=== PATIENT | male | born 1970 | race Caucasian/White ===

== ENCOUNTER 2016-10-11 06:04 | Inpatient (IN) | payer MEDICAID ==
[2016-10-11] MEDS ORDERED: Sodium Chloride 0.9% 1,000 ML IV ONE (06:27)
[2016-10-11 06:42] LABS: % EOSINOPHILS 0.7 % (0.0-5.0); NEUTROPHILE ABSOLUTE 10.3 Th/cmm (1.8-8.0); RED CELL DISTRIBUTION WIDTH 12.7 % (11.5-20.0)
[2016-10-11 06:44] LABS: % BASOPHILS 0.1 % (0.0-2.0); % LYMPHOCYTES 10.7 % (20.0-50.0); % MONOCYTES 4.9 % (2.0-10.0); % NEUTROPHILS 83.6 % (40.0-80.0); HEMOGLOBIN 14.7 gm/dL (13.2-17.3); MEAN CELL VOLUME 95.3 fl (80-99); MEAN CORPUSCULAR HEMOGLOBIN 31.8 pg (26.0-30.0); MEAN CORPUSCULAR HGB CONC 33.4 pg (28.0-36.0); MEAN PLATELET VOLUME 9.5 fl; PLATELET COUNT 222 Th/cmm (150-400); RED BLOOD COUNT 4.61 Mil/cmm (4.30-5.70)
[2016-10-11] MEDS ORDERED: Piperacillin Sodium/Tazobact 3.375 gm Vial IV ONE (06:51)
[2016-10-11 06:52] LABS: ALB/GLOB RATIO 1.1 (1.0-1.8); ALKALINE PHOSPHATASE 77 U/L (34-104); ANION GAP 7.9 (7.0-16.0); BILIRUBIN,TOTAL 0.4 mg/dL (0.3-1.0); BUN - UREA NITROGEN 22 mg/dL (7-25); CALCIUM SERUM 9.9 mg/dL (8.6-10.3); CHLORIDE 105 mEq/L (98-107); CREATININE - SERUM 0.2 mg/dL (0.7-1.3); GLUCOSE 140 mg/dL (70-105); INR 0.98 (0.5-1.4); POTASSIUM SERUM 3.9 mEq/L (3.5-5.1); PROTHROMBIN TIME (TEST) 10.2 SECONDS (9.5-11.5); SGOT 27 U/L (13-39); SGPT/ALT 35 U/L (7-52); SODIUM SERUM 138 mEq/L (136-145)
[2016-10-11 06:54] LABS: HEMATOCRIT 43.9 % (39.0-49.0); WHITE BLOOD COUNT 12.3 Th/cmm (4.8-10.8)
--- NOTE | 2016-10-11 07:08 | ED Physician Chart ---
Chief Complaint/HPI - Patient Information Date Seen:: 10/11/16 Time Seen:: 06:05 Chief Complaint:: fever History of Present Illness:: 46-year-old male history of cerebral palsy, brought in by ambulance from skilled facility with acute, constant, severe, fever that started last night. Patient received rectal 650 mg Tylenol which improved the fever slightly but fever continued. MAXIMUM TEMPERATURE was 103.4F. On arrival he was 102.8F. History limited by patient's underlying cerebral palsy and is unable to communicate [facility] and EMS run sheet Allergies:: Allergies Allergy/AdvReac Type Severity Reaction Status Date / Time No Known Allergies Allergy Verified 10/11/16 06:26 Vitals:: Vital Signs - 8 hr 10/11/16 06:05 Temp 102.8 F HR 115 RR 23 BP 142/96 O2 Sat % 93 Historian:: EMS Review:: Nurse's Note Reviewed, EMS run form Reviewed, Transfer documents Reviewed Review of Systems - Review of Systems Other: Complete system review otherwise unremarkable except as noted in history of present illness. Past Medical History - Past Medical History Past Medical History: Other (profound and social disability, cervical palsy, quadriplegia, history of aspiration pneumonia, dysphagia) Social History: Non Smoker, No Alcohol, No Drug Use, Care Facility Surgical History: None Psychiatricy History: None Medication: Reviewed Family Medical History - Family Member Mother History Unknown: Yes Physical Exam - Physical Examination Other:: INITIAL VITAL SIGNS: Reviewed by me GENERAL: Patient is lying on gurney HEAD: Head is normocephalic. No evidence of trauma. No scalp or facial swelling EYES: No scleral icterus bilaterally ENT: Oropharynx is clear of exudate and erythema NECK: Supple. No meningismus. No masses. No evidence of trauma. No cervical spine bony step-offs or crepitus to palpation RESPIRATORY: Tachypneic. Coarse breath sounds right lower lobe. CV: Regular rate and rhythm. No murmurs, rubs, or gallops ABDOMEN: Soft, non-distended. No masses. G-tube in place. BACK: No ecchymoses. No evidence of trauma EXTREMITIES: Normal to inspection and palpation. Extremities are chronically contracted SKIN: Warm and dry. No obvious rash. No jaundice NEUROLOGIC: Face is symmetric. Withdraws to pain in all extremities Labs/Radiology/EKG Results - Lab Results Results: Laboratory Tests 10/11/16 10/11/16 10/11/16 06:25 06:25 06:25 WBC 12.3 H D RBC 4.61 Hgb 14.7 Hct 43.9 D MCV 95.3 MCH 31.8 H MCHC Differential 33.4 RDW 12.7 Plt Count 222 MPV 9.5 Neutrophils % 83.6 H Lymphocytes % 10.7 L Monocytes % 4.9 Eosinophils % 0.7 Basophils % 0.1 Sodium 138 Potassium 3.9 Chloride 105 Carbon Dioxide 29.0 Anion Gap 7.9 BUN 22 Creatinine 0.2 L Est GFR ( Amer) > 60.0 Est GFR (Non-Af Amer) > 60.0 BUN/Creatinine Ratio 110.0 Glucose 140 H Whole Bld Lactic Acid 1.00 Calcium 9.9 Total Bilirubin 0.4 AST 27 ALT 35 Alkaline Phosphatase 77 Creatine Kinase 368 H Total Protein 8.3 Albumin 4.4 Globulin 3.9 Albumin/Globulin Ratio 1.1 - Radiology Results Results: Single AP VIEW Portable Chest X-ray was interpreted independently and contemporaneously by Tavia Lew MD: No cardiomegaly Normal mediastinum Possible right lower lobe infiltrates No pneumothorax No soft tissue or bony abnormalities - EKG Interpretations Comments:: 12-lead EKG Interpretation by Tavia Lew MD: Last tachycardia with ventricular rate of 123 beats per minute Normal axis Normal intervals No acute ST or T wave changes. No obvious STEMI Assessment - Assessment General Assessment: Critical Care Time: 30 minutes Treatments/Evaluations: Close monitoring and treatment of unstable vital signs, cardiorespiratory, and neurologic status, while maintaining tight balance of fluid, respiratory, and cardiac interventions. This time includes discussing the case with the patient and the patient's family. This time does not include all procedures stated elsewhere in this record. This time also includes reviewing old records, labs and radiological studies. This time includes examining and re-examining the patient. Additionally, this time also includes arranging care with admitting and consulting physicians. Critical Care Time: 30 Excludes all billable procedures: Yes This condition life threatening/high prob of deterioration: Yes ED Septic Shock - . Is Septic Shock (SBP<90, OR Lactate>4 mmol\L) present?: No - <6hrs of presentation: Vital Signs: Vital Signs - 8 hr 10/11/16 06:05 Temp 102.8 F HR 115 RR 23 BP 142/96 O2 Sat % 93 Reassessment (Disposition) - Reassessment Reassessment:: 46-year-old male history of cerebral palsy and profound intellectual disability , history of aspiration pneumonia presents with acute fever. Patient did receive ibuprofen through the G-tube here. Also gave IV fluids. Patient was tachycardic. X-rays indicate possible right lower lobe infiltrates. He is known to aspirate and become septic with aspiration pneumonia. Patient appears septic with tachycardia elevated white count and right lower lobe infiltrates due to likely aspiration pneumonia. We have covered with IV Zosyn for the aspiration pneumonia. Discussed with admitting physician. Patient benefit further workup and treatment. Reassessment Condition:: Unchanged - Diagnosis Diagnosis:: Sepsis, aspiration pneumonia, right lower lobe - Aftercare/Follow up Instructions Aftercare/Follow-Up Instructions:: Counseled pt regarding lab results/diagnosis & need follow up, Refer to Discharge Instructions - Patient Disposition Discharge/Transfer:: Acute Care w/in this hosp Time:: 07:13 Condition at Disposition:: Stable
[2016-10-11 07:33] LABS: URINE BILIRUBIN NEGATIVE (NEGATIVE); URINE BLOOD NEGATIVE (NEGATIVE); URINE COLOR YELLOW; URINE GLUCOSE (UA) NEGATIVE (NEGATIVE); URINE KETONE NEGATIVE (NEGATIVE)
[2016-10-11 07:34] LABS: URINE BACTERIA NONE SEEN /hpf (NONE SEEN); URINE EPITHELIAL CELLS NONE SEEN /lpf (FEW); URINE PH 8.5; URINE PROTEIN 100 mg/dL (NEGATIVE); URINE RBC NONE SEEN /hpf (0-5); URINE UROBILINOGEN 0.2 E.U./dL (0.2 - 1.0); URINE WBC NONE SEEN /hpf (0-5)
--- NOTE | 2016-10-11 09:14 | Diagnostic Imaging Report ---
Portable chest x-ray HISTORY: Pain Exam is very limited due to difficulty in patient positioning. The right lower chest is partially secured by the patient's overlying hand. The heart appears enlarged. Allowing for a poor inspiration, no definite acute focal point processes are seen. Scoliosis and degenerative changes seen through the spine. IMPRESSION: 1. Very Limited/suboptimal exam 2. Allowing for a poor inspiration, no definite focal processes. 3. Scoliosis and degenerative changes seen through the spine.
[2016-10-11] MEDS ORDERED: D5-0.45NS 1,000 ML IV SCH (09:15)
[2016-10-11] MEDS: D5-0.45NS 1,000 ML IV SCH ×2 (10:48→21:00)
--- NOTE | 2016-10-11 11:35 | Admit Criteria Form ---
Admit Criteria Forms - Admit Criteria Diagnosis: SEPSIS and OTHER FEBRILE ILLNESS, W/O FOCAL INFECTION Clinical Indications for Admission to Inpatient Care ( Place 'X' for any and all applicable criteria): Admission is indicated for ANY ONE of the following (1)(2)(3)(4): [ ] I. Bacteremia [X]II. Suspected or identified specific infection requiring hospitalization (eg, meningitis, endocarditis) [ ]III. Hemodynamic instability [ ]IV. Altered mental status [ ]V. Failure or unavailability of outpatient antimicrobial treatment [ ]. Hypoxemia [ ]VII. Seizures [ ]VIII. High-risk febrile neutropenia [ ]IX. Need for parenteral antibiotic in patient who is likely to abuse vascular access device (eg, injection drug user) [A](7) [ ]X. Temperature greater than 104.9 degrees F (40.5 degrees C) (oral) [ ]XI. Inpatient admission required rather than observation care because of ANY ONE of the following: [ ]1) Specific infection identified that is too severe for outpatient treatment or observation care trial [ ]2) Metabolic disorder (eg, hypoglycemia, hyperglycemia, metabolic acidosis) that is severe or persistent [ ]3) Temperature greater than 103.1 degrees F (39.5 degrees C) ( oral) that is not responsive to observation care treatment [ ]4) IV fluid to replace significant ongoing (eg, for over 24 hours) losses (> 3 L/m2 per day) [ ]5) Supplemental oxygen or respiratory treatments for over 24 hours that is performable only in acute inpatient setting [ ]6) Parenteral nutrition regimen need that must be implemented on inpatient basis [ ]7) Strict or protective (eg, laminar flow) isolation [ ]8) Other condition, treatment or monitoring requiring inpatient admission Extended stay beyond goal length of stay may be needed for(1)(3) [ ]a) Sepsis or septic shock(22) [ ]b) Positive blood cultures [ ]c) Insufficient oral intake [ ]d) High-risk febrile neutropenia(29)(30) [ ]e) Continued fever and clinical instability [ ]f) Clinically active comorbid illness (e.g,heart failure, renal failure , diabetes) The original [facility] content created by Cynthia Keen has been revised. The portions of the content which have been revised are identified through the use of italic text or in bold, and Cynthia Herrera[employer]osk has neither reviewed nor approved the modified material. All other unmodified content is copyright [facility]. Please see references footnoted in the original [facility] edition 2016
[2016-10-11] MEDS ORDERED: BISACODYL 10 MG RC PRN (16:24)
[2016-10-11] MEDS ORDERED: Fleet Enema 135 mL RC PRN (16:24)
--- NOTE | 2016-10-11 16:24 | Internal Medicine Prog Note ---
Internal Medicine Subjective - Subjective Service Date: 10/11/16 ([facility] [id number]) Internal Medicine Objective - Results Result Diagrams: 10/11/16 06:25 10/11/16 06:25 Recent Labs: Laboratory Last Values WBC 12.3 Th/cmm (4.8-10.8) H D 10/11/16 06:25 RBC 4.61 Mil/cmm (4.30-5.70) 10/11/16 06:25 Hgb 14.7 gm/dL (13.2-17.3) 10/11/16 06:25 Hct 43.9 % (39.0-49.0) D 10/11/16 06:25 MCV 95.3 fl (80-99) 10/11/16 06:25 MCH 31.8 pg (26.0-30.0) H 10/11/16 06:25 MCHC Differential 33.4 pg (28.0-36.0) 10/11/16 06:25 RDW 12.7 % (11.5-20.0) 10/11/16 06:25 Plt Count 222 Th/cmm (150-400) 10/11/16 06:25 MPV 9.5 fl 10/11/16 06:25 Neutrophils % 83.6 % (40.0-80.0) H 10/11/16 06:25 Lymphocytes % 10.7 % (20.0-50.0) L 10/11/16 06:25 Monocytes % 4.9 % (2.0-10.0) 10/11/16 06:25 Eosinophils % 0.7 % (0.0-5.0) 10/11/16 06:25 Basophils % 0.1 % (0.0-2.0) 10/11/16 06:25 PT 10.2 SECONDS (9.5-11.5) 10/11/16 06:25 INR 0.98 (0.5-1.4) 10/11/16 06:25 PTT (Actin FS) 26.5 SECONDS (26.0-38.0) 10/11/16 06:25 Sodium 138 mEq/L (136-145) 10/11/16 06:25 Potassium 3.9 mEq/L (3.5-5.1) 10/11/16 06:25 Chloride 105 mEq/L (98-107) 10/11/16 06:25 Carbon Dioxide 29.0 mEq/L (21.0-31.0) 10/11/16 06:25 Anion Gap 7.9 (7.0-16.0) 10/11/16 06:25 BUN 22 mg/dL (7-25) 10/11/16 06:25 Creatinine 0.2 mg/dL (0.7-1.3) L 10/11/16 06:25 Est GFR ( Amer) > 60.0 ml/min (>90) 10/11/16 06:25 Est GFR (Non-Af Amer) > 60.0 ml/min 10/11/16 06:25 BUN/Creatinine Ratio 110.0 10/11/16 06:25 Glucose 140 mg/dL (70-105) H 10/11/16 06:25 Whole Bld Lactic Acid 1.00 mmol/L (0.60-1.99) 10/11/16 06:25 Calcium 9.9 mg/dL (8.6-10.3) 10/11/16 06:25 Total Bilirubin 0.4 mg/dL (0.3-1.0) 10/11/16 06:25 AST 27 U/L (13-39) 10/11/16 06:25 ALT 35 U/L (7-52) 10/11/16 06:25 Alkaline Phosphatase 77 U/L (34-104) 10/11/16 06:25 Creatine Kinase 368 U/L (30-223) H 10/11/16 06:25 CK-MB (CK-2) 4.0 ng/mL (0.6-6.3) 10/11/16 06:25 Total Protein 8.3 gm/dL (6.0-8.3) 10/11/16 06:25 Albumin 4.4 gm/dL (4.2-5.5) 10/11/16 06:25 Globulin 3.9 gm/dL 10/11/16 06:25 Albumin/Globulin Ratio 1.1 (1.0-1.8) 10/11/16 06:25 Urine Source CATH 10/11/16 07:05 Urine Color YELLOW 10/11/16 07:05 Urine Clarity CLEAR (CLEAR) 10/11/16 07:05 Urine pH 8.5 10/11/16 07:05 Ur Specific Echo 1.020 (1.005-1.030) 10/11/16 07:05 Urine Protein 100 mg/dL (NEGATIVE) H 10/11/16 07:05 Urine Glucose (UA) NEGATIVE mg/dL (NEGATIVE) 10/11/16 07:05 Urine Ketones NEGATIVE mg/dL (NEGATIVE) 10/11/16 07:05 Urine Blood NEGATIVE (NEGATIVE) 10/11/16 07:05 Urine Nitrate NEGATIVE (NEGATIVE) 10/11/16 07:05 Urine Bilirubin NEGATIVE (NEGATIVE) 10/11/16 07:05 Urine Urobilinogen 0.2 E.U./dL (0.2 - 1.0) 10/11/16 07:05 Ur Leukocyte Esterase NEGATIVE (NEGATIVE) 10/11/16 07:05 Urine RBC NONE SEEN /hpf (0-5) 10/11/16 07:05 Urine WBC NONE SEEN /hpf (0-5) 10/11/16 07:05 Ur Epithelial Cells NONE SEEN /lpf (FEW) 10/11/16 07:05 Urine Bacteria NONE SEEN /hpf (NONE SEEN) 10/11/16 07:05 - Physical Exam Vitals and I&O: Vital Signs Temp 100.3 F 10/11/16 15:00 Pulse 111 10/11/16 15:00 Resp 20 10/11/16 15:00 BP 137/90 10/11/16 15:00 Pulse Ox 97 10/11/16 15:00 Intake & Output 10/10/16 10/11/16 10/11/16 18:59 06:59 18:59 Intake Total 50 Balance 50 Intake: Intake, IV Amount 50 Piperacillin Sodium/ 50 Tazobact 3.375 gm In Sodium Chloride 0.9% 50 ml @ 100 mls/hr IV Q6HR [facility] Rx#:[id number] Other: Stool Characteristics Soft Formed Active Medications: Current Medications Acetaminophen (Tylenol 650mg Supp) 650 mg RC Q4HR PRN PRN Reason: Fever > 101 Stop: 12/10/16 09:14 Last Admin: 10/11/16 13:40 Dose: 650 mg Dextrose/Sodium Chloride (D5-0.45ns) 1,000 mls @ 100 mls/hr IV .Q10H [facility] Stop: 12/10/16 09:14 Last Admin: 10/11/16 10:48 Dose: 100 mls/hr Piperacillin Sod/Tazobactam (Sod 3.375 gm/ Sodium Chloride) 50 mls @ 100 mls/ hr IV Q6HR [facility] Stop: 12/10/16 11:59 Last Infusion: 10/11/16 12:58 Dose: Infused Lorazepam (Ativan) 0.5 mg IVP Q6HR PRN; Protocol PRN Reason: Seizures Stop: 12/10/16 09:14 - Procedures Procedures: Procedures Procedure Code Date CHANGE GASTROSTOMY TUBE 84878 05/19/14 DRAINAGE OF SKIN ABSCESS 71886 07/16/10 EGD BIOPSY SINGLE/MULTIPLE 75616 11/01/12 EMERGENCY DEPT VISIT 46363 07/12/11 ESOPHAGOGASTRODUODENOSCOPY [EGD] W/CLOSED BIOPSY 45.16 11/01/12 OTHER SKIN & SUBQ I D 86.04 07/16/10 REPLACE GASTROSTOMY TUBE 97.02 05/19/14 Internal Medicine Assmt/Plan - Assessment Assessment: FEVER SEPPSIS SEIZURE CEREBRAL PALSY OA
[2016-10-11] MEDS ORDERED: guaiFENesin 200 MG/10 ML UDC PO PRN (16:26)
[2016-10-11] MEDS ORDERED: Ipratropium Neb 0.5 mg/2.5 mL UD HHN ONE (16:35)
[2016-10-11] MEDS ORDERED: Albuterol Nebulizer 2.5mg/3mL HHN ONE (16:35)
[2016-10-11] MEDS: Ipratropium Neb 0.5 mg/2.5 mL UD IH SCH (16:36)
[2016-10-11] MEDS: Albuterol Nebulizer 2.5mg/3mL IH SCH (16:37)
--- NOTE | 2016-10-11 16:59 | History & Physical ---
pt seen and examined agree w below dr toledo ADMIT DATE: 10/11/2016 CHIEF COMPLAINT: Fever. HISTORY OF PRESENT ILLNESS: This is a 46-year-old male who is a resident of [facility] who has a 1-day history of fever. The patient received 650 mg of Tylenol at that facility and has been improved. In the ER, the patient's temperature was at 102.8. The patient's temperature at the nursing facility was at 103.4. For this reason, the patient is now admitted to the Med/Surg Unit. PAST MEDICAL HISTORY: Functional quadriplegia, seizures, cerebral palsy, osteoarthritis. PAST SURGICAL HISTORY: G-tube. ALLERGIES: No drug allergies. MEDICATIONS: Keppra, Tylenol, baclofen, cholecalciferol, clonazepam, folic acid, meloxicam, mineral oil, ____. FAMILY HISTORY: Noncontributory. SOCIAL HISTORY: The patient is a skilled nursing resident, requiring 24-hour total care. REVIEW OF SYSTEMS: Unable to obtain due to patient's mental status. The patient is nonverbal. PHYSICAL EXAMINATION: VITAL SIGNS: Temperature 100.3, heart rate 111, blood pressure 137/90, respirations 20, O2 97%. HEENT: Head; normocephalic, atraumatic. NECK: Supple. No mass. LUNGS: Rhonchi bilaterally. CARDIOVASCULAR: Regular rhythm. ABDOMEN: Soft and nontender. LABORATORY DATA: WBC 12.3, H and H 14.7 and 43.9, platelets of 222. Sodium ____, potassium 3.9, chloride 105, BUN 22, and creatinine 0.2. The patient had a urinalysis done negative for any UTI. DIAGNOSTICS: The patient had a chest x-ray done, the impression is allowing for poor inspiration, no acute focal process, scoliosis, degenerative changes seen through the spine, very limited suboptimal exam. ASSESSMENT: 1. Fever. 2. Possible sepsis. 3. Seizures, cerebral palsy, osteoarthritis. PLAN: We will go keep the patient on IV fluids for hydration and IV antibiotics. We will get Pulmonary on the case ____ we will do aspiration precautions. We will monitor the patient's laboratory results. We will continue to monitor the patient. JOB# [id number] [facility]
[2016-10-11] MEDS ORDERED: POLYVINYL ALCOHOL OP SCH (17:00)
[2016-10-11] MEDS ORDERED: MELOXICAM 7.5 MG GT SCH (17:00)
[2016-10-11] MEDS ORDERED: Non-Formulary Item 1 EA (Ferrous Sulfate [Ferosul] 7.5 ML) GT SCH (17:00)
[2016-10-11] MEDS: Levetiracetam 500 mg/5mL 5mL UDC PO SCH (17:26)
[2016-10-11] MEDS: Lactulose 10 Gm/15 mL 30mL UDC GT SCH (17:47)
[2016-10-11] MEDS ORDERED: BACLOFEN 20 MG GT SCH (21:00)
[2016-10-11] MEDS ORDERED: CLONAZEPAM 0.5 MG GT SCH (21:00)
[2016-10-12] MEDS: D5-0.45NS 1,000 ML IV SCH ×2 (06:26→23:24)
[2016-10-12 07:43] LABS: ANION GAP 10.5 (7.0-16.0); BUN - UREA NITROGEN 11 mg/dL (7-25); CALCIUM SERUM 9.6 mg/dL (8.6-10.3); CARBON DIOXIDE 25.3 mEq/L (21.0-31.0); CHLORIDE 102 mEq/L (98-107); CREATININE - SERUM 0.2 mg/dL (0.7-1.3); GLUCOSE 132 mg/dL (70-105); HEMOGLOBIN 14.4 gm/dL (13.2-17.3); MEAN CELL VOLUME 94.2 fl (80-99); MEAN CORPUSCULAR HEMOGLOBIN 32.3 pg (26.0-30.0); MEAN CORPUSCULAR HGB CONC 34.3 pg (28.0-36.0); MEAN PLATELET VOLUME 10.5 fl; POTASSIUM SERUM 3.8 mEq/L (3.5-5.1); RED BLOOD COUNT 4.46 Mil/cmm (4.30-5.70); RED CELL DISTRIBUTION WIDTH 12.7 % (11.5-20.0); SODIUM SERUM 134 mEq/L (136-145)
[2016-10-12 07:52] LABS: WHITE BLOOD COUNT 16.5 Th/cmm (4.8-10.8)
[2016-10-12 07:53] LABS: PLATELET COUNT NOT ABLE TO PERFORM Th/cmm (150-400)
[2016-10-12] MEDS: Ipratropium Neb 0.5 mg/2.5 mL UD IH SCH (08:04)
[2016-10-12] MEDS: Albuterol Nebulizer 2.5mg/3mL IH SCH (08:04)
[2016-10-12 08:27] LABS: BAND NEUTROPHILE 3 % (0-10); NEUTROPHILS 77 % (40-80); PLATELET ESTIMATE ADEQUATE (NORMAL); PLATELET MORPHOLOGY GIANT PLATELETS SEEN (NORMAL); TOTAL CELLS COUNTED 100
[2016-10-12] MEDS ORDERED: FOLIC ACID 1 MG GT SCH (09:00)
[2016-10-12] MEDS ORDERED: Non-Formulary Item 1 EA (Multivit,Th Iron,Other Min [Thera-M] 1 TAB) PO SCH (09:00)
[2016-10-12] MEDS ORDERED: Multivitamin 5 mL UDC GT SCH (09:00)
[2016-10-12] MEDS: Lactulose 10 Gm/15 mL 30mL UDC GT SCH ×2 (09:40→16:28)
[2016-10-12] MEDS: POLYETHYLENE GLYCOL 3350 17 GM PACK GT SCH (09:41)
[2016-10-12] MEDS: Ferrous Sulfate 300 MG/5 ML UDC PO SCH ×2 (09:41→16:28)
[2016-10-12] MEDS: Levetiracetam 500 mg/5mL 5mL UDC PO SCH ×2 (09:41→16:29)
[2016-10-12] MEDS: Pantoprazole 40 mg/Packet GT SCH (09:42)
[2016-10-12] MEDS: Vitamin D3 2,000 IU SGL PO SCH (09:43)
[2016-10-12] MEDS: Polyvinyl Alcohol Ophth Soln 15 mL Bottle EACH EYE SCH ×4 (09:54→21:35)
--- NOTE | 2016-10-12 10:27 | Internal Medicine Prog Note ---
Internal Medicine Subjective - Subjective Patient seen and examined:: with staff, chart reviewed Patient is:: awake, non-verbal, non-interactive, in bed, stares blankly Patient Complaints of:: congestion Per staff patient has:: no episodes of fall, other (had sz this am and fever) Internal Medicine Objective - Results Result Diagrams: 10/12/16 06:50 10/12/16 06:50 Recent Labs: Laboratory Last Values WBC 16.5 Th/cmm (4.8-10.8) H D 10/12/16 06:50 RBC 4.46 Mil/cmm (4.30-5.70) 10/12/16 06:50 Hgb 14.4 gm/dL (13.2-17.3) 10/12/16 06:50 Hct 42.0 % (39.0-49.0) 10/12/16 06:50 MCV 94.2 fl (80-99) 10/12/16 06:50 MCH 32.3 pg (26.0-30.0) H 10/12/16 06:50 MCHC Differential 34.3 pg (28.0-36.0) 10/12/16 06:50 RDW 12.7 % (11.5-20.0) 10/12/16 06:50 Plt Count NOT ABLE TO PERFORM Th/cmm (150-400) 10/12/16 06:50 MPV 10.5 fl 10/12/16 06:50 Neutrophils % 83.6 % (40.0-80.0) H 10/11/16 06:25 Band Neutrophils % 3 % (0-10) 10/12/16 06:50 Lymphocytes % 10.7 % (20.0-50.0) L 10/11/16 06:25 Monocytes % 4.9 % (2.0-10.0) 10/11/16 06:25 Eosinophils % 0.7 % (0.0-5.0) 10/11/16 06:25 Basophils % 0.1 % (0.0-2.0) 10/11/16 06:25 Neutrophils (Manual) 77 % (40-80) 10/12/16 06:50 Lymphocytes 8 % (20-50) L 10/12/16 06:50 Monocytes 12 % (2-10) H 10/12/16 06:50 Platelet Estimate ADEQUATE (NORMAL) 10/12/16 06:50 Platelet Morphology GIANT PLATELETS SEEN (NORMAL) 10/12/16 06:50 RBC Morph Micro Appear NORMAL (NORMAL) 10/12/16 06:50 PT 10.2 SECONDS (9.5-11.5) 10/11/16 06:25 INR 0.98 (0.5-1.4) 10/11/16 06:25 PTT (Actin FS) 26.5 SECONDS (26.0-38.0) 10/11/16 06:25 Sodium 134 mEq/L (136-145) L 10/12/16 06:50 Potassium 3.8 mEq/L (3.5-5.1) 10/12/16 06:50 Chloride 102 mEq/L (98-107) 10/12/16 06:50 Carbon Dioxide 25.3 mEq/L (21.0-31.0) 10/12/16 06:50 Anion Gap 10.5 (7.0-16.0) 10/12/16 06:50 BUN 11 mg/dL (7-25) 10/12/16 06:50 Creatinine 0.2 mg/dL (0.7-1.3) L 10/12/16 06:50 Est GFR ( Amer) > 60.0 ml/min (>90) 10/12/16 06:50 Est GFR (Non-Af Amer) > 60.0 ml/min 10/12/16 06:50 BUN/Creatinine Ratio 55.0 10/12/16 06:50 Glucose 132 mg/dL (70-105) H 10/12/16 06:50 Whole Bld Lactic Acid 1.00 mmol/L (0.60-1.99) 10/11/16 06:25 Calcium 9.6 mg/dL (8.6-10.3) 10/12/16 06:50 Total Bilirubin 0.4 mg/dL (0.3-1.0) 10/11/16 06:25 AST 27 U/L (13-39) 10/11/16 06:25 ALT 35 U/L (7-52) 10/11/16 06:25 Alkaline Phosphatase 77 U/L (34-104) 10/11/16 06:25 Creatine Kinase 368 U/L (30-223) H 10/11/16 06:25 CK-MB (CK-2) 4.0 ng/mL (0.6-6.3) 10/11/16 06:25 Total Protein 8.3 gm/dL (6.0-8.3) 10/11/16 06:25 Albumin 4.4 gm/dL (4.2-5.5) 10/11/16 06:25 Globulin 3.9 gm/dL 10/11/16 06:25 Albumin/Globulin Ratio 1.1 (1.0-1.8) 10/11/16 06:25 Urine Source CATH 10/11/16 07:05 Urine Color YELLOW 10/11/16 07:05 Urine Clarity CLEAR (CLEAR) 10/11/16 07:05 Urine pH 8.5 10/11/16 07:05 Ur Specific [place] 1.020 (1.005-1.030) 10/11/16 07:05 Urine Protein 100 mg/dL (NEGATIVE) H 10/11/16 07:05 Urine Glucose (UA) NEGATIVE mg/dL (NEGATIVE) 10/11/16 07:05 Urine Ketones NEGATIVE mg/dL (NEGATIVE) 10/11/16 07:05 Urine Blood NEGATIVE (NEGATIVE) 10/11/16 07:05 Urine Nitrate NEGATIVE (NEGATIVE) 10/11/16 07:05 Urine Bilirubin NEGATIVE (NEGATIVE) 10/11/16 07:05 Urine Urobilinogen 0.2 E.U./dL (0.2 - 1.0) 10/11/16 07:05 Ur Leukocyte Esterase NEGATIVE (NEGATIVE) 10/11/16 07:05 Urine RBC NONE SEEN /hpf (0-5) 10/11/16 07:05 Urine WBC NONE SEEN /hpf (0-5) 10/11/16 07:05 Ur Epithelial Cells NONE SEEN /lpf (FEW) 10/11/16 07:05 Urine Bacteria NONE SEEN /hpf (NONE SEEN) 10/11/16 07:05 - Physical Exam Vitals and I&O: Vital Signs Temp 103.6 F 10/12/16 10:18 Pulse 120 10/12/16 10:18 Resp 20 10/12/16 10:18 BP 127/103 10/12/16 10:18 Pulse Ox 96 10/12/16 10:18 Intake & Output 10/11/16 10/12/16 10/12/16 18:59 06:59 18:59 Intake Total 100 2878.333 Balance 100 2878.333 Weight (lbs) 57.606 kg Intake: Intake, IV Amount 100 1993.333 D5-0.45NS 1,000 ml @ 100 1943.333 mls/hr IV .Q10H [facility] Rx#: [id number] Piperacillin Sodium/ 100 50 Tazobact 3.375 gm In Sodium Chloride 0.9% 50 ml @ 100 mls/hr IV Q6HR [facility] Rx#:[id number] Tube Feeding 885 Other: Stool Characteristics Soft Formed Active Medications: Current Medications Acetaminophen (Tylenol 650mg Supp) 650 mg RC Q4HR PRN PRN Reason: Fever > 101 Stop: 12/10/16 09:14 Last Admin: 10/11/16 13:40 Dose: 650 mg Acetaminophen (Tylenol) 650 mg GT Q4HR PRN PRN Reason: Pain Or Fever above 101 Stop: 12/10/16 16:25 Last Admin: 10/12/16 08:32 Dose: 650 mg Albuterol Sulfate (Albuterol 2.5mg/3ml Neb Ud) 2.5 mg HHN QIDRT [facility] Stop: 12/11/16 10:59 Artificial Tears (Artificial Tears Ophth Soln) 2 drop EACH EYE QID [facility] Stop: 12/10/16 16:59 Last Admin: 10/12/16 09:54 Dose: 2 drop Baclofen (Lioresal) 20 mg GT TID [facility] Stop: 12/10/16 20:59 Last Admin: 10/12/16 09:42 Dose: 20 mg Bisacodyl (Dulcolax 10 Mg Supp) 10 mg RC DAILY PRN PRN Reason: Constipation Stop: 12/11/16 08:14 Calcium Carbonate (Calcium Carb) 600 mg GT BID [facility] Stop: 12/10/16 16:59 Last Admin: 10/12/16 09:43 Dose: 600 mg Clonazepam (Klonopin) 0.5 mg GT TID [facility] Stop: 12/10/16 20:59 Last Admin: 10/12/16 09:43 Dose: 0.5 mg Ferrous Sulfate (Iron) 300 mg PO BID [facility] Stop: 12/11/16 08:59 Last Admin: 10/12/16 09:41 Dose: 300 mg Folic Acid (Folate) 1 mg GT DAILY [facility] Stop: 12/11/16 08:59 Last Admin: 10/12/16 09:42 Dose: 1 mg Guaifenesin (Robitussin) 100 mg PO Q4H PRN PRN Reason: Cough or Congestion Stop: 12/10/16 16:25 Dextrose/Sodium Chloride (D5-0.45ns) 1,000 mls @ 100 mls/hr IV .Q10H [facility] Stop: 12/10/16 09:14 Last Admin: 10/12/16 06:26 Dose: 100 mls/hr Piperacillin Sod/Tazobactam (Sod 3.375 gm/ Sodium Chloride) 50 mls @ 100 mls/ hr IV Q6HR [facility] Stop: 12/10/16 11:59 Last Admin: 10/12/16 06:21 Dose: 100 mls/hr Ipratropium Neligh (Atrovent Neb 0.5mg/2.5ml) 0.5 mg HHN QIDRT [facility] Stop: 12/11/16 10:59 Lactulose (Cephulac) 20 gm GT BID [facility] Stop: 12/10/16 16:59 Last Admin: 10/12/16 09:40 Dose: 20 gm Levetiracetam (Keppra) 1,000 mg PO BID [facility] Stop: 12/11/16 10:22 Lorazepam (Ativan) 0.5 mg IVP Q6HR PRN; Protocol PRN Reason: Seizures Stop: 12/10/16 09:14 Last Admin: 10/12/16 08:49 Dose: 0.5 mg Mineral Oil (Mineral Oil 30 Ml) 30 ml GT HS [facility] Stop: 12/10/16 20:59 Last Admin: 10/11/16 22:25 Dose: 30 ml Miscellaneous (Meloxicam [Meloxicam*]) 7.5 mg GT BID [facility] Stop: 12/10/16 16:59 Multivitamins/Vitamin C (Theragran) 1 tab GT DAILY [facility] Stop: 12/11/16 09:59 Ondansetron HCl (Zofran) 4 mg IV Q8H PRN PRN Reason: Nausea / Vomiting Stop: 12/10/16 16:25 Pantoprazole Sodium (Protonix) 40 mg GT DAILY [facility] Stop: 12/11/16 08:59 Last Admin: 10/12/16 09:42 Dose: 40 mg Polyethylene Glycol (Miralax) 17 gm GT DAILY [facility] Stop: 12/11/16 08:59 Last Admin: 10/12/16 09:41 Dose: 17 gm Primidone (Mysoline) 50 mg GT BID [facility] Stop: 12/10/16 16:59 Last Admin: 10/12/16 09:42 Dose: 50 mg Simethicone (Mylicon) 80 mg GT QID [facility] Stop: 12/10/16 16:59 Last Admin: 10/12/16 09:43 Dose: 80 mg Sodium Chloride (Nacl Tab) 1 gm GT DAILY [facility] Stop: 12/11/16 08:59 Last Admin: 10/12/16 09:43 Dose: 1 gm Sodium Phosphate (Fleet Enema) 135 ml RC Q12H PRN PRN Reason: Constipation Stop: 12/10/16 16:23 Vitamin D (Vitamin D3) 2,000 iu PO DAILY [facility] Stop: 12/11/16 08:59 Last Admin: 10/12/16 09:43 Dose: 2,000 iu General: lethargic, demented, vegetative state, bilateral temporal wasting HEENT: NC/AT, PERRLA, anicteric sclerae Neck: Supple, No LAD Lungs: congested, chest deformity present Cardiovascular: RRR, Normal S1, Normal S2, without murmur Abdomen: soft, non-tender, globular, +GT Extremities: excoriation, contracture, deformity Neurological: no change, unable to follow command - Procedures Procedures: Procedures Procedure Code Date CHANGE GASTROSTOMY TUBE 95840 05/19/14 DRAINAGE OF SKIN ABSCESS 30808 07/16/10 EGD BIOPSY SINGLE/MULTIPLE 26358 11/01/12 EMERGENCY DEPT VISIT 53297 07/12/11 ESOPHAGOGASTRODUODENOSCOPY [EGD] W/CLOSED BIOPSY 45.16 11/01/12 OTHER SKIN & SUBQ I D 86.04 07/16/10 REPLACE GASTROSTOMY TUBE 97.02 05/19/14 Internal Medicine Assmt/Plan - Assessment Assessment: FEVER persistent SEPPSIS SEIZURE CEREBRAL PALSY OA - Plan Plan: cont on aggressive hydration cont on iv zosyn will add vanco will send blood cx barry castro
--- NOTE | 2016-10-12 10:43 | Diagnostic Imaging Report ---
CHEST X-RAY: AP view INDICATION: Fever COMPARISON: Chest x-ray 10/11/2016 FINDINGS: Low lung volumes are seen with bilateral perihilar densities greatest along left suprahilar region. No pleural effusions. Heart size is at the upper limits of normal. Severe scoliosis is noted. Gas-filled loops of bowel are seen along the upper abdomen. IMPRESSION: Low lung volumes with bilateral perihilar densities greatest along the left suprahilar region. Findings may be accentuated by patient's low lung volumes, however, developing perihilar infiltrates cannot be excluded.
[2016-10-12 11:04] LABS: CREATINE KINASE MB 3.4 ng/mL (0.6-6.3)
[2016-10-12] MEDS: Ipratropium Neb 0.5 mg/2.5 mL UD HHN SCH ×2 (12:30→18:36)
[2016-10-12] MEDS: Albuterol Nebulizer 2.5mg/3mL HHN SCH ×2 (12:30→18:36)
[2016-10-12] MEDS: Multivitamin Tab GT SCH (13:18)
[2016-10-13] MEDS: Albuterol Nebulizer 2.5mg/3mL HHN SCH ×4 (07:24→19:04)
[2016-10-13] MEDS: Ipratropium Neb 0.5 mg/2.5 mL UD HHN SCH ×4 (07:25→19:04)
[2016-10-13 08:13] LABS: % BASOPHILS 0.2 % (0.0-2.0); % EOSINOPHILS 0.9 % (0.0-5.0); % LYMPHOCYTES 10.7 % (20.0-50.0); % NEUTROPHILS 79.2 % (40.0-80.0); HEMATOCRIT 38.6 % (39.0-49.0); HEMOGLOBIN 13.1 gm/dL (13.2-17.3); MEAN CELL VOLUME 95.1 fl (80-99); MEAN CORPUSCULAR HEMOGLOBIN 32.2 pg (26.0-30.0); MEAN CORPUSCULAR HGB CONC 33.9 pg (28.0-36.0); MEAN PLATELET VOLUME 9.9 fl; NEUTROPHILE ABSOLUTE 11.8 Th/cmm (1.8-8.0); PLATELET COUNT 177 Th/cmm (150-400); RED BLOOD COUNT 4.06 Mil/cmm (4.30-5.70); RED CELL DISTRIBUTION WIDTH 12.7 % (11.5-20.0)
[2016-10-13 08:22] LABS: WHITE BLOOD COUNT 14.8 Th/cmm (4.8-10.8)
[2016-10-13 08:27] LABS: ALKALINE PHOSPHATASE 66 U/L (34-104); ANION GAP 10.4 (7.0-16.0); BILIRUBIN,TOTAL 0.8 mg/dL (0.3-1.0); BUN - UREA NITROGEN 9 mg/dL (7-25); BUN/CREATININE RATIO 22.5; CALCIUM SERUM 9.7 mg/dL (8.6-10.3); CARBON DIOXIDE 25.6 mEq/L (21.0-31.0); CHLORIDE 103 mEq/L (98-107); CREATININE - SERUM 0.4 mg/dL (0.7-1.3); GLUCOSE 153 mg/dL (70-105); MAGNESIUM 2.3 mg/dL (1.9-2.7); SGOT 26 U/L (13-39); SGPT/ALT 30 U/L (7-52); SODIUM SERUM 136 mEq/L (136-145)
[2016-10-13] MEDS: Ferrous Sulfate 300 MG/5 ML UDC PO SCH ×2 (09:07→16:48)
[2016-10-13] MEDS: Lactulose 10 Gm/15 mL 30mL UDC GT SCH ×2 (09:07→16:48)
[2016-10-13] MEDS: POLYETHYLENE GLYCOL 3350 17 GM PACK GT SCH (09:07)
[2016-10-13] MEDS: Pantoprazole 40 mg/Packet GT SCH (09:07)
[2016-10-13] MEDS: Multivitamin Tab GT SCH (09:08)
[2016-10-13] MEDS: Vitamin D3 2,000 IU SGL PO SCH (09:08)
[2016-10-13] MEDS: Polyvinyl Alcohol Ophth Soln 15 mL Bottle EACH EYE SCH ×4 (09:09→21:39)
[2016-10-13] MEDS: Levetiracetam 500 mg/5mL 5mL UDC PO SCH ×2 (09:09→16:48)
[2016-10-13] MEDS: D5-0.45NS 1,000 ML IV SCH (13:30)
--- NOTE | 2016-10-13 13:34 | Internal Medicine Prog Note ---
Internal Medicine Subjective - Subjective Service Date: 10/13/16 (abdominal noted to be distended, per nursing staff patient had x1 larg bm) Patient seen and examined:: with staff Patient is:: awake Per staff patient has:: no adverse event Internal Medicine Objective - Results Result Diagrams: 10/13/16 08:00 10/13/16 08:00 Recent Labs: Laboratory Last Values WBC 14.8 Th/cmm (4.8-10.8) H 10/13/16 08:00 RBC 4.06 Mil/cmm (4.30-5.70) L 10/13/16 08:00 Hgb 13.1 gm/dL (13.2-17.3) L 10/13/16 08:00 Hct 38.6 % (39.0-49.0) L 10/13/16 08:00 MCV 95.1 fl (80-99) 10/13/16 08:00 MCH 32.2 pg (26.0-30.0) H 10/13/16 08:00 MCHC Differential 33.9 pg (28.0-36.0) 10/13/16 08:00 RDW 12.7 % (11.5-20.0) 10/13/16 08:00 Plt Count 177 Th/cmm (150-400) 10/13/16 08:00 MPV 9.9 fl 10/13/16 08:00 Neutrophils % 79.2 % (40.0-80.0) 10/13/16 08:00 Band Neutrophils % 3 % (0-10) 10/12/16 06:50 Lymphocytes % 10.7 % (20.0-50.0) L 10/13/16 08:00 Monocytes % 9.0 % (2.0-10.0) 10/13/16 08:00 Eosinophils % 0.9 % (0.0-5.0) 10/13/16 08:00 Basophils % 0.2 % (0.0-2.0) 10/13/16 08:00 Neutrophils (Manual) 77 % (40-80) 10/12/16 06:50 Lymphocytes 8 % (20-50) L 10/12/16 06:50 Monocytes 12 % (2-10) H 10/12/16 06:50 Platelet Estimate ADEQUATE (NORMAL) 10/12/16 06:50 Platelet Morphology GIANT PLATELETS SEEN (NORMAL) 10/12/16 06:50 RBC Morph Micro Appear NORMAL (NORMAL) 10/12/16 06:50 PT 10.2 SECONDS (9.5-11.5) 10/11/16 06:25 INR 0.98 (0.5-1.4) 10/11/16 06:25 PTT (Actin FS) 26.5 SECONDS (26.0-38.0) 10/11/16 06:25 Sodium 136 mEq/L (136-145) 10/13/16 08:00 Potassium 3.0 mEq/L (3.5-5.1) L 10/13/16 08:00 Chloride 103 mEq/L (98-107) 10/13/16 08:00 Carbon Dioxide 25.6 mEq/L (21.0-31.0) 10/13/16 08:00 Anion Gap 10.4 (7.0-16.0) 10/13/16 08:00 BUN 9 mg/dL (7-25) 10/13/16 08:00 Creatinine 0.4 mg/dL (0.7-1.3) L 10/13/16 08:00 Est GFR ( Amer) > 60.0 ml/min (>90) 10/13/16 08:00 Est GFR (Non-Af Amer) > 60.0 ml/min 10/13/16 08:00 BUN/Creatinine Ratio 22.5 10/13/16 08:00 Glucose 153 mg/dL (70-105) H 10/13/16 08:00 Whole Bld Lactic Acid 1.00 mmol/L (0.60-1.99) 10/11/16 06:25 Calcium 9.7 mg/dL (8.6-10.3) 10/13/16 08:00 Magnesium 2.3 mg/dL (1.9-2.7) 10/13/16 08:00 Total Bilirubin 0.8 mg/dL (0.3-1.0) 10/13/16 08:00 AST 26 U/L (13-39) 10/13/16 08:00 ALT 30 U/L (7-52) 10/13/16 08:00 Alkaline Phosphatase 66 U/L (34-104) 10/13/16 08:00 Ammonia 67 umol/L (16-53) H 10/13/16 08:00 Creatine Kinase 452 U/L (30-223) H 10/12/16 06:50 CK-MB (CK-2) 3.4 ng/mL (0.6-6.3) 10/12/16 06:50 B-Natriuretic Peptide 71.9 pg/mL (5.0-100.0) 10/13/16 08:00 Total Protein 7.4 gm/dL (6.0-8.3) 10/13/16 08:00 Albumin 3.7 gm/dL (4.2-5.5) L 10/13/16 08:00 Globulin 3.7 gm/dL 10/13/16 08:00 Albumin/Globulin Ratio 1.0 (1.0-1.8) 10/13/16 08:00 Urine Source CATH 10/11/16 07:05 Urine Color YELLOW 10/11/16 07:05 Urine Clarity CLEAR (CLEAR) 10/11/16 07:05 Urine pH 8.5 10/11/16 07:05 Ur Specific [place] 1.020 (1.005-1.030) 10/11/16 07:05 Urine Protein 100 mg/dL (NEGATIVE) H 10/11/16 07:05 Urine Glucose (UA) NEGATIVE mg/dL (NEGATIVE) 10/11/16 07:05 Urine Ketones NEGATIVE mg/dL (NEGATIVE) 10/11/16 07:05 Urine Blood NEGATIVE (NEGATIVE) 10/11/16 07:05 Urine Nitrate NEGATIVE (NEGATIVE) 10/11/16 07:05 Urine Bilirubin NEGATIVE (NEGATIVE) 10/11/16 07:05 Urine Urobilinogen 0.2 E.U./dL (0.2 - 1.0) 10/11/16 07:05 Ur Leukocyte Esterase NEGATIVE (NEGATIVE) 10/11/16 07:05 Urine RBC NONE SEEN /hpf (0-5) 10/11/16 07:05 Urine WBC NONE SEEN /hpf (0-5) 10/11/16 07:05 Ur Epithelial Cells NONE SEEN /lpf (FEW) 10/11/16 07:05 Urine Bacteria NONE SEEN /hpf (NONE SEEN) 10/11/16 07:05 Vancomycin Trough 12.8 ug/mL (10-20) 10/13/16 08:00 - Physical Exam Vitals and I&O: Vital Signs Temp 97.5 F 10/13/16 08:00 Pulse 101 10/13/16 11:50 Resp 20 10/13/16 11:50 BP 121/79 10/13/16 08:00 Pulse Ox 97 10/13/16 11:50 Intake & Output 10/12/16 10/13/16 10/13/16 18:59 06:59 18:59 Intake Total 1350 400 244.445 Balance 1350 400 244.445 Weight (lbs) 127 lb 127 lb Intake: Intake, IV Amount 1300 400 244.445 D5-0.45NS 1,000 ml @ 100 1000 mls/hr IV .Q10H [facility] Rx#: [id number] Piperacillin Sodium/ 50 150 Tazobact 3.375 gm In Sodium Chloride 0.9% 50 ml @ 100 mls/hr IV Q6HR [facility] Rx#:[id number] Vancomycin HCl 1 gm In 250 250 244.445 Sodium Chloride 0.9% 250 ml @ 166.667 mls/hr IV Q12HR [facility] Rx#:[id number] Tube Feeding 50 Other: # Voids 3 1 # Bowel Movements 1 Active Medications: Current Medications Acetaminophen (Tylenol 650mg Supp) 650 mg RC Q4HR PRN PRN Reason: Fever > 101 Stop: 12/10/16 09:14 Last Admin: 10/12/16 14:13 Dose: 650 mg Acetaminophen (Tylenol) 650 mg GT Q4HR PRN PRN Reason: Pain Or Fever above 101 Stop: 12/10/16 16:25 Last Admin: 10/13/16 06:06 Dose: 650 mg Albuterol Sulfate (Albuterol 2.5mg/3ml Neb Ud) 2.5 mg HHN QIDRT [facility] Stop: 12/11/16 10:59 Last Admin: 10/13/16 11:48 Dose: 2.5 mg Artificial Tears (Artificial Tears Ophth Soln) 2 drop EACH EYE QID [facility] Stop: 12/10/16 16:59 Last Admin: 10/13/16 12:30 Dose: 2 drop Baclofen (Lioresal) 20 mg GT TID [facility] Stop: 12/10/16 20:59 Last Admin: 10/13/16 13:08 Dose: 20 mg Bisacodyl (Dulcolax 10 Mg Supp) 10 mg RC DAILY PRN PRN Reason: Constipation Stop: 12/11/16 08:14 Calcium Carbonate (Calcium Carb) 600 mg GT BID [facility] Stop: 12/10/16 16:59 Last Admin: 10/13/16 09:08 Dose: 600 mg Clonazepam (Klonopin) 0.5 mg GT TID [facility] Stop: 12/10/16 20:59 Last Admin: 10/13/16 13:11 Dose: 0.5 mg Ferrous Sulfate (Iron) 300 mg PO BID [facility] Stop: 12/11/16 08:59 Last Admin: 10/13/16 09:07 Dose: 300 mg Folic Acid (Folate) 1 mg GT DAILY [facility] Stop: 12/11/16 08:59 Last Admin: 10/13/16 09:08 Dose: 1 mg Guaifenesin (Robitussin) 100 mg PO Q4H PRN PRN Reason: Cough or Congestion Stop: 12/10/16 16:25 Last Admin: 10/13/16 06:07 Dose: 100 mg Piperacillin Sod/Tazobactam (Sod 3.375 gm/ Sodium Chloride) 50 mls @ 100 mls/ hr IV Q6HR [facility] Stop: 12/10/16 11:59 Last Admin: 10/13/16 12:00 Dose: 100 mls/hr Vancomycin HCl 1 gm/ Sodium (Chloride) 250 mls @ 166.667 mls/hr IV Q12HR [facility] Stop: 12/11/16 12:59 Last Infusion: 10/13/16 10:35 Dose: 166.67 mls/hr Potassium Chloride 40 meq/Lidocaine HCl 25 mg/ Sodium Chloride 272.5 mls @ 68 mls/hr IV X1 ONE Stop: 10/13/16 17:28 Dextrose/Sodium Chloride (D5-0.45ns) 1,000 mls @ 80 mls/hr IV .[id number] [facility] Stop: 12/10/16 09:14 Ipratropium [place] (Atrovent Neb 0.5mg/2.5ml) 0.5 mg HHN QIDRT [facility] Stop: 12/11/16 10:59 Last Admin: 10/13/16 11:48 Dose: 0.5 mg Lactulose (Cephulac) 20 gm GT BID [facility] Stop: 12/10/16 16:59 Last Admin: 10/13/16 09:07 Dose: 20 gm Levetiracetam (Keppra) 1,000 mg PO BID [facility] Stop: 12/11/16 10:22 Last Admin: 10/13/16 09:09 Dose: 1,000 mg Lorazepam (Ativan) 0.5 mg IVP Q6HR PRN; Protocol PRN Reason: Seizures Stop: 12/10/16 09:14 Last Admin: 10/12/16 08:49 Dose: 0.5 mg Mineral Oil (Mineral Oil 30 Ml) 30 ml GT HS [facility] Stop: 12/10/16 20:59 Last Admin: 10/12/16 21:29 Dose: 30 ml Miscellaneous (Meloxicam [Meloxicam*]) 7.5 mg GT BID [facility] Stop: 12/10/16 16:59 Miscellaneous (Vancomycin Iv Per Pharmacy) 1 ea MC PRN [facility] Stop: 12/11/16 11:59 Multivitamins/Vitamin C (Theragran) 1 tab GT DAILY [facility] Stop: 12/11/16 09:59 Last Admin: 10/13/16 09:08 Dose: 1 tab Mupirocin (Bactroban Oint) 1 appl TP BID [facility] Stop: 12/12/16 08:59 Last Admin: 10/13/16 09:09 Dose: 1 appl Ondansetron HCl (Zofran) 4 mg IV Q8H PRN PRN Reason: Nausea / Vomiting Stop: 12/10/16 16:25 Pantoprazole Sodium (Protonix) 40 mg GT DAILY [facility] Stop: 12/11/16 08:59 Last Admin: 10/13/16 09:07 Dose: 40 mg Polyethylene Glycol (Miralax) 17 gm GT DAILY [facility] Stop: 12/11/16 08:59 Last Admin: 10/13/16 09:07 Dose: 17 gm Primidone (Mysoline) 50 mg GT BID [facility] Stop: 12/10/16 16:59 Last Admin: 10/13/16 09:08 Dose: 50 mg Simethicone (Mylicon) 80 mg GT QID [facility] Stop: 12/10/16 16:59 Last Admin: 10/13/16 13:08 Dose: 80 mg Sodium Chloride (Nacl Tab) 1 gm GT DAILY [facility] Stop: 12/11/16 08:59 Last Admin: 10/13/16 09:09 Dose: 1 gm Sodium Phosphate (Fleet Enema) 135 ml RC Q12H PRN PRN Reason: Constipation Stop: 12/10/16 16:23 Vitamin D (Vitamin D3) 2,000 iu PO DAILY [facility] Stop: 12/11/16 08:59 Last Admin: 10/13/16 09:08 Dose: 2,000 iu General: congested HEENT: NC/AT, PERRLA Neck: Supple Lungs: rales, ronchi - Procedures Procedures: Procedures Procedure Code Date CHANGE GASTROSTOMY TUBE 70970 05/19/14 DRAINAGE OF SKIN ABSCESS 19963 07/16/10 EGD BIOPSY SINGLE/MULTIPLE 42837 11/01/12 EMERGENCY DEPT VISIT 96150 07/12/11 ESOPHAGOGASTRODUODENOSCOPY [EGD] W/CLOSED BIOPSY 45.16 11/01/12 OTHER SKIN & SUBQ I D 86.04 07/16/10 REPLACE GASTROSTOMY TUBE 97.02 05/19/14 Internal Medicine Assmt/Plan - Assessment Assessment: FEVER SEPPSIS SEIZURE CEREBRAL PALSY OA - Plan Plan: KUB today continue ivabx bronchodilators supplemental oxygen am labs cpm Nutritional Asmnt/Malnutr-PDOC - Dietary Evaluation Malnutrition Findings (Please click <Entered> for more info): Nutritional Asmnt/Malnutrition Start: 10/12/16 15: 54 Text: Status: Complete Freq: Document 10/12/16 15:54 GSUN (Rec: 10/12/16 16:18 GSUN [email or web address]) Nutritional Asmnt/Malnutrition Patient General Information Nutritional Screening Consult Diagnosis Fever, sepsis Pertinent Medical Hx/Surgical Hx Functional quadriplegia, seizure, cerebral palsy, osteoarthritis, g-tube Subjective Information 46 year old male from SNF. Pt appeared soundly asleep eyes open during visit, did not respond to RD's call. Observed tube feeding off at this time as ordered, toelrating well since adm per RN assessments. No significant muscle/fat wasting noted, bedscale CBW 131.6lb. 10/11 RN noted BM x2 large and soft. 10/12 RN noted pt's abdomen distended and hard, MD aware. Current Diet Order/ Nutrition Support Fibersource 70ml/hr x 16hrs, 1120ml total volume, 1344kcal, 60g protein Pertinent Medications Dulcolax, D5-0.45ns, Iron, Folate, Mineral Oil, Vancomycin, Theragran, Zofran, Protonix, Miralax, Fleet enema, Vitamin D3 Pertinent Labs Reviewed. Nutritional Hx/Data Height 4 ft 10 in Height (Calculated Centimeters) 147.3 Current Weight (lbs) 131 lb 9.6 oz Weight (Calculated Kilograms) 59.7 Weight (Calculated Grams) 67790.8 GI Symptoms Usual diet at home Malika Shaver: Jevity 1.2 at 78ml/hr x 16hrs, 1248ml, 1497kcal Skin Integrity/Comment: Ferdinand 11. Skin intact. Estimated Nutritional Goals BEE in Kcals: Using Current wt Calories/Kcals/Kg CBW 131.6lb/59.8kg Kcals Calculated 1495-1794kcal (25-30kcal/kg, sepsis vs quadriplegia) Protein: Using Current wt Protein Calculated 72-90g (1.2-1.5g/kg, sepsis) Fluid: ml 1495-1794ml (1ml/kcal) Nutritional Problem 1. Problem Problem Increased prot and kcal needs related to Etiology hypermetabolic state aeb Signs/Symptoms: sepsis Intervention/Recommendation Comments 1. Recommend Fiebrsource at 85ml/hr x 16hrs, providing 1360ml, 1632kcal, 73g protein. Pt recieves 1497kcal and 67g protein at SNF. Increased nutrient needs due to hypermetabolic state. Expected Outcomes/Goals Expected Outcomes/Goals 1. Pt to meet 100% of estimated nutritional needs on tube feeding with tolerance.
[2016-10-13] MEDS ORDERED: Potassium Chloride 40 MEQ, Lidocaine 1% 20mL Vial 25 MG in Sodium Chloride 0.9% 250 ML IV ONE (14:00)
--- NOTE | 2016-10-13 14:12 | Diagnostic Imaging Report ---
KUB single view HISTORY: Abdominal pain. COMPARISON: Barium enema on 02/21/2016 and KUB on 02/20/2016 Findings: The exam is limited due to body habitus. Generalized gas-filled loops of bowel are noted. There is distal fecal impaction. Severe scoliosis is noted. Deformity of bilateral hip joints are noted with postsurgical changes of the right femur, partially visualized. A percutaneous feeding tube is noted. IMPRESSION: Distal fecal impaction with generalized distended loops of bowel proximally which may be due to patient's distal fecal impaction. Percutaneous feeding tube is noted. Severe spinal scoliosis and deformity of the pelvis.
[2016-10-14 07:00] LABS: % BASOPHILS 0.1 % (0.0-2.0); % EOSINOPHILS 1.4 % (0.0-5.0); % MONOCYTES 9.6 % (2.0-10.0); % NEUTROPHILS 70.9 % (40.0-80.0); HEMATOCRIT 42.4 % (39.0-49.0); HEMOGLOBIN 14.5 gm/dL (13.2-17.3); MEAN CORPUSCULAR HEMOGLOBIN 32.8 pg (26.0-30.0); MEAN CORPUSCULAR HGB CONC 34.1 pg (28.0-36.0); MEAN PLATELET VOLUME 9.9 fl; NEUTROPHILE ABSOLUTE 8.1 Th/cmm (1.8-8.0); PLATELET COUNT 205 Th/cmm (150-400); RED BLOOD COUNT 4.42 Mil/cmm (4.30-5.70); RED CELL DISTRIBUTION WIDTH 12.6 % (11.5-20.0); WHITE BLOOD COUNT 11.5 Th/cmm (4.8-10.8)
[2016-10-14] MEDS: Albuterol Nebulizer 2.5mg/3mL HHN SCH ×4 (07:17→19:16)
[2016-10-14] MEDS: Ipratropium Neb 0.5 mg/2.5 mL UD HHN SCH ×4 (07:17→19:16)
[2016-10-14 08:44] LABS: ANION GAP 11.2 (7.0-16.0); BUN - UREA NITROGEN 10 mg/dL (7-25); BUN/CREATININE RATIO 12.5; CALCIUM SERUM 9.7 mg/dL (8.6-10.3); CARBON DIOXIDE 24.5 mEq/L (21.0-31.0); CHLORIDE 107 mEq/L (98-107); CREATININE - SERUM 0.8 mg/dL (0.7-1.3); GLUCOSE 110 mg/dL (70-105); MAGNESIUM 2.4 mg/dL (1.9-2.7); POTASSIUM SERUM 3.7 mEq/L (3.5-5.1); SODIUM SERUM 139 mEq/L (136-145)
[2016-10-14] MEDS: D5-0.45NS 1,000 ML IV SCH (09:26)
[2016-10-14] MEDS: Polyvinyl Alcohol Ophth Soln 15 mL Bottle EACH EYE SCH ×5 (09:27→20:51)
[2016-10-14] MEDS: Pantoprazole 40 mg/Packet GT SCH (09:27)
[2016-10-14] MEDS: Lactulose 10 Gm/15 mL 30mL UDC GT SCH ×2 (09:28→16:30)
[2016-10-14] MEDS: Multivitamin Tab GT SCH (09:28)
[2016-10-14] MEDS: Ferrous Sulfate 300 MG/5 ML UDC PO SCH (09:28)
[2016-10-14] MEDS: Levetiracetam 500 mg/5mL 5mL UDC PO SCH ×2 (09:28→16:30)
[2016-10-14] MEDS: POLYETHYLENE GLYCOL 3350 17 GM PACK GT SCH (09:28)
[2016-10-14] MEDS: Vitamin D3 2,000 IU SGL PO SCH (09:29)
[2016-10-14 10:17] LABS: FOLIC ACID >20.0 ng/mL (>3.0)
--- NOTE | 2016-10-14 11:13 | Diagnostic Imaging Report ---
CT Chest without IV contrast HISTORY: Mass Comparison: chest x-ray on 10/12/[address] abdomen and pelvis on 02/15/2016 Technique: Axial images were obtained from the base of the neck to the upper abdomen without administration of IV contrast. Coronal reconstructions were made. FINDINGS: Assessment of the solid organs is limited due to lack of IV contrast. No evidence of mediastinal lymphadenopathy. Heart size is borderline prominent. No evidence of any aortic aneurysm. No pericardial effusion identified. Note exam is limited due to motion and patient positioning. No evidence of a pulmonary mass. The lung metz demonstrate hypoventilatory and atelectatic changes. No focal consolidation or effusions. There is elevation of the right hemidiaphragm. The upper abdomen demonstrates distended gallbladder. A percutaneous gastric feeding tube is noted. Severe spinal scoliosis is noted with osteopenia and multilevel spinal compression deformities. IMPRESSION: Limited exam due to motion. Mild atelectatic lung changes. No focal consolidation identified. No evidence of a pulmonary mass. Distended gallbladder. Consider follow-up assessment with ultrasound Percutaneous gastric feeding tube noted. Severe scoliosis with diffuse multilevel spinal compression deformities possibly due to osteopenia.
--- NOTE | 2016-10-14 14:01 | Internal Medicine Prog Note ---
Internal Medicine Subjective - Subjective Service Date: 10/14/16 Patient seen and examined:: with staff Patient is:: awake, non-verbal Patient Complaints of:: congestion Per staff patient has:: other (CONGESTED) Internal Medicine Objective - Results Result Diagrams: 10/14/16 06:37 10/14/16 06:37 Recent Labs: Laboratory Last Values WBC 11.5 Th/cmm (4.8-10.8) H D 10/14/16 06:37 RBC 4.42 Mil/cmm (4.30-5.70) 10/14/16 06:37 Hgb 14.5 gm/dL (13.2-17.3) 10/14/16 06:37 Hct 42.4 % (39.0-49.0) 10/14/16 06:37 MCV 96.0 fl (80-99) 10/14/16 06:37 MCH 32.8 pg (26.0-30.0) H 10/14/16 06:37 MCHC Differential 34.1 pg (28.0-36.0) 10/14/16 06:37 RDW 12.6 % (11.5-20.0) 10/14/16 06:37 Plt Count 205 Th/cmm (150-400) 10/14/16 06:37 MPV 9.9 fl 10/14/16 06:37 Neutrophils % 70.9 % (40.0-80.0) 10/14/16 06:37 Band Neutrophils % 3 % (0-10) 10/12/16 06:50 Lymphocytes % 18.0 % (20.0-50.0) L 10/14/16 06:37 Monocytes % 9.6 % (2.0-10.0) 10/14/16 06:37 Eosinophils % 1.4 % (0.0-5.0) 10/14/16 06:37 Basophils % 0.1 % (0.0-2.0) 10/14/16 06:37 Neutrophils (Manual) 77 % (40-80) 10/12/16 06:50 Lymphocytes 8 % (20-50) L 10/12/16 06:50 Monocytes 12 % (2-10) H 10/12/16 06:50 Platelet Estimate ADEQUATE (NORMAL) 10/12/16 06:50 Platelet Morphology GIANT PLATELETS SEEN (NORMAL) 10/12/16 06:50 RBC Morph Micro Appear NORMAL (NORMAL) 10/12/16 06:50 PT 10.2 SECONDS (9.5-11.5) 10/11/16 06:25 INR 0.98 (0.5-1.4) 10/11/16 06:25 PTT (Actin FS) 26.5 SECONDS (26.0-38.0) 10/11/16 06:25 Sodium 139 mEq/L (136-145) 10/14/16 06:37 Potassium 3.7 mEq/L (3.5-5.1) 10/14/16 06:37 Chloride 107 mEq/L (98-107) 10/14/16 06:37 Carbon Dioxide 24.5 mEq/L (21.0-31.0) 10/14/16 06:37 Anion Gap 11.2 (7.0-16.0) 10/14/16 06:37 BUN 10 mg/dL (7-25) 10/14/16 06:37 Creatinine 0.8 mg/dL (0.7-1.3) 10/14/16 06:37 Est GFR ( Amer) > 60.0 ml/min (>90) 10/14/16 06:37 Est GFR (Non-Af Amer) > 60.0 ml/min 10/14/16 06:37 BUN/Creatinine Ratio 12.5 10/14/16 06:37 Glucose 110 mg/dL (70-105) H 10/14/16 06:37 Whole Bld Lactic Acid 1.00 mmol/L (0.60-1.99) 10/11/16 06:25 Calcium 9.7 mg/dL (8.6-10.3) 10/14/16 06:37 Magnesium 2.4 mg/dL (1.9-2.7) 10/14/16 06:37 Total Bilirubin 0.8 mg/dL (0.3-1.0) 10/13/16 08:00 AST 26 U/L (13-39) 10/13/16 08:00 ALT 30 U/L (7-52) 10/13/16 08:00 Alkaline Phosphatase 66 U/L (34-104) 10/13/16 08:00 Ammonia 67 umol/L (16-53) H 10/13/16 08:00 Creatine Kinase 452 U/L (30-223) H 10/12/16 06:50 CK-MB (CK-2) 3.4 ng/mL (0.6-6.3) 10/12/16 06:50 B-Natriuretic Peptide 71.9 pg/mL (5.0-100.0) 10/13/16 08:00 Total Protein 7.4 gm/dL (6.0-8.3) 10/13/16 08:00 Albumin 3.7 gm/dL (4.2-5.5) L 10/13/16 08:00 Globulin 3.7 gm/dL 10/13/16 08:00 Albumin/Globulin Ratio 1.0 (1.0-1.8) 10/13/16 08:00 Vitamin B12 1482 pg/mL (211-946) H 10/13/16 08:00 Folic Acid >20.0 ng/mL (>3.0) 10/13/16 08:00 Urine Source CATH 10/11/16 07:05 Urine Color YELLOW 10/11/16 07:05 Urine Clarity CLEAR (CLEAR) 10/11/16 07:05 Urine pH 8.5 10/11/16 07:05 Ur Specific [place] 1.020 (1.005-1.030) 10/11/16 07:05 Urine Protein 100 mg/dL (NEGATIVE) H 10/11/16 07:05 Urine Glucose (UA) NEGATIVE mg/dL (NEGATIVE) 10/11/16 07:05 Urine Ketones NEGATIVE mg/dL (NEGATIVE) 10/11/16 07:05 Urine Blood NEGATIVE (NEGATIVE) 10/11/16 07:05 Urine Nitrate NEGATIVE (NEGATIVE) 10/11/16 07:05 Urine Bilirubin NEGATIVE (NEGATIVE) 10/11/16 07:05 Urine Urobilinogen 0.2 E.U./dL (0.2 - 1.0) 10/11/16 07:05 Ur Leukocyte Esterase NEGATIVE (NEGATIVE) 10/11/16 07:05 Urine RBC NONE SEEN /hpf (0-5) 10/11/16 07:05 Urine WBC NONE SEEN /hpf (0-5) 10/11/16 07:05 Ur Epithelial Cells NONE SEEN /lpf (FEW) 10/11/16 07:05 Urine Bacteria NONE SEEN /hpf (NONE SEEN) 10/11/16 07:05 Vancomycin Trough 12.8 ug/mL (10-20) 10/13/16 08:00 - Physical Exam Vitals and I&O: Vital Signs Temp 98.6 F 10/14/16 11:42 Pulse 87 10/14/16 11:42 Resp 20 10/14/16 11:42 BP 92/61 10/14/16 11:42 Pulse Ox 98 10/14/16 11:42 Intake & Output 10/13/16 10/14/16 10/14/16 18:59 06:59 18:59 Intake Total 896.230 9749 Output Total 100 100 Balance 168.593 0375 Weight (lbs) 127 lb 160 lb Intake: Intake, IV Amount 276.831 8868 D5-0.45NS 1,000 ml @ 80 1000 mls/hr IV .[id number] [facility] Rx #:[id number] Piperacillin Sodium/ 100 100 Tazobact 3.375 gm In Sodium Chloride 0.9% 50 ml @ 100 mls/hr IV Q6HR [facility] Rx#:[id number] Vancomycin HCl 1 gm In 250.000 250 Sodium Chloride 0.9% 250 ml @ 166.667 mls/hr IV Q12HR [facility] Rx#:[id number] Other 500 500 Output: Gastric Drainage 100 100 Other: # Voids 3 2 # Bowel Movements 1 0 Active Medications: Current Medications Acetaminophen (Tylenol 650mg Supp) 650 mg RC Q4HR PRN PRN Reason: Fever > 101 Stop: 12/10/16 09:14 Last Admin: 10/12/16 14:13 Dose: 650 mg Acetaminophen (Tylenol) 650 mg GT Q4HR PRN PRN Reason: Pain Or Fever above 101 Stop: 12/10/16 16:25 Last Admin: 10/13/16 06:06 Dose: 650 mg Albuterol Sulfate (Albuterol 2.5mg/3ml Neb Ud) 2.5 mg HHN QIDRT [facility] Stop: 12/11/16 10:59 Last Admin: 10/14/16 11:21 Dose: 2.5 mg Artificial Tears (Artificial Tears Ophth Soln) 2 drop EACH EYE QID [facility] Stop: 12/10/16 16:59 Last Admin: 10/14/16 13:25 Dose: 2 drop Baclofen (Lioresal) 20 mg GT TID [facility] Stop: 12/10/16 20:59 Last Admin: 10/14/16 09:28 Dose: 20 mg Bisacodyl (Dulcolax 10 Mg Supp) 10 mg RC DAILY PRN PRN Reason: Constipation Stop: 12/11/16 08:14 Calcium Carbonate (Calcium Carb) 600 mg GT BID [facility] Stop: 12/10/16 16:59 Last Admin: 10/14/16 09:28 Dose: 600 mg Clonazepam (Klonopin) 0.5 mg GT TID [facility] Stop: 12/10/16 20:59 Last Admin: 10/14/16 09:28 Dose: 0.5 mg Ferrous Sulfate (Iron) 300 mg PO BID [facility] Stop: 12/11/16 08:59 Last Admin: 10/14/16 09:28 Dose: 300 mg Folic Acid (Folate) 1 mg GT DAILY [facility] Stop: 12/11/16 08:59 Last Admin: 10/14/16 09:29 Dose: 1 mg Guaifenesin (Robitussin) 100 mg PO Q4H PRN PRN Reason: Cough or Congestion Stop: 12/10/16 16:25 Last Admin: 10/13/16 06:07 Dose: 100 mg Piperacillin Sod/Tazobactam (Sod 3.375 gm/ Sodium Chloride) 50 mls @ 100 mls/ hr IV Q6HR [facility] Stop: 12/10/16 11:59 Last Admin: 10/14/16 11:44 Dose: 100 mls/hr Vancomycin HCl 1 gm/ Sodium (Chloride) 250 mls @ 166.667 mls/hr IV Q12HR [facility] Stop: 12/11/16 12:59 Last Admin: 10/14/16 10:39 Dose: 166.67 mls/hr Dextrose/Sodium Chloride (D5-0.45ns) 1,000 mls @ 80 mls/hr IV .[id number] [facility] Stop: 12/10/16 09:14 Last Admin: 10/14/16 09:26 Dose: 80 mls/hr Ipratropium [place] (Atrovent Neb 0.5mg/2.5ml) 0.5 mg HHN QIDRT [facility] Stop: 12/11/16 10:59 Last Admin: 10/14/16 11:21 Dose: 0.5 mg Lactulose (Cephulac) 20 gm GT BID [facility] Stop: 12/10/16 16:59 Last Admin: 10/14/16 09:28 Dose: 20 gm Levetiracetam (Keppra) 1,000 mg PO BID [facility] Stop: 12/11/16 10:22 Last Admin: 10/14/16 09:28 Dose: 1,000 mg Lorazepam (Ativan) 0.5 mg IVP Q6HR PRN; Protocol PRN Reason: Seizures Stop: 12/10/16 09:14 Last Admin: 10/12/16 08:49 Dose: 0.5 mg Mineral Oil (Mineral Oil 30 Ml) 30 ml GT HS [facility] Stop: 12/10/16 20:59 Last Admin: 10/13/16 21:38 Dose: 30 ml Miscellaneous (Meloxicam [Meloxicam*]) 7.5 mg GT BID [facility] Stop: 12/10/16 16:59 Miscellaneous (Vancomycin Iv Per Pharmacy) 1 ea PRN [facility] Stop: 12/11/16 11:59 Multivitamins/Vitamin C (Theragran) 1 tab GT DAILY [facility] Stop: 12/11/16 09:59 Last Admin: 10/14/16 09:28 Dose: 1 tab Mupirocin (Bactroban Oint) 1 appl TP BID [facility] Stop: 12/12/16 08:59 Last Admin: 10/14/16 09:28 Dose: 1 appl Ondansetron HCl (Zofran) 4 mg IV Q8H PRN PRN Reason: Nausea / Vomiting Stop: 12/10/16 16:25 Pantoprazole Sodium (Protonix) 40 mg GT DAILY [facility] Stop: 12/11/16 08:59 Last Admin: 10/14/16 09:27 Dose: 40 mg Polyethylene Glycol (Miralax) 17 gm GT DAILY [facility] Stop: 12/11/16 08:59 Last Admin: 10/14/16 09:28 Dose: 17 gm Primidone (Mysoline) 50 mg GT BID [facility] Stop: 12/10/16 16:59 Last Admin: 10/14/16 09:29 Dose: 50 mg Simethicone (Mylicon) 80 mg GT QID [facility] Stop: 12/10/16 16:59 Last Admin: 10/14/16 13:24 Dose: 80 mg Sodium Chloride (Nacl Tab) 1 gm GT DAILY [facility] Stop: 12/11/16 08:59 Last Admin: 10/14/16 09:29 Dose: 1 gm Sodium Phosphate (Fleet Enema) 135 ml RC Q12H PRN PRN Reason: Constipation Stop: 12/10/16 16:23 Vitamin D (Vitamin D3) 2,000 iu PO DAILY [facility] Stop: 12/11/16 08:59 Last Admin: 10/14/16 09:29 Dose: 2,000 iu HEENT: NC/AT, PERRLA Neck: Supple Lungs: congested, rales, ronchi Cardiovascular: Normal S1, Normal S2, without murmur Abdomen: distended Extremities: pedal pulses Neurological: other (NONVERBAL) - Procedures Procedures: Procedures Procedure Code Date CHANGE GASTROSTOMY TUBE 53972 05/19/14 DRAINAGE OF SKIN ABSCESS 62077 07/16/10 EGD BIOPSY SINGLE/MULTIPLE 90344 11/01/12 EMERGENCY DEPT VISIT 22900 07/12/11 ESOPHAGOGASTRODUODENOSCOPY [EGD] W/CLOSED BIOPSY 45.16 11/01/12 OTHER SKIN & SUBQ I D 86.04 07/16/10 REPLACE GASTROSTOMY TUBE 97.02 05/19/14 Internal Medicine Assmt/Plan - Assessment Assessment: FEVER SEPSIS SEIZURE CEREBRAL PALSY OA - Plan Plan: pulmo consult repeat cxr in am continue ivabx bronchodilators supplemental oxygen am labs cpm Nutritional Asmnt/Malnutr-PDOC - Dietary Evaluation Malnutrition Findings (Please click <Entered> for more info): Nutritional Asmnt/Malnutrition Start: 10/12/16 15: 54 Text: Status: Complete Freq: Document 10/12/16 15:54 GSUN (Rec: 10/12/16 16:18 GSUN [email or web address]) Nutritional Asmnt/Malnutrition Patient General Information Nutritional Screening Consult Diagnosis Fever, sepsis Pertinent Medical Hx/Surgical Hx Functional quadriplegia, seizure, cerebral palsy, osteoarthritis, g-tube Subjective Information 46 year old male from SNF. Pt appeared soundly asleep eyes open during visit, did not respond to RD's call. Observed tube feeding off at this time as ordered, toelrating well since adm per RN assessments. No significant muscle/fat wasting noted, bedscale CBW 131.6lb. 10/11 RN noted BM x2 large and soft. 10/12 RN noted pt's abdomen distended and hard, MD aware. Current Diet Order/ Nutrition Support Fibersource 70ml/hr x 16hrs, 1120ml total volume, 1344kcal, 60g protein Pertinent Medications Dulcolax, D5-0.45ns, Iron, Folate, Mineral Oil, Vancomycin, Theragran, Zofran, Protonix, Miralax, Fleet enema, Vitamin D3 Pertinent Labs Reviewed. Nutritional Hx/Data Height 4 ft 10 in Height (Calculated Centimeters) 147.3 Current Weight (lbs) 131 lb 9.6 oz Weight (Calculated Kilograms) 59.7 Weight (Calculated Grams) 04963.8 GI Symptoms Usual diet at home ResCirene Shaver: Jevity 1.2 at 78ml/hr x 16hrs, 1248ml, 1497kcal Skin Integrity/Comment: Ferdinand 11. Skin intact. Estimated Nutritional Goals BEE in Kcals: Using Current wt Calories/Kcals/Kg CBW 131.6lb/59.8kg Kcals Calculated 1495-1794kcal (25-30kcal/kg, sepsis vs quadriplegia) Protein: Using Current wt Protein Calculated 72-90g (1.2-1.5g/kg, sepsis) Fluid: ml 1495-1794ml (1ml/kcal) Nutritional Problem 1. Problem Problem Increased prot and kcal needs related to Etiology hypermetabolic state aeb Signs/Symptoms: sepsis Intervention/Recommendation Comments 1. Recommend Fiebrsource at 85ml/hr x 16hrs, providing 1360ml, 1632kcal, 73g protein. Pt recieves 1497kcal and 67g protein at SNF. Increased nutrient needs due to hypermetabolic state. Expected Outcomes/Goals Expected Outcomes/Goals 1. Pt to meet 100% of estimated nutritional needs on tube feeding with tolerance.
[2016-10-14] MEDS ORDERED: Fleet Enema 135 mL RC ONE (15:39)
[2016-10-15] MEDS: D5-0.45NS 1,000 ML IV SCH (03:38)
[2016-10-15 05:38] LABS: % BASOPHILS 0.5 % (0.0-2.0); % LYMPHOCYTES 28.7 % (20.0-50.0); % MONOCYTES 10.5 % (2.0-10.0); % NEUTROPHILS 58.3 % (40.0-80.0); MEAN CELL VOLUME 96.8 fl (80-99); MEAN CORPUSCULAR HEMOGLOBIN 32.8 pg (26.0-30.0); MEAN CORPUSCULAR HGB CONC 33.9 pg (28.0-36.0); MEAN PLATELET VOLUME 9.4 fl; NEUTROPHILE ABSOLUTE 4.6 Th/cmm (1.8-8.0); PLATELET COUNT 181 Th/cmm (150-400); RED BLOOD COUNT 3.49 Mil/cmm (4.30-5.70)
[2016-10-15 05:49] LABS: HEMATOCRIT 33.7 % (39.0-49.0); HEMOGLOBIN 11.4 gm/dL (13.2-17.3); WHITE BLOOD COUNT 7.9 Th/cmm (4.8-10.8)
[2016-10-15 05:56] LABS: ANION GAP 7.9 (7.0-16.0); BUN - UREA NITROGEN 9 mg/dL (7-25); BUN/CREATININE RATIO 11.3; CALCIUM SERUM 8.8 mg/dL (8.6-10.3); CARBON DIOXIDE 24.8 mEq/L (21.0-31.0); CHLORIDE 109 mEq/L (98-107); CREATININE - SERUM 0.8 mg/dL (0.7-1.3); GLUCOSE 136 mg/dL (70-105); SODIUM SERUM 139 mEq/L (136-145)
[2016-10-15 06:05] LABS: POTASSIUM SERUM 2.7 mEq/L (3.5-5.1)
[2016-10-15] MEDS: Albuterol Nebulizer 2.5mg/3mL HHN SCH ×4 (07:05→18:49)
[2016-10-15] MEDS: Ipratropium Neb 0.5 mg/2.5 mL UD HHN SCH ×4 (07:05→18:49)
[2016-10-15] MEDS: Vitamin D3 2,000 IU SGL PO SCH (09:17)
[2016-10-15] MEDS: Pantoprazole 40 mg/Packet GT SCH (09:17)
[2016-10-15] MEDS: Multivitamin Tab GT SCH (09:17)
[2016-10-15] MEDS: Levetiracetam 500 mg/5mL 5mL UDC PO SCH ×2 (09:18→16:47)
[2016-10-15] MEDS: POLYETHYLENE GLYCOL 3350 17 GM PACK GT SCH (09:18)
[2016-10-15] MEDS: Lactulose 10 Gm/15 mL 30mL UDC GT SCH ×3 (09:18→21:18)
[2016-10-15] MEDS: Polyvinyl Alcohol Ophth Soln 15 mL Bottle EACH EYE SCH ×4 (09:21→21:19)
--- NOTE | 2016-10-15 12:00 | Internal Medicine Prog Note ---
Internal Medicine Subjective - Subjective Service Date: 10/15/16 (awake, noninteractive, abdomen noted with distention, per nursing staff patient had x1 small bm watery ) Patient is:: awake, non-verbal Internal Medicine Objective - Results Result Diagrams: 10/15/16 05:23 10/15/16 05:23 Recent Labs: Laboratory Last Values WBC 7.9 Th/cmm (4.8-10.8) D 10/15/16 05:23 RBC 3.49 Mil/cmm (4.30-5.70) L 10/15/16 05:23 Hgb 11.4 gm/dL (13.2-17.3) L D 10/15/16 05:23 Hct 33.7 % (39.0-49.0) L D 10/15/16 05:23 MCV 96.8 fl (80-99) 10/15/16 05:23 MCH 32.8 pg (26.0-30.0) H 10/15/16 05:23 MCHC Differential 33.9 pg (28.0-36.0) 10/15/16 05:23 RDW 13.0 % (11.5-20.0) 10/15/16 05:23 Plt Count 181 Th/cmm (150-400) 10/15/16 05:23 MPV 9.4 fl 10/15/16 05:23 Neutrophils % 58.3 % (40.0-80.0) 10/15/16 05:23 Band Neutrophils % 3 % (0-10) 10/12/16 06:50 Lymphocytes % 28.7 % (20.0-50.0) 10/15/16 05:23 Monocytes % 10.5 % (2.0-10.0) H 10/15/16 05:23 Eosinophils % 2.0 % (0.0-5.0) 10/15/16 05:23 Basophils % 0.5 % (0.0-2.0) 10/15/16 05:23 Neutrophils (Manual) 77 % (40-80) 10/12/16 06:50 Lymphocytes 8 % (20-50) L 10/12/16 06:50 Monocytes 12 % (2-10) H 10/12/16 06:50 Platelet Estimate ADEQUATE (NORMAL) 10/12/16 06:50 Platelet Morphology GIANT PLATELETS SEEN (NORMAL) 10/12/16 06:50 RBC Morph Micro Appear NORMAL (NORMAL) 10/12/16 06:50 PT 10.2 SECONDS (9.5-11.5) 10/11/16 06:25 INR 0.98 (0.5-1.4) 10/11/16 06:25 PTT (Actin FS) 26.5 SECONDS (26.0-38.0) 10/11/16 06:25 Sodium 139 mEq/L (136-145) 10/15/16 05:23 Potassium 2.7 mEq/L (3.5-5.1) L* D 10/15/16 05:23 Chloride 109 mEq/L (98-107) H 10/15/16 05:23 Carbon Dioxide 24.8 mEq/L (21.0-31.0) 10/15/16 05:23 Anion Gap 7.9 (7.0-16.0) 10/15/16 05:23 BUN 9 mg/dL (7-25) 10/15/16 05:23 Creatinine 0.8 mg/dL (0.7-1.3) 10/15/16 05:23 Est GFR ( Amer) > 60.0 ml/min (>90) 10/15/16 05:23 Est GFR (Non-Af Amer) > 60.0 ml/min 10/15/16 05:23 BUN/Creatinine Ratio 11.3 10/15/16 05:23 Glucose 136 mg/dL (70-105) H 10/15/16 05:23 Whole Bld Lactic Acid 1.00 mmol/L (0.60-1.99) 10/11/16 06:25 Calcium 8.8 mg/dL (8.6-10.3) 10/15/16 05:23 Magnesium 2.4 mg/dL (1.9-2.7) 10/14/16 06:37 Total Bilirubin 0.8 mg/dL (0.3-1.0) 10/13/16 08:00 AST 26 U/L (13-39) 10/13/16 08:00 ALT 30 U/L (7-52) 10/13/16 08:00 Alkaline Phosphatase 66 U/L (34-104) 10/13/16 08:00 Ammonia 67 umol/L (16-53) H 10/13/16 08:00 Creatine Kinase 452 U/L (30-223) H 10/12/16 06:50 CK-MB (CK-2) 3.4 ng/mL (0.6-6.3) 10/12/16 06:50 B-Natriuretic Peptide 71.9 pg/mL (5.0-100.0) 10/13/16 08:00 Total Protein 7.4 gm/dL (6.0-8.3) 10/13/16 08:00 Albumin 3.7 gm/dL (4.2-5.5) L 10/13/16 08:00 Globulin 3.7 gm/dL 10/13/16 08:00 Albumin/Globulin Ratio 1.0 (1.0-1.8) 10/13/16 08:00 Vitamin B12 1482 pg/mL (211-946) H 10/13/16 08:00 Folic Acid >20.0 ng/mL (>3.0) 10/13/16 08:00 Urine Source CATH 10/11/16 07:05 Urine Color YELLOW 10/11/16 07:05 Urine Clarity CLEAR (CLEAR) 10/11/16 07:05 Urine pH 8.5 10/11/16 07:05 Ur Specific [place] 1.020 (1.005-1.030) 10/11/16 07:05 Urine Protein 100 mg/dL (NEGATIVE) H 10/11/16 07:05 Urine Glucose (UA) NEGATIVE mg/dL (NEGATIVE) 10/11/16 07:05 Urine Ketones NEGATIVE mg/dL (NEGATIVE) 10/11/16 07:05 Urine Blood NEGATIVE (NEGATIVE) 10/11/16 07:05 Urine Nitrate NEGATIVE (NEGATIVE) 10/11/16 07:05 Urine Bilirubin NEGATIVE (NEGATIVE) 10/11/16 07:05 Urine Urobilinogen 0.2 E.U./dL (0.2 - 1.0) 10/11/16 07:05 Ur Leukocyte Esterase NEGATIVE (NEGATIVE) 10/11/16 07:05 Urine RBC NONE SEEN /hpf (0-5) 10/11/16 07:05 Urine WBC NONE SEEN /hpf (0-5) 10/11/16 07:05 Ur Epithelial Cells NONE SEEN /lpf (FEW) 10/11/16 07:05 Urine Bacteria NONE SEEN /hpf (NONE SEEN) 10/11/16 07:05 Vancomycin Trough 12.8 ug/mL (10-20) 10/13/16 08:00 - Physical Exam Vitals and I&O: Vital Signs Temp 98.9 F 10/15/16 11:47 Pulse 103 10/15/16 11:47 Resp 18 10/15/16 11:47 BP 141/99 10/15/16 11:47 Pulse Ox 94 10/15/16 11:47 Intake & Output 10/14/16 10/15/16 10/15/16 18:59 06:59 18:59 Intake Total 350 1450 Output Total 201 Balance 350 1249 Weight (lbs) 163 lb Intake: Intake, IV Amount 350 1350 D5-0.45NS 1,000 ml @ 80 1000 mls/hr IV .[id number] [facility] Rx #:[id number] Piperacillin Sodium/ 100 100 Tazobact 3.375 gm In Sodium Chloride 0.9% 50 ml @ 100 mls/hr IV Q6HR [facility] Rx#:[id number] Vancomycin HCl 1 gm In 250 250 Sodium Chloride 0.9% 250 ml @ 166.667 mls/hr IV Q12HR [facility] Rx#:[id number] Other 100 Output: Gastric Drainage 200 Stool 1 Other: # Voids 3 # Bowel Movements 1 Stool Characteristics Liquid Active Medications: Current Medications Acetaminophen (Tylenol 650mg Supp) 650 mg RC Q4HR PRN PRN Reason: Fever > 101 Stop: 12/10/16 09:14 Last Admin: 10/12/16 14:13 Dose: 650 mg Acetaminophen (Tylenol) 650 mg GT Q4HR PRN PRN Reason: Pain Or Fever above 101 Stop: 12/10/16 16:25 Last Admin: 10/15/16 01:05 Dose: 650 mg Albuterol Sulfate (Albuterol 2.5mg/3ml Neb Ud) 2.5 mg HHN QIDRT [facility] Stop: 12/11/16 10:59 Last Admin: 10/15/16 10:51 Dose: 2.5 mg Artificial Tears (Artificial Tears Ophth Soln) 2 drop EACH EYE QID [facility] Stop: 12/10/16 16:59 Last Admin: 10/15/16 09:21 Dose: 2 drop Baclofen (Lioresal) 20 mg GT TID [facility] Stop: 12/10/16 20:59 Last Admin: 10/15/16 09:17 Dose: 20 mg Bisacodyl (Dulcolax 10 Mg Supp) 10 mg RC DAILY PRN PRN Reason: Constipation Stop: 12/11/16 08:14 Calcium Carbonate (Calcium Carb) 600 mg GT BID [facility] Stop: 12/10/16 16:59 Last Admin: 10/15/16 09:17 Dose: 600 mg Clonazepam (Klonopin) 0.5 mg GT TID [facility] Stop: 12/10/16 20:59 Last Admin: 10/15/16 09:17 Dose: 0.5 mg Folic Acid (Folate) 1 mg GT DAILY [facility] Stop: 12/11/16 08:59 Last Admin: 10/15/16 09:17 Dose: 1 mg Guaifenesin (Robitussin) 100 mg PO Q4H PRN PRN Reason: Cough or Congestion Stop: 12/10/16 16:25 Last Admin: 10/13/16 06:07 Dose: 100 mg Piperacillin Sod/Tazobactam (Sod 3.375 gm/ Sodium Chloride) 50 mls @ 100 mls/ hr IV Q6HR [facility] Stop: 12/10/16 11:59 Last Infusion: 10/15/16 05:53 Dose: Infused Vancomycin HCl 1 gm/ Sodium (Chloride) 250 mls @ 166.667 mls/hr IV Q12HR [facility] Stop: 12/11/16 12:59 Last Admin: 10/15/16 09:04 Dose: 166.66 mls/hr Dextrose/Sodium Chloride (D5-0.45ns) 1,000 mls @ 80 mls/hr IV .[id number] [facility] Stop: 12/10/16 09:14 Last Admin: 10/15/16 03:38 Dose: 80 mls/hr Potassium Chloride 60 meq/ (Dextrose) 280 mls @ 42 mls/hr IV Q6H [facility] Stop: 10/15/16 16:39 Ipratropium [place] (Atrovent Neb 0.5mg/2.5ml) 0.5 mg HHN QIDRT [facility] Stop: 12/11/16 10:59 Last Admin: 10/15/16 10:51 Dose: 0.5 mg Lactulose (Cephulac) 20 gm GT BID [facility] Stop: 12/10/16 16:59 Last Admin: 10/15/16 09:18 Dose: 20 gm Levetiracetam (Keppra) 1,000 mg PO BID [facility] Stop: 12/11/16 10:22 Last Admin: 10/15/16 09:18 Dose: 1,000 mg Lorazepam (Ativan) 0.5 mg IVP Q6HR PRN; Protocol PRN Reason: Seizures Stop: 12/10/16 09:14 Last Admin: 10/12/16 08:49 Dose: 0.5 mg Mineral Oil (Mineral Oil 30 Ml) 30 ml GT HS [facility] Stop: 12/10/16 20:59 Last Admin: 10/14/16 20:27 Dose: 30 ml Miscellaneous (Vancomycin Iv Per Pharmacy) 1 ea MC PRN [facility] Stop: 12/11/16 11:59 Multivitamins/Vitamin C (Theragran) 1 tab GT DAILY [facility] Stop: 12/11/16 09:59 Last Admin: 10/15/16 09:17 Dose: 1 tab Mupirocin (Bactroban Oint) 1 appl TP BID [facility] Stop: 12/12/16 08:59 Last Admin: 10/15/16 09:21 Dose: 1 appl Ondansetron HCl (Zofran) 4 mg IV Q8H PRN PRN Reason: Nausea / Vomiting Stop: 12/10/16 16:25 Pantoprazole Sodium (Protonix) 40 mg GT DAILY [facility] Stop: 12/11/16 08:59 Last Admin: 10/15/16 09:17 Dose: 40 mg Polyethylene Glycol (Miralax) 17 gm GT DAILY [facility] Stop: 12/11/16 08:59 Last Admin: 10/15/16 09:18 Dose: Not Given Primidone (Mysoline) 50 mg GT BID [facility] Stop: 12/10/16 16:59 Last Admin: 10/15/16 09:17 Dose: 50 mg Simethicone (Mylicon) 80 mg GT QID [facility] Stop: 12/10/16 16:59 Last Admin: 10/15/16 09:17 Dose: 80 mg Sodium Chloride (Nacl Tab) 1 gm GT DAILY [facility] Stop: 12/11/16 08:59 Last Admin: 10/15/16 09:17 Dose: 1 gm Sodium Phosphate (Fleet Enema) 135 ml RC Q12H PRN PRN Reason: Constipation Stop: 12/10/16 16:23 Vitamin D (Vitamin D3) 2,000 iu PO DAILY [facility] Stop: 12/11/16 08:59 Last Admin: 10/15/16 09:17 Dose: 2,000 iu General: NAD HEENT: NC/AT, PERRLA Neck: Supple Lungs: ronchi Cardiovascular: RRR, Normal S1, Normal S2, without murmur Abdomen: distended Extremities: no edema Neurological: other (nonverbal) - Procedures Procedures: Procedures Procedure Code Date CHANGE GASTROSTOMY TUBE 75805 05/19/14 DRAINAGE OF SKIN ABSCESS 86645 07/16/10 EGD BIOPSY SINGLE/MULTIPLE 29390 11/01/12 EMERGENCY DEPT VISIT 02347 07/12/11 ESOPHAGOGASTRODUODENOSCOPY [EGD] W/CLOSED BIOPSY 45.16 11/01/12 OTHER SKIN & SUBQ I D 86.04 07/16/10 REPLACE GASTROSTOMY TUBE 97.02 05/19/14 Internal Medicine Assmt/Plan - Assessment Assessment: FEVER SEPSIS SEIZURE CEREBRAL PALSY OA - Plan Plan: laxatives ivf for hydration bronchodilators supplemental oxygen am labs cpm Nutritional Asmnt/Malnutr-PDOC - Dietary Evaluation Malnutrition Findings (Please click <Entered> for more info): Nutritional Asmnt/Malnutrition Start: 10/12/16 15: 54 Text: Status: Complete Freq: Document 10/12/16 15:54 GSUN (Rec: 10/12/16 16:18 GSUN [email or web address]) Nutritional Asmnt/Malnutrition Patient General Information Nutritional Screening Consult Diagnosis Fever, sepsis Pertinent Medical Hx/Surgical Hx Functional quadriplegia, seizure, cerebral palsy, osteoarthritis, g-tube Subjective Information 46 year old male from SNF. Pt appeared soundly asleep eyes open during visit, did not respond to RD's call. Observed tube feeding off at this time as ordered, toelrating well since adm per RN assessments. No significant muscle/fat wasting noted, bedscale CBW 131.6lb. 10/11 RN noted BM x2 large and soft. 10/12 RN noted pt's abdomen distended and hard, MD aware. Current Diet Order/ Nutrition Support Fibersource 70ml/hr x 16hrs, 1120ml total volume, 1344kcal, 60g protein Pertinent Medications Dulcolax, D5-0.45ns, Iron, Folate, Mineral Oil, Vancomycin, Theragran, Zofran, Protonix, Miralax, Fleet enema, Vitamin D3 Pertinent Labs Reviewed. Nutritional Hx/Data Height 4 ft 10 in Height (Calculated Centimeters) 147.3 Current Weight (lbs) 131 lb 9.6 oz Weight (Calculated Kilograms) 59.7 Weight (Calculated Grams) 25221.8 GI Symptoms Usual diet at home Kerrieirene Chhaya: Jevity 1.2 at 78ml/hr x 16hrs, 1248ml, 1497kcal Skin Integrity/Comment: Ferdinand 11. Skin intact. Estimated Nutritional Goals BEE in Kcals: Using Current wt Calories/Kcals/Kg CBW 131.6lb/59.8kg Kcals Calculated 1495-1794kcal (25-30kcal/kg, sepsis vs quadriplegia) Protein: Using Current wt Protein Calculated 72-90g (1.2-1.5g/kg, sepsis) Fluid: ml 1495-1794ml (1ml/kcal) Nutritional Problem 1. Problem Problem Increased prot and kcal needs related to Etiology hypermetabolic state aeb Signs/Symptoms: sepsis Intervention/Recommendation Comments 1. Recommend Fiebrsource at 85ml/hr x 16hrs, providing 1360ml, 1632kcal, 73g protein. Pt recieves 1497kcal and 67g protein at SNF. Increased nutrient needs due to hypermetabolic state. Expected Outcomes/Goals Expected Outcomes/Goals 1. Pt to meet 100% of estimated nutritional needs on tube feeding with tolerance.
--- NOTE | 2016-10-15 13:37 | Diagnostic Imaging Report ---
Portable chest x-ray HISTORY: Shortness of breath Compared with prior exam of October 12, 2016, the heart is enlarged. No focal pulmonary processes. No hilar or mediastinal abnormalities. Scoliosis of degenerative changes seen within the spine. Chronic deformity again noted about the shoulder regions. IMPRESSION: 1. No acute pulmonary processes
[2016-10-16] MEDS: D5-0.45NS 1,000 ML IV SCH ×2 (00:11→21:15)
[2016-10-16] MEDS: Ipratropium Neb 0.5 mg/2.5 mL UD HHN SCH ×4 (07:11→18:43)
[2016-10-16] MEDS: Albuterol Nebulizer 2.5mg/3mL HHN SCH ×4 (07:11→18:44)
[2016-10-16 08:17] LABS: % EOSINOPHILS 1.7 % (0.0-5.0); % LYMPHOCYTES 18.8 % (20.0-50.0); % MONOCYTES 10.1 % (2.0-10.0); % NEUTROPHILS 69.4 % (40.0-80.0); HEMATOCRIT 38.5 % (39.0-49.0); HEMOGLOBIN 12.8 gm/dL (13.2-17.3); MEAN CELL VOLUME 95.7 fl (80-99); MEAN CORPUSCULAR HEMOGLOBIN 31.9 pg (26.0-30.0); MEAN CORPUSCULAR HGB CONC 33.3 pg (28.0-36.0); MEAN PLATELET VOLUME 9.6 fl; NEUTROPHILE ABSOLUTE 6.5 Th/cmm (1.8-8.0); RED BLOOD COUNT 4.03 Mil/cmm (4.30-5.70); RED CELL DISTRIBUTION WIDTH 12.7 % (11.5-20.0); WHITE BLOOD COUNT 9.3 Th/cmm (4.8-10.8)
[2016-10-16 08:38] LABS: PLATELET COUNT 233 Th/cmm (150-400)
[2016-10-16 08:39] LABS: ANION GAP 9.7 (7.0-16.0); BUN - UREA NITROGEN 5 mg/dL (7-25); BUN/CREATININE RATIO 7.1; CALCIUM SERUM 9.5 mg/dL (8.6-10.3); CARBON DIOXIDE 25.5 mEq/L (21.0-31.0); CHLORIDE 108 mEq/L (98-107); CREATININE - SERUM 0.7 mg/dL (0.7-1.3); GLUCOSE 118 mg/dL (70-105); POTASSIUM SERUM 3.2 mEq/L (3.5-5.1); SODIUM SERUM 140 mEq/L (136-145)
[2016-10-16] MEDS: Levetiracetam 500 mg/5mL 5mL UDC PO SCH ×2 (09:28→16:58)
[2016-10-16] MEDS: Polyvinyl Alcohol Ophth Soln 15 mL Bottle EACH EYE SCH ×4 (09:28→21:13)
[2016-10-16] MEDS: Pantoprazole 40 mg/Packet GT SCH (09:29)
[2016-10-16] MEDS: Multivitamin Tab GT SCH (09:30)
[2016-10-16] MEDS: Lactulose 10 Gm/15 mL 30mL UDC GT SCH ×3 (09:30→21:13)
[2016-10-16] MEDS: POLYETHYLENE GLYCOL 3350 17 GM PACK GT SCH (09:30)
--- NOTE | 2016-10-16 12:04 | Internal Medicine Prog Note ---
Internal Medicine Subjective - Subjective Service Date: 10/16/16 (STILL NOTED WITH ABDOMINAL DISTENTION, CONGESTION HAS IMPROVED, PER NURSING STAFF PATIENT HAD X2 LARGE BM. STILL NOTED WITH LOW GRADE FEVER. ) Patient seen and examined:: with staff Patient is:: awake Internal Medicine Objective - Results Result Diagrams: 10/16/16 07:50 10/16/16 07:50 Recent Labs: Laboratory Last Values WBC 9.3 Th/cmm (4.8-10.8) 10/16/16 07:50 RBC 4.03 Mil/cmm (4.30-5.70) L 10/16/16 07:50 Hgb 12.8 gm/dL (13.2-17.3) L 10/16/16 07:50 Hct 38.5 % (39.0-49.0) L D 10/16/16 07:50 MCV 95.7 fl (80-99) 10/16/16 07:50 MCH 31.9 pg (26.0-30.0) H 10/16/16 07:50 MCHC Differential 33.3 pg (28.0-36.0) 10/16/16 07:50 RDW 12.7 % (11.5-20.0) 10/16/16 07:50 Plt Count 233 Th/cmm (150-400) D 10/16/16 07:50 MPV 9.6 fl 10/16/16 07:50 Neutrophils % 69.4 % (40.0-80.0) 10/16/16 07:50 Band Neutrophils % 3 % (0-10) 10/12/16 06:50 Lymphocytes % 18.8 % (20.0-50.0) L 10/16/16 07:50 Monocytes % 10.1 % (2.0-10.0) H 10/16/16 07:50 Eosinophils % 1.7 % (0.0-5.0) 10/16/16 07:50 Basophils % 0.0 % (0.0-2.0) 10/16/16 07:50 Neutrophils (Manual) 77 % (40-80) 10/12/16 06:50 Lymphocytes 8 % (20-50) L 10/12/16 06:50 Monocytes 12 % (2-10) H 10/12/16 06:50 Platelet Estimate ADEQUATE (NORMAL) 10/12/16 06:50 Platelet Morphology GIANT PLATELETS SEEN (NORMAL) 10/12/16 06:50 RBC Morph Micro Appear NORMAL (NORMAL) 10/12/16 06:50 PT 10.2 SECONDS (9.5-11.5) 10/11/16 06:25 INR 0.98 (0.5-1.4) 10/11/16 06:25 PTT (Actin FS) 26.5 SECONDS (26.0-38.0) 10/11/16 06:25 Sodium 140 mEq/L (136-145) 10/16/16 07:50 Potassium 3.2 mEq/L (3.5-5.1) L 10/16/16 07:50 Chloride 108 mEq/L (98-107) H 10/16/16 07:50 Carbon Dioxide 25.5 mEq/L (21.0-31.0) 10/16/16 07:50 Anion Gap 9.7 (7.0-16.0) 10/16/16 07:50 BUN 5 mg/dL (7-25) L 10/16/16 07:50 Creatinine 0.7 mg/dL (0.7-1.3) 10/16/16 07:50 Est GFR ( Amer) > 60.0 ml/min (>90) 10/16/16 07:50 Est GFR (Non-Af Amer) > 60.0 ml/min 10/16/16 07:50 BUN/Creatinine Ratio 7.1 10/16/16 07:50 Glucose 118 mg/dL (70-105) H 10/16/16 07:50 Whole Bld Lactic Acid 1.00 mmol/L (0.60-1.99) 10/11/16 06:25 Calcium 9.5 mg/dL (8.6-10.3) 10/16/16 07:50 Magnesium 2.0 mg/dL (1.9-2.7) 10/16/16 07:50 Total Bilirubin 0.8 mg/dL (0.3-1.0) 10/13/16 08:00 AST 26 U/L (13-39) 10/13/16 08:00 ALT 30 U/L (7-52) 10/13/16 08:00 Alkaline Phosphatase 66 U/L (34-104) 10/13/16 08:00 Ammonia 67 umol/L (16-53) H 10/13/16 08:00 Creatine Kinase 452 U/L (30-223) H 10/12/16 06:50 CK-MB (CK-2) 3.4 ng/mL (0.6-6.3) 10/12/16 06:50 B-Natriuretic Peptide 71.9 pg/mL (5.0-100.0) 10/13/16 08:00 Total Protein 7.4 gm/dL (6.0-8.3) 10/13/16 08:00 Albumin 3.7 gm/dL (4.2-5.5) L 10/13/16 08:00 Globulin 3.7 gm/dL 10/13/16 08:00 Albumin/Globulin Ratio 1.0 (1.0-1.8) 10/13/16 08:00 Vitamin B12 1482 pg/mL (211-946) H 10/13/16 08:00 Folic Acid >20.0 ng/mL (>3.0) 10/13/16 08:00 Urine Source CATH 10/11/16 07:05 Urine Color YELLOW 10/11/16 07:05 Urine Clarity CLEAR (CLEAR) 10/11/16 07:05 Urine pH 8.5 10/11/16 07:05 Ur Specific [place] 1.020 (1.005-1.030) 10/11/16 07:05 Urine Protein 100 mg/dL (NEGATIVE) H 10/11/16 07:05 Urine Glucose (UA) NEGATIVE mg/dL (NEGATIVE) 10/11/16 07:05 Urine Ketones NEGATIVE mg/dL (NEGATIVE) 10/11/16 07:05 Urine Blood NEGATIVE (NEGATIVE) 10/11/16 07:05 Urine Nitrate NEGATIVE (NEGATIVE) 10/11/16 07:05 Urine Bilirubin NEGATIVE (NEGATIVE) 10/11/16 07:05 Urine Urobilinogen 0.2 E.U./dL (0.2 - 1.0) 10/11/16 07:05 Ur Leukocyte Esterase NEGATIVE (NEGATIVE) 10/11/16 07:05 Urine RBC NONE SEEN /hpf (0-5) 10/11/16 07:05 Urine WBC NONE SEEN /hpf (0-5) 10/11/16 07:05 Ur Epithelial Cells NONE SEEN /lpf (FEW) 10/11/16 07:05 Urine Bacteria NONE SEEN /hpf (NONE SEEN) 10/11/16 07:05 Vancomycin Trough 31.3 ug/mL (10-20) H 10/16/16 07:50 - Physical Exam Vitals and I&O: Vital Signs Temp 99.0 F 10/16/16 04:00 Pulse 96 10/16/16 11:27 Resp 20 10/16/16 11:27 BP 122/79 10/16/16 04:00 Pulse Ox 97 10/16/16 11:27 Intake & Output 10/15/16 10/16/16 10/16/16 18:59 06:59 18:59 Intake Total 350 350 49.998 Output Total 200 Balance 350 150 49.998 Weight (lbs) 164 lb 7 oz Intake: Intake, IV Amount 350 350 49.998 Piperacillin Sodium/ 100 100 Tazobact 3.375 gm In Sodium Chloride 0.9% 50 ml @ 100 mls/hr IV Q6HR [facility] Rx#:[id number] Vancomycin HCl 1 gm In 250 250 49.998 Sodium Chloride 0.9% 250 ml @ 166.667 mls/hr IV Q12HR [facility] Rx#:[id number] Output: Gastric Drainage 200 Other: # Voids 3 # Bowel Movements 2 Stool Characteristics Liquid Soft Brown Active Medications: Current Medications Acetaminophen (Tylenol 650mg Supp) 650 mg RC Q4HR PRN PRN Reason: Fever > 101 Stop: 12/10/16 09:14 Last Admin: 10/12/16 14:13 Dose: 650 mg Acetaminophen (Tylenol) 650 mg GT Q4HR PRN PRN Reason: Pain Or Fever above 101 Stop: 12/10/16 16:25 Last Admin: 10/15/16 01:05 Dose: 650 mg Albuterol Sulfate (Albuterol 2.5mg/3ml Neb Ud) 2.5 mg HHN QIDRT [facility] Stop: 12/11/16 10:59 Last Admin: 10/16/16 11:12 Dose: 2.5 mg Artificial Tears (Artificial Tears Ophth Soln) 2 drop EACH EYE QID [facility] Stop: 12/10/16 16:59 Last Admin: 10/16/16 09:28 Dose: 2 drop Baclofen (Lioresal) 20 mg GT TID [facility] Stop: 12/10/16 20:59 Last Admin: 10/16/16 09:29 Dose: 20 mg Bisacodyl (Dulcolax 10 Mg Supp) 10 mg RC DAILY PRN PRN Reason: Constipation Stop: 12/11/16 08:14 Clonazepam (Klonopin) 0.5 mg GT TID [facility] Stop: 12/10/16 20:59 Last Admin: 10/16/16 09:30 Dose: 0.5 mg Folic Acid (Folate) 1 mg GT DAILY [facility] Stop: 12/11/16 08:59 Last Admin: 10/16/16 09:30 Dose: 1 mg Guaifenesin (Robitussin) 100 mg PO Q4H PRN PRN Reason: Cough or Congestion Stop: 12/10/16 16:25 Last Admin: 10/13/16 06:07 Dose: 100 mg Piperacillin Sod/Tazobactam (Sod 3.375 gm/ Sodium Chloride) 50 mls @ 100 mls/ hr IV Q6HR [facility] Stop: 12/10/16 11:59 Last Admin: 10/16/16 11:41 Dose: 100 mls/hr Dextrose/Sodium Chloride (D5-0.45ns) 1,000 mls @ 60 mls/hr IV .[id number] [facility] Stop: 12/15/16 00:14 Last Admin: 10/16/16 00:11 Dose: 60 mls/hr Vancomycin HCl 0.75 gm/ Sodium (Chloride) 250 mls @ 165 mls/hr IV Q24H [facility] Stop: 12/16/16 08:59 Ipratropium [place] (Atrovent Neb 0.5mg/2.5ml) 0.5 mg HHN QIDRT [facility] Stop: 12/11/16 10:59 Last Admin: 10/16/16 11:13 Dose: 0.5 mg Lactulose (Cephulac) 20 gm GT TID [facility] Stop: 12/14/16 13:59 Last Admin: 10/16/16 09:30 Dose: 20 gm Levetiracetam (Keppra) 1,000 mg PO BID [facility] Stop: 12/11/16 10:22 Last Admin: 10/16/16 09:28 Dose: 1,000 mg Lorazepam (Ativan) 0.5 mg IVP Q6HR PRN; Protocol PRN Reason: Seizures Stop: 12/10/16 09:14 Last Admin: 10/12/16 08:49 Dose: 0.5 mg Mineral Oil (Mineral Oil 30 Ml) 30 ml GT HS [facility] Stop: 12/10/16 20:59 Last Admin: 10/15/16 21:18 Dose: Not Given Miscellaneous (Vancomycin Iv Per Pharmacy) 1 ea MC PRN [facility] Stop: 12/11/16 11:59 Multivitamins/Vitamin C (Theragran) 1 tab GT DAILY [facility] Stop: 12/11/16 09:59 Last Admin: 10/16/16 09:30 Dose: 1 tab Mupirocin (Bactroban Oint) 1 appl TP BID [facility] Stop: 12/12/16 08:59 Last Admin: 10/16/16 09:28 Dose: 1 appl Ondansetron HCl (Zofran) 4 mg IV Q8H PRN PRN Reason: Nausea / Vomiting Stop: 12/10/16 16:25 Pantoprazole Sodium (Protonix) 40 mg GT DAILY [facility] Stop: 12/11/16 08:59 Last Admin: 10/16/16 09:29 Dose: 40 mg Polyethylene Glycol (Miralax) 17 gm GT DAILY [facility] Stop: 12/11/16 08:59 Last Admin: 10/16/16 09:30 Dose: Not Given Primidone (Mysoline) 50 mg GT BID [facility] Stop: 12/10/16 16:59 Last Admin: 10/16/16 09:29 Dose: 50 mg Simethicone (Mylicon) 80 mg GT QID [facility] Stop: 12/10/16 16:59 Last Admin: 10/16/16 09:29 Dose: 80 mg Sodium Chloride (Nacl Tab) 1 gm GT DAILY [facility] Stop: 12/11/16 08:59 Last Admin: 10/16/16 09:29 Dose: 1 gm Sodium Phosphate (Fleet Enema) 135 ml RC Q12H PRN PRN Reason: Constipation Stop: 12/10/16 16:23 General: alert HEENT: NC/AT, PERRLA Neck: Supple Lungs: CTAB Cardiovascular: RRR, Normal S1, Normal S2, without murmur Abdomen: distended, +GT - Procedures Procedures: Procedures Procedure Code Date CHANGE GASTROSTOMY TUBE 15824 05/19/14 DRAINAGE OF SKIN ABSCESS 45631 07/16/10 EGD BIOPSY SINGLE/MULTIPLE 74218 11/01/12 EMERGENCY DEPT VISIT 70481 07/12/11 ESOPHAGOGASTRODUODENOSCOPY [EGD] W/CLOSED BIOPSY 45.16 11/01/12 OTHER SKIN & SUBQ I D 86.04 07/16/10 REPLACE GASTROSTOMY TUBE 97.02 05/19/14 Internal Medicine Assmt/Plan - Assessment Assessment: FEVER SEPSIS SEIZURE CEREBRAL PALSY OA - Plan Plan: LFT today ivf for hydration bronchodilators supplemental oxygen suction as needed empiric iv antibiotics am labs cpm Nutritional Asmnt/Malnutr-PDOC - Dietary Evaluation Malnutrition Findings (Please click <Entered> for more info): Nutritional Asmnt/Malnutrition Start: 10/12/16 15: 54 Text: Status: Complete Freq: Document 10/12/16 15:54 GSUN (Rec: 10/12/16 16:18 GSUN [email or web address]) Nutritional Asmnt/Malnutrition Patient General Information Nutritional Screening Consult Diagnosis Fever, sepsis Pertinent Medical Hx/Surgical Hx Functional quadriplegia, seizure, cerebral palsy, osteoarthritis, g-tube Subjective Information 46 year old male from SNF. Pt appeared soundly asleep eyes open during visit, did not respond to RD's call. Observed tube feeding off at this time as ordered, toelrating well since adm per RN assessments. No significant muscle/fat wasting noted, bedscale CBW 131.6lb. 10/11 RN noted BM x2 large and soft. 10/12 RN noted pt's abdomen distended and hard, MD aware. Current Diet Order/ Nutrition Support Fibersource 70ml/hr x 16hrs, 1120ml total volume, 1344kcal, 60g protein Pertinent Medications Dulcolax, D5-0.45ns, Iron, Folate, Mineral Oil, Vancomycin, Theragran, Zofran, Protonix, Miralax, Fleet enema, Vitamin D3 Pertinent Labs Reviewed. Nutritional Hx/Data Height 4 ft 10 in Height (Calculated Centimeters) 147.3 Current Weight (lbs) 131 lb 9.6 oz Weight (Calculated Kilograms) 59.7 Weight (Calculated Grams) 16632.8 GI Symptoms Usual diet at home [facility] [place]: Jevity 1.2 at 78ml/hr x 16hrs, 1248ml, 1497kcal Skin Integrity/Comment: Ferdinand Rey. Skin intact. Estimated Nutritional Goals BEE in Kcals: Using Current wt Calories/Kcals/Kg CBW 131.6lb/59.8kg Kcals Calculated 1495-1794kcal (25-30kcal/kg, sepsis vs quadriplegia) Protein: Using Current wt Protein Calculated 72-90g (1.2-1.5g/kg, sepsis) Fluid: ml 1495-1794ml (1ml/kcal) Nutritional Problem 1. Problem Problem Increased prot and kcal needs related to Etiology hypermetabolic state aeb Signs/Symptoms: sepsis Intervention/Recommendation Comments 1. Recommend Fiebrsource at 85ml/hr x 16hrs, providing 1360ml, 1632kcal, 73g protein. Pt recieves 1497kcal and 67g protein at SNF. Increased nutrient needs due to hypermetabolic state. Expected Outcomes/Goals Expected Outcomes/Goals 1. Pt to meet 100% of estimated nutritional needs on tube feeding with tolerance.
[2016-10-16] MEDS ORDERED: Potassium Chloride 20 mEq ER Tab PO ONE (12:05)
[2016-10-16 12:20] LABS: BILIRUBIN,DIRECT 0.15 mg/dL (0.0-0.2); BILIRUBIN,TOTAL 0.8 mg/dL (0.3-1.0)
[2016-10-17 05:17] LABS: HEMATOCRIT 37.7 % (39.0-49.0); HEMOGLOBIN 12.8 gm/dL (13.2-17.3); MEAN CELL VOLUME 95.2 fl (80-99); MEAN CORPUSCULAR HEMOGLOBIN 32.2 pg (26.0-30.0); MEAN CORPUSCULAR HGB CONC 33.9 pg (28.0-36.0); MEAN PLATELET VOLUME 10.3 fl; PLATELET COUNT 247 Th/cmm (150-400); RED BLOOD COUNT 3.97 Mil/cmm (4.30-5.70); RED CELL DISTRIBUTION WIDTH 13.1 % (11.5-20.0)
[2016-10-17 06:13] LABS: WHITE BLOOD COUNT 14.2 Th/cmm (4.8-10.8)
[2016-10-17 06:38] LABS: BAND NEUTROPHILE 0 % (0-10); NEUTROPHILS 60 % (40-80); TOTAL CELLS COUNTED 100
[2016-10-17 06:39] LABS: PLATELET ESTIMATE ADEQUATE (NORMAL)
[2016-10-17 07:04] LABS: ANION GAP 9.7 (7.0-16.0); BUN - UREA NITROGEN 6 mg/dL (7-25); BUN/CREATININE RATIO 8.6; CALCIUM SERUM 9.5 mg/dL (8.6-10.3); CARBON DIOXIDE 28.6 mEq/L (21.0-31.0); CHLORIDE 107 mEq/L (98-107); CREATININE - SERUM 0.7 mg/dL (0.7-1.3); GLUCOSE 109 mg/dL (70-105); POTASSIUM SERUM 3.3 mEq/L (3.5-5.1); SODIUM SERUM 142 mEq/L (136-145)
[2016-10-17] MEDS: Ipratropium Neb 0.5 mg/2.5 mL UD HHN SCH (07:33)
[2016-10-17] MEDS: Albuterol Nebulizer 2.5mg/3mL HHN SCH (07:33)
--- NOTE | 2016-10-17 09:51 | Diagnostic Imaging Report ---
CHEST X-RAY: AP view INDICATION: Shortness of breath COMPARISON: Chest x-ray 10/15/2016 FINDINGS: Mild increased left basal lung markings are noted. No focal consolidation or effusions. Mild cardiomegaly is noted. Degenerative changes of the spine are noted with severe spinal scoliosis and probable previous spinal compression deformities. IMPRESSION: Mild increased left basal lung markings favoring atelectasis. No focal consolidation identified.
[2016-10-17] MEDS: Pantoprazole 40 mg/Packet GT SCH (09:57)
[2016-10-17] MEDS: Lactulose 10 Gm/15 mL 30mL UDC GT SCH ×2 (09:57→14:19)
[2016-10-17] MEDS: POLYETHYLENE GLYCOL 3350 17 GM PACK GT SCH (09:58)
[2016-10-17] MEDS: Levetiracetam 500 mg/5mL 5mL UDC PO SCH ×2 (09:58→17:48)
[2016-10-17] MEDS: Polyvinyl Alcohol Ophth Soln 15 mL Bottle EACH EYE SCH ×3 (09:59→17:48)
[2016-10-17] MEDS: Multivitamin Tab GT SCH (09:59)
[2016-10-17] MEDS ORDERED: Potassium Chloride Elixir 20 mEq /15 mL UDC GT ONE (10:19)
--- NOTE | 2016-10-17 10:58 | Discharge Summary ---
General Discharge Summary - Discharge Summary Date of Admission: 10/11/16 Admitting Diagnosis: FEVER, POSSIBLE SEPSIS, SZ, CEREBRAL PALSY, OA Discharge Date: 10/17/16 Discharge Diagnosis: FEVER(RESOLVED), POSSIBLE SEPSIS, SZ, CEREBRAL PALSY, OA Laboratory Findings: Laboratory Tests 10/12/16 10/12/16 10/12/16 06:50 06:50 06:50 WBC 16.5 H D RBC 4.46 Hgb 14.4 Hct 42.0 MCV 94.2 MCH 32.3 H MCHC Differential 34.3 RDW 12.7 Plt Count NOT ABLE TO PERFORM MPV 10.5 Neutrophils % Band Neutrophils % 3 Lymphocytes % Monocytes % Eosinophils % Basophils % Neutrophils (Manual) 77 Lymphocytes 8 L Monocytes 12 H Platelet Estimate ADEQUATE Platelet Morphology GIANT PLATELETS SEEN RBC Morph Micro Appear NORMAL Sodium 134 L Potassium 3.8 Chloride 102 Carbon Dioxide 25.3 Anion Gap 10.5 BUN 11 Creatinine 0.2 L Est GFR ( Amer) > 60.0 Est GFR (Non-Af Amer) > 60.0 BUN/Creatinine Ratio 55.0 Glucose 132 H Calcium 9.6 Magnesium Total Bilirubin Direct Bilirubin AST ALT Alkaline Phosphatase Ammonia Creatine Kinase 452 H CK-MB (CK-2) 3.4 B-Natriuretic Peptide Total Protein Albumin Globulin Albumin/Globulin Ratio Vitamin B12 Folic Acid Vancomycin Trough 10/13/16 10/13/16 10/13/16 08:00 08:00 08:00 WBC 14.8 H RBC 4.06 L Hgb 13.1 L Hct 38.6 L MCV 95.1 MCH 32.2 H MCHC Differential 33.9 RDW 12.7 Plt Count 177 MPV 9.9 Neutrophils % 79.2 Band Neutrophils % Lymphocytes % 10.7 L Monocytes % 9.0 Eosinophils % 0.9 Basophils % 0.2 Neutrophils (Manual) Lymphocytes Monocytes Platelet Estimate Platelet Morphology RBC Morph Micro Appear Sodium 136 Potassium 3.0 L Chloride 103 Carbon Dioxide 25.6 Anion Gap 10.4 BUN 9 Creatinine 0.4 L Est GFR ( Amer) > 60.0 Est GFR (Non-Af Amer) > 60.0 BUN/Creatinine Ratio 22.5 Glucose 153 H Calcium 9.7 Magnesium 2.3 Total Bilirubin 0.8 Direct Bilirubin AST 26 ALT 30 Alkaline Phosphatase 66 Ammonia 67 H Creatine Kinase CK-MB (CK-2) B-Natriuretic Peptide Total Protein 7.4 Albumin 3.7 L Globulin 3.7 Albumin/Globulin Ratio 1.0 Vitamin B12 Folic Acid Vancomycin Trough 10/13/16 10/13/16 10/13/16 08:00 08:00 08:00 WBC RBC Hgb Hct MCV MCH MCHC Differential RDW Plt Count MPV Neutrophils % Band Neutrophils % Lymphocytes % Monocytes % Eosinophils % Basophils % Neutrophils (Manual) Lymphocytes Monocytes Platelet Estimate Platelet Morphology RBC Morph Micro Appear Sodium Potassium Chloride Carbon Dioxide Anion Gap BUN Creatinine Est GFR ( Amer) Est GFR (Non-Af Amer) BUN/Creatinine Ratio Glucose Calcium Magnesium Total Bilirubin Direct Bilirubin AST ALT Alkaline Phosphatase Ammonia Creatine Kinase CK-MB (CK-2) B-Natriuretic Peptide 71.9 Total Protein Albumin Globulin Albumin/Globulin Ratio Vitamin B12 1482 H Folic Acid >20.0 Vancomycin Trough 12.8 10/14/16 10/14/16 10/15/16 06:37 06:37 05:23 WBC 11.5 H D 7.9 D RBC 4.42 3.49 L Hgb 14.5 11.4 L D Hct 42.4 33.7 L D MCV 96.0 96.8 MCH 32.8 H 32.8 H MCHC Differential 34.1 33.9 RDW 12.6 13.0 Plt Count 205 181 MPV 9.9 9.4 Neutrophils % 70.9 58.3 Band Neutrophils % Lymphocytes % 18.0 L 28.7 Monocytes % 9.6 10.5 H Eosinophils % 1.4 2.0 Basophils % 0.1 0.5 Neutrophils (Manual) Lymphocytes Monocytes Platelet Estimate Platelet Morphology RBC Morph Micro Appear Sodium 139 Potassium 3.7 Chloride 107 Carbon Dioxide 24.5 Anion Gap 11.2 BUN 10 Creatinine 0.8 Est GFR ( Amer) > 60.0 Est GFR (Non-Af Amer) > 60.0 BUN/Creatinine Ratio 12.5 Glucose 110 H Calcium 9.7 Magnesium 2.4 Total Bilirubin Direct Bilirubin AST ALT Alkaline Phosphatase Ammonia Creatine Kinase CK-MB (CK-2) B-Natriuretic Peptide Total Protein Albumin Globulin Albumin/Globulin Ratio Vitamin B12 Folic Acid Vancomycin Trough 10/15/16 10/16/16 10/16/16 05:23 07:50 07:50 WBC 9.3 RBC 4.03 L Hgb 12.8 L Hct 38.5 L D MCV 95.7 MCH 31.9 H MCHC Differential 33.3 RDW 12.7 Plt Count 233 D MPV 9.6 Neutrophils % 69.4 Band Neutrophils % Lymphocytes % 18.8 L Monocytes % 10.1 H Eosinophils % 1.7 Basophils % 0.0 Neutrophils (Manual) Lymphocytes Monocytes Platelet Estimate Platelet Morphology RBC Morph Micro Appear Sodium 139 Potassium 2.7 L* D Chloride 109 H Carbon Dioxide 24.8 Anion Gap 7.9 BUN 9 Creatinine 0.8 Est GFR ( Amer) > 60.0 Est GFR (Non-Af Amer) > 60.0 BUN/Creatinine Ratio 11.3 Glucose 136 H Calcium 8.8 Magnesium Total Bilirubin Direct Bilirubin AST ALT Alkaline Phosphatase Ammonia Creatine Kinase CK-MB (CK-2) B-Natriuretic Peptide Total Protein Albumin Globulin Albumin/Globulin Ratio Vitamin B12 Folic Acid Vancomycin Trough 31.3 H 10/16/16 10/16/16 10/16/16 07:50 07:50 07:50 WBC RBC Hgb Hct MCV MCH MCHC Differential RDW Plt Count MPV Neutrophils % Band Neutrophils % Lymphocytes % Monocytes % Eosinophils % Basophils % Neutrophils (Manual) Lymphocytes Monocytes Platelet Estimate Platelet Morphology RBC Morph Micro Appear Sodium 140 Potassium 3.2 L Chloride 108 H Carbon Dioxide 25.5 Anion Gap 9.7 BUN 5 L Creatinine 0.7 Est GFR ( Amer) > 60.0 Est GFR (Non-Af Amer) > 60.0 BUN/Creatinine Ratio 7.1 Glucose 118 H Calcium 9.5 Magnesium 2.0 Total Bilirubin 0.8 Direct Bilirubin 0.15 AST 25 ALT 28 Alkaline Phosphatase 71 Ammonia Creatine Kinase CK-MB (CK-2) B-Natriuretic Peptide Total Protein 7.4 Albumin 3.7 L Globulin 3.7 Albumin/Globulin Ratio 1.0 Vitamin B12 Folic Acid Vancomycin Trough 10/17/16 10/17/16 04:40 06:25 WBC 14.2 H D RBC 3.97 L Hgb 12.8 L Hct 37.7 L MCV 95.2 MCH 32.2 H MCHC Differential 33.9 RDW 13.1 Plt Count 247 MPV 10.3 Neutrophils % Band Neutrophils % 0 Lymphocytes % Monocytes % Eosinophils % Basophils % Neutrophils (Manual) 60 Lymphocytes 30 Monocytes 10 Platelet Estimate ADEQUATE Platelet Morphology RBC Morph Micro Appear Sodium 142 Potassium 3.3 L Chloride 107 Carbon Dioxide 28.6 Anion Gap 9.7 BUN 6 L Creatinine 0.7 Est GFR ( Amer) > 60.0 Est GFR (Non-Af Amer) > 60.0 BUN/Creatinine Ratio 8.6 Glucose 109 H Calcium 9.5 Magnesium Total Bilirubin Direct Bilirubin AST ALT Alkaline Phosphatase Ammonia Creatine Kinase CK-MB (CK-2) B-Natriuretic Peptide Total Protein Albumin Globulin Albumin/Globulin Ratio Vitamin B12 Folic Acid Vancomycin Trough Hospital Course: During the hospital stay patient was admitted to the telemetry unit, patient received iv antibiotics of maxipime and vanco. Patient had distended abdomen KUB was ordered and patient was given laxatives. Patient was also on bronchodilators and ivf for hydration. Patient had episodes of low grade fever but has resolved for this reason patient is stable for discharge. Treatment: patient to be discharged with levaquin 500mg via gt x 7 days Condition at Discharge: Stable Home Medications: Home Medication Medication Instructions Recorded Type Acetaminophen [Mapap] 650 mg GT Q4H PRN 11/01/12 History Baclofen 20 mg GT TID 11/01/12 History Bisacodyl [Dulcolax] 10 mg RC PRN PRN 11/01/12 History Calcium Carbonate [Calcium Carb] 5 ml GT BID 11/01/12 History Clonazepam [Klonopin] 0.5 mg GT TID 11/01/12 History Esomeprazole Magnesium [Nexium] 40 mg GT DAILY 11/01/12 History Folic Acid [Folic Acid*] 1 mg GT DAILY 11/01/12 History Meloxicam [Meloxicam*] 7.5 mg GT BID 11/01/12 History Polyvinyl Alcohol [Artificial 2 drop OP QID 11/01/12 History Tears 15 ml] Primidone 50 mg GT BID 11/01/12 History Simethicone [Mi-Acid] 80 mg GT QID 11/01/12 History Sodium Chloride 1 gm GT DAILY 11/01/12 History Lactulose [Kristalose] 20 gm GT BID 05/22/13 History Na Phos, Dibasic/Na Phos, Mo 135 ml RC Q12H PRN 05/22/13 History [Fleet Enema] Polyethylene Glycol 3350 [Miralax] 17 gm GT DAILY 05/18/14 History Mineral Oil [Mineral Oil 30 ml] 30 ml GT HS 02/15/16 History Acetaminophen [Tylenol 650mg Supp] 650 mg RC Q4HR PRN 10/11/16 History Cholecalciferol (Vitamin D3) 2,000 iu PO DAILY 10/11/16 History [Vitamin D3] Ferrous Sulfate [Ferosul] 7.5 ml GT BID 10/11/16 History Levetiracetam [Keppra] 750 mg PO BID 10/11/16 History Multivit,Th Iron,Other Min 1 tab PO DAILY 10/11/16 History [Thera-M W/Minerals] Inpatient Medications: Current Medications Artificial Tears (Artificial Tears Ophth Soln) 2 drop EACH EYE QID [facility] Stop: 12/10/16 16:59 Last Admin: 10/17/16 09:59 Dose: 2 drop Lactulose (Cephulac) 20 gm GT TID [facility] Stop: 12/14/16 13:59 Last Admin: 10/17/16 09:57 Dose: 20 gm Levetiracetam (Keppra) 1,000 mg PO BID [facility] Stop: 12/11/16 10:22 Last Admin: 10/17/16 09:58 Dose: 1,000 mg Lorazepam (Ativan) 0.5 mg IVP Q6HR PRN; Protocol PRN Reason: Seizures Stop: 12/10/16 09:14 Last Admin: 10/12/16 08:49 Dose: 0.5 mg Mineral Oil (Mineral Oil 30 Ml) 30 ml GT HS [facility] Stop: 12/10/16 20:59 Last Admin: 10/16/16 21:13 Dose: 30 ml Pantoprazole Sodium (Protonix) 40 mg GT DAILY [facility] Stop: 12/11/16 08:59 Last Admin: 10/17/16 09:57 Dose: 40 mg Polyethylene Glycol (Miralax) 17 gm GT DAILY [facility] Stop: 12/11/16 08:59 Last Admin: 10/17/16 09:58 Dose: 17 gm Potassium Chloride (Potassium Chloride Elixir) 40 meq GT X1 ONE Stop: 10/17/16 10:20 Primidone (Mysoline) 50 mg GT BID [facility] Stop: 12/10/16 16:59 Last Admin: 10/17/16 09:58 Dose: 50 mg Simethicone (Mylicon) 80 mg GT QID [facility] Stop: 12/10/16 16:59 Last Admin: 10/17/16 09:58 Dose: 80 mg Sodium Chloride (Nacl Tab) 1 gm GT DAILY [facility] Stop: 12/11/16 08:59 Last Admin: 10/17/16 09:58 Dose: 1 gm Sodium Phosphate (Fleet Enema) 135 ml RC Q12H PRN PRN Reason: Constipation Stop: 12/10/16 16:23 Activity: As Tolerated Discharge Diet: Tube Feeding Consults and Follow-Up: Daniel Cooper [Primary Care Provider] -
== END 2016-10-17 17:55 | DRG 720 ==
LOC: ER 06:04 → MSI 07:35 → UNDODISIN 09:05 → TELE 10-12 09:24
PROVIDERS: ADMIT Internal Medicine; ATTEND Internal Medicine
DX: A41.9 Sepsis, unspecified organism (principal); J69.0 Pneumonitis due to inhalation of food and vomit; F73 Profound intellectual disabilities; R56.9 Unspecified convulsions; R53.2 Functional quadriplegia; G80.9 Cerebral palsy, unspecified; M19.90 Unspecified osteoarthritis, unspecified site; R13.10 Dysphagia, unspecified; Z93.1 Gastrostomy status
CPT/HCPCS: 36415-UA; 71010-TC; 71250-TC; 74000-TC; 80048-TC; 80053-TC; 80076-TC; 80202-TC; 81001-TC; 82140-TC; 82550-TC; 82553; 82607-90; 82746-90; 83605; 83735-TC; 83880-TC; 85007-TC; 85025-TC; 85027-TC; 85610-TC; 85730-TC; 90779; 93005; 94640; 94760; J2001; J2060; J2543; J3370; J3480; J7030; J7613; Z7502; Z7610

== ENCOUNTER 2016-10-19 07:28 | Emergency (ER) | payer MEDICAID ==
[2016-10-19 07:58] LABS: % EOSINOPHILS 2.6 % (0.0-5.0); % MONOCYTES 9.5 % (2.0-10.0); % NEUTROPHILS 62.9 % (40.0-80.0); HEMATOCRIT 38.6 % (39.0-49.0); HEMOGLOBIN 12.9 gm/dL (13.2-17.3); MEAN CELL VOLUME 96.2 fl (80-99); MEAN CORPUSCULAR HEMOGLOBIN 32.2 pg (26.0-30.0); MEAN CORPUSCULAR HGB CONC 33.5 pg (28.0-36.0); MEAN PLATELET VOLUME 9.2 fl; NEUTROPHILE ABSOLUTE 5.9 Th/cmm (1.8-8.0); PLATELET COUNT 288 Th/cmm (150-400); RED BLOOD COUNT 4.02 Mil/cmm (4.30-5.70); RED CELL DISTRIBUTION WIDTH 13.3 % (11.5-20.0)
[2016-10-19 08:05] LABS: WHITE BLOOD COUNT 9.3 Th/cmm (4.8-10.8)
[2016-10-19 08:08] LABS: INR 1.07 (0.5-1.4); PROTHROMBIN TIME (TEST) 11.1 SECONDS (9.5-11.5)
[2016-10-19 08:12] LABS: ALB/GLOB RATIO 0.9 (1.0-1.8); ALKALINE PHOSPHATASE 67 U/L (34-104); ANION GAP 8.9 (7.0-16.0); BILIRUBIN,TOTAL 0.3 mg/dL (0.3-1.0); BUN - UREA NITROGEN 15 mg/dL (7-25); CALCIUM SERUM 9.2 mg/dL (8.6-10.3); CARBON DIOXIDE 32.4 mEq/L (21.0-31.0); CHLORIDE 109 mEq/L (98-107); CREATININE - SERUM 0.6 mg/dL (0.7-1.3); GLUCOSE 108 mg/dL (70-105); POTASSIUM SERUM 3.3 mEq/L (3.5-5.1); SGOT 16 U/L (13-39); SGPT/ALT 21 U/L (7-52); SODIUM SERUM 147 mEq/L (136-145)
[2016-10-19] MEDS ORDERED: Potassium Chloride Elixir 20 mEq /15 mL UDC PO ONE (08:18)
[2016-10-19] MEDS ORDERED: Sodium Chloride 0.45% 1,000 ML IV ONE (08:19)
--- NOTE | 2016-10-19 08:26 | ED Physician Chart ---
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 THE PATIENT HAS BEEN HERE MULTIPLE TIMES FOR SEVERAL DIFFERENT PROBLEMS IN THE PAST. Allergies:: Allergies Allergy/AdvReac Type Severity Reaction Status Date / Time No Known Allergies Allergy Verified 10/11/16 06:26 Vitals:: Vital Signs - 8 hr 10/19/16 10/19/16 07:38 08:19 Temp 98.7 F HR 92 91 RR 19 20 BP 144/97 O2 Sat % 99 94 Historian:: EMS, Medical Records Review:: Nurse's Note Reviewed Review of Systems - Review of Systems General/Constitutional: No fever, No chills, No weight loss, No weakness, No diaphoresis, No edema, No loss of appetite, Other (THIS PATIENT IS UNABLE TO GIVE A REVIEW OF SYSTEMS.) Skin: No skin lesions, No rash, No bruising Head: No headache, No light-headedness Eyes: No loss of vision, No pain, No diplopia ENT: No earache, No nasal drainage, No sore throat, No tinnitus Neck: No neck pain, No swelling, No thyromegaly, No stiffness, No mass noted Cardio Vascular: No chest pain, No palpitations, No PND, No orthopnea, No edema Pulmonary: No SOB, No cough, No sputum, No wheezing GI: No nausea, No vomiting, No diarrhea, No pain, No melena, No hematochezia, No constipation, No hematemesis G/U: No dysuria, No frequency, No hematuria Musculoskeletal: No bone or joint pain, No back pain, No muscle pain Endocrine: No polyuria, No polydipsia Psychiatric: No prior psych history, No depression, No anxiety, No suicidal ideation Hematopoietic: No bruising, No lymphadenopathy Allergic/Immuno: No urticaria, No angioedema Neurological: No syncope, No focal symptoms, No weakness, No paresthesia, No headache, No seizure, No dizziness, No confusion, No vertigo Past Medical History - Past Medical History Obtainable: Yes Past Medical History: CVA/TIA, Dementia, Other (CP) Family History: None Social History: Non Smoker, No Alcohol, No Drug Use, Single, Care Facility Surgical History: PEG/GTube, other (RIGHT FEMORAL FRACTURE REPAIRED WITH A GELY PLACEMENT.) Family Medical History - Family Member Mother History Unknown: Yes Ethnicity: Unknown Living Status: Still Living Other Medical History: unable to obtain pt's family hx, due to pt's condition, unable to talk Physical Exam - Physical Examination General/Constitutional: Awake, Well-developed, well-nourished, Alert, GCS 15 Other Gen/Cons comments:: THE PATIENT IS NON-VERBAL STARING UPWARD THE LEFT. Head: Atraumatic Eyes: Lids, conjuctiva normal, PERRL, EOMI Skin: Nl inspection, No rash, No skin lesions, No ecchymosis, Well hydrated, No lymphadenopathy ENMT: External ears, nose nl, Nasal exam nl, Lips, teeth, gums nl Neck: Nontender, Full ROM w/o pain, No JVD, No nuchal rigidity, No bruit, No mass, No stridor Respiratory: Nl effort/Exclusion, Clear to Auscultation, No Wheeze/Rhonchi/Rales Cardio Vascular: RRR, No murmur, gallop, rubs, NL S1 S2 GI: No tenderness/rebounding/guarding, No organomegaly, No hernia, Normal BS's, No mass/bruits, No McBurney tenderness Other GI comments:: THE ABDOMEN IS SLIGHT TENDER WITH A G-TUBE IN PLACE. : No CVA tenderness Extremities: No tenderness or effusion, No edema Other Extremities comments:: THERE IS SEVERE MUSCLE WASTING OF ALL SPASTIC EXTREMITIES. Neuro/Psych: DTR's symmetric, Normal sensory exam, Normal motor strength Other Neuro/Psych comments:: THE PATIENT IS DISORIENTED TIMES FOUR Misc: normal gait, Normal back, No paraspinal tenderness Labs/Radiology/EKG Results - Lab Results Results: Laboratory Tests 10/19/16 10/19/16 10/19/16 07:45 07:45 07:45 WBC 9.3 D RBC 4.02 L Hgb 12.9 L Hct 38.6 L MCV 96.2 MCH 32.2 H MCHC Differential 33.5 RDW 13.3 Plt Count 288 MPV 9.2 Neutrophils % 62.9 Lymphocytes % 23.0 Monocytes % 9.5 Eosinophils % 2.6 Basophils % 2.0 PT 11.1 INR 1.07 Sodium 147 H Potassium 3.3 L Chloride 109 H Carbon Dioxide 32.4 H Anion Gap 8.9 BUN 15 Creatinine 0.6 L Est GFR ( Amer) > 60.0 Est GFR (Non-Af Amer) > 60.0 BUN/Creatinine Ratio 25.0 Glucose 108 H Calcium 9.2 Total Bilirubin 0.3 AST 16 ALT 21 Alkaline Phosphatase 67 Troponin I Total Protein 7.3 Albumin 3.5 L Globulin 3.8 Albumin/Globulin Ratio 0.9 L 10/19/16 07:45 WBC RBC Hgb Hct MCV MCH MCHC Differential RDW Plt Count MPV Neutrophils % Lymphocytes % Monocytes % Eosinophils % Basophils % PT INR Sodium Potassium Chloride Carbon Dioxide Anion Gap BUN Creatinine Est GFR ( Amer) Est GFR (Non-Af Amer) BUN/Creatinine Ratio Glucose Calcium Total Bilirubin AST ALT Alkaline Phosphatase Troponin I < 0.01 L Total Protein Albumin Globulin Albumin/Globulin Ratio Assessment - Assessment General Assessment: MILD DEHYDRATION AND LOW POTASSIUM. ED Septic Shock - . Is Septic Shock (SBP<90, OR Lactate>4 mmol\L) present?: No - <6hrs of presentation: Vital Signs: Vital Signs - 8 hr 10/19/16 10/19/16 07:38 08:19 Temp 98.7 F HR 92 91 RR 19 20 BP 144/97 O2 Sat % 99 94
[2016-10-19] MEDS ORDERED: Potassium Chloride Elixir 20 mEq /15 mL UDC ONE (08:43)
[2016-10-19 08:47] LABS: CHOLESTEROL 100 mg/dL (<200); TRIGLYCERIDES 73 mg/dL (<150)
[2016-10-19 09:45] LABS: URINE BILIRUBIN NEGATIVE (NEGATIVE); URINE BLOOD TRACE (NEGATIVE); URINE COLOR YELLOW; URINE GLUCOSE (UA) NEGATIVE (NEGATIVE); URINE KETONE NEGATIVE (NEGATIVE); URINE PH 6.5; URINE PROTEIN NEGATIVE (NEGATIVE); URINE UROBILINOGEN 0.2 E.U./dL (0.2 - 1.0)
[2016-10-19 09:46] LABS: URINE BACTERIA NONE SEEN /hpf (NONE SEEN); URINE EPITHELIAL CELLS OCCASIONAL /lpf (FEW); URINE RBC 0-2 /hpf (0-5); URINE WBC 0-2 /hpf (0-5)
--- NOTE | 2016-10-19 12:16 | Diagnostic Imaging Report ---
Portable chest x-ray HISTORY: Shortness of breath The overall heart size is difficult to assess with portable technique in a poor inspiration. The right lung bases up steered by the patient's overlying hand. No obvious focal pulmonary processes are seen. Severe deformity noted about the right shoulder region. IMPRESSION: 1. Limited exam of the right lung base due to patient's overlying hand and wrist. 2. No obvious acute focal pulmonary processes
== END 2016-10-19 12:15 ==
LOC: ER 07:28
DX: E87.6 Hypokalemia (principal); E86.0 Dehydration; Z86.73 Personal history of transient ischemic attack (TIA), and cerebral infarction without residual deficits; Z93.1 Gastrostomy status
CPT/HCPCS: 36415-UA; 71010-TC; 80048-TC; 80053-TC; 80061-TC; 81001-TC; 83735-TC; 84132-TC; 84443-TC; 84484-TC; 85025-TC; 85610-TC; 93005; Z7610

== ENCOUNTER 2016-10-22 15:03 | Inpatient (IN) | payer MEDICAID ==
--- NOTE | 2016-10-22 15:26 | ED Physician Chart ---
Chief Complaint/HPI - Patient Information Date Seen:: 10/22/16 Time Seen:: 15:05 Chief Complaint:: hypotension History of Present Illness:: History taken from the irrigator sprinkling system. At the patient's alf facility he had a upper extremity blood pressure of 86. Paramedics of the lower extremity blood pressure and it was normal. Patient vomited 3 times last time was possibly coffee-ground material. The transfer sheet from the alf facility documents a temperature of 101.7. Paramedics EKG showed a sinus tach with a borderline right axis deviation with a rate of 101 and poor R wave progression. Allergies:: Allergies Allergy/AdvReac Type Severity Reaction Status Date / Time No Known Allergies Allergy Verified 10/11/16 06:26 Historian:: Other (irrigator sprinkling system) Review:: Nurse's Note Reviewed, Patient unable to respond Review of Systems - Review of Systems General/Constitutional: Fever Skin: No skin lesions Head: No headache Eyes: Acuity change ENT: No earache Neck: No neck pain Cardio Vascular: No chest pain Pulmonary: Cough GI: Vomiting, No diarrhea G/U: No dysuria Musculoskeletal: No bone or joint pain Endocrine: No polyuria Psychiatric: Other Allergic/Immuno: No urticaria Neurological: No syncope Past Medical History - Past Medical History Past Medical History: Arthritis, Cataract, Other (cerebral palsy; profound mental retardation; seizures; spastic quadriplegia; thoracic and lumbar spine compression fractures; fracture right femur with natali placed; chronic H. pylori gastritis; status post UTI; trace mitral regurgitation; status post ileus status ; status post sepsis;;;) Family History: Other (unavailable) Social History: Care Facility Surgical History: PEG/GTube, other (right femur) Psychiatricy History: Other (see above) Medication: Reviewed Family Medical History - Family Member Mother History Unknown: Yes Ethnicity: Unknown Living Status: Still Living Labs/Radiology/EKG Results - Lab Results Results: Laboratory Results - last 24 hr 10/22/16 10/22/16 10/22/16 15:56 15:56 15:56 WBC 28.7 H* D RBC 4.40 Hgb 14.0 Hct 41.3 MCV 93.8 MCH 31.7 H MCHC Differential 33.8 RDW 12.7 Plt Count 340 MPV 9.4 Band Neutrophils % 3 Neutrophils (Manual) 93 H Lymphocytes 2 L Monocytes 2 Platelet Estimate ADEQUATE Sodium 135 L Potassium 3.5 Chloride 96 L Carbon Dioxide 31.7 H Anion Gap 10.8 BUN 16 Creatinine 0.6 L Est GFR ( Amer) > 60.0 Est GFR (Non-Af Amer) > 60.0 BUN/Creatinine Ratio 26.7 Glucose 142 H Whole Bld Lactic Acid Calcium 9.8 Urine Source Urine Color Urine Clarity Urine pH Ur Specific [place] Urine Protein Urine Glucose (UA) Urine Ketones Urine Blood Urine Nitrate Urine Bilirubin Urine Urobilinogen Ur Leukocyte Esterase Urine RBC Urine WBC Ur Epithelial Cells Urine Bacteria Acetaminophen < 10.0 L 10/22/16 10/22/16 15:56 16:00 WBC RBC Hgb Hct MCV MCH MCHC Differential RDW Plt Count MPV Band Neutrophils % Neutrophils (Manual) Lymphocytes Monocytes Platelet Estimate Sodium Potassium Chloride Carbon Dioxide Anion Gap BUN Creatinine Est GFR ( Amer) Est GFR (Non-Af Amer) BUN/Creatinine Ratio Glucose Whole Bld Lactic Acid 1.66 Calcium Urine Source [place] Urine Color YELLOW Urine Clarity CLEAR Urine pH 7.5 Ur Specific [place] 1.015 Urine Protein 30 H Urine Glucose (UA) NEGATIVE Urine Ketones NEGATIVE Urine Blood TRACE Urine Nitrate NEGATIVE Urine Bilirubin NEGATIVE Urine Urobilinogen 0.2 Ur Leukocyte Esterase NEGATIVE Urine RBC 0-2 H Urine WBC 2-5 H Ur Epithelial Cells OCCASIONAL Urine Bacteria OCCASIONAL Acetaminophen Comments:: CXR negative Assessment - Assessment General Assessment: Patient has frequent coughing so he probably has early aspiration pneumonia which does not show on the chest x-ray (since he does not have a urinary tract infection). ED Septic Shock - . Is Septic Shock (SBP<90, OR Lactate>4 mmol\L) present?: No Reassessment (Disposition) - Reassessment Reassessment Condition:: Unchanged - Diagnosis Diagnosis:: Aspiration pneumonia; acute febrile illness; sepsis - Patient Disposition Admitted to:: Med/Surg Spoke to:: Danilo Gaffney Admitting Medical Physician:: Danilo Gaffney Condition at Disposition:: Stable, Unchanged
[2016-10-22] MEDS ORDERED: Sodium Chloride 0.9% 1,000 ML IV ONE ×2 (15:38→16:56)
[2016-10-22 16:14] LABS: HEMATOCRIT 41.3 % (39.0-49.0); MEAN CELL VOLUME 93.8 fl (80-99); MEAN CORPUSCULAR HEMOGLOBIN 31.7 pg (26.0-30.0); MEAN CORPUSCULAR HGB CONC 33.8 pg (28.0-36.0); MEAN PLATELET VOLUME 9.4 fl; NEUTROPHILE ABSOLUTE 26.8 Th/cmm (1.8-8.0); PLATELET COUNT 340 Th/cmm (150-400); RED CELL DISTRIBUTION WIDTH 12.7 % (11.5-20.0)
[2016-10-22 16:20] LABS: ANION GAP 10.8 (7.0-16.0); BUN - UREA NITROGEN 16 mg/dL (7-25); BUN/CREATININE RATIO 26.7; CALCIUM SERUM 9.8 mg/dL (8.6-10.3); CARBON DIOXIDE 31.7 mEq/L (21.0-31.0); CHLORIDE 96 mEq/L (98-107); CREATININE - SERUM 0.6 mg/dL (0.7-1.3); GLUCOSE 142 mg/dL (70-105); POTASSIUM SERUM 3.5 mEq/L (3.5-5.1); SODIUM SERUM 135 mEq/L (136-145); WHITE BLOOD COUNT 28.7 Th/cmm (4.8-10.8)
[2016-10-22 16:44] LABS: URINE BACTERIA OCCASIONAL /hpf (NONE SEEN); URINE BILIRUBIN NEGATIVE (NEGATIVE); URINE BLOOD TRACE (NEGATIVE); URINE COLOR YELLOW; URINE EPITHELIAL CELLS OCCASIONAL /lpf (FEW); URINE GLUCOSE (UA) NEGATIVE (NEGATIVE); URINE KETONE NEGATIVE (NEGATIVE); URINE PH 7.5; URINE PROTEIN 30 mg/dL (NEGATIVE); URINE RBC 0-2 /hpf (0-5); URINE UROBILINOGEN 0.2 E.U./dL (0.2 - 1.0)
[2016-10-22 16:49] LABS: BAND NEUTROPHILE 3 % (0-10); NEUTROPHILS 93 % (40-80); PLATELET ESTIMATE ADEQUATE (NORMAL); TOTAL CELLS COUNTED 100
[2016-10-22] MEDS ORDERED: Piperacillin Sodium/Tazobact 3.375 gm Vial IV ONE (17:06)
[2016-10-22] MEDS ORDERED: Fleet Enema 135 mL RC PRN (20:49)
[2016-10-22] MEDS ORDERED: Maalox 30 mL Cup PO PRN (20:51)
[2016-10-22] MEDS ORDERED: guaiFENesin 200 MG/10 ML UDC PO PRN (20:51)
--- NOTE | 2016-10-22 20:59 | History and Physical ---
History of Present Illness - HPI Chief Complaint: fever, vomitting HPI: 46 yo male w ho mr/cp, sz, bedridden w gt sent to er 2 vomitting coffee ground emesis and fever, per er md, may have aspirated, pt non verbal, non interacitive Vital Signs: Last Vital Signs Temp 99.4 F 10/22/16 20:09 Pulse 98 10/22/16 20:09 Resp 23 10/22/16 20:09 BP 136/92 10/22/16 20:09 Pulse Ox 98 10/22/16 20:09 Past Medical History Cardiovascular: Report: No Pertinent Hx Pulmonary: Report: Asthma, Pneumonia FOOD AND NUTRITION SERVICES ASSISTANT: Report: Dementia GI: Report: GI Bleed, Gastritis Psych: Report: No Pertinent Hx Musculoskeletal: Report: Weakness, Stiffness Rheumatologic: Report: No pertinent Hx Infectious Disease: Report: No Pertinent Hx Renal/: Report: No Pertinent Hx Endocrine: Report: No Pertinent Hx Dermatology: Report: No Pertinent Hx - Past Surgical History Past Surgical History: Other (gt) Family Medical History - Family Member Mother History Unknown: Yes Ethnicity: Unknown Living Status: Still Living Hx Family Cancer: No Hx Family Coronary Artery Disease: No Hx Family Congestive Heart Failure: No Hx Family Hypertension: No Hx Family Stroke: No Hx Family Diabetes: No Hx Family Seizures: No Hx Family Dementia: No Hx Family AIDS: No Hx Family HIV: No Hx Family COPD: No Hx Family Hepatitis: No Hx Family Psychiatric Problems: No Hx Family Tuberculosis: No Social History Smoke: No Alcohol: None Drugs: None Lives: Alone Domestic Violence: Negative Health Maintenance Health Maintenance: Tetanus, Influenza Vaccine, Pneumococcal Vaccine - Medications Home Medications: Home Medication Medication Instructions Recorded Type Baclofen 20 mg GT TID 11/01/12 History Bisacodyl [Dulcolax] 10 mg RC PRN PRN 11/01/12 History Calcium Carbonate [Calcium Carb] 5 ml GT BID 11/01/12 History Clonazepam [Klonopin] 0.5 mg GT TID 11/01/12 History Esomeprazole Magnesium [Nexium] 40 mg GT DAILY 11/01/12 History Folic Acid [Folic Acid*] 1 mg GT DAILY 11/01/12 History Meloxicam [Meloxicam*] 7.5 mg GT BID 11/01/12 History Polyvinyl Alcohol [Artificial 2 drop OP QID 11/01/12 History Tears 15 ml] Primidone 50 mg GT BID 11/01/12 History Simethicone [Mi-Acid] 80 mg GT QID 11/01/12 History Sodium Chloride 1 gm GT DAILY 11/01/12 History Lactulose [Kristalose] 20 gm GT BID 05/22/13 History Na Phos, Dibasic/Na Phos, Mo 135 ml RC Q12H PRN 05/22/13 History [Fleet Enema] Polyethylene Glycol 3350 [Miralax] 17 gm GT DAILY 05/18/14 History Mineral Oil [Mineral Oil 30 ml] 30 ml GT HS 02/15/16 History Acetaminophen [Tylenol 650mg Supp] 650 mg GT Q4HR PRN 10/11/16 History Cholecalciferol (Vitamin D3) 2,000 iu GT DAILY 10/11/16 History [Vitamin D3] Ferrous Sulfate [Ferosul] 7.5 ml GT BID 10/11/16 History Multivit,Th Iron,Other Min 1 tab GT DAILY 10/11/16 History [Thera-M] Ascorbic Acid [Vitamin C] 500 mg GT BID 10/19/16 History Levetiracetam [Keppra] 750 mg GT BID 10/19/16 History - Allergies Allergies/Adverse Reactions: Allergies Allergy/AdvReac Type Severity Reaction Status Date / Time No Known Allergies Allergy Verified 10/22/16 15:23 Review of Systems - Review of Systems Constitutional: Report: Fever, Chills Eyes: Report: No Significant ENT: Report: No Significant Respiratory: Report: Cough, Shortness of Breath Cardiovascular: Report: No Significant Gastrointestinal: Report: Nausea, Vomiting Genitourinary: Report: No Significant Musculoskeletal: Report: No Significant Skin: Report: No Significant Neurological: Report: Weakness, Seizures Physical Exam - Physical Exam HEENT: Report: Ears Nose Throat within normal limits Neck: Report: Within normal limits Cardiovascular Systems: Report: +s1/s2 noted, no murmurs noted Respiratory: Report: Crackles, Rhonchi, Chest is non-tender to palpation. Abdomen: Report: Non-tender to palpation, PEG site is clean Back: Report: Inspection of back is within normal limits. Extremities: Report: Non-tender to palpation., Extremities are contracted Skin: Report: Color of skin is within normal limits Neuro/Psych: Report: Disoriented to name time or place - Lab Results All Lab Results last 24 hours: Laboratory Last Values WBC 28.7 Th/cmm (4.8-10.8) H* D 10/22/16 15:56 RBC 4.40 Mil/cmm (4.30-5.70) 10/22/16 15:56 Hgb 14.0 gm/dL (13.2-17.3) 10/22/16 15:56 Hct 41.3 % (39.0-49.0) 10/22/16 15:56 MCV 93.8 fl (80-99) 10/22/16 15:56 MCH 31.7 pg (26.0-30.0) H 10/22/16 15:56 MCHC Differential 33.8 pg (28.0-36.0) 10/22/16 15:56 RDW 12.7 % (11.5-20.0) 10/22/16 15:56 Plt Count 340 Th/cmm (150-400) 10/22/16 15:56 MPV 9.4 fl 10/22/16 15:56 Band Neutrophils % 3 % (0-10) 10/22/16 15:56 Neutrophils (Manual) 93 % (40-80) H 10/22/16 15:56 Lymphocytes 2 % (20-50) L 10/22/16 15:56 Monocytes 2 % (2-10) 10/22/16 15:56 Platelet Estimate ADEQUATE (NORMAL) 10/22/16 15:56 Sodium 135 mEq/L (136-145) L 10/22/16 15:56 Potassium 3.5 mEq/L (3.5-5.1) 10/22/16 15:56 Chloride 96 mEq/L (98-107) L 10/22/16 15:56 Carbon Dioxide 31.7 mEq/L (21.0-31.0) H 10/22/16 15:56 Anion Gap 10.8 (7.0-16.0) 10/22/16 15:56 BUN 16 mg/dL (7-25) 10/22/16 15:56 Creatinine 0.6 mg/dL (0.7-1.3) L 10/22/16 15:56 Est GFR ( Amer) > 60.0 ml/min (>90) 10/22/16 15:56 Est GFR (Non-Af Amer) > 60.0 ml/min 10/22/16 15:56 BUN/Creatinine Ratio 26.7 10/22/16 15:56 Glucose 142 mg/dL (70-105) H 10/22/16 15:56 Whole Bld Lactic Acid 1.66 mmol/L (0.60-1.99) 10/22/16 15:56 Calcium 9.8 mg/dL (8.6-10.3) 10/22/16 15:56 Urine Source [place] 10/22/16 16:00 Urine Color YELLOW 10/22/16 16:00 Urine Clarity CLEAR (CLEAR) 10/22/16 16:00 Urine pH 7.5 10/22/16 16:00 Ur Specific [place] 1.015 (1.005-1.030) 10/22/16 16:00 Urine Protein 30 mg/dL (NEGATIVE) H 10/22/16 16:00 Urine Glucose (UA) NEGATIVE mg/dL (NEGATIVE) 10/22/16 16:00 Urine Ketones NEGATIVE mg/dL (NEGATIVE) 10/22/16 16:00 Urine Blood TRACE (NEGATIVE) 10/22/16 16:00 Urine Nitrate NEGATIVE (NEGATIVE) 10/22/16 16:00 Urine Bilirubin NEGATIVE (NEGATIVE) 10/22/16 16:00 Urine Urobilinogen 0.2 E.U./dL (0.2 - 1.0) 10/22/16 16:00 Ur Leukocyte Esterase NEGATIVE (NEGATIVE) 10/22/16 16:00 Urine RBC 0-2 /hpf (0-5) H 10/22/16 16:00 Urine WBC 2-5 /hpf (0-5) H 10/22/16 16:00 Ur Epithelial Cells OCCASIONAL /lpf (FEW) 10/22/16 16:00 Urine Bacteria OCCASIONAL /hpf (NONE SEEN) 10/22/16 16:00 Acetaminophen < 10.0 ug/mL (10.0-30.0) L 10/22/16 15:56 - Assessment Assessment: gi bleeding fever sepsis uti aspiration pnm mr cp sz functional debilitation - Plan Plan: cont on iv abx and hydration \monitor h and h will refer to gi will check blood cx monitor rest of cx barry rn and dr mckeon see orders
[2016-10-22] MEDS: D5-0.9%NS 1,000 ML IV SCH (22:09)
[2016-10-22] MEDS: Polyvinyl Alcohol Ophth Soln 15 mL Bottle EACH EYE SCH (23:33)
[2016-10-23] MEDS ORDERED: Pneumococcal Vaccine 0.5 mL Vial IM ONE (02:56)
[2016-10-23] MEDS: Albuterol Nebulizer 2.5mg/3mL HHN SCH ×4 (06:48→19:49)
[2016-10-23 07:03] VITALS: BP 122/71
[2016-10-23 07:15] LABS: ANION GAP 11.5 (7.0-16.0); BUN - UREA NITROGEN 13 mg/dL (7-25); BUN/CREATININE RATIO 21.7; CALCIUM SERUM 9.7 mg/dL (8.6-10.3); CARBON DIOXIDE 29.8 mEq/L (21.0-31.0); CHLORIDE 104 mEq/L (98-107); CREATININE - SERUM 0.6 mg/dL (0.7-1.3); GLUCOSE 136 mg/dL (70-105); MAGNESIUM 2.3 mg/dL (1.9-2.7); POTASSIUM SERUM 3.3 mEq/L (3.5-5.1); SODIUM SERUM 142 mEq/L (136-145)
[2016-10-23 07:45] LABS: HEMATOCRIT 42.1 % (39.0-49.0); HEMOGLOBIN 14.6 gm/dL (13.2-17.3); MEAN CELL VOLUME 95.5 fl (80-99); MEAN CORPUSCULAR HGB CONC 34.5 pg (28.0-36.0); MEAN PLATELET VOLUME 10.3 fl; PLATELET COUNT 349 Th/cmm (150-400); RED BLOOD COUNT 4.41 Mil/cmm (4.30-5.70); RED CELL DISTRIBUTION WIDTH 12.9 % (11.5-20.0)
[2016-10-23 08:03] LABS: WHITE BLOOD COUNT 39.5 Th/cmm (4.8-10.8)
[2016-10-23 08:40] LABS: TOTAL CELLS COUNTED 100
[2016-10-23 08:42] LABS: BAND NEUTROPHILE 9 % (0-10); NEUTROPHILS 81 % (40-80)
[2016-10-23 08:43] LABS: PLATELET ESTIMATE ADEQUATE (NORMAL)
[2016-10-23] MEDS: Ferrous Sulfate 300 MG/5 ML UDC GT SCH ×2 (08:49→16:27)
[2016-10-23] MEDS: POLYETHYLENE GLYCOL 3350 17 GM PACK GT SCH (08:50)
[2016-10-23] MEDS: Levetiracetam 500 mg/5mL 5mL UDC GT SCH ×2 (08:51→16:27)
[2016-10-23] MEDS ORDERED: Multivitamin w/ Minerals 15 mL UDC GT SCH (09:00)
[2016-10-23] MEDS ORDERED: Lactulose 10 Gm/15 mL 30mL UDC GT SCH ×2 (09:00→12:50)
[2016-10-23] MEDS ORDERED: Pantoprazole 40 mg/Packet GT SCH (09:00)
--- NOTE | 2016-10-23 09:31 | Diagnostic Imaging Report ---
CHEST X-RAY: AP view INDICATION: Cough COMPARISON: Chest x-ray 10/19/2016 FINDINGS: Mild increased interstitial lung markings are noted. No focal consolidation or effusions. Borderline prominent heart is noted. Spinal scoliosis is noted. There appears to be external material overlying the right hemithorax. IMPRESSION: Mild increased initial lung markings, probably chronic in etiology. No focal consolidation identified.
--- NOTE | 2016-10-23 10:23 | Diagnostic Imaging Report ---
KUB History: Abdominal distention, constipation Comparison: KUB on 10/13/2016 Findings: Exam is limited due to body habitus with severe spinal scoliosis and deformity of the pelvis and bilateral hip joints. Right femoral fracture fixation hardware is noted. There is distal fecal impaction. Generalized Gas-filled loops of bowel are noted with probable copious stool in the region of the cecum. IMPRESSION: Copious stool probably in the region of the cecum and additional distal fecal impaction with general gas-filled loops of bowel noted.
[2016-10-23] MEDS: Multivitamin w/ Minerals Tab PO SCH (11:12)
[2016-10-23] MEDS: Polyvinyl Alcohol Ophth Soln 15 mL Bottle EACH EYE SCH ×4 (11:12→22:25)
--- NOTE | 2016-10-23 12:32 | Internal Medicine Prog Note ---
Internal Medicine Subjective - Subjective Service Date: 10/23/16 Patient seen and examined:: with staff Patient is:: awake, non-verbal Patient Complaints of:: congestion, vomitting Internal Medicine Objective - Results Result Diagrams: 10/23/16 06:13 10/23/16 06:13 Recent Labs: Laboratory Last Values WBC 39.5 Th/cmm (4.8-10.8) H* D 10/23/16 06:13 RBC 4.41 Mil/cmm (4.30-5.70) 10/23/16 06:13 Hgb 14.6 gm/dL (13.2-17.3) 10/23/16 06:13 Hct 42.1 % (39.0-49.0) 10/23/16 06:13 MCV 95.5 fl (80-99) 10/23/16 06:13 MCH 33.0 pg (26.0-30.0) H 10/23/16 06:13 MCHC Differential 34.5 pg (28.0-36.0) 10/23/16 06:13 RDW 12.9 % (11.5-20.0) 10/23/16 06:13 Plt Count 349 Th/cmm (150-400) 10/23/16 06:13 MPV 10.3 fl 10/23/16 06:13 Band Neutrophils % 9 % (0-10) 10/23/16 06:13 Neutrophils (Manual) 81 % (40-80) H 10/23/16 06:13 Lymphocytes 7 % (20-50) L 10/23/16 06:13 Monocytes 3 % (2-10) 10/23/16 06:13 Platelet Estimate ADEQUATE (NORMAL) 10/23/16 06:13 Sodium 142 mEq/L (136-145) 10/23/16 06:13 Potassium 3.3 mEq/L (3.5-5.1) L 10/23/16 06:13 Chloride 104 mEq/L (98-107) 10/23/16 06:13 Carbon Dioxide 29.8 mEq/L (21.0-31.0) 10/23/16 06:13 Anion Gap 11.5 (7.0-16.0) 10/23/16 06:13 BUN 13 mg/dL (7-25) 10/23/16 06:13 Creatinine 0.6 mg/dL (0.7-1.3) L 10/23/16 06:13 Est GFR ( Amer) > 60.0 ml/min (>90) 10/23/16 06:13 Est GFR (Non-Af Amer) > 60.0 ml/min 10/23/16 06:13 BUN/Creatinine Ratio 21.7 10/23/16 06:13 Glucose 136 mg/dL (70-105) H 10/23/16 06:13 Whole Bld Lactic Acid 1.66 mmol/L (0.60-1.99) 10/22/16 15:56 Calcium 9.7 mg/dL (8.6-10.3) 10/23/16 06:13 Magnesium 2.3 mg/dL (1.9-2.7) 10/23/16 06:13 Urine Source [place] 10/22/16 16:00 Urine Color YELLOW 10/22/16 16:00 Urine Clarity CLEAR (CLEAR) 10/22/16 16:00 Urine pH 7.5 10/22/16 16:00 Ur Specific [place] 1.015 (1.005-1.030) 10/22/16 16:00 Urine Protein 30 mg/dL (NEGATIVE) H 10/22/16 16:00 Urine Glucose (UA) NEGATIVE mg/dL (NEGATIVE) 10/22/16 16:00 Urine Ketones NEGATIVE mg/dL (NEGATIVE) 10/22/16 16:00 Urine Blood TRACE (NEGATIVE) 10/22/16 16:00 Urine Nitrate NEGATIVE (NEGATIVE) 10/22/16 16:00 Urine Bilirubin NEGATIVE (NEGATIVE) 10/22/16 16:00 Urine Urobilinogen 0.2 E.U./dL (0.2 - 1.0) 10/22/16 16:00 Ur Leukocyte Esterase NEGATIVE (NEGATIVE) 10/22/16 16:00 Urine RBC 0-2 /hpf (0-5) H 10/22/16 16:00 Urine WBC 2-5 /hpf (0-5) H 10/22/16 16:00 Ur Epithelial Cells OCCASIONAL /lpf (FEW) 10/22/16 16:00 Urine Bacteria OCCASIONAL /hpf (NONE SEEN) 10/22/16 16:00 Acetaminophen < 10.0 ug/mL (10.0-30.0) L 10/22/16 15:56 - Physical Exam Vitals and I&O: Vital Signs Temp 98.2 F 10/23/16 12:12 Pulse 93 10/23/16 12:12 Resp 20 10/23/16 12:12 BP 110/68 10/23/16 12:12 Pulse Ox 98 10/23/16 12:12 Intake & Output 10/22/16 10/23/16 10/23/16 18:59 06:59 18:59 Intake Total 0 Output Total 400 Balance -400 Weight (lbs) 121 lb 117 lb 1.6 oz Intake: Oral 0 Output: Gastric Drainage 100 Urine 300 Stool 0 Other: # Bowel Movements 0 Active Medications: Current Medications Al Hydrox/Mg Hydrox/Simethicone (Maalox) 30 ml PO Q6H PRN PRN Reason: Dyspepsia Stop: 12/21/16 20:50 Albuterol Sulfate (Albuterol 2.5mg/3ml Neb Ud) 2.5 mg HHN QIDRT [facility] Stop: 12/22/16 06:59 Last Admin: 10/23/16 10:39 Dose: 2.5 mg Artificial Tears (Artificial Tears Ophth Soln) 2 drop EACH EYE QID [facility] Stop: 12/21/16 20:59 Last Admin: 10/23/16 11:12 Dose: 2 drop Ascorbic Acid (Vitamin C) 500 mg GT BID [facility] Stop: 12/22/16 08:59 Last Admin: 10/23/16 08:51 Dose: 500 mg Baclofen (Lioresal) 20 mg GT TID [facility] Stop: 12/21/16 20:59 Last Admin: 10/23/16 08:51 Dose: 20 mg Bisacodyl (Dulcolax 10 Mg Supp) 10 mg RC PRN PRN PRN Reason: Constipation Calcium Carbonate (Calcium Carb) 600 mg GT BID [facility] Stop: 12/22/16 08:59 Last Admin: 10/23/16 08:51 Dose: 600 mg Clonazepam (Klonopin) 0.5 mg GT TID [facility] Stop: 12/21/16 20:59 Last Admin: 10/23/16 08:53 Dose: 0.5 mg Ferrous Sulfate (Iron) 450 mg GT BID [facility] Stop: 12/22/16 08:59 Last Admin: 10/23/16 08:49 Dose: 450 mg Folic Acid (Folate) 1 mg GT DAILY [facility] Stop: 12/22/16 08:59 Last Admin: 10/23/16 08:51 Dose: 1 mg Guaifenesin (Robitussin) 200 mg PO Q4HR PRN PRN Reason: Cough or Congestion Stop: 12/21/16 20:50 Dextrose/Sodium Chloride (D5-0.9%Ns) 1,000 mls @ 80 mls/hr IV .[id number] [facility] Stop: 12/21/16 20:59 Last Admin: 10/22/16 22:09 Dose: 80 mls/hr Piperacillin Sod/Tazobactam (Sod 4.5 gm/ Sodium Chloride) 100 mls @ 100 mls/hr IV Q8HR [facility] Stop: 12/22/16 04:59 Last Admin: 10/23/16 06:21 Dose: 100 mls/hr Vancomycin HCl 0.75 gm/ Sodium (Chloride) 250 mls @ 165 mls/hr IV Q8H [facility] Stop: 12/22/16 08:59 Last Admin: 10/23/16 08:53 Dose: 165 mls/hr Lactulose (Cephulac) 20 gm GT BID [facility] Stop: 12/22/16 08:59 Last Admin: 10/23/16 08:49 Dose: 20 gm Levetiracetam (Keppra) 750 mg GT BID [facility] Stop: 12/22/16 08:59 Last Admin: 10/23/16 08:51 Dose: 750 mg Mineral Oil (Mineral Oil 30 Ml) 30 ml GT HS [facility] Stop: 12/21/16 20:59 Last Admin: 10/22/16 23:32 Dose: 30 ml Miscellaneous (Vancomycin Iv Per Pharmacy) 1 ea MC PRN [facility] Stop: 12/21/16 20:59 Ondansetron HCl (Zofran) 4 mg IV Q8H PRN PRN Reason: Nausea / Vomiting Stop: 12/21/16 20:50 Pantoprazole Sodium (Protonix) 40 mg IVP Q12HR [facility] Stop: 12/22/16 08:59 Last Admin: 10/23/16 08:53 Dose: 40 mg Polyethylene Glycol (Miralax) 17 gm GT DAILY [facility] Stop: 12/22/16 08:59 Last Admin: 10/23/16 08:50 Dose: 17 gm Primidone (Mysoline) 50 mg GT BID [facility] Stop: 12/22/16 08:59 Last Admin: 10/23/16 08:51 Dose: 50 mg Simethicone (Mylicon) 80 mg GT QID [facility] Stop: 12/21/16 20:59 Last Admin: 10/23/16 08:51 Dose: 80 mg Sodium Chloride (Nacl Tab) 1 gm GT DAILY [facility] Stop: 12/22/16 08:59 Last Admin: 10/23/16 08:51 Dose: 1 gm Sodium Phosphate (Fleet Enema) 135 ml RC Q12H PRN PRN Reason: Constipation Stop: 12/21/16 20:48 General: weak, other (noninteractive) HEENT: NC/AT, PERRLA Neck: Supple Lungs: congested Cardiovascular: RRR, Normal S1, Normal S2, without murmur Abdomen: non-tender, distended, +GT Neurological: other (noninteractive) - Procedures Procedures: Procedures Procedure Code Date CHANGE GASTROSTOMY TUBE 81943 05/19/14 DRAINAGE OF SKIN ABSCESS 62576 07/16/10 EGD BIOPSY SINGLE/MULTIPLE 92102 11/01/12 EMERGENCY DEPT VISIT 86268 07/12/11 ESOPHAGOGASTRODUODENOSCOPY [EGD] W/CLOSED BIOPSY 45.16 11/01/12 OTHER SKIN & SUBQ I D 86.04 07/16/10 REPLACE GASTROSTOMY TUBE 97.02 05/19/14 Internal Medicine Assmt/Plan - Assessment Assessment: gi bleeding fever sepsis uti aspiration pnm mr cp sz functional debilitation - Plan Plan: monitor h/h seizure precautions monitor for fever ivf for hydration supplemental oxygen aspiration precautions Nutritional Asmnt/Malnutr-PDOC - Dietary Evaluation Malnutrition Findings (Please click <Entered> for more info): Nutritional Asmnt/Malnutrition Start: 10/23/16 12: 06 Text: Status: Active Freq: Document 10/23/16 12:06 GSANDRA (Rec: 10/23/16 12:27 KILEY GARCIAFN) Nutritional Asmnt/Malnutrition Patient General Information Nutritional Screening High Risk Screening Diagnosis GI bleeding, fever, sepsis, UTI, aspiration PNA Pertinent Medical Hx/Surgical Hx Asthma, PNA, dementia, GI bleed, gastritis, arthritis, cataract, cerebral palsy, profound mental retardation, seizures, thoracic and lumbar spine compression freactures, fracture right femur with natali placed, chronic H pylori gastritis, PEG Subjective Information 46 year old male from [facility]. Pt admitted due to coffee ground emesis at [facility]. Per RN notes, last emesis 7/6 night, no episode noted since. Observed no tube feeding bag and on intermittent GT suction. Pt with eyes rolled back, non- verbal, unable to interview due to profound mental retardation. RD called [facility], pt's most recent weight September 2016 at 117.1lb. No significant fat/muscle wasting noted. Current Diet Order/ Nutrition Support Fibersource 78ml/hr x 16hrs Pertinent Medications Maalox, Vitamin C, D5-0.9%ns, Iron, Folate, Cephulac, Mineral Oil, Vancomycin, Zofran, Protonix, Miralax, Fleet Enema Pertinent Labs Reviewed. Nutritional Hx/Data Height 5 ft 2 in Height (Calculated Centimeters) 157.5 Current Weight (lbs) 117 lb 1.6 oz Weight (Calculated Kilograms) 53.1 Weight (Calculated Grams) 45256.7 Weight Status Approriate GI Symptoms GI Symptoms Vomitting Difficult in: Chewing Swallowing Cultural/Ethnic/Catholic Belief [facility]: Jevity 1.2 at 78ml/hr x 16hrs, providing 1248ml, 1497kcal. On at 4pm and off at 8am. Skin Integrity/Comment: Ferdinand Centeno. Skin intact. Estimated Nutritional Goals BEE in Kcals: Using Current wt Calories/Kcals/Kg CBW 117.1lb/53.2kg Kcals Calculated 1596-1862kcal (30-35kcal/kg) Protein: Using Current wt Protein Calculated 64-80g (1.2-1.5g/kg) Fluid: ml 1596-1862ml (1ml/kcal) Nutritional Problem 2. Problem Problem Altered GI function related to Etiology unknown etiology aeb Signs/Symptoms: coffee ground emesis, GI bleeding per H&P 1. Problem Problem Increased kcal and prot needs related to Etiology hypermetabolic state aeb Signs/Symptoms: sepsis, aspiration pneumonia Intervention/Recommendation Comments 1. When medically feasible to resume enteral nutrition, recommend Fibersouce at 85ml/ hr x 16hrs, providing 1360ml total volume, 1632kcal, 73g protein. On at 4pm and off at 8am. 2. Called [facility] [address] and obtained pt's most current weight September 2016 at 117.1lb. Expected Outcomes/Goals Expected Outcomes/Goals 1. Pt to meet 100% of estimated nutritional needs on tube feeding with tolerance.
[2016-10-23] MEDS ORDERED: Potassium Chloride 20 mEq ER Tab PO ONE (12:37)
[2016-10-23] MEDS ORDERED: Fleet Enema 135 mL RC ONE (12:50)
[2016-10-23] MEDS: D5-0.9%NS 1,000 ML IV SCH (14:43)
[2016-10-23] MEDS ORDERED: MINERAL OIL ENEMA 135 ML BOTTLE RC ONE (15:11)
--- NOTE | 2016-10-23 15:35 | Consultation ---
Consult Note - Consult Note Service Date: 10/23/16 Referring Physician: Danilo Gaffney Consult Note: PHYSICIAN Consultation Note: Date of Admission: 10/22/16 Purpose of Consultation: Evaluation of abdominal distention and coffee-ground emesis. Chief Complaint: Coffee-ground emesis. History of Present Illness: Patient CHI CRUZ was admitted to [facility] with SEPSIS,PNA & GI BLEED. Patient was brought in for altered status and coffee-ground emesis he was found to have firm distended abdomen and possible fecal impaction Past Medical History: Cerebral palsy, quadriplegia, dysphagia status post G-tube, seizure disorder Diagnoses SEPSIS, UNSPECIFIED ORGANISM (10/22/16) PROFOUND INTELLECTUAL DISABILITIES (10/22/16) EPILEPSY, UNSP, NOT INTRACTABLE, WITHOUT STATUS EPILEPTICUS (10/22/16) CEREBRAL PALSY, UNSPECIFIED (10/22/16) QUADRIPLEGIA, UNSPECIFIED (10/22/16) HYPOTENSION, UNSPECIFIED (10/22/16) PNEUMONITIS DUE TO INHALATION OF FOOD AND VOMIT (10/22/16) GASTROINTESTINAL HEMORRHAGE, UNSPECIFIED (10/22/16) URINARY TRACT INFECTION, SITE NOT SPECIFIED (10/22/16) FEVER, UNSPECIFIED (10/22/16) OTHER MALAISE (10/22/16) GASTROSTOMY STATUS (10/22/16) Allergies Allergy/AdvReac Type Severity Reaction Status Date / Time No Known Allergies Allergy Verified 10/22/16 15:23 Vital Signs Temp 98.2 F 10/23/16 12:12 Pulse 93 10/23/16 12:12 Resp 20 10/23/16 12:12 BP 110/68 10/23/16 12:12 Pulse Ox 98 10/23/16 12:12 Intake & Output 10/22/16 10/23/16 10/23/16 18:59 06:59 18:59 Intake Total 0 1100 Output Total 400 Balance -400 1100 Weight (lbs) 54.885 kg 53.116 kg Intake: Intake, IV Amount 1100 D5-0.9%Ns 1,000 ml @ 80 1000 mls/hr IV .[id number] [facility] Rx #:[id number] Piperacillin Sodium/ 100 Tazobact 4.5 gm In Sodium Chloride 0.9% 100 ml @ 100 mls/hr IV Q8HR [facility] Rx #:[id number] Oral 0 Output: Gastric Drainage 100 Urine 300 Stool 0 Other: # Bowel Movements 0 Laboratory Results - last 24 hr 10/23/16 10/23/16 06:13 06:13 WBC 39.5 H* D RBC 4.41 Hgb 14.6 Hct 42.1 MCV 95.5 MCH 33.0 H MCHC Differential 34.5 RDW 12.9 Plt Count 349 MPV 10.3 Band Neutrophils % 9 Neutrophils (Manual) 81 H Lymphocytes 7 L Monocytes 3 Platelet Estimate ADEQUATE Sodium 142 Potassium 3.3 L Chloride 104 Carbon Dioxide 29.8 Anion Gap 11.5 BUN 13 Creatinine 0.6 L Est GFR ( Amer) > 60.0 Est GFR (Non-Af Amer) > 60.0 BUN/Creatinine Ratio 21.7 Glucose 136 H Calcium 9.7 Magnesium 2.3 Home Medication Medication Instructions Recorded Type Baclofen 20 mg GT TID 11/01/12 History Bisacodyl [Dulcolax] 10 mg RC PRN PRN 11/01/12 History Calcium Carbonate [Calcium Carb] 5 ml GT BID 11/01/12 History Clonazepam [Klonopin] 0.5 mg GT TID 11/01/12 History Esomeprazole Magnesium [Nexium] 40 mg GT DAILY 11/01/12 History Folic Acid [Folic Acid*] 1 mg GT DAILY 11/01/12 History Meloxicam [Meloxicam*] 7.5 mg GT BID 11/01/12 History Polyvinyl Alcohol [Artificial 2 drop OP QID 11/01/12 History Tears 15 ml] Primidone 50 mg GT BID 11/01/12 History Simethicone [Mi-Acid] 80 mg GT QID 11/01/12 History Sodium Chloride 1 gm GT DAILY 11/01/12 History Lactulose [Kristalose] 20 gm GT BID 05/22/13 History Na Phos, Dibasic/Na Phos, Mo 135 ml RC Q12H PRN 05/22/13 History [Fleet Enema] Polyethylene Glycol 3350 [Miralax] 17 gm GT DAILY 05/18/14 History Mineral Oil [Mineral Oil 30 ml] 30 ml GT HS 02/15/16 History Acetaminophen [Tylenol 650mg Supp] 650 mg GT Q4HR PRN 10/11/16 History Cholecalciferol (Vitamin D3) 2,000 iu GT DAILY 10/11/16 History [Vitamin D3] Ferrous Sulfate [Ferosul] 7.5 ml GT BID 10/11/16 History Multivit,Th Iron,Other Min 1 tab GT DAILY 10/11/16 History [Thera-M] Ascorbic Acid [Vitamin C] 500 mg GT BID 10/19/16 History Levetiracetam [Keppra] 750 mg GT BID 10/19/16 History Current Medications Generic Name Dose Route Start Last Admin Trade Name Freq PRN Reason Stop Dose Admin Al Hydrox/Mg Hydrox/Simethicone 30 ml 10/22/16 20:51 Maalox PO 12/21/16 20:50 Q6H PRN Dyspepsia Albuterol Sulfate 2.5 mg 10/23/16 07:00 10/23/16 14:49 Albuterol 2.5mg/3ml Neb Ud HHN 12/22/16 06:59 2.5 mg QIDRT [facility] Administration Artificial Tears 2 drop 10/22/16 21:00 10/23/16 14:44 Artificial Tears Ophth Soln EACH EYE 12/21/16 20:59 2 drop QID [facility] Administration Ascorbic Acid 500 mg 10/23/16 09:00 10/23/16 08:51 Vitamin C GT 12/22/16 08:59 500 mg BID [facility] Administration Baclofen 20 mg 10/22/16 21:00 10/23/16 14:38 Lioresal GT 12/21/16 20:59 20 mg TID [facility] Administration Bisacodyl 10 mg 10/22/16 20:49 Dulcolax 10 Mg Supp RC PRN PRN Constipation Calcium Carbonate 600 mg 10/23/16 09:00 10/23/16 08:51 Calcium Carb GT 12/22/16 08:59 600 mg BID [facility] Administration Clonazepam 0.5 mg 10/22/16 21:00 10/23/16 14:38 Klonopin GT 12/21/16 20:59 0.5 mg TID [facility] Administration Ferrous Sulfate 450 mg 10/23/16 09:00 10/23/16 08:49 Iron GT 12/22/16 08:59 450 mg BID [facility] Administration Folic Acid 1 mg 10/23/16 09:00 10/23/16 08:51 Folate GT 12/22/16 08:59 1 mg DAILY [facility] Administration Guaifenesin 200 mg 10/22/16 20:51 Robitussin PO 12/21/16 20:50 Q4HR PRN Cough or Congestion Dextrose/Sodium Chloride 1,000 mls @ 80 mls/hr 10/22/16 21:00 10/23/16 14:43 D5-0.9%Ns IV 12/21/16 20:59 80 mls/hr .[id number] [facility] Administration Piperacillin Sod/Tazobactam 100 mls @ 100 mls/hr 10/23/16 05:00 10/23/16 14: 38 Sod 4.5 gm/ Sodium Chloride IV 12/22/16 04:59 100 mls/hr Q8HR [facility] Administration Vancomycin HCl 0.75 gm/ Sodium 250 mls @ 165 mls/hr 10/23/16 09:00 10/23/16 08:53 Chloride IV 12/22/16 08:59 165 mls/hr Q8H [facility] Administration Levetiracetam 750 mg 10/23/16 09:00 10/23/16 08:51 Keppra GT 12/22/16 08:59 750 mg BID [facility] Administration Mineral Oil 30 ml 10/23/16 17:00 Mineral Oil 30 Ml GT 12/22/16 16:59 QID [facility] Miscellaneous 1 ea 10/22/16 21:00 Vancomycin Iv Per Pharmacy 12/21/16 20:59 PRN [facility] Ondansetron HCl 4 mg 10/22/16 20:51 Zofran IV 12/21/16 20:50 Q8H PRN Nausea / Vomiting Pantoprazole Sodium 40 mg 10/23/16 09:00 10/23/16 08:53 Protonix IVP 12/22/16 08:59 40 mg Q12HR [facility] Administration Polyethylene Glycol 17 gm 10/23/16 09:00 10/23/16 08:50 Miralax GT 12/22/16 08:59 17 gm DAILY [facility] Administration Primidone 50 mg 10/23/16 09:00 10/23/16 08:51 Mysoline GT 12/22/16 08:59 50 mg BID [facility] Administration Simethicone 80 mg 10/22/16 21:00 10/23/16 14:38 Mylicon GT 12/21/16 20:59 80 mg QID [facility] Administration Sodium Chloride 1 gm 10/23/16 09:00 10/23/16 08:51 Nacl Tab GT 12/22/16 08:59 1 gm DAILY [facility] Administration Sodium Phosphate 135 ml 10/22/16 20:49 Fleet Enema RC 12/21/16 20:48 Q12H PRN Constipation Review of Systems: Unable to obtain review of systems given the patient's mental status Social History Smoking Status Unknown if ever smoked Drug Use No Alcohol Use No Family Medical History Family Medical History Start: 10/22/16 20: 55 Freq: ONCE Status: Active Document 10/22/16 21:10 RAMBOCHAMPVlad (Rec: 10/23/16 02:56 RAMBOCHAMPVlad [id number]) Family Medical History Mother History Unknown Yes Ethnicity Unknown Living Status Unknown Hx Family Cancer UNKNOWN Hx Family Coronary Artery Disease UNKNOWN Hx Family Congestive Heart Failure UNKNOWN Hx Family Hypertension UNKNOWN Hx Family Stroke UNKNOWN Hx Family Diabetes UNKNOWN Hx Family Seizures UNKNOWN Hx Family Dementia UNKNOWN Hx Family AIDS UNKNOWN Hx Family COPD UNKNOWN Hx Family Hepatitis [place] Hx Family Psychiatric Problems UNKNOWN Hx Family Tuberculosis UNKNOWN Other Medical History UNKNOWN Physical Exam: General: Awake distressed nonverbal HEENT: Pupils reactive to light otherwise unable to evaluate Cardio: +S1/S2 Auscultated, RRR, no murmurs/rubs/gallops noted Respiratory: Few scattered rhonchi. Abdominal: Firm and distended decreased bowel sounds and there is a G-tube in place Genital/Urinary: Extremities: No Edema noted in the lower extremities Neurological: Unable to evaluate Assessment/Plan: 1 abdominal distention and fecal impaction. Patient will need bowel preparation. We'll stop lactulose since it then to distend the abdomen. Will give patient mineral oil enema and then mineral oil 30 mL every 6 hours. Will check another KUB in the morning. Meanwhile continue to hold feeding tube. 2. Coffee-ground emesis. Most probably is from abdominal distention could be mild gastritis. At this time H&H are stable to continue to monitor. Other medical problems such as hypertension so but possibly quadriplegia etc. as per Dr. Gaffney Thank you Dr. Gulshan greco but straightened the care of Chi if you have any further questions please and most of the suboptimal dictating consult on Chi Dipti [place], Melvin Mcgregor [phone]
--- NOTE | 2016-10-23 15:39 | Diagnostic Imaging Report ---
Exam: KUB. HISTORY: Fecal impaction. Findings:. A portable examination of the abdomen at 1531 hours was reviewed. The study demonstrates significant scoliotic convexity of distal thoracic and lumbar spine to the right. Gastrostomy tube is noted. There is no evidence of fecal impaction. Extensive degenerative changes are noted throughout the pelvic area. The bowel gas distribution nonspecific. IMPRESSION: No evidence of fecal impaction nonspecific bowel gas pattern. Significant scoliosis and deformity of distal thoracic and lumbar spine as well as deformity of the pelvis
[2016-10-24] MEDS: Albuterol Nebulizer 2.5mg/3mL HHN SCH ×4 (06:39→19:05)
[2016-10-24 08:28] LABS: MEAN CELL VOLUME 94.9 fl (80-99); MEAN CORPUSCULAR HEMOGLOBIN 32.1 pg (26.0-30.0); MEAN CORPUSCULAR HGB CONC 33.8 pg (28.0-36.0); MEAN PLATELET VOLUME 9.2 fl; PLATELET COUNT 338 Th/cmm (150-400); RED BLOOD COUNT 3.52 Mil/cmm (4.30-5.70); RED CELL DISTRIBUTION WIDTH 13.3 % (11.5-20.0)
[2016-10-24 08:39] LABS: HEMOGLOBIN 11.3 gm/dL (13.2-17.3); WHITE BLOOD COUNT 19.8 Th/cmm (4.8-10.8)
[2016-10-24 08:40] LABS: HEMATOCRIT 33.4 % (39.0-49.0)
[2016-10-24 08:50] LABS: ANION GAP 6.8 (7.0-16.0); BUN - UREA NITROGEN 8 mg/dL (7-25); BUN/CREATININE RATIO 13.3; CALCIUM SERUM 8.9 mg/dL (8.6-10.3); CARBON DIOXIDE 30.8 mEq/L (21.0-31.0); CHLORIDE 111 mEq/L (98-107); CREATININE - SERUM 0.6 mg/dL (0.7-1.3); GLUCOSE 154 mg/dL (70-105); SODIUM SERUM 146 mEq/L (136-145)
[2016-10-24 08:51] LABS: BAND NEUTROPHILE 1 % (0-10); NEUTROPHILS 92 % (40-80); PLATELET ESTIMATE ADEQUATE (NORMAL); TOTAL CELLS COUNTED 100
[2016-10-24 09:04] LABS: POTASSIUM SERUM 2.6 mEq/L (3.5-5.1)
[2016-10-24] MEDS: POLYETHYLENE GLYCOL 3350 17 GM PACK GT SCH (10:10)
[2016-10-24] MEDS: Multivitamin w/ Minerals Tab PO SCH (10:11)
[2016-10-24] MEDS: Levetiracetam 500 mg/5mL 5mL UDC GT SCH ×2 (10:12→17:07)
[2016-10-24] MEDS: Ferrous Sulfate 300 MG/5 ML UDC GT SCH ×2 (10:13→17:06)
[2016-10-24] MEDS: Polyvinyl Alcohol Ophth Soln 15 mL Bottle EACH EYE SCH ×4 (10:13→20:47)
[2016-10-24] MEDS ORDERED: KCL 20mEq/100mL Premix 20 MEQ/100 ML PIGGYBACK IV ONE (10:29)
[2016-10-24] MEDS: KCL 20mEq/100mL Premix 40 MEQ/200 ML PIGGYBACK IV SCH ×2 (11:12→13:01)
[2016-10-24] MEDS: D5-0.9%NS 1,000 ML IV SCH ×2 (11:16→17:05)
[2016-10-24] MEDS ORDERED: D5-0.9NS w/40 mEq KCL 1,000 ML IV SCH (13:40)
--- NOTE | 2016-10-24 13:50 | Internal Medicine Prog Note ---
Internal Medicine Subjective - Subjective Patient seen and examined:: with staff, chart reviewed Patient is:: awake, non-verbal Patient Complaints of:: congestion, vomitting Per staff patient has:: no adverse event, no episodes of fall Internal Medicine Objective - Results Result Diagrams: 10/24/16 08:17 10/24/16 08:17 Recent Labs: Laboratory Last Values WBC 19.8 Th/cmm (4.8-10.8) H D 10/24/16 08:17 RBC 3.52 Mil/cmm (4.30-5.70) L 10/24/16 08:17 Hgb 11.3 gm/dL (13.2-17.3) L D 10/24/16 08:17 Hct 33.4 % (39.0-49.0) L D 10/24/16 08:17 MCV 94.9 fl (80-99) 10/24/16 08:17 MCH 32.1 pg (26.0-30.0) H 10/24/16 08:17 MCHC Differential 33.8 pg (28.0-36.0) 10/24/16 08:17 RDW 13.3 % (11.5-20.0) 10/24/16 08:17 Plt Count 338 Th/cmm (150-400) 10/24/16 08:17 MPV 9.2 fl 10/24/16 08:17 Band Neutrophils % 1 % (0-10) 10/24/16 08:17 Neutrophils (Manual) 92 % (40-80) H 10/24/16 08:17 Lymphocytes 6 % (20-50) L 10/24/16 08:17 Monocytes 1 % (2-10) L 10/24/16 08:17 Platelet Estimate ADEQUATE (NORMAL) 10/24/16 08:17 Sodium 146 mEq/L (136-145) H 10/24/16 08:17 Potassium 2.6 mEq/L (3.5-5.1) L* 10/24/16 08:17 Chloride 111 mEq/L (98-107) H 10/24/16 08:17 Carbon Dioxide 30.8 mEq/L (21.0-31.0) 10/24/16 08:17 Anion Gap 6.8 (7.0-16.0) L 10/24/16 08:17 BUN 8 mg/dL (7-25) 10/24/16 08:17 Creatinine 0.6 mg/dL (0.7-1.3) L 10/24/16 08:17 Est GFR ( Amer) > 60.0 ml/min (>90) 10/24/16 08:17 Est GFR (Non-Af Amer) > 60.0 ml/min 10/24/16 08:17 BUN/Creatinine Ratio 13.3 10/24/16 08:17 Glucose 154 mg/dL (70-105) H 10/24/16 08:17 Whole Bld Lactic Acid 1.66 mmol/L (0.60-1.99) 10/22/16 15:56 Calcium 8.9 mg/dL (8.6-10.3) 10/24/16 08:17 Magnesium 2.3 mg/dL (1.9-2.7) 10/23/16 06:13 Urine Source [place] 10/22/16 16:00 Urine Color YELLOW 10/22/16 16:00 Urine Clarity CLEAR (CLEAR) 10/22/16 16:00 Urine pH 7.5 10/22/16 16:00 Ur Specific [place] 1.015 (1.005-1.030) 10/22/16 16:00 Urine Protein 30 mg/dL (NEGATIVE) H 10/22/16 16:00 Urine Glucose (UA) NEGATIVE mg/dL (NEGATIVE) 10/22/16 16:00 Urine Ketones NEGATIVE mg/dL (NEGATIVE) 10/22/16 16:00 Urine Blood TRACE (NEGATIVE) 10/22/16 16:00 Urine Nitrate NEGATIVE (NEGATIVE) 10/22/16 16:00 Urine Bilirubin NEGATIVE (NEGATIVE) 10/22/16 16:00 Urine Urobilinogen 0.2 E.U./dL (0.2 - 1.0) 10/22/16 16:00 Ur Leukocyte Esterase NEGATIVE (NEGATIVE) 10/22/16 16:00 Urine RBC 0-2 /hpf (0-5) H 10/22/16 16:00 Urine WBC 2-5 /hpf (0-5) H 10/22/16 16:00 Ur Epithelial Cells OCCASIONAL /lpf (FEW) 10/22/16 16:00 Urine Bacteria OCCASIONAL /hpf (NONE SEEN) 10/22/16 16:00 Vancomycin Trough 38.5 ug/mL (10-20) H 10/24/16 08:17 Acetaminophen < 10.0 ug/mL (10.0-30.0) L 10/22/16 15:56 - Physical Exam Vitals and I&O: Vital Signs Temp 98.8 F 10/24/16 11:25 Pulse 92 10/24/16 11:25 Resp 16 10/24/16 12:05 BP 119/61 10/24/16 11:25 Pulse Ox 96 10/24/16 11:25 Intake & Output 10/23/16 10/24/16 10/24/16 18:59 06:59 18:59 Intake Total 5653 652 8445.833 Output Total 500 Balance 4736 634 6232.833 Weight (lbs) 53.116 kg 60.781 kg Intake: Intake, IV Amount 0086 380 5832.833 D5-0.9%Ns 1,000 ml @ 80 1000 1000 mls/hr IV .[id number] [facility] Rx #:[id number] KCL 20mEq/100mL Premix 40 90.833 meq In 200 ml @ 50 mls/ hr IV Q2H [facility] Rx#: [id number] Piperacillin Sodium/ 200 100 100 Tazobact 4.5 gm In Sodium Chloride 0.9% 100 ml @ 100 mls/hr IV Q8HR [facility] Rx #:[id number] Vancomycin HCl 0.75 gm In 250 500 Sodium Chloride 0.9% 250 ml @ 165 mls/hr IV Q8H [facility] Rx#:[id number] Output: Urine 500 Active Medications: Current Medications Al Hydrox/Mg Hydrox/Simethicone (Maalox) 30 ml PO Q6H PRN PRN Reason: Dyspepsia Stop: 12/21/16 20:50 Albuterol Sulfate (Albuterol 2.5mg/3ml Neb Ud) 2.5 mg HHN QIDRT [facility] Stop: 12/22/16 06:59 Last Admin: 10/24/16 10:48 Dose: 2.5 mg Artificial Tears (Artificial Tears Ophth Soln) 2 drop EACH EYE QID [facility] Stop: 12/21/16 20:59 Last Admin: 10/24/16 13:17 Dose: 2 drop Ascorbic Acid (Vitamin C) 500 mg GT BID [facility] Stop: 12/22/16 08:59 Last Admin: 10/24/16 10:12 Dose: 500 mg Baclofen (Lioresal) 20 mg GT TID [facility] Stop: 12/21/16 20:59 Last Admin: 10/24/16 13:17 Dose: 20 mg Bisacodyl (Dulcolax 10 Mg Supp) 10 mg RC PRN PRN PRN Reason: Constipation Calcium Carbonate (Calcium Carb) 600 mg GT BID [facility] Stop: 12/22/16 08:59 Last Admin: 10/24/16 10:12 Dose: 600 mg Clonazepam (Klonopin) 0.5 mg GT TID [facility] Stop: 12/21/16 20:59 Last Admin: 10/24/16 13:17 Dose: 0.5 mg Ferrous Sulfate (Iron) 450 mg GT BID [facility] Stop: 12/22/16 08:59 Last Admin: 10/24/16 10:13 Dose: 450 mg Folic Acid (Folate) 1 mg GT DAILY [facility] Stop: 12/22/16 08:59 Last Admin: 10/24/16 10:12 Dose: 1 mg Guaifenesin (Robitussin) 200 mg PO Q4HR PRN PRN Reason: Cough or Congestion Stop: 12/21/16 20:50 Piperacillin Sod/Tazobactam (Sod 4.5 gm/ Sodium Chloride) 100 mls @ 100 mls/hr IV Q8HR [facility] Stop: 12/22/16 04:59 Last Admin: 10/24/16 12:20 Dose: 100 mls/hr Potassium Chloride (Potassium Chloride) 40 meq in 200 mls @ 50 mls/hr IV Q2H [facility] Stop: 10/24/16 14:24 Last Admin: 10/24/16 13:01 Dose: 50 mls/hr Potassium Chloride (Potassium Chloride) 20 meq in 100 mls @ 50 mls/hr IV 1430 [facility] Stop: 10/24/16 17:30 Potassium Chloride/Dextrose/Sod Cl (D5-0.9ns W/40 Meq Kcl) 1,000 mls @ 75 mls/ hr IV .[id number] [facility] Stop: 12/23/16 13:39 Levetiracetam (Keppra) 750 mg GT BID [facility] Stop: 12/22/16 08:59 Last Admin: 10/24/16 10:12 Dose: 750 mg Mineral Oil (Mineral Oil 30 Ml) 30 ml GT QID [facility] Stop: 12/22/16 16:59 Last Admin: 10/24/16 13:17 Dose: 30 ml Miscellaneous (Vancomycin Iv Per Pharmacy) 1 ea MC PRN [facility] Stop: 12/21/16 20:59 Ondansetron HCl (Zofran) 4 mg IV Q8H PRN PRN Reason: Nausea / Vomiting Stop: 12/21/16 20:50 Pantoprazole Sodium (Protonix) 40 mg IVP Q12HR [facility] Stop: 12/22/16 08:59 Last Admin: 10/24/16 10:11 Dose: 40 mg Polyethylene Glycol (Miralax) 17 gm GT DAILY [facility] Stop: 12/22/16 08:59 Last Admin: 10/24/16 10:10 Dose: 17 gm Primidone (Mysoline) 50 mg GT BID [facility] Stop: 12/22/16 08:59 Last Admin: 10/24/16 10:11 Dose: 50 mg Simethicone (Mylicon) 80 mg GT QID [facility] Stop: 12/21/16 20:59 Last Admin: 10/24/16 13:17 Dose: 80 mg Sodium Chloride (Nacl Tab) 1 gm GT DAILY [facility] Stop: 12/22/16 08:59 Last Admin: 10/24/16 10:12 Dose: 1 gm Sodium Phosphate (Fleet Enema) 135 ml RC Q12H PRN PRN Reason: Constipation Stop: 12/21/16 20:48 General: weak, other (noninteractive) HEENT: NC/AT, PERRLA Neck: Supple Lungs: congested Cardiovascular: RRR, Normal S1, Normal S2, without murmur Abdomen: non-tender, distended, +GT Extremities: excoriation, ulcers stage 2 Neurological: no change, lethargic, bedbound, other (noninteractive) - Procedures Procedures: Procedures Procedure Code Date CHANGE GASTROSTOMY TUBE 91957 05/19/14 DRAINAGE OF SKIN ABSCESS 38300 07/16/10 EGD BIOPSY SINGLE/MULTIPLE 44566 11/01/12 EMERGENCY DEPT VISIT 45788 07/12/11 ESOPHAGOGASTRODUODENOSCOPY [EGD] W/CLOSED BIOPSY 45.16 11/01/12 OTHER SKIN & SUBQ I D 86.04 07/16/10 REPLACE GASTROSTOMY TUBE 97.02 05/19/14 Internal Medicine Assmt/Plan - Assessment Assessment: gi bleeding fever sepsis uti aspiration pnm mr cp sz functional debilitation - Plan Plan: cont on iv abx and hydration \monitor h and h will refer to gi will check blood cx monitor rest of cx see orders Nutritional Asmnt/Malnutr-PDOC - Dietary Evaluation Malnutrition Findings (Please click <Entered> for more info): Nutritional Asmnt/Malnutrition Start: 10/23/16 12: 06 Text: Status: Complete Freq: Document 10/23/16 12:06 GSUN (Rec: 10/23/16 12:27 GSUN [email or web address]) Nutritional Asmnt/Malnutrition Patient General Information Nutritional Screening High Risk Screening Diagnosis GI bleeding, fever, sepsis, UTI, aspiration PNA Pertinent Medical Hx/Surgical Hx Asthma, PNA, dementia, GI bleed, gastritis, arthritis, cataract, cerebral palsy, profound mental retardation, seizures, thoracic and lumbar spine compression freactures, fracture right femur with natali placed, chronic H pylori gastritis, PEG Subjective Information 46 year old male from [facility]. Pt admitted due to coffee ground emesis at [facility]. Per RN notes, last emesis 7/ night, no episode noted since. Observed no tube feeding bag and on intermittent GT suction. Pt with eyes rolled back, non- verbal, unable to interview due to profound mental retardation. RD called [facility], pt's most recent weight September 2016 at 117.1lb. No significant fat/muscle wasting noted. Current Diet Order/ Nutrition Support Fibersource 78ml/hr x 16hrs Pertinent Medications Maalox, Vitamin C, D5-0.9%ns, Iron, Folate, Cephulac, Mineral Oil, Vancomycin, Zofran, Protonix, Miralax, Fleet Enema Pertinent Labs Reviewed. Nutritional Hx/Data Height 1.57 m Height (Calculated Centimeters) 157.5 Current Weight (lbs) 53.116 kg Weight (Calculated Kilograms) 53.1 Weight (Calculated Grams) 77899.7 Weight Status Approriate GI Symptoms GI Symptoms Vomitting Difficult in: Chewing Swallowing Cultural/Ethnic/[employer]aritan Belief [facility]: Jevity 1.2 at 78ml/hr x 16hrs, providing 1248ml, 1497kcal. On at 4pm and off at 8am. Skin Integrity/Comment: Ferdinand [place]. Skin intact. Estimated Nutritional Goals BEE in Kcals: Using Current wt Calories/Kcals/Kg CBW 117.1lb/53.2kg Kcals Calculated 1596-1862kcal (30-35kcal/kg) Protein: Using Current wt Protein Calculated 64-80g (1.2-1.5g/kg) Fluid: ml 1596-1862ml (1ml/kcal) Nutritional Problem 2. Problem Problem Altered GI function related to Etiology unknown etiology aeb Signs/Symptoms: coffee ground emesis, GI bleeding per H&P 1. Problem Problem Increased kcal and prot needs related to Etiology hypermetabolic state aeb Signs/Symptoms: sepsis, aspiration pneumonia Intervention/Recommendation Comments 1. When medically feasible to resume enteral nutrition, recommend Fibersouce at 85ml/ hr x 16hrs, providing 1360ml total volume, 1632kcal, 73g protein. On at 4pm and off at 8am. 2. Called [facility] and obtained pt's most current weight September 2016 at 117.1lb. Expected Outcomes/Goals Expected Outcomes/Goals 1. Pt to meet 100% of estimated nutritional needs on tube feeding with tolerance.
[2016-10-24] MEDS ORDERED: KCL 20mEq/100mL Premix 20 MEQ/100 ML PIGGYBACK IV SCH (14:30)
[2016-10-24] MEDS ORDERED: Magnesium Citrate 1.75 GM/300 mL Bottle GT ONE (16:16)
[2016-10-24] MEDS ORDERED: Fleet Enema 135 mL RC ONE (16:16)
[2016-10-25] MEDS: D5-0.9%NS 1,000 ML IV SCH (05:18)
[2016-10-25] MEDS: Albuterol Nebulizer 2.5mg/3mL HHN SCH ×4 (06:41→19:28)
[2016-10-25 06:58] LABS: % BASOPHILS 0.3 % (0.0-2.0); % EOSINOPHILS 0.6 % (0.0-5.0); % LYMPHOCYTES 13.6 % (20.0-50.0); % MONOCYTES 6.7 % (2.0-10.0); % NEUTROPHILS 78.8 % (40.0-80.0); HEMATOCRIT 36.7 % (39.0-49.0); HEMOGLOBIN 12.2 gm/dL (13.2-17.3); MEAN CELL VOLUME 95.1 fl (80-99); MEAN CORPUSCULAR HEMOGLOBIN 31.6 pg (26.0-30.0); MEAN CORPUSCULAR HGB CONC 33.2 pg (28.0-36.0); MEAN PLATELET VOLUME 9.7 fl; NEUTROPHILE ABSOLUTE 9.9 Th/cmm (1.8-8.0); PLATELET COUNT 326 Th/cmm (150-400); RED BLOOD COUNT 3.86 Mil/cmm (4.30-5.70); RED CELL DISTRIBUTION WIDTH 13.3 % (11.5-20.0)
[2016-10-25 07:15] LABS: WHITE BLOOD COUNT 12.5 Th/cmm (4.8-10.8)
[2016-10-25 07:18] LABS: ANION GAP 8.6 (7.0-16.0); BUN - UREA NITROGEN 5 mg/dL (7-25); BUN/CREATININE RATIO 8.3; CALCIUM SERUM 9.4 mg/dL (8.6-10.3); CARBON DIOXIDE 29.1 mEq/L (21.0-31.0); CHLORIDE 114 mEq/L (98-107); CREATININE - SERUM 0.6 mg/dL (0.7-1.3); GLUCOSE 128 mg/dL (70-105); MAGNESIUM 2.2 mg/dL (1.9-2.7); SODIUM SERUM 149 mEq/L (136-145)
[2016-10-25 07:27] LABS: POTASSIUM SERUM 2.7 mEq/L (3.5-5.1); VANCOMYCIN RANDOM 9.2 ug/mL (5.0-40.0)
[2016-10-25] MEDS: D5-0.9NS w/40 mEq KCL 1,000 ML IV SCH (08:36)
[2016-10-25] MEDS: Vancomycin HCl 500 MG in Sodium Chloride 0.9% 100 ML IV SCH ×3 (08:37→23:24)
[2016-10-25] MEDS: Ferrous Sulfate 300 MG/5 ML UDC GT SCH ×2 (08:45→16:35)
[2016-10-25] MEDS: Levetiracetam 500 mg/5mL 5mL UDC GT SCH ×2 (08:45→16:34)
[2016-10-25] MEDS: Multivitamin w/ Minerals Tab PO SCH (08:45)
[2016-10-25] MEDS: POLYETHYLENE GLYCOL 3350 17 GM PACK GT SCH (08:45)
[2016-10-25] MEDS: Polyvinyl Alcohol Ophth Soln 15 mL Bottle EACH EYE SCH ×4 (08:46→20:44)
[2016-10-25] MEDS ORDERED: Potassium Chloride 20 mEq ER Tab PO ONE (09:30)
--- NOTE | 2016-10-25 16:36 | Internal Medicine Prog Note ---
Internal Medicine Subjective - Subjective Patient seen and examined:: with staff, chart reviewed Patient is:: awake, non-verbal Patient Complaints of:: congestion, vomitting Per staff patient has:: no adverse event, no episodes of fall, confused, tolerating meds Internal Medicine Objective - Results Result Diagrams: 10/25/16 06:15 10/25/16 06:15 Recent Labs: Laboratory Last Values WBC 12.5 Th/cmm (4.8-10.8) H D 10/25/16 06:15 RBC 3.86 Mil/cmm (4.30-5.70) L 10/25/16 06:15 Hgb 12.2 gm/dL (13.2-17.3) L 10/25/16 06:15 Hct 36.7 % (39.0-49.0) L 10/25/16 06:15 MCV 95.1 fl (80-99) 10/25/16 06:15 MCH 31.6 pg (26.0-30.0) H 10/25/16 06:15 MCHC Differential 33.2 pg (28.0-36.0) 10/25/16 06:15 RDW 13.3 % (11.5-20.0) 10/25/16 06:15 Plt Count 326 Th/cmm (150-400) 10/25/16 06:15 MPV 9.7 fl 10/25/16 06:15 Neutrophils % 78.8 % (40.0-80.0) 10/25/16 06:15 Band Neutrophils % 1 % (0-10) 10/24/16 08:17 Lymphocytes % 13.6 % (20.0-50.0) L 10/25/16 06:15 Monocytes % 6.7 % (2.0-10.0) 10/25/16 06:15 Eosinophils % 0.6 % (0.0-5.0) 10/25/16 06:15 Basophils % 0.3 % (0.0-2.0) 10/25/16 06:15 Neutrophils (Manual) 92 % (40-80) H 10/24/16 08:17 Lymphocytes 6 % (20-50) L 10/24/16 08:17 Monocytes 1 % (2-10) L 10/24/16 08:17 Platelet Estimate ADEQUATE (NORMAL) 10/24/16 08:17 Sodium 149 mEq/L (136-145) H 10/25/16 06:15 Potassium 2.7 mEq/L (3.5-5.1) L* 10/25/16 06:15 Chloride 114 mEq/L (98-107) H 10/25/16 06:15 Carbon Dioxide 29.1 mEq/L (21.0-31.0) 10/25/16 06:15 Anion Gap 8.6 (7.0-16.0) 10/25/16 06:15 BUN 5 mg/dL (7-25) L 10/25/16 06:15 Creatinine 0.6 mg/dL (0.7-1.3) L 10/25/16 06:15 Est GFR ( Amer) > 60.0 ml/min (>90) 10/25/16 06:15 Est GFR (Non-Af Amer) > 60.0 ml/min 10/25/16 06:15 BUN/Creatinine Ratio 8.3 10/25/16 06:15 Glucose 128 mg/dL (70-105) H 10/25/16 06:15 Whole Bld Lactic Acid 1.66 mmol/L (0.60-1.99) 10/22/16 15:56 Calcium 9.4 mg/dL (8.6-10.3) 10/25/16 06:15 Magnesium 2.2 mg/dL (1.9-2.7) 10/25/16 06:15 Urine Source [place] 10/22/16 16:00 Urine Color YELLOW 10/22/16 16:00 Urine Clarity CLEAR (CLEAR) 10/22/16 16:00 Urine pH 7.5 10/22/16 16:00 Ur Specific [place] 1.015 (1.005-1.030) 10/22/16 16:00 Urine Protein 30 mg/dL (NEGATIVE) H 10/22/16 16:00 Urine Glucose (UA) NEGATIVE mg/dL (NEGATIVE) 10/22/16 16:00 Urine Ketones NEGATIVE mg/dL (NEGATIVE) 10/22/16 16:00 Urine Blood TRACE (NEGATIVE) 10/22/16 16:00 Urine Nitrate NEGATIVE (NEGATIVE) 10/22/16 16:00 Urine Bilirubin NEGATIVE (NEGATIVE) 10/22/16 16:00 Urine Urobilinogen 0.2 E.U./dL (0.2 - 1.0) 10/22/16 16:00 Ur Leukocyte Esterase NEGATIVE (NEGATIVE) 10/22/16 16:00 Urine RBC 0-2 /hpf (0-5) H 10/22/16 16:00 Urine WBC 2-5 /hpf (0-5) H 10/22/16 16:00 Ur Epithelial Cells OCCASIONAL /lpf (FEW) 10/22/16 16:00 Urine Bacteria OCCASIONAL /hpf (NONE SEEN) 10/22/16 16:00 Vancomycin Trough 38.5 ug/mL (10-20) H 10/24/16 08:17 Random Vancomycin 9.2 ug/mL (5.0-40.0) 10/25/16 06:15 Acetaminophen < 10.0 ug/mL (10.0-30.0) L 10/22/16 15:56 - Physical Exam Vitals and I&O: Vital Signs Temp 98.4 F 10/25/16 04:00 Pulse 94 10/25/16 15:00 Resp 14 10/25/16 15:00 BP 144/73 10/25/16 04:00 Pulse Ox 97 10/25/16 15:00 Intake & Output 10/24/16 10/25/16 10/25/16 18:59 06:59 18:59 Intake Total 1625.134 7658.333 Output Total 60 1000 Balance 1930.833 377.333 Weight (lbs) 60.781 kg 60.781 kg Intake: Intake, IV Amount 7644.002 9473.333 D5-0.9%Ns 1,000 ml @ 80 1000 mls/hr IV .[id number] [facility] Rx #:[id number] D5-0.9%Ns 1,000 ml @ 80 977.333 mls/hr IV .[id number] [facility] Rx #:[id number] KCL 20mEq/100mL Premix 20 100 meq In 100 ml @ 50 mls/ hr IV 1430 [facility] Rx#: [id number] KCL 20mEq/100mL Premix 40 290.833 meq In 200 ml @ 50 mls/ hr IV Q2H [facility] Rx#: [id number] Piperacillin Sodium/ 200 200 Tazobact 4.5 gm In Sodium Chloride 0.9% 100 ml @ 100 mls/hr IV Q8HR [facility] Rx #:[id number] Oral 0 Other 400 200 Output: Urine 1000 Other 60 Other: # Voids 500 # Bowel Movements 2 2 Stool Characteristics Soft Soft Soft Foamy Foamy Foamy Active Medications: Current Medications Al Hydrox/Mg Hydrox/Simethicone (Maalox) 30 ml PO Q6H PRN PRN Reason: Dyspepsia Stop: 12/21/16 20:50 Albuterol Sulfate (Albuterol 2.5mg/3ml Neb Ud) 2.5 mg HHN QIDRT [facility] Stop: 12/22/16 06:59 Last Admin: 10/25/16 14:37 Dose: 2.5 mg Artificial Tears (Artificial Tears Ophth Soln) 2 drop EACH EYE QID [facility] Stop: 12/21/16 20:59 Last Admin: 10/25/16 16:35 Dose: 2 drop Ascorbic Acid (Vitamin C) 500 mg GT BID [facility] Stop: 12/22/16 08:59 Last Admin: 10/25/16 16:35 Dose: 500 mg Baclofen (Lioresal) 20 mg GT TID [facility] Stop: 12/21/16 20:59 Last Admin: 10/25/16 14:42 Dose: 20 mg Bisacodyl (Dulcolax 10 Mg Supp) 10 mg RC PRN PRN PRN Reason: Constipation Bisacodyl (Dulcolax 10 Mg Supp) 10 mg RC DAILY [facility] Stop: 10/27/16 16:29 Last Admin: 10/25/16 08:47 Dose: 10 mg Calcium Carbonate (Calcium Carb) 600 mg GT BID [facility] Stop: 12/22/16 08:59 Last Admin: 10/25/16 08:45 Dose: 600 mg Clonazepam (Klonopin) 0.5 mg GT TID [facility] Stop: 12/21/16 20:59 Last Admin: 10/25/16 14:42 Dose: 0.5 mg Ferrous Sulfate (Iron) 450 mg GT BID [facility] Stop: 12/22/16 08:59 Last Admin: 10/25/16 16:35 Dose: 450 mg Folic Acid (Folate) 1 mg GT DAILY [facility] Stop: 12/22/16 08:59 Last Admin: 10/25/16 08:46 Dose: 1 mg Guaifenesin (Robitussin) 200 mg PO Q4HR PRN PRN Reason: Cough or Congestion Stop: 12/21/16 20:50 Piperacillin Sod/Tazobactam (Sod 4.5 gm/ Sodium Chloride) 100 mls @ 100 mls/hr IV Q8HR [facility] Stop: 12/22/16 04:59 Last Admin: 10/25/16 14:44 Dose: 100 mls/hr Potassium Chloride/Dextrose/Sod Cl (D5-0.9ns W/40 Meq Kcl) 1,000 mls @ 75 mls/ hr IV .[id number] [facility] Stop: 12/24/16 08:59 Last Admin: 10/25/16 08:36 Dose: 75 mls/hr Vancomycin HCl 500 mg/ Sodium (Chloride) 100 mls @ 100 mls/hr IV Q8HR@0000,0800 ,1600 [facility] Stop: 12/24/16 07:59 Last Admin: 10/25/16 08:37 Dose: 100 mls/hr Levetiracetam (Keppra) 750 mg GT BID [facility] Stop: 12/22/16 08:59 Last Admin: 10/25/16 16:34 Dose: 750 mg Mineral Oil (Mineral Oil 30 Ml) 30 ml GT QID [facility] Stop: 12/22/16 16:59 Last Admin: 10/25/16 16:34 Dose: 30 ml Miscellaneous (Vancomycin Iv Per Pharmacy) 1 ea MC PRN [facility] Stop: 12/21/16 20:59 Mupirocin (Bactroban Oint) 1 appl TP BID [facility] Stop: 12/23/16 16:59 Last Admin: 10/25/16 16:35 Dose: 1 appl Ondansetron HCl (Zofran) 4 mg IV Q8H PRN PRN Reason: Nausea / Vomiting Stop: 12/21/16 20:50 Pantoprazole Sodium (Protonix) 40 mg IVP Q12HR [facility] Stop: 12/22/16 08:59 Last Admin: 10/25/16 08:45 Dose: 40 mg Polyethylene Glycol (Miralax) 17 gm GT DAILY [facility] Stop: 12/22/16 08:59 Last Admin: 10/25/16 08:45 Dose: 17 gm Primidone (Mysoline) 50 mg GT BID [facility] Stop: 12/22/16 08:59 Last Admin: 10/25/16 16:35 Dose: 50 mg Simethicone (Mylicon) 80 mg GT QID [facility] Stop: 12/21/16 20:59 Last Admin: 10/25/16 14:44 Dose: 80 mg Sodium Chloride (Nacl Tab) 1 gm GT DAILY [facility] Stop: 12/22/16 08:59 Last Admin: 10/25/16 08:45 Dose: 1 gm Sodium Phosphate (Fleet Enema) 135 ml RC Q12H PRN PRN Reason: Constipation Stop: 12/21/16 20:48 General: weak, other (noninteractive) HEENT: NC/AT, PERRLA Neck: Supple Lungs: congested Cardiovascular: RRR, Normal S1, Normal S2, without murmur Abdomen: non-tender, distended, +GT Extremities: excoriation, ulcers stage 2 Neurological: no change, lethargic, bedbound, other (noninteractive) - Procedures Procedures: Procedures Procedure Code Date CHANGE GASTROSTOMY TUBE 53190 05/19/14 DRAINAGE OF SKIN ABSCESS 13470 07/16/10 EGD BIOPSY SINGLE/MULTIPLE 87428 11/01/12 EMERGENCY DEPT VISIT 22881 07/12/11 ESOPHAGOGASTRODUODENOSCOPY [EGD] W/CLOSED BIOPSY 45.16 11/01/12 OTHER SKIN & SUBQ I D 86.04 07/16/10 REPLACE GASTROSTOMY TUBE 97.02 05/19/14 Internal Medicine Assmt/Plan - Assessment Assessment: hypokalemia gi bleeding fever sepsis uti aspiration pnm mr cp sz functional debilitation - Plan Plan: cont on iv abx and hydration \monitor h and h will refer to gi will check blood cx monitor rest of cx see orders Nutritional Asmnt/Malnutr-PDOC - Dietary Evaluation Malnutrition Findings (Please click <Entered> for more info): Nutritional Asmnt/Malnutrition Start: 10/23/16 12: 06 Text: Status: Complete Freq: Document 10/23/16 12:06 GSUN (Rec: 10/23/16 12:27 [email or web address]) Nutritional Asmnt/Malnutrition Patient General Information Nutritional Screening High Risk Screening Diagnosis GI bleeding, fever, sepsis, UTI, aspiration PNA Pertinent Medical Hx/Surgical Hx Asthma, PNA, dementia, GI bleed, gastritis, arthritis, cataract, cerebral palsy, profound mental retardation, seizures, thoracic and lumbar spine compression freactures, fracture right femur with ntaali placed, chronic H pylori gastritis, PEG Subjective Information 46 year old male from [facility]. Pt admitted due to coffee ground emesis at [facility]. Per RN notes, last emesis 7/6 night, no episode noted since. Observed no tube feeding bag and on intermittent GT suction. Pt with eyes rolled back, non- verbal, unable to interview due to profound mental retardation. RD called [facility], pt's most recent weight September 2016 at 117.1lb. No significant fat/muscle wasting noted. Current Diet Order/ Nutrition Support Fibersource 78ml/hr x 16hrs Pertinent Medications Maalox, Vitamin C, D5-0.9%ns, Iron, Folate, Cephulac, Mineral Oil, Vancomycin, Zofran, Protonix, Miralax, Fleet Enema Pertinent Labs Reviewed. Nutritional Hx/Data Height 1.57 m Height (Calculated Centimeters) 157.5 Current Weight (lbs) 53.116 kg Weight (Calculated Kilograms) 53.1 Weight (Calculated Grams) 27737.7 Weight Status Approriate GI Symptoms GI Symptoms Vomitting Difficult in: Chewing Swallowing Cultural/Ethnic/Orthodox Belief [facility]: Jevity 1.2 at 78ml/hr x 16hrs, providing 1248ml, 1497kcal. On at 4pm and off at 8am. Skin Integrity/Comment: Ferdinand 13. Skin intact. Estimated Nutritional Goals BEE in Kcals: Using Current wt Calories/Kcals/Kg CBW 117.1lb/53.2kg Kcals Calculated 1596-1862kcal (30-35kcal/kg) Protein: Using Current wt Protein Calculated 64-80g (1.2-1.5g/kg) Fluid: ml 1596-1862ml (1ml/kcal) Nutritional Problem 2. Problem Problem Altered GI function related to Etiology unknown etiology aeb Signs/Symptoms: coffee ground emesis, GI bleeding per H&P 1. Problem Problem Increased kcal and prot needs related to Etiology hypermetabolic state aeb Signs/Symptoms: sepsis, aspiration pneumonia Intervention/Recommendation Comments 1. When medically feasible to resume enteral nutrition, recommend Fibersouce at 85ml/ hr x 16hrs, providing 1360ml total volume, 1632kcal, 73g protein. On at 4pm and off at 8am. 2. Called [facility] and obtained pt's most current weight September 2016 at 117.1lb. Expected Outcomes/Goals Expected Outcomes/Goals 1. Pt to meet 100% of estimated nutritional needs on tube feeding with tolerance.
[2016-10-26] MEDS: D5-0.9NS w/40 mEq KCL 1,000 ML IV SCH (02:22)
[2016-10-26] MEDS: Albuterol Nebulizer 2.5mg/3mL HHN SCH ×4 (06:36→18:59)
[2016-10-26 07:10] LABS: % BASOPHILS 0.1 % (0.0-2.0); % EOSINOPHILS 1.2 % (0.0-5.0); % LYMPHOCYTES 16.4 % (20.0-50.0); % NEUTROPHILS 75.3 % (40.0-80.0); HEMATOCRIT 33.6 % (39.0-49.0); HEMOGLOBIN 11.4 gm/dL (13.2-17.3); MEAN PLATELET VOLUME 9.2 fl; NEUTROPHILE ABSOLUTE 7.1 Th/cmm (1.8-8.0); PLATELET COUNT 336 Th/cmm (150-400); RED BLOOD COUNT 3.57 Mil/cmm (4.30-5.70); RED CELL DISTRIBUTION WIDTH 13.1 % (11.5-20.0); WHITE BLOOD COUNT 9.4 Th/cmm (4.8-10.8)
[2016-10-26 07:24] LABS: ANION GAP 7.9 (7.0-16.0); BUN - UREA NITROGEN 5 mg/dL (7-25); BUN/CREATININE RATIO 8.3; CALCIUM SERUM 9.1 mg/dL (8.6-10.3); CHLORIDE 112 mEq/L (98-107); CREATININE - SERUM 0.6 mg/dL (0.7-1.3); GLUCOSE 128 mg/dL (70-105); MAGNESIUM 1.9 mg/dL (1.9-2.7); SODIUM SERUM 147 mEq/L (136-145)
[2016-10-26 07:37] LABS: POTASSIUM SERUM 2.9 mEq/L (3.5-5.1)
[2016-10-26] MEDS: Vancomycin HCl 500 MG in Sodium Chloride 0.9% 100 ML IV SCH ×2 (08:23→17:09)
[2016-10-26] MEDS ORDERED: IOHEXOL 300MG/ML 100 ML VIAL IVP ONE (10:53)
[2016-10-26] MEDS ORDERED: Diatrizoate Meglumine/Diatri 30 mL Sol PO ONE (10:53)
[2016-10-26] MEDS: Ferrous Sulfate 300 MG/5 ML UDC GT SCH ×2 (10:59→17:10)
[2016-10-26] MEDS: Multivitamin w/ Minerals Tab PO SCH (11:00)
[2016-10-26] MEDS: Levetiracetam 500 mg/5mL 5mL UDC GT SCH ×2 (11:00→19:02)
[2016-10-26] MEDS: POLYETHYLENE GLYCOL 3350 17 GM PACK GT SCH (11:01)
[2016-10-26] MEDS: Polyvinyl Alcohol Ophth Soln 15 mL Bottle EACH EYE SCH ×4 (11:07→22:14)
[2016-10-26] MEDS: KCL 20mEq/100mL Premix 20 MEQ/100 ML PIGGYBACK IV SCH ×3 (11:07→19:03)
[2016-10-26 13:31] LABS: INR 1.31 (0.5-1.4); PROTHROMBIN TIME (TEST) 13.8 SECONDS (9.5-11.5)
--- NOTE | 2016-10-26 15:28 | Diagnostic Imaging Report ---
CT scan abdomen and pelvis without intravenous contrast HISTORY: Abdominal distention Total DLP equals 611 CTDI equals 12.9 Axial sections were obtained from the xiphoid process down to the pubic symphysis. Exam is limited due to patient motion. Limited sections the lower chest demonstrate cardiomegaly. No focal hepatic lesions are seen. The spleen appears normal. The pancreas is not well visualized. No obvious focal abnormalities. No focal renal lesions are seen. There is a dilated predominately fluid-filled stomach associated with a gastrostomy tube. There is poor delineation of the margins of the remainder of the bowel. There is poor delineation of the bowel margins and rectal margins within the pelvis. Questionable wall thickening through the rectosigmoid region. There is a severe scoliosis of the thoracolumbar spine convexity to the right. Diffuse degenerative changes along with what appears to be partial compression involving several vertebrae. Severe chronic deformity noted about the pelvis and hips. Rogers catheter is seen within the urinary bladder IMPRESSION: 1. Very limited exam due to patient motion and difficulty in positioning 2. Distended fluid-filled stomach associated with a gastrostomy tube. Findings should be correlated clinically 3. Suggestion of wall thickening involving the rectosigmoid region of the colon. Inflammatory or neoplastic change cannot be definitely excluded on this exam. Clinical correlation needed. 4. Severe chronic deformities involving the pelvis and hips along with a scoliosis.
[2016-10-26] MEDS: Potassium Chloride Elixir 20 mEq /15 mL UDC GT SCH (17:09)
[2016-10-26] MEDS ORDERED: KCL 20mEq/100mL Premix 20 MEQ/100 ML PIGGYBACK IV ONE (18:59)
[2016-10-27] MEDS: D5-0.9NS w/40 mEq KCL 1,000 ML IV SCH (01:29)
[2016-10-27] MEDS: Vancomycin HCl 500 MG in Sodium Chloride 0.9% 100 ML IV SCH ×3 (01:30→16:20)
[2016-10-27 07:35] LABS: ANION GAP 8.8 (7.0-16.0); BUN - UREA NITROGEN 8 mg/dL (7-25); CALCIUM SERUM 9.4 mg/dL (8.6-10.3); CARBON DIOXIDE 31.5 mEq/L (21.0-31.0); CHLORIDE 114 mEq/L (98-107); CREATININE - SERUM 0.8 mg/dL (0.7-1.3); GLUCOSE 107 mg/dL (70-105); POTASSIUM SERUM 3.3 mEq/L (3.5-5.1); SODIUM SERUM 151 mEq/L (136-145)
[2016-10-27] MEDS: Albuterol Nebulizer 2.5mg/3mL HHN SCH ×4 (08:32→19:51)
[2016-10-27] MEDS: Multivitamin w/ Minerals Tab PO SCH (08:56)
[2016-10-27] MEDS: Ferrous Sulfate 300 MG/5 ML UDC GT SCH ×2 (08:56→16:20)
[2016-10-27] MEDS: Potassium Chloride Elixir 20 mEq /15 mL UDC GT SCH ×2 (08:57→16:20)
[2016-10-27] MEDS: Polyvinyl Alcohol Ophth Soln 15 mL Bottle EACH EYE SCH ×4 (08:57→22:34)
[2016-10-27] MEDS: POLYETHYLENE GLYCOL 3350 17 GM PACK GT SCH (09:30)
[2016-10-27] MEDS: Levetiracetam 500 mg/5mL 5mL UDC GT SCH ×2 (10:36→16:21)
--- NOTE | 2016-10-27 12:21 | Internal Medicine Prog Note ---
Internal Medicine Subjective - Subjective Service Date: 10/27/16 (remains on ngt to intermittent suction) Patient is:: awake, non-verbal Patient Complaints of:: congestion, vomitting Per staff patient has:: no adverse event, no episodes of fall, confused, tolerating meds Internal Medicine Objective - Results Result Diagrams: 10/26/16 06:50 10/27/16 06:36 Recent Labs: Laboratory Last Values WBC 9.4 Th/cmm (4.8-10.8) D 10/26/16 06:50 RBC 3.57 Mil/cmm (4.30-5.70) L 10/26/16 06:50 Hgb 11.4 gm/dL (13.2-17.3) L 10/26/16 06:50 Hct 33.6 % (39.0-49.0) L 10/26/16 06:50 MCV 94.0 fl (80-99) 10/26/16 06:50 MCH 32.0 pg (26.0-30.0) H 10/26/16 06:50 MCHC Differential 34.0 pg (28.0-36.0) 10/26/16 06:50 RDW 13.1 % (11.5-20.0) 10/26/16 06:50 Plt Count 336 Th/cmm (150-400) 10/26/16 06:50 MPV 9.2 fl 10/26/16 06:50 Neutrophils % 75.3 % (40.0-80.0) 10/26/16 06:50 Band Neutrophils % 1 % (0-10) 10/24/16 08:17 Lymphocytes % 16.4 % (20.0-50.0) L 10/26/16 06:50 Monocytes % 7.0 % (2.0-10.0) 10/26/16 06:50 Eosinophils % 1.2 % (0.0-5.0) 10/26/16 06:50 Basophils % 0.1 % (0.0-2.0) 10/26/16 06:50 Neutrophils (Manual) 92 % (40-80) H 10/24/16 08:17 Lymphocytes 6 % (20-50) L 10/24/16 08:17 Monocytes 1 % (2-10) L 10/24/16 08:17 Platelet Estimate ADEQUATE (NORMAL) 10/24/16 08:17 PT 13.8 SECONDS (9.5-11.5) H 10/26/16 13:00 INR 1.31 (0.5-1.4) 10/26/16 13:00 PTT (Actin FS) 26.4 SECONDS (26.0-38.0) 10/26/16 13:00 Sodium 151 mEq/L (136-145) H 10/27/16 06:36 Potassium 3.3 mEq/L (3.5-5.1) L 10/27/16 06:36 Chloride 114 mEq/L (98-107) H 10/27/16 06:36 Carbon Dioxide 31.5 mEq/L (21.0-31.0) H 10/27/16 06:36 Anion Gap 8.8 (7.0-16.0) 10/27/16 06:36 BUN 8 mg/dL (7-25) 10/27/16 06:36 Creatinine 0.8 mg/dL (0.7-1.3) 10/27/16 06:36 Est GFR ( Amer) > 60.0 ml/min (>90) 10/27/16 06:36 Est GFR (Non-Af Amer) > 60.0 ml/min 10/27/16 06:36 BUN/Creatinine Ratio 10.0 10/27/16 06:36 Glucose 107 mg/dL (70-105) H 10/27/16 06:36 Whole Bld Lactic Acid 1.66 mmol/L (0.60-1.99) 10/22/16 15:56 Calcium 9.4 mg/dL (8.6-10.3) 10/27/16 06:36 Magnesium 2.0 mg/dL (1.9-2.7) 10/27/16 06:36 Ammonia 68 umol/L (16-53) H 10/26/16 06:50 Urine Source TOTH PORT 10/22/16 16:00 Urine Color YELLOW 10/22/16 16:00 Urine Clarity CLEAR (CLEAR) 10/22/16 16:00 Urine pH 7.5 10/22/16 16:00 Ur Specific Speculator 1.015 (1.005-1.030) 10/22/16 16:00 Urine Protein 30 mg/dL (NEGATIVE) H 10/22/16 16:00 Urine Glucose (UA) NEGATIVE mg/dL (NEGATIVE) 10/22/16 16:00 Urine Ketones NEGATIVE mg/dL (NEGATIVE) 10/22/16 16:00 Urine Blood TRACE (NEGATIVE) 10/22/16 16:00 Urine Nitrate NEGATIVE (NEGATIVE) 10/22/16 16:00 Urine Bilirubin NEGATIVE (NEGATIVE) 10/22/16 16:00 Urine Urobilinogen 0.2 E.U./dL (0.2 - 1.0) 10/22/16 16:00 Ur Leukocyte Esterase NEGATIVE (NEGATIVE) 10/22/16 16:00 Urine RBC 0-2 /hpf (0-5) H 10/22/16 16:00 Urine WBC 2-5 /hpf (0-5) H 10/22/16 16:00 Ur Epithelial Cells OCCASIONAL /lpf (FEW) 10/22/16 16:00 Urine Bacteria OCCASIONAL /hpf (NONE SEEN) 10/22/16 16:00 Vancomycin Trough 17.0 ug/mL (10-20) 10/26/16 06:50 Random Vancomycin 9.2 ug/mL (5.0-40.0) 10/25/16 06:15 Acetaminophen < 10.0 ug/mL (10.0-30.0) L 10/22/16 15:56 - Physical Exam Vitals and I&O: Vital Signs Temp 98.6 F 10/27/16 12:01 Pulse 113 10/27/16 12:01 Resp 19 10/27/16 12:01 BP 137/77 10/27/16 12:01 Pulse Ox 95 10/27/16 12:01 Intake & Output 10/26/16 10/27/16 10/27/16 18:59 06:59 18:59 Intake Total 1500 300 Output Total 450 Balance 1500 -150 Weight (lbs) 132 lb Intake: Intake, IV Amount 1500 200 D5-0.9NS w/40 mEq KCL 1, 1000 000 ml @ 75 mls/hr IV . [id number] [facility] Rx#:[id number] KCL 20mEq/100mL Premix 20 200 meq In 100 ml @ 50 mls/ hr IV Q2H [facility] Rx#: [id number] Piperacillin Sodium/ 100 100 Tazobact 4.5 gm In Sodium Chloride 0.9% 100 ml @ 100 mls/hr IV Q8HR [facility] Rx #:[id number] Vancomycin HCl 500 mg In 200 100 Sodium Chloride 0.9% 100 ml @ 100 mls/hr IV Q8HR@ 0000,0800,1600 [facility] Rx#: [id number] Tube Feeding 100 Output: Gastric Drainage 450 Other: Stool Characteristics Liquid Active Medications: Current Medications Al Hydrox/Mg Hydrox/Simethicone (Maalox) 30 ml PO Q6H PRN PRN Reason: Dyspepsia Stop: 12/21/16 20:50 Albuterol Sulfate (Albuterol 2.5mg/3ml Neb Ud) 2.5 mg HHN QIDRT [facility] Stop: 12/22/16 06:59 Last Admin: 10/27/16 11:20 Dose: 2.5 mg Artificial Tears (Artificial Tears Ophth Soln) 2 drop EACH EYE QID [facility] Stop: 12/21/16 20:59 Last Admin: 10/27/16 08:57 Dose: 2 drop Ascorbic Acid (Vitamin C) 500 mg GT BID [facility] [place] Stop: 12/22/16 08:59 Last Admin: 10/27/16 08:56 Dose: 500 mg Baclofen (Lioresal) 20 mg GT TID [facility] Stop: 12/21/16 20:59 Last Admin: 10/27/16 08:56 Dose: 20 mg Bisacodyl (Dulcolax 10 Mg Supp) 10 mg RC PRN PRN PRN Reason: Constipation Bisacodyl (Dulcolax 10 Mg Supp) 10 mg RC DAILY [facility] Stop: 10/27/16 16:29 Last Admin: 10/27/16 09:30 Dose: Not Given Calcium Carbonate (Calcium Carb) 600 mg GT BID [facility] [place] Stop: 12/22/16 08:59 Last Admin: 10/27/16 08:56 Dose: 600 mg Clonazepam (Klonopin) 0.5 mg GT TID [facility] Stop: 12/21/16 20:59 Last Admin: 10/27/16 08:56 Dose: 0.5 mg Ferrous Sulfate (Iron) 450 mg GT BID [facility] Stop: 12/22/16 08:59 Last Admin: 10/27/16 08:56 Dose: 450 mg Folic Acid (Folate) 1 mg GT DAILY [facility] Stop: 12/22/16 08:59 Last Admin: 10/27/16 08:56 Dose: 1 mg Guaifenesin (Robitussin) 200 mg PO Q4HR PRN PRN Reason: Cough or Congestion Stop: 12/21/16 20:50 Piperacillin Sod/Tazobactam (Sod 4.5 gm/ Sodium Chloride) 100 mls @ 100 mls/hr IV Q8HR [facility] Stop: 12/22/16 04:59 Last Admin: 10/27/16 05:37 Dose: 100 mls/hr Potassium Chloride/Dextrose/Sod Cl (D5-0.9ns W/40 Meq Kcl) 1,000 mls @ 75 mls/ hr IV .[id number] [facility] Stop: 12/24/16 08:59 Last Admin: 10/27/16 01:29 Dose: 75 mls/hr Vancomycin HCl 500 mg/ Sodium (Chloride) 100 mls @ 100 mls/hr IV Q8HR@0000,0800 ,1600 [facility] Stop: 12/24/16 07:59 Last Admin: 10/27/16 09:29 Dose: 100 mls/hr Levetiracetam (Keppra) 750 mg GT BID [facility] [place] Stop: 12/22/16 08:59 Last Admin: 10/27/16 10:36 Dose: 750 mg Mineral Oil (Mineral Oil 30 Ml) 30 ml GT QID [facility] [place] Stop: 12/22/16 16:59 Last Admin: 10/27/16 09:30 Dose: Not Given Miscellaneous (Vancomycin Iv Per Pharmacy) 1 ea MC PRN [facility] Stop: 12/21/16 20:59 Mupirocin (Bactroban Oint) 1 appl TP BID [facility] [place] Stop: 12/23/16 16:59 Last Admin: 10/27/16 08:58 Dose: 1 appl Ondansetron HCl (Zofran) 4 mg IV Q8H PRN PRN Reason: Nausea / Vomiting Stop: 12/21/16 20:50 Pantoprazole Sodium (Protonix) 40 mg IVP Q12HR [facility] [place] Stop: 12/22/16 08:59 Last Admin: 10/27/16 08:57 Dose: 40 mg Polyethylene Glycol (Miralax) 17 gm GT DAILY [facility] [place] Stop: 12/22/16 08:59 Last Admin: 10/27/16 09:30 Dose: Not Given Potassium Chloride (Potassium Chloride Elixir) 20 meq GT BID [facility] [place] Stop: 12/25/16 16:59 Last Admin: 10/27/16 08:57 Dose: 20 meq Primidone (Mysoline) 50 mg GT BID [facility] Stop: 12/22/16 08:59 Last Admin: 10/27/16 08:56 Dose: 50 mg Simethicone (Mylicon) 80 mg GT QID [facility] Stop: 12/21/16 20:59 Last Admin: 10/27/16 08:56 Dose: 80 mg Sodium Chloride (Nacl Tab) 1 gm GT DAILY [facility] Stop: 12/22/16 08:59 Last Admin: 10/27/16 08:56 Dose: 1 gm Sodium Phosphate (Fleet Enema) 135 ml RC Q12H PRN PRN Reason: Constipation Stop: 12/21/16 20:48 General: weak, other (noninteractive) HEENT: NC/AT, PERRLA Neck: Supple Lungs: congested Cardiovascular: RRR, Normal S1, Normal S2, without murmur Abdomen: non-tender, distended, +GT Extremities: excoriation, ulcers stage 2 Neurological: no change, lethargic, bedbound, other (noninteractive) - Procedures Procedures: Procedures Procedure Code Date CHANGE GASTROSTOMY TUBE 03833 05/19/14 DRAINAGE OF SKIN ABSCESS 51629 07/16/10 EGD BIOPSY SINGLE/MULTIPLE 17249 11/01/12 EMERGENCY DEPT VISIT 37073 07/12/11 ESOPHAGOGASTRODUODENOSCOPY [EGD] W/CLOSED BIOPSY 45.16 11/01/12 OTHER SKIN & SUBQ I D 86.04 07/16/10 REPLACE GASTROSTOMY TUBE 97.02 05/19/14 Internal Medicine Assmt/Plan - Assessment Assessment: gi bleeding fever sepsis uti aspiration pnm mr cp sz functional debilitation - Plan Plan: sigmoidoscopy vs colonoscopy tomorrow am monitor h/h seizure precautions monitor for fever ivf for hydration supplemental oxygen aspiration precautions Nutritional Asmnt/Malnutr-PDOC - Dietary Evaluation Malnutrition Findings (Please click <Entered> for more info): Nutritional Asmnt/Malnutrition Start: 10/23/16 12: 06 Text: Status: Complete Freq: Document 10/23/16 12:06 GSUN (Rec: 10/23/16 12:27 GSUN [email or web address]) Nutritional Asmnt/Malnutrition Patient General Information Nutritional Screening High Risk Screening Diagnosis GI bleeding, fever, sepsis, UTI, aspiration PNA Pertinent Medical Hx/Surgical Hx Asthma, PNA, dementia, GI bleed, gastritis, arthritis, cataract, cerebral palsy, profound mental retardation, seizures, thoracic and lumbar spine compression freactures, fracture right femur with natali placed, chronic H pylori gastritis, PEG Subjective Information 46 year old male from [facility]. Pt admitted due to coffee ground emesis at [facility]. Per RN notes, last emesis 7/6 night, no episode noted since. Observed no tube feeding bag and on intermittent GT suction. Pt with eyes rolled back, non- verbal, unable to interview due to profound mental retardation. RD called [employer], pt's most recent weight September 2016 at 117.1lb. No significant fat/muscle wasting noted. Current Diet Order/ Nutrition Support Fibersource 78ml/hr x 16hrs Pertinent Medications Maalox, Vitamin C, D5-0.9%ns, Iron, Folate, Cephulac, Mineral Oil, Vancomycin, Zofran, Protonix, Miralax, Fleet Enema Pertinent Labs Reviewed. Nutritional Hx/Data Height 5 ft 2 in Height (Calculated Centimeters) 157.5 Current Weight (lbs) 117 lb 1.6 oz Weight (Calculated Kilograms) 53.1 Weight (Calculated Grams) 71034.7 Weight Status Approriate GI Symptoms GI Symptoms Vomitting Difficult in: Chewing Swallowing Cultural/Ethnic/Rastafari Belief [employer]: Jevity 1.2 at 78ml/hr x 16hrs, providing 1248ml, 1497kcal. On at 4pm and off at 8am. Skin Integrity/Comment: Ferdinand Centeno. Skin intact. Estimated Nutritional Goals BEE in Kcals: Using Current wt Calories/Kcals/Kg CBW 117.1lb/53.2kg Kcals Calculated 1596-1862kcal (30-35kcal/kg) Protein: Using Current wt Protein Calculated 64-80g (1.2-1.5g/kg) Fluid: ml 1596-1862ml (1ml/kcal) Nutritional Problem 2. Problem Problem Altered GI function related to Etiology unknown etiology aeb Signs/Symptoms: coffee ground emesis, GI bleeding per H&P 1. Problem Problem Increased kcal and prot needs related to Etiology hypermetabolic state aeb Signs/Symptoms: sepsis, aspiration pneumonia Intervention/Recommendation Comments 1. When medically feasible to resume enteral nutrition, recommend Fibersouce at 85ml/ hr x 16hrs, providing 1360ml total volume, 1632kcal, 73g protein. On at 4pm and off at 8am. 2. Called [facility] and obtained pt's most current weight September 2016 at 117.1lb. Expected Outcomes/Goals Expected Outcomes/Goals 1. Pt to meet 100% of estimated nutritional needs on tube feeding with tolerance.
[2016-10-27] MEDS ORDERED: LIDOCAINE IV ONE (15:00)
[2016-10-27] MEDS ORDERED: POTASSIUM CHLORIDE IV ONE (15:00)
[2016-10-27] MEDS ORDERED: SODIUM CHLORIDE 0.9% IV ONE (15:00)
[2016-10-27] MEDS ORDERED: Magnesium Citrate 1.75 GM/300 mL Bottle PO ONE (18:00)
[2016-10-28] MEDS: Vancomycin HCl 500 MG in Sodium Chloride 0.9% 100 ML IV SCH (01:53)
[2016-10-28] MEDS: Albuterol Nebulizer 2.5mg/3mL HHN SCH ×4 (06:53→19:30)
[2016-10-28 07:16] LABS: HEMOGLOBIN 13.2 gm/dL (13.2-17.3); NEUTROPHILE ABSOLUTE 9.9 Th/cmm (1.8-8.0); RED BLOOD COUNT 4.13 Mil/cmm (4.30-5.70)
[2016-10-28 07:23] LABS: % EOSINOPHILS 1.8 % (0.0-5.0); % LYMPHOCYTES 16.8 % (20.0-50.0); % MONOCYTES 7.6 % (2.0-10.0); % NEUTROPHILS 73.8 % (40.0-80.0); MEAN CELL VOLUME 94.9 fl (80-99); MEAN CORPUSCULAR HGB CONC 33.7 pg (28.0-36.0); MEAN PLATELET VOLUME 9.1 fl; PLATELET COUNT 293 Th/cmm (150-400); RED CELL DISTRIBUTION WIDTH 13.4 % (11.5-20.0)
[2016-10-28 07:32] LABS: HEMATOCRIT 39.2 % (39.0-49.0); WHITE BLOOD COUNT 13.4 Th/cmm (4.8-10.8)
[2016-10-28 07:36] LABS: ALB/GLOB RATIO 0.9 (1.0-1.8); ALKALINE PHOSPHATASE 64 U/L (34-104); ANION GAP 8.3 (7.0-16.0); BILIRUBIN,TOTAL 0.6 mg/dL (0.3-1.0); BUN - UREA NITROGEN 11 mg/dL (7-25); CALCIUM SERUM 9.7 mg/dL (8.6-10.3); CARBON DIOXIDE 28.7 mEq/L (21.0-31.0); CHLORIDE 116 mEq/L (98-107); CHOLESTEROL 137 mg/dL (<200); GLUCOSE 122 mg/dL (70-105); MAGNESIUM 2.1 mg/dL (1.9-2.7); PHOSPHOROUS 2.8 mg/dL (2.5-5.0); SGOT 23 U/L (13-39); SGPT/ALT 30 U/L (7-52); SODIUM SERUM 149 mEq/L (136-145); TRIGLYCERIDES 136 mg/dL (<150)
--- NOTE | 2016-10-28 09:27 | Operative Report ---
GI Operative Report - Gastroenterology Procedure:: colonoscopy. Indication for procedure:: colon obstruction on ct scan. Procedure consent:: by mom. Anesthesia:: by anesthiologist, dr cuellar. Preoperative diagnosis:: colon pbstruction. Postoperative diagnosis:: normal colon up to hepatic flexure, fecal impaction. Description of Procedure:: rectal examination reveals stool . no mass. video colonoscope up to hepatic flexure reveals no mass or obstruction. lot of stools. Recommendations:: minera oil and laxatives, order gastrograffin ugi with small bowel follow thru.
[2016-10-28] MEDS: Levetiracetam 500 mg/5mL 5mL UDC GT SCH ×2 (11:23→19:00)
[2016-10-28] MEDS: Ferrous Sulfate 300 MG/5 ML UDC GT SCH ×2 (11:24→19:00)
[2016-10-28] MEDS: Multivitamin w/ Minerals Tab PO SCH (11:24)
[2016-10-28] MEDS: POLYETHYLENE GLYCOL 3350 17 GM PACK GT SCH (11:25)
[2016-10-28] MEDS: Potassium Chloride Elixir 20 mEq /15 mL UDC GT SCH (11:28)
[2016-10-28] MEDS: Polyvinyl Alcohol Ophth Soln 15 mL Bottle EACH EYE SCH ×4 (11:28→22:50)
--- NOTE | 2016-10-28 11:59 | Internal Medicine Prog Note ---
Internal Medicine Subjective - Subjective Service Date: 10/28/16 Patient is:: awake, non-verbal Patient Complaints of:: congestion, vomitting Per staff patient has:: no adverse event, no episodes of fall, confused, tolerating meds Internal Medicine Objective - Results Result Diagrams: 10/28/16 06:55 10/28/16 06:55 Recent Labs: Laboratory Last Values WBC 13.4 Th/cmm (4.8-10.8) H D 10/28/16 06:55 RBC 4.13 Mil/cmm (4.30-5.70) L 10/28/16 06:55 Hgb 13.2 gm/dL (13.2-17.3) 10/28/16 06:55 Hct 39.2 % (39.0-49.0) D 10/28/16 06:55 MCV 94.9 fl (80-99) 10/28/16 06:55 MCH 32.0 pg (26.0-30.0) H 10/28/16 06:55 MCHC Differential 33.7 pg (28.0-36.0) 10/28/16 06:55 RDW 13.4 % (11.5-20.0) 10/28/16 06:55 Plt Count 293 Th/cmm (150-400) 10/28/16 06:55 MPV 9.1 fl 10/28/16 06:55 Neutrophils % 73.8 % (40.0-80.0) 10/28/16 06:55 Band Neutrophils % 1 % (0-10) 10/24/16 08:17 Lymphocytes % 16.8 % (20.0-50.0) L 10/28/16 06:55 Monocytes % 7.6 % (2.0-10.0) 10/28/16 06:55 Eosinophils % 1.8 % (0.0-5.0) 10/28/16 06:55 Basophils % 0.0 % (0.0-2.0) 10/28/16 06:55 Neutrophils (Manual) 92 % (40-80) H 10/24/16 08:17 Lymphocytes 6 % (20-50) L 10/24/16 08:17 Monocytes 1 % (2-10) L 10/24/16 08:17 Platelet Estimate ADEQUATE (NORMAL) 10/24/16 08:17 PT 13.8 SECONDS (9.5-11.5) H 10/26/16 13:00 INR 1.31 (0.5-1.4) 10/26/16 13:00 PTT (Actin FS) 26.4 SECONDS (26.0-38.0) 10/26/16 13:00 Sodium 149 mEq/L (136-145) H 10/28/16 06:55 Potassium 4.0 mEq/L (3.5-5.1) 10/28/16 06:55 Chloride 116 mEq/L (98-107) H 10/28/16 06:55 Carbon Dioxide 28.7 mEq/L (21.0-31.0) 10/28/16 06:55 Anion Gap 8.3 (7.0-16.0) 10/28/16 06:55 BUN 11 mg/dL (7-25) 10/28/16 06:55 Creatinine 1.0 mg/dL (0.7-1.3) 10/28/16 06:55 Est GFR ( Amer) > 60.0 ml/min (>90) 10/28/16 06:55 Est GFR (Non-Af Amer) > 60.0 ml/min 10/28/16 06:55 BUN/Creatinine Ratio 11.0 10/28/16 06:55 Glucose 122 mg/dL (70-105) H 10/28/16 06:55 Whole Bld Lactic Acid 1.66 mmol/L (0.60-1.99) 10/22/16 15:56 Calcium 9.7 mg/dL (8.6-10.3) 10/28/16 06:55 Phosphorus 2.8 mg/dL (2.5-5.0) 10/28/16 06:55 Magnesium 2.1 mg/dL (1.9-2.7) 10/28/16 06:55 Total Bilirubin 0.6 mg/dL (0.3-1.0) 10/28/16 06:55 AST 23 U/L (13-39) 10/28/16 06:55 ALT 30 U/L (7-52) 10/28/16 06:55 Alkaline Phosphatase 64 U/L (34-104) 10/28/16 06:55 Ammonia 68 umol/L (16-53) H 10/26/16 06:50 Total Protein 7.9 gm/dL (6.0-8.3) 10/28/16 06:55 Albumin 3.8 gm/dL (4.2-5.5) L 10/28/16 06:55 Globulin 4.1 gm/dL 10/28/16 06:55 Albumin/Globulin Ratio 0.9 (1.0-1.8) L 10/28/16 06:55 Triglycerides 136 mg/dL (<150) 10/28/16 06:55 Cholesterol 137 mg/dL (<200) 10/28/16 06:55 Urine Source [place] 10/22/16 16:00 Urine Color YELLOW 10/22/16 16:00 Urine Clarity CLEAR (CLEAR) 10/22/16 16:00 Urine pH 7.5 10/22/16 16:00 Ur Specific [place] 1.015 (1.005-1.030) 10/22/16 16:00 Urine Protein 30 mg/dL (NEGATIVE) H 10/22/16 16:00 Urine Glucose (UA) NEGATIVE mg/dL (NEGATIVE) 10/22/16 16:00 Urine Ketones NEGATIVE mg/dL (NEGATIVE) 10/22/16 16:00 Urine Blood TRACE (NEGATIVE) 10/22/16 16:00 Urine Nitrate NEGATIVE (NEGATIVE) 10/22/16 16:00 Urine Bilirubin NEGATIVE (NEGATIVE) 10/22/16 16:00 Urine Urobilinogen 0.2 E.U./dL (0.2 - 1.0) 10/22/16 16:00 Ur Leukocyte Esterase NEGATIVE (NEGATIVE) 10/22/16 16:00 Urine RBC 0-2 /hpf (0-5) H 10/22/16 16:00 Urine WBC 2-5 /hpf (0-5) H 10/22/16 16:00 Ur Epithelial Cells OCCASIONAL /lpf (FEW) 10/22/16 16:00 Urine Bacteria OCCASIONAL /hpf (NONE SEEN) 10/22/16 16:00 Vancomycin Trough 17.0 ug/mL (10-20) 10/26/16 06:50 Random Vancomycin 32.5 ug/mL (5.0-40.0) 10/28/16 06:55 Acetaminophen < 10.0 ug/mL (10.0-30.0) L 10/22/16 15:56 - Physical Exam Vitals and I&O: Vital Signs Temp 98.6 F 10/27/16 16:14 Pulse 107 10/28/16 11:43 Resp 20 10/28/16 11:43 BP 151/88 10/28/16 07:00 Pulse Ox 95 10/28/16 11:43 Intake & Output 10/27/16 10/28/16 10/28/16 18:59 06:59 18:59 Intake Total 300 100 Output Total 900 Balance -600 100 Weight (lbs) 132 lb 132 lb Intake: Intake, IV Amount 300 100 Piperacillin Sodium/ 100 100 Tazobact 4.5 gm In Sodium Chloride 0.9% 100 ml @ 100 mls/hr IV Q8HR [facility] Rx #:[id number] Vancomycin HCl 500 mg In 200 Sodium Chloride 0.9% 100 ml @ 100 mls/hr IV Q8HR@ 0000,0800,1600 [facility] Rx#: [id number] Output: Urine 900 Stool 0 Other: Stool Characteristics Soft Active Medications: Current Medications Al Hydrox/Mg Hydrox/Simethicone (Maalox) 30 ml PO Q6H PRN PRN Reason: Dyspepsia Stop: 12/21/16 20:50 Albuterol Sulfate (Albuterol 2.5mg/3ml Neb Ud) 2.5 mg HHN QIDRT [facility] Stop: 12/22/16 06:59 Last Admin: 10/28/16 11:42 Dose: 2.5 mg Artificial Tears (Artificial Tears Ophth Soln) 2 drop EACH EYE QID [facility] Stop: 12/21/16 20:59 Last Admin: 10/28/16 11:28 Dose: 2 drop Ascorbic Acid (Vitamin C) 500 mg GT BID [facility] Stop: 12/22/16 08:59 Last Admin: 10/28/16 11:25 Dose: 500 mg Baclofen (Lioresal) 20 mg GT TID [facility] Stop: 12/21/16 20:59 Last Admin: 10/28/16 11:25 Dose: 20 mg Bisacodyl (Dulcolax 10 Mg Supp) 10 mg RC PRN PRN PRN Reason: Constipation Calcium Carbonate (Calcium Carb) 600 mg GT BID [facility] Stop: 12/22/16 08:59 Last Admin: 10/28/16 11:25 Dose: 600 mg Clonazepam (Klonopin) 0.5 mg GT TID [facility] Stop: 12/21/16 20:59 Last Admin: 10/28/16 11:25 Dose: 0.5 mg Ferrous Sulfate (Iron) 450 mg GT BID [facility] Stop: 12/22/16 08:59 Last Admin: 10/28/16 11:24 Dose: 450 mg Folic Acid (Folate) 1 mg GT DAILY [facility] Stop: 12/22/16 08:59 Last Admin: 10/28/16 11:25 Dose: 1 mg Guaifenesin (Robitussin) 200 mg PO Q4HR PRN PRN Reason: Cough or Congestion Stop: 12/21/16 20:50 Piperacillin Sod/Tazobactam (Sod 4.5 gm/ Sodium Chloride) 100 mls @ 100 mls/hr IV Q8HR [facility] Stop: 12/22/16 04:59 Last Admin: 10/28/16 06:09 Dose: 100 mls/hr Potassium Chloride 40 meq/ (Dextrose) 1,020 mls @ 75 mls/hr IV .[id number] [facility] Stop: 12/26/16 16:59 Last Admin: 10/28/16 01:55 Dose: 75 mls/hr Levetiracetam (Keppra) 750 mg GT BID [facility] Stop: 12/22/16 08:59 Last Admin: 10/28/16 11:23 Dose: 750 mg Mineral Oil (Mineral Oil 30 Ml) 30 ml GT QID [facility] Stop: 12/22/16 16:59 Last Admin: 10/28/16 11:24 Dose: 30 ml Miscellaneous (Vancomycin Iv Per Pharmacy) 1 [facility] PRN [facility] Stop: 12/21/16 20:59 Miscellaneous (Ppn Per Pharmacy) 1 [facility] PRN PRN PRN Reason: PROTOCOL Stop: 12/26/16 15:53 Mupirocin (Bactroban Oint) 1 appl TP BID [facility] Stop: 12/23/16 16:59 Last Admin: 10/28/16 11:29 Dose: 1 appl Ondansetron HCl (Zofran) 4 mg IV Q8H PRN PRN Reason: Nausea / Vomiting Stop: 12/21/16 20:50 Pantoprazole Sodium (Protonix) 40 mg IVP Q12HR [facility] Stop: 12/22/16 08:59 Last Admin: 10/28/16 11:25 Dose: 40 mg Polyethylene Glycol (Miralax) 17 gm GT DAILY [facility] Stop: 12/22/16 08:59 Last Admin: 10/28/16 11:25 Dose: 17 gm Potassium Chloride (Potassium Chloride Elixir) 20 meq GT BID [facility] Stop: 12/25/16 16:59 Last Admin: 10/28/16 11:28 Dose: 20 meq Primidone (Mysoline) 50 mg GT BID [facility] Stop: 12/22/16 08:59 Last Admin: 10/28/16 11:28 Dose: 50 mg Simethicone (Mylicon) 80 mg GT QID [facility] Stop: 12/21/16 20:59 Last Admin: 10/28/16 11:28 Dose: 80 mg Sodium Phosphate (Fleet Enema) 135 ml RC Q12H PRN PRN Reason: Constipation Stop: 12/21/16 20:48 General: weak, other (noninteractive) HEENT: NC/AT, PERRLA Neck: Supple Lungs: congested Cardiovascular: RRR, Normal S1, Normal S2, without murmur Abdomen: non-tender, distended, +GT Extremities: excoriation, ulcers stage 2 Neurological: no change, lethargic, bedbound, other (noninteractive) - Procedures Procedures: Procedures Procedure Code Date CHANGE GASTROSTOMY TUBE 70908 05/19/14 DIAGNOSTIC COLONOSCOPY 21656 10/22/16 DRAINAGE OF SKIN ABSCESS 19058 07/16/10 EGD BIOPSY SINGLE/MULTIPLE 43744 11/01/12 EMERGENCY DEPT VISIT 99192 07/12/11 ESOPHAGOGASTRODUODENOSCOPY [EGD] W/CLOSED BIOPSY 45.16 11/01/12 INSPECTION OF LOWER INTESTINAL TRACT, ENDO [id number] 10/22/16 OTHER SKIN & SUBQ I D 86.04 07/16/10 REPLACE GASTROSTOMY TUBE 97.02 05/19/14 Internal Medicine Assmt/Plan - Assessment Assessment: gi bleeding fever sepsis uti aspiration pnm mr cp sz functional debilitation - Plan Plan: s/p colonoscopy monitor h/h seizure precautions monitor for fever ivf for hydration supplemental oxygen aspiration precautions Nutritional Asmnt/Malnutr-PDOC - Dietary Evaluation Malnutrition Findings (Please click <Entered> for more info): Nutritional Asmnt/Malnutrition Start: 10/23/16 12: 06 Text: Status: Complete Freq: Document 10/23/16 12:06 GSUN (Rec: 10/23/16 12:27 GSUN [email or web address]) Nutritional Asmnt/Malnutrition Patient General Information Nutritional Screening High Risk Screening Diagnosis GI bleeding, fever, sepsis, UTI, aspiration PNA Pertinent Medical Hx/Surgical Hx Asthma, PNA, dementia, GI bleed, gastritis, arthritis, cataract, cerebral palsy, profound mental retardation, seizures, thoracic and lumbar spine compression freactures, fracture right femur with natali placed, chronic H pylori gastritis, PEG Subjective Information 46 year old male from [facility]. Pt admitted due to coffee ground emesis at [facility]. Per RN notes, last emesis 7/ night, no episode noted since. Observed no tube feeding bag and on intermittent GT suction. Pt with eyes rolled back, non- verbal, unable to interview due to profound mental retardation. RD called [facility], pt's most recent weight September 2016 at 117.1lb. No significant fat/muscle wasting noted. Current Diet Order/ Nutrition Support Fibersource 78ml/hr x 16hrs Pertinent Medications Maalox, Vitamin C, D5-0.9%ns, Iron, Folate, Cephulac, Mineral Oil, Vancomycin, Zofran, Protonix, Miralax, Fleet Enema Pertinent Labs Reviewed. Nutritional Hx/Data Height 5 ft 2 in Height (Calculated Centimeters) 157.5 Current Weight (lbs) 117 lb 1.6 oz Weight (Calculated Kilograms) 53.1 Weight (Calculated Grams) 10626.7 Weight Status Approriate GI Symptoms GI Symptoms Vomitting Difficult in: Chewing Swallowing Cultural/Ethnic/O[employer] Belief [facility]: Jevity 1.2 at 78ml/hr x 16hrs, providing 1248ml, 1497kcal. On at 4pm and off at 8am. Skin Integrity/Comment: Ferdinand Centeno. Skin intact. Estimated Nutritional Goals BEE in Kcals: Using Current wt Calories/Kcals/Kg CBW 117.1lb/53.2kg Kcals Calculated 1596-1862kcal (30-35kcal/kg) Protein: Using Current wt Protein Calculated 64-80g (1.2-1.5g/kg) Fluid: ml 1596-1862ml (1ml/kcal) Nutritional Problem 2. Problem Problem Altered GI function related to Etiology unknown etiology aeb Signs/Symptoms: coffee ground emesis, GI bleeding per H&P 1. Problem Problem Increased kcal and prot needs related to Etiology hypermetabolic state aeb Signs/Symptoms: sepsis, aspiration pneumonia Intervention/Recommendation Comments 1. When medically feasible to resume enteral nutrition, recommend Fibersouce at 85ml/ hr x 16hrs, providing 1360ml total volume, 1632kcal, 73g protein. On at 4pm and off at 8am. 2. Called [facility] and obtained pt's most current weight September 2016 at 117.1lb. Expected Outcomes/Goals Expected Outcomes/Goals 1. Pt to meet 100% of estimated nutritional needs on tube feeding with tolerance.
[2016-10-28] MEDS ORDERED: DEXTROSE IV SCH (13:30)
[2016-10-28] MEDS ORDERED: [UNRECOGNIZED DRUG - OTHER] IV SCH (13:30)
[2016-10-28] MEDS ORDERED: MULTIVITAMIN IV SCH (13:30)
[2016-10-28] MEDS ORDERED: AMINO ACIDS IV SCH (13:30)
--- NOTE | 2016-10-28 16:04 | Diagnostic Imaging Report ---
Portable chest x-ray HISTORY: Shortness of breath The overall heart size is normal. No focal pulmonary processes. Severe scoliosis and degenerative changes noted in the spine. Deformity noted about the left shoulder region. IMPRESSION: 1. No acute abnormalities 2. Severe scoliosis and degenerative changes within the spine
[2016-10-28] MEDS: TPN 10%-70% CUSTOM IV SCH (17:00)
[2016-10-28] MEDS ORDERED: D5-0.45NS w/40 mEq KCL 1,000 ML IV ONE (23:21)
[2016-10-29 06:54] LABS: % BASOPHILS 0.1 % (0.0-2.0); % EOSINOPHILS 3.3 % (0.0-5.0); % LYMPHOCYTES 21.1 % (20.0-50.0); % MONOCYTES 5.6 % (2.0-10.0); % NEUTROPHILS 69.9 % (40.0-80.0); HEMATOCRIT 39.5 % (39.0-49.0); HEMOGLOBIN 13.2 gm/dL (13.2-17.3); MEAN CELL VOLUME 95.1 fl (80-99); MEAN CORPUSCULAR HEMOGLOBIN 31.9 pg (26.0-30.0); MEAN CORPUSCULAR HGB CONC 33.5 pg (28.0-36.0); MEAN PLATELET VOLUME 9.5 fl; NEUTROPHILE ABSOLUTE 9.2 Th/cmm (1.8-8.0); PLATELET COUNT 256 Th/cmm (150-400); RED BLOOD COUNT 4.15 Mil/cmm (4.30-5.70); RED CELL DISTRIBUTION WIDTH 13.6 % (11.5-20.0)
[2016-10-29] MEDS: Albuterol Nebulizer 2.5mg/3mL HHN SCH ×4 (07:17→20:01)
[2016-10-29 07:28] LABS: BUN - UREA NITROGEN 17 mg/dL (7-25); CALCIUM SERUM 9.4 mg/dL (8.6-10.3); CARBON DIOXIDE 25.9 mEq/L (21.0-31.0); CHLORIDE 111 mEq/L (98-107); GLUCOSE 139 mg/dL (70-105); POTASSIUM SERUM 3.9 mEq/L (3.5-5.1); SODIUM SERUM 146 mEq/L (136-145)
[2016-10-29 07:40] LABS: WHITE BLOOD COUNT 13.1 Th/cmm (4.8-10.8)
[2016-10-29] MEDS: Polyvinyl Alcohol Ophth Soln 15 mL Bottle EACH EYE SCH ×4 (09:26→22:51)
[2016-10-29] MEDS: Levetiracetam 500 mg/5mL 5mL UDC GT SCH ×2 (09:26→17:29)
[2016-10-29] MEDS: Ferrous Sulfate 300 MG/5 ML UDC GT SCH ×2 (09:26→17:28)
[2016-10-29] MEDS: POLYETHYLENE GLYCOL 3350 17 GM PACK GT SCH ×2 (09:27→17:00)
[2016-10-29] MEDS: Dextrose 5% 1,000 ML IV SCH (12:50)
--- NOTE | 2016-10-29 13:53 | Internal Medicine Prog Note ---
Internal Medicine Subjective - Subjective Service Date: 10/29/16 Patient seen and examined:: with staff Patient is:: awake, non-verbal Patient Complaints of:: congestion, vomitting Per staff patient has:: no adverse event, no episodes of fall, confused, tolerating meds Internal Medicine Objective - Results Result Diagrams: 10/29/16 06:25 10/29/16 06:25 Recent Labs: Laboratory Last Values WBC 13.1 Th/cmm (4.8-10.8) H 10/29/16 06:25 RBC 4.15 Mil/cmm (4.30-5.70) L 10/29/16 06:25 Hgb 13.2 gm/dL (13.2-17.3) 10/29/16 06:25 Hct 39.5 % (39.0-49.0) 10/29/16 06:25 MCV 95.1 fl (80-99) 10/29/16 06:25 MCH 31.9 pg (26.0-30.0) H 10/29/16 06:25 MCHC Differential 33.5 pg (28.0-36.0) 10/29/16 06:25 RDW 13.6 % (11.5-20.0) 10/29/16 06:25 Plt Count 256 Th/cmm (150-400) 10/29/16 06:25 MPV 9.5 fl 10/29/16 06:25 Neutrophils % 69.9 % (40.0-80.0) 10/29/16 06:25 Band Neutrophils % 1 % (0-10) 10/24/16 08: Lymphocytes % 21.1 % (20.0-50.0) 10/29/16 06:25 Monocytes % 5.6 % (2.0-10.0) 10/29/16 06:25 Eosinophils % 3.3 % (0.0-5.0) 10/29/16 06:25 Basophils % 0.1 % (0.0-2.0) 10/29/16 06:25 Neutrophils (Manual) 92 % (40-80) H 10/24/16 08:17 Lymphocytes 6 % (20-50) L 10/24/16 08:17 Monocytes 1 % (2-10) L 10/24/16 08:17 Platelet Estimate ADEQUATE (NORMAL) 10/24/16 08:17 PT 13.8 SECONDS (9.5-11.5) H 10/26/16 13:00 INR 1.31 (0.5-1.4) 10/26/16 13:00 PTT (Actin FS) 26.4 SECONDS (26.0-38.0) 10/26/16 13:00 Sodium 146 mEq/L (136-145) H 10/29/16 06:25 Potassium 3.9 mEq/L (3.5-5.1) 10/29/16 06:25 Chloride 111 mEq/L (98-107) H 10/29/16 06:25 Carbon Dioxide 25.9 mEq/L (21.0-31.0) 10/29/16 06:25 Anion Gap 13.0 (7.0-16.0) 10/29/16 06:25 BUN 17 mg/dL (7-25) 10/29/16 06:25 Creatinine 1.0 mg/dL (0.7-1.3) 10/29/16 06:25 Est GFR ( Amer) > 60.0 ml/min (>90) 10/29/16 06:25 Est GFR (Non-Af Amer) > 60.0 ml/min 10/29/16 06:25 BUN/Creatinine Ratio 17.0 10/29/16 06:25 Glucose 139 mg/dL (70-105) H 10/29/16 06:25 POC Glucose 145 MG/DL (70 - 105) H 10/28/16 22:30 Whole Bld Lactic Acid 1.66 mmol/L (0.60-1.99) 10/22/16 15:56 Calcium 9.4 mg/dL (8.6-10.3) 10/29/16 06:25 Phosphorus 2.8 mg/dL (2.5-5.0) 10/28/16 06:55 Magnesium 2.1 mg/dL (1.9-2.7) 10/28/16 06:55 Total Bilirubin 0.6 mg/dL (0.3-1.0) 10/28/16 06:55 AST 23 U/L (13-39) 10/28/16 06:55 ALT 30 U/L (7-52) 10/28/16 06:55 Alkaline Phosphatase 64 U/L (34-104) 10/28/16 06:55 Ammonia 68 umol/L (16-53) H 10/26/16 06:50 Total Protein 7.9 gm/dL (6.0-8.3) 10/28/16 06:55 Albumin 3.8 gm/dL (4.2-5.5) L 10/28/16 06:55 Globulin 4.1 gm/dL 10/28/16 06:55 Albumin/Globulin Ratio 0.9 (1.0-1.8) L 10/28/16 06:55 Prealbumin 17 mg/dL (12-34) 10/28/16 06:55 Triglycerides 136 mg/dL (<150) 10/28/16 06:55 Cholesterol 137 mg/dL (<200) 10/28/16 06:55 Urine Source [place] 10/22/16 16:00 Urine Color YELLOW 10/22/16 16:00 Urine Clarity CLEAR (CLEAR) 10/22/16 16:00 Urine pH 7.5 10/22/16 16:00 Ur Specific [place] 1.015 (1.005-1.030) 10/22/16 16:00 Urine Protein 30 mg/dL (NEGATIVE) H 10/22/16 16:00 Urine Glucose (UA) NEGATIVE mg/dL (NEGATIVE) 10/22/16 16:00 Urine Ketones NEGATIVE mg/dL (NEGATIVE) 10/22/16 16:00 Urine Blood TRACE (NEGATIVE) 10/22/16 16:00 Urine Nitrate NEGATIVE (NEGATIVE) 10/22/16 16:00 Urine Bilirubin NEGATIVE (NEGATIVE) 10/22/16 16:00 Urine Urobilinogen 0.2 E.U./dL (0.2 - 1.0) 10/22/16 16:00 Ur Leukocyte Esterase NEGATIVE (NEGATIVE) 10/22/16 16:00 Urine RBC 0-2 /hpf (0-5) H 10/22/16 16:00 Urine WBC 2-5 /hpf (0-5) H 10/22/16 16:00 Ur Epithelial Cells OCCASIONAL /lpf (FEW) 10/22/16 16:00 Urine Bacteria OCCASIONAL /hpf (NONE SEEN) 10/22/16 16:00 Vancomycin Trough 24.2 ug/mL (10-20) H 10/29/16 10:14 Random Vancomycin 32.5 ug/mL (5.0-40.0) 10/28/16 06:55 Acetaminophen < 10.0 ug/mL (10.0-30.0) L 10/22/16 15:56 - Physical Exam Vitals and I&O: Vital Signs Temp 98.0 F 10/29/16 04:00 Pulse 102 10/29/16 11:15 Resp 20 10/29/16 11:15 BP 144/86 10/29/16 04:00 Pulse Ox 99 10/29/16 11:15 Intake & Output 10/28/16 10/29/16 10/29/16 18:59 06:59 18:59 Intake Total 1220 200 Output Total 1700 Balance 1220 -1500 Weight (lbs) 132 lb Intake: Intake, IV Amount 1220 200 Piperacillin Sodium/ 200 200 Tazobact 4.5 gm In Sodium Chloride 0.9% 100 ml @ 100 mls/hr IV Q8HR [facility] Rx #:[id number] Potassium Chloride 40 meq 1020 In Dextrose 5% 1,000 ml @ 75 mls/hr IV .[id number] [facility] Rx#:[id number] Output: Urine 1700 Other: Stool Characteristics Soft Active Medications: Current Medications Acetaminophen (Tylenol 650mg Supp) 650 mg RC Q6H PRN PRN Reason: Fever > 101 Stop: 12/27/16 21:02 Al Hydrox/Mg Hydrox/Simethicone (Maalox) 30 ml PO Q6H PRN PRN Reason: Dyspepsia Stop: 12/21/16 20:50 Albuterol Sulfate (Albuterol 2.5mg/3ml Neb Ud) 2.5 mg HHN QIDRT [facility] Stop: 12/22/16 06:59 Last Admin: 10/29/16 11:15 Dose: 2.5 mg Artificial Tears (Artificial Tears Ophth Soln) 2 drop EACH EYE QID [facility] Stop: 12/21/16 20:59 Last Admin: 10/29/16 13:46 Dose: 2 drop Ascorbic Acid (Vitamin C) 500 mg GT BID [facility] Stop: 12/22/16 08:59 Last Admin: 10/29/16 09:25 Dose: 500 mg Baclofen (Lioresal) 20 mg GT TID [facility] Stop: 12/21/16 20:59 Last Admin: 10/29/16 13:46 Dose: 20 mg Bisacodyl (Dulcolax 10 Mg Supp) 10 mg RC PRN PRN PRN Reason: Constipation Calcium Carbonate (Calcium Carb) 600 mg GT BID [facility] Stop: 12/22/16 08:59 Last Admin: 10/29/16 09:25 Dose: 600 mg Clonazepam (Klonopin) 0.5 mg GT TID [facility] Stop: 12/21/16 20:59 Last Admin: 10/29/16 13:46 Dose: 0.5 mg Ferrous Sulfate (Iron) 450 mg GT BID [facility] Stop: 12/22/16 08:59 Last Admin: 10/29/16 09:26 Dose: 450 mg Folic Acid (Folate) 1 mg GT DAILY [facility] Stop: 12/22/16 08:59 Last Admin: 10/29/16 09:25 Dose: 1 mg Guaifenesin (Robitussin) 200 mg PO Q4HR PRN PRN Reason: Cough or Congestion Stop: 12/21/16 20:50 Piperacillin Sod/Tazobactam (Sod 4.5 gm/ Sodium Chloride) 100 mls @ 100 mls/hr IV Q8HR [facility] Stop: 12/22/16 04:59 Last Admin: 10/29/16 12:44 Dose: 100 mls/hr Dextrose (D5w) 1,000 mls @ 25 mls/hr IV .Q24H [facility] Stop: 12/27/16 14:59 Last Admin: 10/29/16 12:50 Dose: 25 mls/hr Multivitamins/Minerals 10 ml/Dextrose/ Amino Acids/Electrolytes/ Fat Emulsion Intravenous 1,200 mls @ 50 mls/hr IV .Q24H [facility] Stop: 12/27/16 14:59 Last Admin: 10/28/16 17:00 Dose: 50 mls/hr Vancomycin HCl 1 gm/ Sodium (Chloride) 250 mls @ 165 mls/hr IV Q24H [facility] Stop: 12/28/16 14:59 Levetiracetam (Keppra) 750 mg GT BID [facility] Stop: 12/22/16 08:59 Last Admin: 10/29/16 09:26 Dose: 750 mg Mineral Oil (Mineral Oil 30 Ml) 30 ml GT QID [facility] Stop: 12/22/16 16:59 Last Admin: 10/29/16 13:46 Dose: 30 ml Miscellaneous (Vancomycin Iv Per Pharmacy) 1 ea [facility] PRN [facility] Stop: 12/21/16 20:59 Miscellaneous (Ppn Per Pharmacy) 1 ea [facility] PRN PRN PRN Reason: PROTOCOL Stop: 12/26/16 15:53 Mupirocin (Bactroban Oint) 1 appl TP BID [facility] Stop: 12/23/16 16:59 Last Admin: 10/29/16 09:27 Dose: 1 appl Ondansetron HCl (Zofran) 4 mg IV Q8H PRN PRN Reason: Nausea / Vomiting Stop: 12/21/16 20:50 Pantoprazole Sodium (Protonix) 40 mg IVP Q12HR [facility] Stop: 12/22/16 08:59 Last Admin: 10/29/16 09:25 Dose: 40 mg Polyethylene Glycol (Miralax) 17 gm GT DAILY [facility] Stop: 12/22/16 08:59 Last Admin: 10/29/16 09:27 Dose: 17 gm Primidone (Mysoline) 50 mg GT BID [facility] Stop: 12/22/16 08:59 Last Admin: 10/29/16 09:25 Dose: 50 mg Simethicone (Mylicon) 80 mg GT QID [facility] Stop: 12/21/16 20:59 Last Admin: 10/29/16 13:46 Dose: 80 mg Sodium Phosphate (Fleet Enema) 135 ml RC Q12H PRN PRN Reason: Constipation Stop: 12/21/16 20:48 General: weak, other (noninteractive) HEENT: NC/AT, PERRLA Neck: Supple Lungs: congested Cardiovascular: RRR, Normal S1, Normal S2, without murmur Abdomen: non-tender, distended, +GT Extremities: excoriation, ulcers stage 2 Neurological: no change, lethargic, bedbound, other (noninteractive) - Procedures Procedures: Procedures Procedure Code Date CHANGE GASTROSTOMY TUBE 32043 05/19/14 DIAGNOSTIC COLONOSCOPY 33418 10/22/16 DRAINAGE OF SKIN ABSCESS 98100 07/16/10 EGD BIOPSY SINGLE/MULTIPLE 72461 11/01/12 EMERGENCY DEPT VISIT 21205 07/12/11 ESOPHAGOGASTRODUODENOSCOPY [EGD] W/CLOSED BIOPSY 45.16 11/01/12 INSPECTION OF LOWER INTESTINAL TRACT, ENDO [id number] 10/22/16 OTHER SKIN & SUBQ I D 86.04 07/16/10 REPLACE GASTROSTOMY TUBE 97.02 05/19/14 Internal Medicine Assmt/Plan - Assessment Assessment: gi bleeding fever sepsis uti aspiration pnm mr cp sz functional debilitation - Plan Plan: upper gi series to be done monitor h/h seizure precautions monitor for fever ivf for hydration supplemental oxygen aspiration precautions Nutritional Asmnt/Malnutr-PDOC - Dietary Evaluation Malnutrition Findings (Please click <Entered> for more info): Nutritional Asmnt/Malnutrition Start: 10/23/16 12: 06 Text: Status: Complete Freq: Document 10/23/16 12:06 GSUN (Rec: 10/23/16 12:27 GSUN [email or web address]) Nutritional Asmnt/Malnutrition Patient General Information Nutritional Screening High Risk Screening Diagnosis GI bleeding, fever, sepsis, UTI, aspiration PNA Pertinent Medical Hx/Surgical Hx Asthma, PNA, dementia, GI bleed, gastritis, arthritis, cataract, cerebral palsy, profound mental retardation, seizures, thoracic and lumbar spine compression freactures, fracture right femur with natali placed, chronic H pylori gastritis, PEG Subjective Information 46 year old male from [facility]. Pt admitted due to coffee ground emesis at [facility]. Per RN notes, last emesis 7/6 night, no episode noted since. Observed no tube feeding bag and on intermittent GT suction. Pt with eyes rolled back, non- verbal, unable to interview due to profound mental retardation. RD called [facility], pt's most recent weight September 2016 at 117.1lb. No significant fat/muscle wasting noted. Current Diet Order/ Nutrition Support Fibersource 78ml/hr x 16hrs Pertinent Medications Maalox, Vitamin C, D5-0.9%ns, Iron, Folate, Cephulac, Mineral Oil, Vancomycin, Zofran, Protonix, Miralax, Fleet Enema Pertinent Labs Reviewed. Nutritional Hx/Data Height 5 ft 2 in Height (Calculated Centimeters) 157.5 Current Weight (lbs) 117 lb 1.6 oz Weight (Calculated Kilograms) 53.1 Weight (Calculated Grams) 10263.7 Weight Status Approriate GI Symptoms GI Symptoms Vomitting Difficult in: Chewing Swallowing Cultural/Ethnic/Yaz[employer] Belief [facility]: Jevity 1.2 at 78ml/hr x 16hrs, providing 1248ml, 1497kcal. On at 4pm and off at 8am. Skin Integrity/Comment: Ferdinand 13. Skin intact. Estimated Nutritional Goals BEE in Kcals: Using Current wt Calories/Kcals/Kg CBW 117.1lb/53.2kg Kcals Calculated 1596-1862kcal (30-35kcal/kg) Protein: Using Current wt Protein Calculated 64-80g (1.2-1.5g/kg) Fluid: ml 1596-1862ml (1ml/kcal) Nutritional Problem 2. Problem Problem Altered GI function related to Etiology unknown etiology aeb Signs/Symptoms: coffee ground emesis, GI bleeding per H&P 1. Problem Problem Increased kcal and prot needs related to Etiology hypermetabolic state aeb Signs/Symptoms: sepsis, aspiration pneumonia Intervention/Recommendation Comments 1. When medically feasible to resume enteral nutrition, recommend Fibersouce at 85ml/ hr x 16hrs, providing 1360ml total volume, 1632kcal, 73g protein. On at 4pm and off at 8am. 2. Called [facility] and obtained pt's most current weight September 2016 at 117.1lb. Expected Outcomes/Goals Expected Outcomes/Goals 1. Pt to meet 100% of estimated nutritional needs on tube feeding with tolerance.
--- NOTE | 2016-10-29 14:33 | Diagnostic Imaging Report ---
Exam: Gastrostomy tube placement. HISTORY gastrostomy tube placement Findings: KUB the abdomen reviewed the study demonstrates nonspecific bowel gas pattern. Gastrostomy tube is overlying the left upper quadrant. Severe scoliotic convexity of thoracic spine and lumbar spine to the right appreciated. The bowel gas distribution nonspecific it Upon injection of contrast material into the gastrostomy tube there is normal opacification of the stomach. There is no evidence for extravasation of contrast material. IMPRESSION: Gastrostomy tube in the stomach. Large amount of fecal content throughout the colon.
[2016-10-29] MEDS: TPN 10%-70% CUSTOM IV SCH (15:06)
[2016-10-29] MEDS ORDERED: Hydrocodone/APAP 5mg/325mg Tab PO PRN (15:09)
[2016-10-29] MEDS ORDERED: Fleet Enema 135 mL RC ONE (15:09)
[2016-10-29] MEDS ORDERED: Diatrizoate Meglumine/Diatri 30 mL Sol PO ONE (15:34)
[2016-10-30 07:11] LABS: % EOSINOPHILS 4.6 % (0.0-5.0); % LYMPHOCYTES 15.3 % (20.0-50.0); % MONOCYTES 5.6 % (2.0-10.0); % NEUTROPHILS 74.5 % (40.0-80.0); HEMATOCRIT 36.1 % (39.0-49.0); HEMOGLOBIN 12.2 gm/dL (13.2-17.3); MEAN CELL VOLUME 95.7 fl (80-99); MEAN CORPUSCULAR HEMOGLOBIN 32.4 pg (26.0-30.0); MEAN CORPUSCULAR HGB CONC 33.8 pg (28.0-36.0); MEAN PLATELET VOLUME 9.8 fl; NEUTROPHILE ABSOLUTE 8.4 Th/cmm (1.8-8.0); PLATELET COUNT 234 Th/cmm (150-400); RED BLOOD COUNT 3.77 Mil/cmm (4.30-5.70); RED CELL DISTRIBUTION WIDTH 13.3 % (11.5-20.0); WHITE BLOOD COUNT 11.2 Th/cmm (4.8-10.8)
[2016-10-30] MEDS: Albuterol Nebulizer 2.5mg/3mL HHN SCH ×4 (07:16→19:24)
[2016-10-30 07:49] LABS: ALB/GLOB RATIO 0.9 (1.0-1.8); ALKALINE PHOSPHATASE 62 U/L (34-104); ANION GAP 9.1 (7.0-16.0); BILIRUBIN,TOTAL 0.3 mg/dL (0.3-1.0); BUN - UREA NITROGEN 24 mg/dL (7-25); CALCIUM SERUM 9.1 mg/dL (8.6-10.3); CARBON DIOXIDE 26.3 mEq/L (21.0-31.0); CHLORIDE 113 mEq/L (98-107); GLUCOSE 135 mg/dL (70-105); MAGNESIUM 2.1 mg/dL (1.9-2.7); POTASSIUM SERUM 3.4 mEq/L (3.5-5.1); SGOT 15 U/L (13-39); SGPT/ALT 22 U/L (7-52); SODIUM SERUM 145 mEq/L (136-145)
[2016-10-30] MEDS: Polyvinyl Alcohol Ophth Soln 15 mL Bottle EACH EYE SCH ×4 (09:48→23:08)
[2016-10-30] MEDS: Levetiracetam 500 mg/5mL 5mL UDC GT SCH ×2 (11:22→16:12)
[2016-10-30] MEDS: Ferrous Sulfate 300 MG/5 ML UDC GT SCH ×2 (11:22→16:13)
[2016-10-30] MEDS: POLYETHYLENE GLYCOL 3350 17 GM PACK GT SCH ×2 (11:23→16:14)
--- NOTE | 2016-10-30 11:32 | Diagnostic Imaging Report ---
Small bowel follow-through HISTORY: Abdominal distention, pain The primary supply controller radiograph demonstrates slightly dilated large and nondilated small bowel. Severe scoliosis convexity to the right along with extensive chronic deformities about the hips. Water-soluble contrast was instilled through patient's gastrostomy tube. There is free flow contrast from the stomach into the small bowel. Detail is somewhat limited. Normal small bowel caliber. Normal transit time to the colon. No definite evidence of obstruction. IMPRESSION: 1. No evidence of small bowel obstruction
[2016-10-30] MEDS: INSULIN ASPART SLIDING SCALE 100 UNITS/ML UNIT SUBQ SCH ×2 (12:27→22:00)
[2016-10-30] MEDS ORDERED: AMINO ACIDS IV SCH (16:00)
[2016-10-30] MEDS ORDERED: MULTIVITAMIN IV SCH (16:00)
[2016-10-30] MEDS ORDERED: [UNRECOGNIZED DRUG - OTHER] IV SCH (16:00)
[2016-10-30] MEDS ORDERED: DEXTROSE IV SCH (16:00)
[2016-10-31] MEDS: INSULIN ASPART SLIDING SCALE 100 UNITS/ML UNIT SUBQ SCH ×4 (07:00→22:25)
[2016-10-31 07:22] LABS: ALB/GLOB RATIO 0.9 (1.0-1.8); ALKALINE PHOSPHATASE 67 U/L (34-104); ANION GAP 8.8 (7.0-16.0); BILIRUBIN,TOTAL 0.4 mg/dL (0.3-1.0); BUN - UREA NITROGEN 22 mg/dL (7-25); BUN/CREATININE RATIO 24.4; CARBON DIOXIDE 25.7 mEq/L (21.0-31.0); CHLORIDE 115 mEq/L (98-107); CREATININE - SERUM 0.9 mg/dL (0.7-1.3); GLUCOSE 135 mg/dL (70-105); MAGNESIUM 2.2 mg/dL (1.9-2.7); PHOSPHOROUS 3.1 mg/dL (2.5-5.0); POTASSIUM SERUM 3.5 mEq/L (3.5-5.1); SGOT 23 U/L (13-39); SGPT/ALT 31 U/L (7-52); SODIUM SERUM 146 mEq/L (136-145)
[2016-10-31] MEDS: Albuterol Nebulizer 2.5mg/3mL HHN SCH ×4 (07:35→20:48)
[2016-10-31] MEDS: POLYETHYLENE GLYCOL 3350 17 GM PACK GT SCH ×2 (08:34→16:14)
[2016-10-31] MEDS: Polyvinyl Alcohol Ophth Soln 15 mL Bottle EACH EYE SCH ×4 (08:34→20:43)
[2016-10-31] MEDS: Levetiracetam 500 mg/5mL 5mL UDC GT SCH ×2 (08:35→16:14)
[2016-10-31] MEDS: Ferrous Sulfate 300 MG/5 ML UDC GT SCH ×2 (08:36→16:15)
[2016-10-31] MEDS ORDERED: MULTIVITAMIN IV SCH (16:00)
[2016-10-31] MEDS ORDERED: DEXTROSE IV SCH (16:00)
[2016-10-31] MEDS ORDERED: [UNRECOGNIZED DRUG - OTHER] IV SCH (16:00)
[2016-10-31] MEDS ORDERED: AMINO ACIDS IV SCH (16:00)
[2016-10-31] MEDS: Dextrose 5% 1,000 ML IV SCH ×2 (16:36→16:51)
[2016-11-01 06:12] LABS: ALB/GLOB RATIO 0.8 (1.0-1.8); ALKALINE PHOSPHATASE 66 U/L (34-104); ANION GAP 7.1 (7.0-16.0); BILIRUBIN,TOTAL 0.3 mg/dL (0.3-1.0); BUN - UREA NITROGEN 20 mg/dL (7-25); BUN/CREATININE RATIO 22.2; CALCIUM SERUM 9.1 mg/dL (8.6-10.3); CARBON DIOXIDE 28.9 mEq/L (21.0-31.0); CHLORIDE 111 mEq/L (98-107); CREATININE - SERUM 0.9 mg/dL (0.7-1.3); GLUCOSE 136 mg/dL (70-105); MAGNESIUM 2.4 mg/dL (1.9-2.7); PHOSPHOROUS 2.8 mg/dL (2.5-5.0); SGOT 23 U/L (13-39); SGPT/ALT 29 U/L (7-52); SODIUM SERUM 143 mEq/L (136-145)
[2016-11-01] MEDS: INSULIN ASPART SLIDING SCALE 100 UNITS/ML UNIT SUBQ SCH ×3 (07:30→18:23)
[2016-11-01] MEDS: Albuterol Nebulizer 2.5mg/3mL HHN SCH ×4 (07:48→19:14)
[2016-11-01] MEDS: Levetiracetam 500 mg/5mL 5mL UDC GT SCH ×2 (09:19→18:14)
[2016-11-01] MEDS: Ferrous Sulfate 300 MG/5 ML UDC GT SCH ×2 (09:19→18:02)
[2016-11-01] MEDS: POLYETHYLENE GLYCOL 3350 17 GM PACK GT SCH ×2 (09:21→18:04)
[2016-11-01] MEDS: Polyvinyl Alcohol Ophth Soln 15 mL Bottle EACH EYE SCH ×4 (09:21→21:05)
--- NOTE | 2016-11-01 15:34 | Internal Medicine Prog Note ---
Internal Medicine Subjective - Subjective Service Date: 11/01/16 Patient seen and examined:: with staff Patient is:: awake, non-verbal Patient Complaints of:: congestion, vomitting Per staff patient has:: no adverse event, no episodes of fall, confused, tolerating meds Internal Medicine Objective - Results Result Diagrams: 10/30/16 06:26 11/01/16 05:25 Recent Labs: Laboratory Last Values WBC 11.2 Th/cmm (4.8-10.8) H 10/30/16 06:26 RBC 3.77 Mil/cmm (4.30-5.70) L 10/30/16 06:26 Hgb 12.2 gm/dL (13.2-17.3) L 10/30/16 06:26 Hct 36.1 % (39.0-49.0) L 10/30/16 06:26 MCV 95.7 fl (80-99) 10/30/16 06:26 MCH 32.4 pg (26.0-30.0) H 10/30/16 06:26 MCHC Differential 33.8 pg (28.0-36.0) 10/30/16 06:26 RDW 13.3 % (11.5-20.0) 10/30/16 06:26 Plt Count 234 Th/cmm (150-400) 10/30/16 06:26 MPV 9.8 fl 10/30/16 06:26 Neutrophils % 74.5 % (40.0-80.0) 10/30/16 06:26 Band Neutrophils % 1 % (0-10) 10/24/16 08: Lymphocytes % 15.3 % (20.0-50.0) L 10/30/16 06:26 Monocytes % 5.6 % (2.0-10.0) 10/30/16 06:26 Eosinophils % 4.6 % (0.0-5.0) 10/30/16 06:26 Basophils % 0.0 % (0.0-2.0) 10/30/16 06:26 Neutrophils (Manual) 92 % (40-80) H 10/24/16 08:17 Lymphocytes 6 % (20-50) L 10/24/16 08:17 Monocytes 1 % (2-10) L 10/24/16 08:17 Platelet Estimate ADEQUATE (NORMAL) 10/24/16 08:17 PT 13.8 SECONDS (9.5-11.5) H 10/26/16 13:00 INR 1.31 (0.5-1.4) 10/26/16 13:00 PTT (Actin FS) 26.4 SECONDS (26.0-38.0) 10/26/16 13:00 Sodium 143 mEq/L (136-145) 11/01/16 05:25 Potassium 4.0 mEq/L (3.5-5.1) 11/01/16 05:25 Chloride 111 mEq/L (98-107) H 11/01/16 05:25 Carbon Dioxide 28.9 mEq/L (21.0-31.0) 11/01/16 05:25 Anion Gap 7.1 (7.0-16.0) 11/01/16 05:25 BUN 20 mg/dL (7-25) 11/01/16 05:25 Creatinine 0.9 mg/dL (0.7-1.3) 11/01/16 05:25 Est GFR ( Amer) > 60.0 ml/min (>90) 11/01/16 05:25 Est GFR (Non-Af Amer) > 60.0 ml/min 11/01/16 05:25 BUN/Creatinine Ratio 22.2 11/01/16 05:25 Glucose 136 mg/dL (70-105) H 11/01/16 05:25 POC Glucose 128 MG/DL (70 - 105) H 11/01/16 12:31 Whole Bld Lactic Acid 1.66 mmol/L (0.60-1.99) 10/22/16 15:56 Calcium 9.1 mg/dL (8.6-10.3) 11/01/16 05:25 Phosphorus 2.8 mg/dL (2.5-5.0) 11/01/16 05:25 Magnesium 2.4 mg/dL (1.9-2.7) 11/01/16 05:25 Total Bilirubin 0.3 mg/dL (0.3-1.0) 11/01/16 05:25 AST 23 U/L (13-39) 11/01/16 05:25 ALT 29 U/L (7-52) 11/01/16 05:25 Alkaline Phosphatase 66 U/L (34-104) 11/01/16 05:25 Ammonia 68 umol/L (16-53) H 10/26/16 06:50 Total Protein 7.6 gm/dL (6.0-8.3) 11/01/16 05:25 Albumin 3.4 gm/dL (4.2-5.5) L 11/01/16 05:25 Globulin 4.2 gm/dL 11/01/16 05:25 Albumin/Globulin Ratio 0.8 (1.0-1.8) L 11/01/16 05:25 Prealbumin 17 mg/dL (12-34) 10/28/16 06:55 Triglycerides 136 mg/dL (<150) 10/28/16 06:55 Cholesterol 137 mg/dL (<200) 10/28/16 06:55 Urine Source TOTH PORT 10/22/16 16:00 Urine Color YELLOW 10/22/16 16:00 Urine Clarity CLEAR (CLEAR) 10/22/16 16:00 Urine pH 7.5 10/22/16 16:00 Ur Specific [place] 1.015 (1.005-1.030) 10/22/16 16:00 Urine Protein 30 mg/dL (NEGATIVE) H 10/22/16 16:00 Urine Glucose (UA) NEGATIVE mg/dL (NEGATIVE) 10/22/16 16:00 Urine Ketones NEGATIVE mg/dL (NEGATIVE) 10/22/16 16:00 Urine Blood TRACE (NEGATIVE) 10/22/16 16:00 Urine Nitrate NEGATIVE (NEGATIVE) 10/22/16 16:00 Urine Bilirubin NEGATIVE (NEGATIVE) 10/22/16 16:00 Urine Urobilinogen 0.2 E.U./dL (0.2 - 1.0) 10/22/16 16:00 Ur Leukocyte Esterase NEGATIVE (NEGATIVE) 10/22/16 16:00 Urine RBC 0-2 /hpf (0-5) H 10/22/16 16:00 Urine WBC 2-5 /hpf (0-5) H 10/22/16 16:00 Ur Epithelial Cells OCCASIONAL /lpf (FEW) 10/22/16 16:00 Urine Bacteria OCCASIONAL /hpf (NONE SEEN) 10/22/16 16:00 Vancomycin Trough 22.0 ug/mL (10-20) H 10/31/16 14:30 Random Vancomycin 32.5 ug/mL (5.0-40.0) 10/28/16 06:55 Acetaminophen < 10.0 ug/mL (10.0-30.0) L 10/22/16 15:56 - Physical Exam Vitals and I&O: Vital Signs Temp 97.3 F 11/01/16 08:00 Pulse 84 11/01/16 12:00 Resp 20 11/01/16 12:00 BP 119/76 11/01/16 08:00 Pulse Ox 96 11/01/16 12:00 Intake & Output 10/31/16 11/01/16 11/01/16 18:59 06:59 18:59 Intake Total 395.417 100 100 Output Total 500 Balance 395.417 -400 100 Weight (lbs) 113 lb 9 oz Intake: Intake, IV Amount 395.417 100 100 Dextrose 5% 1,000 ml @ 25 45.417 mls/hr IV .Q24H [facility] Rx#: [id number] Piperacillin Sodium/ 100 100 100 Tazobact 4.5 gm In Sodium Chloride 0.9% 100 ml @ 100 mls/hr IV Q8HR [facility] Rx #:[id number] Vancomycin HCl 750 mg In 250 Sodium Chloride 0.9% 250 ml @ 250 mls/hr IV Q24HR@ 1500 [facility] Rx#:[id number] Output: Urine 500 Other: # Bowel Movements 1 Stool Characteristics Soft Active Medications: Current Medications Acetaminophen (Tylenol 650mg Supp) 650 mg RC Q6H PRN PRN Reason: Fever > 101 Stop: 12/27/16 21:02 Acetaminophen (Tylenol) 650 mg PO Q4H PRN PRN Reason: Pain Or Fever above 101 Stop: 12/28/16 15:08 Acetaminophen/Hydrocodone Bitart ([place] 5mg/325mg) 1 tab PO Q4H PRN PRN Reason: Pain (Severe) Stop: 12/28/16 15:08 Last Admin: 10/31/16 16:57 Dose: 1 tab Al Hydrox/Mg Hydrox/Simethicone (Maalox) 30 ml PO Q6H PRN PRN Reason: Dyspepsia Stop: 12/21/16 20:50 Albuterol Sulfate (Albuterol 2.5mg/3ml Neb Ud) 2.5 mg HHN QIDRT [facility] Stop: 12/22/16 06:59 Last Admin: 11/01/16 11:57 Dose: 2.5 mg Artificial Tears (Artificial Tears Ophth Soln) 2 drop EACH EYE QID [facility] Stop: 12/21/16 20:59 Last Admin: 11/01/16 15:24 Dose: 2 drop Ascorbic Acid (Vitamin C) 500 mg GT BID [facility] Stop: 12/22/16 08:59 Last Admin: 11/01/16 09:20 Dose: 500 mg Baclofen (Lioresal) 20 mg GT TID [facility] Stop: 12/21/16 20:59 Last Admin: 11/01/16 15:24 Dose: 20 mg Bisacodyl (Dulcolax 10 Mg Supp) 10 mg RC PRN PRN PRN Reason: Constipation Calcium Carbonate (Calcium Carb) 600 mg GT BID [facility] Stop: 12/22/16 08:59 Last Admin: 11/01/16 09:20 Dose: 600 mg Ferrous Sulfate (Iron) 450 mg GT BID [facility] Stop: 12/22/16 08:59 Last Admin: 11/01/16 09:19 Dose: 450 mg Folic Acid (Folate) 1 mg GT DAILY [facility] Stop: 12/22/16 08:59 Last Admin: 11/01/16 09:20 Dose: 1 mg Guaifenesin (Robitussin) 200 mg PO Q4HR PRN PRN Reason: Cough or Congestion Stop: 12/21/16 20:50 Dextrose (D5w) 1,000 mls @ 25 mls/hr IV .Q24H [facility] Stop: 12/27/16 14:59 Last Infusion: 10/31/16 18:25 Dose: 25 mls/hr Piperacillin Sod/Tazobactam (Sod 4.5 gm/ Sodium Chloride) 100 mls @ 100 mls/hr IV Q8HR [facility] Stop: 12/29/16 20:59 Last Admin: 11/01/16 12:43 Dose: 100 mls/hr Multivitamins/Minerals 10 ml/Amino Acids/Electrolytes/Dextrose/ Fat Emulsion Intravenous/ Sterile Water 1,200 mls @ 30 mls/hr IV .Q24H [facility] Stop: 11/01/16 15:59 Last Admin: 10/31/16 20:40 Dose: 30 mls/hr Vancomycin HCl 750 mg/ Sodium (Chloride) 250 mls @ 250 mls/hr IV Q24HR@1500 [facility] Stop: 12/30/16 14:59 Last Infusion: 10/31/16 18:26 Dose: Infused Insulin Aspart (Novolog Insulin Sliding Scale) 0 units SUBQ ACHS [facility] PRN Reason: Protocol Stop: 12/29/16 11:29 Last Admin: 11/01/16 12:32 Dose: Not Given Levetiracetam (Keppra) 750 mg GT BID [facility] Stop: 12/22/16 08:59 Last Admin: 11/01/16 09:19 Dose: 750 mg Mineral Oil (Mineral Oil 30 Ml) 30 ml GT QID [facility] Stop: 12/22/16 16:59 Last Admin: 11/01/16 12:44 Dose: 30 ml Miscellaneous (Vancomycin Iv Per Pharmacy) 1 ea MC PRN PRN PRN Reason: MONITOR Stop: 12/29/16 10:49 Mupirocin (Bactroban Oint) 1 appl TP BID [facility] Stop: 12/23/16 16:59 Last Admin: 11/01/16 09:21 Dose: 1 appl Ondansetron HCl (Zofran) 4 mg IV Q8H PRN PRN Reason: Nausea / Vomiting Stop: 12/21/16 20:50 Pantoprazole Sodium (Protonix) 40 mg IVP Q12HR [facility] Stop: 12/22/16 08:59 Last Admin: 11/01/16 09:19 Dose: 40 mg Polyethylene Glycol (Miralax) 17 gm GT BID [facility] Stop: 12/28/16 16:59 Last Admin: 11/01/16 09:21 Dose: 17 gm Primidone (Mysoline) 50 mg GT BID [facility] Stop: 12/22/16 08:59 Last Admin: 11/01/16 09:20 Dose: 50 mg Simethicone (Mylicon) 80 mg GT QID [facility] Stop: 12/21/16 20:59 Last Admin: 11/01/16 12:44 Dose: 80 mg Sodium Phosphate (Fleet Enema) 135 ml RC Q12H PRN PRN Reason: Constipation Stop: 12/21/16 20:48 General: weak, other (noninteractive) HEENT: NC/AT, PERRLA Neck: Supple Lungs: congested Cardiovascular: RRR, Normal S1, Normal S2, without murmur Abdomen: non-tender, distended, +GT Extremities: excoriation, ulcers stage 2 Neurological: no change, lethargic, bedbound, other (noninteractive) - Procedures Procedures: Procedures Procedure Code Date CHANGE GASTROSTOMY TUBE 05956 05/19/14 DIAGNOSTIC COLONOSCOPY 77513 10/22/16 DRAINAGE OF SKIN ABSCESS 19881 07/16/10 EGD BIOPSY SINGLE/MULTIPLE 58673 11/01/12 EMERGENCY DEPT VISIT 75323 07/12/11 ESOPHAGOGASTRODUODENOSCOPY [EGD] W/CLOSED BIOPSY 45.16 11/01/12 INSPECTION OF LOWER INTESTINAL TRACT, ENDO [id number] 10/22/16 OTHER SKIN & SUBQ I D 86.04 07/16/10 REPLACE GASTROSTOMY TUBE 97.02 05/19/14 Internal Medicine Assmt/Plan - Assessment Assessment: gi bleeding fever sepsis uti aspiration pnm mr cp sz functional debilitation - Plan Plan: am labs seizure precautions monitor for fever ivf for hydration supplemental oxygen aspiration precautions Nutritional Asmnt/Malnutr-PDOC - Dietary Evaluation Malnutrition Findings (Please click <Entered> for more info): Nutritional Asmnt/Malnutrition Start: 10/23/16 12: 06 Text: Status: Complete Freq: Document 10/23/16 12:06 GSUN (Rec: 10/23/16 12:27 GSUN [email or web address]) Nutritional Asmnt/Malnutrition Patient General Information Nutritional Screening High Risk Screening Diagnosis GI bleeding, fever, sepsis, UTI, aspiration PNA Pertinent Medical Hx/Surgical Hx Asthma, PNA, dementia, GI bleed, gastritis, arthritis, cataract, cerebral palsy, profound mental retardation, seizures, thoracic and lumbar spine compression freactures, fracture right femur with natali placed, chronic H pylori gastritis, PEG Subjective Information 46 year old male from [facility]. Pt admitted due to coffee ground emesis at [facility]. Per RN notes, last emesis 7/6 night, no episode noted since. Observed no tube feeding bag and on intermittent GT suction. Pt with eyes rolled back, non- verbal, unable to interview due to profound mental retardation. RD called [facility], pt's most recent weight September 2016 at 117.1lb. No significant fat/muscle wasting noted. Current Diet Order/ Nutrition Support Fibersource 78ml/hr x 16hrs Pertinent Medications Maalox, Vitamin C, D5-0.9%ns, Iron, Folate, Cephulac, Mineral Oil, Vancomycin, Zofran, Protonix, Miralax, Fleet Enema Pertinent Labs Reviewed. Nutritional Hx/Data Height 5 ft 2 in Height (Calculated Centimeters) 157.5 Current Weight (lbs) 117 lb 1.6 oz Weight (Calculated Kilograms) 53.1 Weight (Calculated Grams) 38798.7 Weight Status Approriate GI Symptoms GI Symptoms Vomitting Difficult in: Chewing Swallowing Cultural/Ethnic/Buddhism Belief [facility]: Jevity 1.2 at 78ml/hr x 16hrs, providing 1248ml, 1497kcal. On at 4pm and off at 8am. Skin Integrity/Comment: Ferdinand Centeno. Skin intact. Estimated Nutritional Goals BEE in Kcals: Using Current wt Calories/Kcals/Kg CBW 117.1lb/53.2kg Kcals Calculated 1596-1862kcal (30-35kcal/kg) Protein: Using Current wt Protein Calculated 64-80g (1.2-1.5g/kg) Fluid: ml 1596-1862ml (1ml/kcal) Nutritional Problem 2. Problem Problem Altered GI function related to Etiology unknown etiology aeb Signs/Symptoms: coffee ground emesis, GI bleeding per H&P 1. Problem Problem Increased kcal and prot needs related to Etiology hypermetabolic state aeb Signs/Symptoms: sepsis, aspiration pneumonia Intervention/Recommendation Comments 1. When medically feasible to resume enteral nutrition, recommend Fibersouce at 85ml/ hr x 16hrs, providing 1360ml total volume, 1632kcal, 73g protein. On at 4pm and off at 8am. 2. Called [facility] and obtained pt's most current weight September 2016 at 117.1lb. Expected Outcomes/Goals Expected Outcomes/Goals 1. Pt to meet 100% of estimated nutritional needs on tube feeding with tolerance.
[2016-11-02] MEDS: INSULIN ASPART SLIDING SCALE 100 UNITS/ML UNIT SUBQ SCH ×4 (01:20→16:51)
[2016-11-02 06:39] LABS: % BASOPHILS 0.8 % (0.0-2.0); % EOSINOPHILS 3.3 % (0.0-5.0); % LYMPHOCYTES 14.2 % (20.0-50.0); % MONOCYTES 6.8 % (2.0-10.0); % NEUTROPHILS 74.9 % (40.0-80.0); HEMATOCRIT 34.5 % (39.0-49.0); HEMOGLOBIN 11.7 gm/dL (13.2-17.3); MEAN CELL VOLUME 94.6 fl (80-99); MEAN CORPUSCULAR HEMOGLOBIN 32.2 pg (26.0-30.0); MEAN PLATELET VOLUME 10.2 fl; NEUTROPHILE ABSOLUTE 7.8 Th/cmm (1.8-8.0); PLATELET COUNT 191 Th/cmm (150-400); RED BLOOD COUNT 3.65 Mil/cmm (4.30-5.70); RED CELL DISTRIBUTION WIDTH 12.9 % (11.5-20.0); WHITE BLOOD COUNT 10.4 Th/cmm (4.8-10.8)
[2016-11-02 07:07] LABS: ALB/GLOB RATIO 0.8 (1.0-1.8); ALKALINE PHOSPHATASE 65 U/L (34-104); ANION GAP 6.5 (7.0-16.0); BILIRUBIN,TOTAL 0.3 mg/dL (0.3-1.0); BUN - UREA NITROGEN 25 mg/dL (7-25); BUN/CREATININE RATIO 27.8; CALCIUM SERUM 9.3 mg/dL (8.6-10.3); CARBON DIOXIDE 32.1 mEq/L (21.0-31.0); CHLORIDE 105 mEq/L (98-107); CREATININE - SERUM 0.9 mg/dL (0.7-1.3); GLUCOSE 142 mg/dL (70-105); MAGNESIUM 2.5 mg/dL (1.9-2.7); PHOSPHOROUS 2.5 mg/dL (2.5-5.0); POTASSIUM SERUM 4.6 mEq/L (3.5-5.1); SGOT 16 U/L (13-39); SGPT/ALT 23 U/L (7-52); SODIUM SERUM 139 mEq/L (136-145)
[2016-11-02] MEDS: Albuterol Nebulizer 2.5mg/3mL HHN SCH ×3 (07:56→14:04)
[2016-11-02] MEDS: Levetiracetam 500 mg/5mL 5mL UDC GT SCH ×2 (08:28→17:04)
[2016-11-02] MEDS: POLYETHYLENE GLYCOL 3350 17 GM PACK GT SCH ×2 (08:29→17:05)
[2016-11-02] MEDS: Polyvinyl Alcohol Ophth Soln 15 mL Bottle EACH EYE SCH ×3 (08:29→17:06)
[2016-11-02] MEDS: Ferrous Sulfate 300 MG/5 ML UDC GT SCH ×2 (08:30→17:04)
--- NOTE | 2016-11-02 12:55 | Discharge Summary ---
General Discharge Summary - Discharge Summary Date of Admission: 10/22/16 Admitting Diagnosis: gi bleeding Patient Problems: All Active Problems Sepsis (Acute) Cellulitis (Active) L03.90 Dyspnea and respiratory abnormalities (Acute) R06.00 HYPOKALEMIA (2.8) (Acute) Discharge Date: 11/02/16 Discharge Diagnosis: gi bleeding Laboratory Findings: Laboratory Tests 10/23/16 10/23/16 10/24/16 06:13 06:13 08:17 WBC 39.5 H* D RBC 4.41 Hgb 14.6 Hct 42.1 MCV 95.5 MCH 33.0 H MCHC Differential 34.5 RDW 12.9 Plt Count 349 MPV 10.3 Neutrophils % Band Neutrophils % 9 Lymphocytes % Monocytes % Eosinophils % Basophils % Neutrophils (Manual) 81 H Lymphocytes 7 L Monocytes 3 Platelet Estimate ADEQUATE PT INR PTT (Actin FS) Sodium 142 Potassium 3.3 L Chloride 104 Carbon Dioxide 29.8 Anion Gap 11.5 BUN 13 Creatinine 0.6 L Est GFR ( Amer) > 60.0 Est GFR (Non-Af Amer) > 60.0 BUN/Creatinine Ratio 21.7 Glucose 136 H POC Glucose Calcium 9.7 Phosphorus Magnesium 2.3 Total Bilirubin AST ALT Alkaline Phosphatase Ammonia Total Protein Albumin Globulin Albumin/Globulin Ratio Prealbumin Triglycerides Cholesterol Vancomycin Trough 38.5 H Random Vancomycin 10/24/16 10/24/16 10/25/16 08:17 08:17 06:15 WBC 19.8 H D RBC 3.52 L Hgb 11.3 L D Hct 33.4 L D MCV 94.9 MCH 32.1 H MCHC Differential 33.8 RDW 13.3 Plt Count 338 MPV 9.2 Neutrophils % Band Neutrophils % 1 Lymphocytes % Monocytes % Eosinophils % Basophils % Neutrophils (Manual) 92 H Lymphocytes 6 L Monocytes 1 L Platelet Estimate ADEQUATE PT INR PTT (Actin FS) Sodium 146 H 149 H Potassium 2.6 L* 2.7 L* Chloride 111 H 114 H Carbon Dioxide 30.8 29.1 Anion Gap 6.8 L 8.6 BUN 8 5 L Creatinine 0.6 L 0.6 L Est GFR ( Amer) > 60.0 > 60.0 Est GFR (Non-Af Amer) > 60.0 > 60.0 BUN/Creatinine Ratio 13.3 8.3 Glucose 154 H 128 H POC Glucose Calcium 8.9 9.4 Phosphorus Magnesium 2.2 Total Bilirubin AST ALT Alkaline Phosphatase Ammonia Total Protein Albumin Globulin Albumin/Globulin Ratio Prealbumin Triglycerides Cholesterol Vancomycin Trough Random Vancomycin 9.2 10/25/16 10/26/16 10/26/16 06:15 06:50 06:50 WBC 12.5 H D 9.4 D RBC 3.86 L 3.57 L Hgb 12.2 L 11.4 L Hct 36.7 L 33.6 L MCV 95.1 94.0 MCH 31.6 H 32.0 H MCHC Differential 33.2 34.0 RDW 13.3 13.1 Plt Count 326 336 MPV 9.7 9.2 Neutrophils % 78.8 75.3 Band Neutrophils % Lymphocytes % 13.6 L 16.4 L Monocytes % 6.7 7.0 Eosinophils % 0.6 1.2 Basophils % 0.3 0.1 Neutrophils (Manual) Lymphocytes Monocytes Platelet Estimate PT INR PTT (Actin FS) Sodium 147 H Potassium 2.9 L* Chloride 112 H Carbon Dioxide 30.0 Anion Gap 7.9 BUN 5 L Creatinine 0.6 L Est GFR ( Amer) > 60.0 Est GFR (Non-Af Amer) > 60.0 BUN/Creatinine Ratio 8.3 Glucose 128 H POC Glucose Calcium 9.1 Phosphorus Magnesium 1.9 Total Bilirubin AST ALT Alkaline Phosphatase Ammonia Total Protein Albumin Globulin Albumin/Globulin Ratio Prealbumin Triglycerides Cholesterol Vancomycin Trough 17.0 Random Vancomycin 10/26/16 10/26/16 10/27/16 06:50 13:00 06:36 WBC RBC Hgb Hct MCV MCH MCHC Differential RDW Plt Count MPV Neutrophils % Band Neutrophils % Lymphocytes % Monocytes % Eosinophils % Basophils % Neutrophils (Manual) Lymphocytes Monocytes Platelet Estimate PT 13.8 H INR 1.31 PTT (Actin FS) 26.4 Sodium 151 H Potassium 3.3 L Chloride 114 H Carbon Dioxide 31.5 H Anion Gap 8.8 BUN 8 Creatinine 0.8 Est GFR ( Amer) > 60.0 Est GFR (Non-Af Amer) > 60.0 BUN/Creatinine Ratio 10.0 Glucose 107 H POC Glucose Calcium 9.4 Phosphorus Magnesium 2.0 Total Bilirubin AST ALT Alkaline Phosphatase Ammonia 68 H Total Protein Albumin Globulin Albumin/Globulin Ratio Prealbumin Triglycerides Cholesterol Vancomycin Trough Random Vancomycin 10/28/16 10/28/16 10/28/16 06:55 06:55 06:55 WBC 13.4 H D RBC 4.13 L Hgb 13.2 Hct 39.2 D MCV 94.9 MCH 32.0 H MCHC Differential 33.7 RDW 13.4 Plt Count 293 MPV 9.1 Neutrophils % 73.8 Band Neutrophils % Lymphocytes % 16.8 L Monocytes % 7.6 Eosinophils % 1.8 Basophils % 0.0 Neutrophils (Manual) Lymphocytes Monocytes Platelet Estimate PT INR PTT (Actin FS) Sodium 149 H Potassium 4.0 Chloride 116 H Carbon Dioxide 28.7 Anion Gap 8.3 BUN 11 Creatinine 1.0 Est GFR ( Amer) > 60.0 Est GFR (Non-Af Amer) > 60.0 BUN/Creatinine Ratio 11.0 Glucose 122 H POC Glucose Calcium 9.7 Phosphorus 2.8 Magnesium 2.1 Total Bilirubin 0.6 AST 23 ALT 30 Alkaline Phosphatase 64 Ammonia Total Protein 7.9 Albumin 3.8 L Globulin 4.1 Albumin/Globulin Ratio 0.9 L Prealbumin 17 Triglycerides 136 Cholesterol 137 Vancomycin Trough Random Vancomycin 10/28/16 10/28/16 10/29/16 06:55 22:30 06:25 WBC 13.1 H RBC 4.15 L Hgb 13.2 Hct 39.5 MCV 95.1 MCH 31.9 H MCHC Differential 33.5 RDW 13.6 Plt Count 256 MPV 9.5 Neutrophils % 69.9 Band Neutrophils % Lymphocytes % 21.1 Monocytes % 5.6 Eosinophils % 3.3 Basophils % 0.1 Neutrophils (Manual) Lymphocytes Monocytes Platelet Estimate PT INR PTT (Actin FS) Sodium Potassium Chloride Carbon Dioxide Anion Gap BUN Creatinine Est GFR ( Amer) Est GFR (Non-Af Amer) BUN/Creatinine Ratio Glucose POC Glucose 145 H Calcium Phosphorus Magnesium Total Bilirubin AST ALT Alkaline Phosphatase Ammonia Total Protein Albumin Globulin Albumin/Globulin Ratio Prealbumin Triglycerides Cholesterol Vancomycin Trough Random Vancomycin 32.5 10/29/16 10/29/16 10/30/16 06:25 10:14 06:26 WBC RBC Hgb Hct MCV MCH MCHC Differential RDW Plt Count MPV Neutrophils % Band Neutrophils % Lymphocytes % Monocytes % Eosinophils % Basophils % Neutrophils (Manual) Lymphocytes Monocytes Platelet Estimate PT INR PTT (Actin FS) Sodium 146 H 145 Potassium 3.9 3.4 L Chloride 111 H 113 H Carbon Dioxide 25.9 26.3 Anion Gap 13.0 9.1 BUN 17 24 Creatinine 1.0 1.0 Est GFR ( Amer) > 60.0 > 60.0 Est GFR (Non-Af Amer) > 60.0 > 60.0 BUN/Creatinine Ratio 17.0 24.0 Glucose 139 H 135 H POC Glucose Calcium 9.4 9.1 Phosphorus 3.0 Magnesium 2.1 Total Bilirubin 0.3 AST 15 ALT 22 Alkaline Phosphatase 62 Ammonia Total Protein 7.4 Albumin 3.4 L Globulin 4.0 Albumin/Globulin Ratio 0.9 L Prealbumin Triglycerides Cholesterol Vancomycin Trough 24.2 H Random Vancomycin 10/30/16 10/30/16 10/30/16 06:26 11:51 16:34 WBC 11.2 H RBC 3.77 L Hgb 12.2 L Hct 36.1 L MCV 95.7 MCH 32.4 H MCHC Differential 33.8 RDW 13.3 Plt Count 234 MPV 9.8 Neutrophils % 74.5 Band Neutrophils % Lymphocytes % 15.3 L Monocytes % 5.6 Eosinophils % 4.6 Basophils % 0.0 Neutrophils (Manual) Lymphocytes Monocytes Platelet Estimate PT INR PTT (Actin FS) Sodium Potassium Chloride Carbon Dioxide Anion Gap BUN Creatinine Est GFR ( Amer) Est GFR (Non-Af Amer) BUN/Creatinine Ratio Glucose POC Glucose 148 H 117 H Calcium Phosphorus Magnesium Total Bilirubin AST ALT Alkaline Phosphatase Ammonia Total Protein Albumin Globulin Albumin/Globulin Ratio Prealbumin Triglycerides Cholesterol Vancomycin Trough Random Vancomycin 10/31/16 10/31/16 10/31/16 01:09 06:36 06:47 WBC RBC Hgb Hct MCV MCH MCHC Differential RDW Plt Count MPV Neutrophils % Band Neutrophils % Lymphocytes % Monocytes % Eosinophils % Basophils % Neutrophils (Manual) Lymphocytes Monocytes Platelet Estimate PT INR PTT (Actin FS) Sodium 146 H Potassium 3.5 Chloride 115 H Carbon Dioxide 25.7 Anion Gap 8.8 BUN 22 Creatinine 0.9 Est GFR ( Amer) > 60.0 Est GFR (Non-Af Amer) > 60.0 BUN/Creatinine Ratio 24.4 Glucose 135 H POC Glucose 105 134 H Calcium 9.0 Phosphorus 3.1 Magnesium 2.2 Total Bilirubin 0.4 AST 23 ALT 31 Alkaline Phosphatase 67 Ammonia Total Protein 7.2 Albumin 3.3 L Globulin 3.9 Albumin/Globulin Ratio 0.9 L Prealbumin Triglycerides Cholesterol Vancomycin Trough Random Vancomycin 10/31/16 10/31/16 10/31/16 11:22 14:30 16:55 WBC RBC Hgb Hct MCV MCH MCHC Differential RDW Plt Count MPV Neutrophils % Band Neutrophils % Lymphocytes % Monocytes % Eosinophils % Basophils % Neutrophils (Manual) Lymphocytes Monocytes Platelet Estimate PT INR PTT (Actin FS) Sodium Potassium Chloride Carbon Dioxide Anion Gap BUN Creatinine Est GFR ( Amer) Est GFR (Non-Af Amer) BUN/Creatinine Ratio Glucose POC Glucose 120 H 130 H Calcium Phosphorus Magnesium Total Bilirubin AST ALT Alkaline Phosphatase Ammonia Total Protein Albumin Globulin Albumin/Globulin Ratio Prealbumin Triglycerides Cholesterol Vancomycin Trough 22.0 H Random Vancomycin 10/31/16 11/01/16 11/01/16 21:11 05:25 06:46 WBC RBC Hgb Hct MCV MCH MCHC Differential RDW Plt Count MPV Neutrophils % Band Neutrophils % Lymphocytes % Monocytes % Eosinophils % Basophils % Neutrophils (Manual) Lymphocytes Monocytes Platelet Estimate PT INR PTT (Actin FS) Sodium 143 Potassium 4.0 Chloride 111 H Carbon Dioxide 28.9 Anion Gap 7.1 BUN 20 Creatinine 0.9 Est GFR ( Amer) > 60.0 Est GFR (Non-Af Amer) > 60.0 BUN/Creatinine Ratio 22.2 Glucose 136 H POC Glucose 167 H 122 H Calcium 9.1 Phosphorus 2.8 Magnesium 2.4 Total Bilirubin 0.3 AST 23 ALT 29 Alkaline Phosphatase 66 Ammonia Total Protein 7.6 Albumin 3.4 L Globulin 4.2 Albumin/Globulin Ratio 0.8 L Prealbumin Triglycerides Cholesterol Vancomycin Trough Random Vancomycin 11/01/16 11/01/16 11/01/16 12:31 17:58 21:44 WBC RBC Hgb Hct MCV MCH MCHC Differential RDW Plt Count MPV Neutrophils % Band Neutrophils % Lymphocytes % Monocytes % Eosinophils % Basophils % Neutrophils (Manual) Lymphocytes Monocytes Platelet Estimate PT INR PTT (Actin FS) Sodium Potassium Chloride Carbon Dioxide Anion Gap BUN Creatinine Est GFR ( Amer) Est GFR (Non-Af Amer) BUN/Creatinine Ratio Glucose POC Glucose 128 H 153 H 154 H Calcium Phosphorus Magnesium Total Bilirubin AST ALT Alkaline Phosphatase Ammonia Total Protein Albumin Globulin Albumin/Globulin Ratio Prealbumin Triglycerides Cholesterol Vancomycin Trough Random Vancomycin 11/02/16 11/02/16 11/02/16 06:30 06:30 06:34 WBC 10.4 RBC 3.65 L Hgb 11.7 L Hct 34.5 L MCV 94.6 MCH 32.2 H MCHC Differential 34.0 RDW 12.9 Plt Count 191 MPV 10.2 Neutrophils % 74.9 Band Neutrophils % Lymphocytes % 14.2 L Monocytes % 6.8 Eosinophils % 3.3 Basophils % 0.8 Neutrophils (Manual) Lymphocytes Monocytes Platelet Estimate PT INR PTT (Actin FS) Sodium 139 Potassium 4.6 Chloride 105 Carbon Dioxide 32.1 H Anion Gap 6.5 L BUN 25 Creatinine 0.9 Est GFR ( Amer) > 60.0 Est GFR (Non-Af Amer) > 60.0 BUN/Creatinine Ratio 27.8 Glucose 142 H POC Glucose 136 H Calcium 9.3 Phosphorus 2.5 Magnesium 2.5 Total Bilirubin 0.3 AST 16 ALT 23 Alkaline Phosphatase 65 Ammonia Total Protein 7.5 Albumin 3.4 L Globulin 4.1 Albumin/Globulin Ratio 0.8 L Prealbumin Triglycerides Cholesterol Vancomycin Trough Random Vancomycin 11/02/16 11:10 WBC RBC Hgb Hct MCV MCH MCHC Differential RDW Plt Count MPV Neutrophils % Band Neutrophils % Lymphocytes % Monocytes % Eosinophils % Basophils % Neutrophils (Manual) Lymphocytes Monocytes Platelet Estimate PT INR PTT (Actin FS) Sodium Potassium Chloride Carbon Dioxide Anion Gap BUN Creatinine Est GFR ( Amer) Est GFR (Non-Af Amer) BUN/Creatinine Ratio Glucose POC Glucose 115 H Calcium Phosphorus Magnesium Total Bilirubin AST ALT Alkaline Phosphatase Ammonia Total Protein Albumin Globulin Albumin/Globulin Ratio Prealbumin Triglycerides Cholesterol Vancomycin Trough Random Vancomycin Hospital Course: DC DIAGNOSIS gi bleeding fever sepsis uti aspiration pnm mr cp sz functional debilitation DURING THE HOSPITAL STAY PATIENT WAS ADMITTED TO THE [facility]LE[facility]RY [facility], PATIENT WAS KEPT ON IVF FOR HYDRATION AND TPN. PATIENT HAD A CONSULTATION WITH GI, PATIENT HAD A COLONOSCOPY DONE AND WAS FOUND TO BE IMPACTED, MINERAL OIL WAS GIVEN, PATIENT ABDOMINAL DISTENTION HAS RESOLVED. Condition at Discharge: Stable Disposition: Other Care w/in this hosp Home Medications: Home Medication Medication Instructions Recorded Type Baclofen 20 mg GT TID 11/01/12 History Bisacodyl [Dulcolax] 10 mg RC PRN PRN 11/01/12 History Calcium Carbonate [Calcium Carb] 5 ml GT BID 11/01/12 History Clonazepam [Klonopin] 0.5 mg GT TID 11/01/12 History Esomeprazole Magnesium [Nexium] 40 mg GT DAILY 11/01/12 History Folic Acid [Folic Acid*] 1 mg GT DAILY 11/01/12 History Meloxicam [Meloxicam*] 7.5 mg GT BID 11/01/12 History Polyvinyl Alcohol [Artificial 2 drop OP QID 11/01/12 History Tears 15 ml] Primidone 50 mg GT BID 11/01/12 History Simethicone [Mi-Acid] 80 mg GT QID 11/01/12 History Sodium Chloride 1 gm GT DAILY 11/01/12 History Lactulose [Kristalose] 20 gm GT BID 05/22/13 History Na Phos, Dibasic/Na Phos, Mo 135 ml RC Q12H PRN 05/22/13 History [Fleet Enema] Polyethylene Glycol 3350 [Miralax] 17 gm GT DAILY 05/18/14 History Mineral Oil [Mineral Oil 30 ml] 30 ml GT HS 02/15/16 History Acetaminophen [Tylenol 650mg Supp] 650 mg GT Q4HR PRN 10/11/16 History Cholecalciferol (Vitamin D3) 2,000 iu GT DAILY 10/11/16 History [Vitamin D3] Ferrous Sulfate [Ferosul] 7.5 ml GT BID 10/11/16 History Multivit,Th Iron,Other Min 1 tab GT DAILY 10/11/16 History [Thera-M] Ascorbic Acid [Vitamin C] 500 mg GT BID 10/19/16 History Levetiracetam [Keppra] 750 mg GT BID 10/19/16 History Inpatient Medications: Current Medications Acetaminophen (Tylenol 650mg Supp) 650 mg RC Q6H PRN PRN Reason: Fever > 101 Stop: 12/27/16 21:02 Acetaminophen (Tylenol) 650 mg PO Q4H PRN PRN Reason: Pain Or Fever above 101 Stop: 12/28/16 15:08 Acetaminophen/Hydrocodone Bitart ([place] 5mg/325mg) 1 tab PO Q4H PRN PRN Reason: Pain (Severe) Stop: 12/28/16 15:08 Last Admin: 10/31/16 16:57 Dose: 1 tab Al Hydrox/Mg Hydrox/Simethicone (Maalox) 30 ml PO Q6H PRN PRN Reason: Dyspepsia Stop: 12/21/16 20:50 Albuterol Sulfate (Albuterol 2.5mg/3ml Neb Ud) 2.5 mg HHN QIDRT [facility] Stop: 12/22/16 06:59 Last Admin: 11/02/16 11:49 Dose: 2.5 mg Artificial Tears (Artificial Tears Ophth Soln) 2 drop EACH EYE QID [facility] Stop: 12/21/16 20:59 Last Admin: 11/02/16 12:47 Dose: 2 drop Ascorbic Acid (Vitamin C) 500 mg GT BID [facility] Stop: 12/22/16 08:59 Last Admin: 11/02/16 08:29 Dose: 500 mg Baclofen (Lioresal) 20 mg GT TID [facility] Stop: 12/21/16 20:59 Last Admin: 11/02/16 08:29 Dose: 20 mg Bisacodyl (Dulcolax 10 Mg Supp) 10 mg RC PRN PRN PRN Reason: Constipation Calcium Carbonate (Calcium Carb) 600 mg GT BID [facility] Stop: 12/22/16 08:59 Last Admin: 11/02/16 08:30 Dose: 600 mg Ferrous Sulfate (Iron) 450 mg GT BID [facility] Stop: 12/22/16 08:59 Last Admin: 11/02/16 08:30 Dose: 450 mg Folic Acid (Folate) 1 mg GT DAILY [facility] Stop: 12/22/16 08:59 Last Admin: 11/02/16 08:29 Dose: 1 mg Guaifenesin (Robitussin) 200 mg PO Q4HR PRN PRN Reason: Cough or Congestion Stop: 12/21/16 20:50 Insulin Aspart (Novolog Insulin Sliding Scale) 0 units SUBQ ACHS [facility] PRN Reason: Protocol Stop: 12/29/16 11:29 Last Admin: 11/02/16 11:44 Dose: Not Given Levetiracetam (Keppra) 750 mg GT BID [facility] Stop: 12/22/16 08:59 Last Admin: 11/02/16 08:28 Dose: 750 mg Levofloxacin (Levaquin) 500 mg PO DAILY [facility] Stop: 11/09/16 09:01 Mineral Oil (Mineral Oil 30 Ml) 30 ml GT QID [facility] Stop: 12/22/16 16:59 Last Admin: 11/02/16 12:47 Dose: 30 ml Miscellaneous (Vancomycin Iv Per Pharmacy) 1 ea MC PRN PRN PRN Reason: MONITOR Stop: 12/29/16 10:49 Mupirocin (Bactroban Oint) 1 appl TP BID [facility] Stop: 12/23/16 16:59 Last Admin: 11/02/16 08:29 Dose: 1 appl Polyethylene Glycol (Miralax) 17 gm GT BID [facility] Stop: 12/28/16 16:59 Last Admin: 11/02/16 08:29 Dose: 17 gm Primidone (Mysoline) 50 mg GT BID [facility] Stop: 12/22/16 08:59 Last Admin: 11/02/16 08:29 Dose: 50 mg Simethicone (Mylicon) 80 mg GT QID [facility] Stop: 12/21/16 20:59 Last Admin: 11/02/16 12:47 Dose: 80 mg Sodium Phosphate (Fleet Enema) 135 ml RC Q12H PRN PRN Reason: Constipation Stop: 12/21/16 20:48 Activity: Bed Rest Discharge Diet: Tube Feeding Consults and Follow-Up: Daniel Cooper [Primary Care Provider] - Consulting Speciality: GI
== END 2016-11-02 18:15 | disposition home or self-care (01) | DRG 720 ==
LOC: ER 15:03 → TELE 19:45
PROVIDERS: ADMIT Internal Medicine; ATTEND Internal Medicine
PROC: 0DJD8ZZ Inspection of Lower Intestinal Tract, Via Natural or Artificial Opening Endoscopic (ICD-10-PCS; principal; 2016-10-28)
DX: A41.9 Sepsis, unspecified organism (principal); J69.0 Pneumonitis due to inhalation of food and vomit; G82.50 Quadriplegia, unspecified; G92 Toxic encephalopathy; K92.2 Gastrointestinal hemorrhage, unspecified; F73 Profound intellectual disabilities; E87.6 Hypokalemia; N39.0 Urinary tract infection, site not specified; G40.909 Epilepsy, unspecified, not intractable, without status epilepticus; R53.81 Other malaise; K56.41 Fecal impaction; M19.90 Unspecified osteoarthritis, unspecified site; I10 Essential (primary) hypertension; I34.0 Nonrheumatic mitral (valve) insufficiency; Z93.1 Gastrostomy status; Z74.01 Bed confinement status; Z87.01 Personal history of pneumonia (recurrent)
CPT/HCPCS: 36415-UA; 71010-TC; 74000-TC; 74250-TC; 80048-TC; 80053-TC; 80202-TC; 80329-TC; 81001-TC; 82140-TC; 82465-TC; 82948-90; 83605; 83735-TC; 84100-TC; 84134-90; 84478-TC; 85007-TC; 85025-TC; 85027-TC; 85610-TC; 94760; 96375; C1751; C9113; J1815; J2001; J2405; J2543; J2704; J3370; J3480; J7030; J7042; J7070; J7613; Q9967; X6598; Z7508; Z7610

== ENCOUNTER 2018-10-25 17:11 | Inpatient (IN) | payer MEDICAID ==
--- NOTE | 2018-10-25 17:28 | ED Physician Chart ---
ED Chief Complaint/HPI - Patient Information Date Seen:: 10/25/18 Time Seen:: 17:10 Chief Complaint:: Abdominal Pain History of Present Illness:: onset x 2 days of abdominal pain, fever, and abdominal distention; no report of trauma, H/As, neck pain, C/P, cough, SOB, A/N/V/D/C, chills, or urinary s/s Allergies:: Allergies Allergy/AdvReac Type Severity Reaction Status Date / Time No Known Allergies Allergy Verified 10/25/18 17:13 Historian:: Patient, EMS Review:: Nurse's Note Reviewed, Old Chart Reviewed, EMS run form Reviewed <Chidi Mon - Last Filed: 10/25/18 17:33> - Patient Information Allergies:: Allergies Allergy/AdvReac Type Severity Reaction Status Date / Time No Known Allergies Allergy Verified 10/25/18 17:13 Vitals:: Vital Signs - 8 hr 10/25/18 10/25/18 17:13 18:30 Temp 99.4 F HR 120 107 RR 20 28 BP 116/84 125/102 O2 Sat % 97 93 <Cj Shaffer - Last Filed: 10/25/18 21:30> ED Review of Systems - Review of Systems General/Constitutional: No fever, No chills, No weight loss, No weakness, No diaphoresis, No edema, No loss of appetite Skin: No skin lesions, No rash, No bruising Head: No headache, No light-headedness Eyes: No loss of vision, No pain, No diplopia ENT: No earache, No nasal drainage, No sore throat, No tinnitus Neck: No neck pain, No swelling, No thyromegaly, No stiffness, No mass noted Cardio Vascular: No chest pain, No palpitations, No PND, No orthopnea, No edema Pulmonary: No SOB, No cough, No sputum, No wheezing GI: Nausea, Vomiting, Diarrhea, Pain, No melena, No hematochezia, No constipation, No hematemesis G/U: No dysuria, No frequency, No hematuria, No nacturia Musculoskeletal: No bone or joint pain, No back pain, No muscle pain Endocrine: No polyuria, No polydipsia Psychiatric: No prior psych history, No depression, No anxiety, No suicidal ideation, No homicidal ideation, No auditory hallucination, No visual hallucination Hematopoietic: No bruising, No lymphadenopathy Allergic/Immuno: No urticaria, No angioedema Neurological: No syncope, No focal symptoms, No weakness, No paresthesia, No headache, Seizure, No dizziness, No confusion, No vertigo <Chidi Mon Last Filed: 10/25/18 17:33> ED Past Medical History - Past Medical History Obtainable: Yes Past Medical History: HTN, PUD/GERD, Seizures Family History: HTN Social History: Non Smoker, No Alcohol, No Drug Use, Care Facility Surgical History: None Psychiatricy History: None Medication: Reviewed <Chidi Mon Last Filed: 10/25/18 17:33> Family Medical History - Family Member Mother History Unknown: Yes Ethnicity: Unknown Living Status: Unknown Hx Family Cancer: (UNKNOWN) Hx Family Coronary Artery Disease: (UNKNOWN) Hx Family Congestive Heart Failure: (UNKNOWN) Hx Family Hypertension: (UNKNOWN) Hx Family Stroke: (UNKNOWN) Hx Family Diabetes: (UNKNOWN) Hx Family Seizures: (UNKNOWN) Hx Family Dementia: (UNKNOWN) Hx Family AIDS: (UNKNOWN) Hx Family HIV: No Hx Family COPD: (UNKNOWN) Hx Family Hepatitis: (UNKNWON) Hx Family Psychiatric Problems: (UNKNOWN) Hx Family Tuberculosis: (UNKNOWN) <Chidi Mon Last Filed: 10/25/18 17:33> ED Physical Exam - Physical Examination General/Constitutional: Awake, Well-developed, well-nourished, Alert, No distress, GCS 15, Non-toxic appearing, Ambulatory Head: Atraumatic Eyes: Lids, conjuctiva normal, PERRL, EOMI Skin: Nl inspection, No rash, No skin lesions, No ecchymosis, Well hydrated, No lymphadenopathy ENMT: External ears, nose nl, TM canals nl, Nasal exam nl, Lips, teeth, gums nl , Oropharynx nl, Tonsils nl Neck: Nontender, Full ROM w/o pain, No JVD, No nuchal rigidity, No bruit, No mass, No stridor Respiratory: Nl effort/Exclusion, Clear to Auscultation, No Wheeze/Rhonchi/Rales Cardio Vascular: RRR, No murmur, gallop, rubs, NL S1 S2, Carotid/Femoral/Distal pulses equal bilaterally GI: No tenderness/rebounding/guarding, No organomegaly, No hernia, Normal BS's, Nondistended, No mass/bruits, No McBurney tenderness : No CVA tenderness Extremities: No tenderness or effusion, Full ROM, normal strength in all extremities, No edema, Normal digits & nails Neuro/Psych: Alert/oriented, DTR's symmetric, Normal sensory exam, Normal motor strength, Judgement/insight normal, Mood normal, Normal gait, No focal deficits Misc: Normal back, No paraspinal tenderness <Chidi Mon - Last Filed: 10/25/18 17:33> ED Labs/Radiology/EKG Results - Lab Results Results: Laboratory Tests 10/25/18 10/25/18 10/25/18 19:10 19:10 19:10 WBC 12.2 H RBC 5.16 Hgb 17.1 Hct 49.2 MCV 95.4 MCH 33.1 H MCHC Differential 34.6 RDW 12.8 Plt Count 228 MPV 9.3 Neutrophils % 74.6 Lymphocytes % 13.8 L Monocytes % 6.9 Eosinophils % 0.2 Basophils % 4.5 H PT INR PTT (Actin FS) Sodium 144 Potassium 3.5 Chloride 104 Carbon Dioxide 27.6 Anion Gap 15.9 BUN 27 H Creatinine 0.4 L Est GFR ( Amer) > 60.0 Est GFR (Non-Af Amer) > 60.0 BUN/Creatinine Ratio 67.5 Glucose 131 H Whole Bld Lactic Acid Calcium 10.2 Total Bilirubin 0.6 AST 38 ALT 39 Alkaline Phosphatase 89 Creatine Kinase 550 H CK-MB (CK-2) 9.2 H Troponin I 0.01 Total Protein 8.4 H Albumin 4.7 Globulin 3.7 Albumin/Globulin Ratio 1.3 Amylase 14 L Lipase 8 L 10/25/18 10/25/18 19:10 19:10 WBC RBC Hgb Hct MCV MCH MCHC Differential RDW Plt Count MPV Neutrophils % Lymphocytes % Monocytes % Eosinophils % Basophils % PT 11.3 INR 1.09 PTT (Actin FS) 28.3 Sodium Potassium Chloride Carbon Dioxide Anion Gap BUN Creatinine Est GFR ( Amer) Est GFR (Non-Af Amer) BUN/Creatinine Ratio Glucose Whole Bld Lactic Acid 1.11 Calcium Total Bilirubin AST ALT Alkaline Phosphatase Creatine Kinase CK-MB (CK-2) Troponin I Total Protein Albumin Globulin Albumin/Globulin Ratio Amylase Lipase - Radiology Results Results: CT abdomen/pelvis wo contrast: severe fecal impaction in rectum and severe air distended colon proximal to obstruction. <Cj Shaffer - Last Filed: 10/25/18 21:30> ED Septic Shock - . Is Septic Shock (SBP<90, OR Lactate>4 mmol\L) present?: No <Chidi Mon - Last Filed: 10/25/18 17:33> - . Is Septic Shock (SBP<90, OR Lactate>4 mmol\L) present?: No - <6hrs of presentation: Vital Signs: Vital Signs - 8 hr 10/25/18 10/25/18 17:13 18:30 Temp 99.4 F HR 120 107 RR 20 28 BP 116/84 125/102 O2 Sat % 97 93 <Cj Shaffer - Last Filed: 10/25/18 21:30> ED Reassessment (Disposition) - Reassessment Reassessment Condition:: Improved - Diagnosis Diagnosis:: Abdominal Pain; Fever; Tachycardia; <Chidi Mon - Last Filed: 10/25/18 17:33> - Reassessment Reassessment:: CT abd/pelv showed severe air distended colon proximal to obstruction caused by fecal impaction. There was significant amount of air and fluid in the stomach as well. Opened the G-tube, a large amount of air and gastric content came out of the G-tube to achieve gastric decompression. For leukocytosis, IV ceftriaxone and flagyl were administered. For dehydration, NS 1L IV bolus was administered. - Patient Disposition Discharge/Transfer:: Acute Care w/in this hosp Admitting Medical Physician:: Danilo Gaffney <Cj Shaffer - Last Filed: 10/25/18 21:30>
[2018-10-25 19:19] LABS: % BASOPHILS 4.5 % (0.0-2.0); % EOSINOPHILS 0.2 % (0.0-5.0); % LYMPHOCYTES 13.8 % (20.0-50.0); % MONOCYTES 6.9 % (2.0-10.0); % NEUTROPHILS 74.6 % (40.0-80.0); BASOPHILE ABSOLUTE 0.5 Th/cumm (0-0.2); HEMATOCRIT 49.2 % (41.0-60); HEMOGLOBIN 17.1 gm/dL (12-16); LYMPHOCYTE ABSOLUTE 1.7 Th/cmm (1.5-3.0); MEAN CELL VOLUME 95.4 fl (80-99); MEAN CORPUSCULAR HEMOGLOBIN 33.1 pg (26.0-30.0); MEAN CORPUSCULAR HGB CONC 34.6 pg (28.0-36.0); MONOCYTE ABSOLUTE 0.8 Th/cmm (0.3-1.0); NEUTROPHILE ABSOLUTE 9.2 Th/cmm (1.8-8.0); PLATELET COUNT 228 Th/cmm (150-400); RED BLOOD COUNT 5.16 Mil/cmm (4.30-5.70); RED CELL DISTRIBUTION WIDTH 12.8 % (11.5-20.0); WHITE BLOOD COUNT 12.2 Th/cmm (4.8-10.8)
[2018-10-25 19:32] LABS: INR 1.09 (0.5-1.4)
[2018-10-25 19:34] LABS: ALB/GLOB RATIO 1.3 (1.0-1.8); ALBUMIN 4.7 gm/dL (4.2-5.5); ALKALINE PHOSPHATASE 89 U/L (34-104); AMYLASE SERUM 14 U/L (29-103); ANION GAP 15.9 (7.0-16.0); BILIRUBIN,TOTAL 0.6 mg/dL (0.3-1.0); BUN - UREA NITROGEN 27 mg/dL (7-25); CALCIUM SERUM 10.2 mg/dL (8.6-10.3); CARBON DIOXIDE 27.6 mEq/L (21.0-31.0); CHLORIDE 104 mEq/L (98-107); CREATININE - SERUM 0.4 mg/dL (0.7-1.3); CREATININE KINASE 550 U/L (30-223); GFR AFRICAN-AMERICAN > 60.0 ml/min (>90); GFR NON AFRICAN-AMERICAN > 60.0 ml/min; GLUCOSE 131 mg/dL (70-105); LIPASE 8 U/L (11-82); POTASSIUM SERUM 3.5 mEq/L (3.5-5.1); SGOT 38 U/L (13-39); SGPT/ALT 39 U/L (7-52); SODIUM SERUM 144 mEq/L (136-145); TOTAL PROTEIN,SERUM 8.4 gm/dL (6.0-8.3)
[2018-10-25] MEDS ORDERED: metroNIDAZOLE 500mg/NS 100mL 500 MG/100 ML BAG IV ONE ×2 (20:18→20:24)
[2018-10-25] MEDS ORDERED: Sodium Chloride 0.9% 1,000 ML IV ONE (20:45)
[2018-10-25] MEDS ORDERED: Ipratropium Neb 0.5 mg/2.5 mL UD HHN PRN (21:31)
[2018-10-25] MEDS ORDERED: Albuterol Nebulizer 2.5mg/3mL HHN PRN (21:31)
[2018-10-25] MEDS: D5-0.9%NS 1,000 ML IV SCH (23:07)
[2018-10-25] MEDS: Levetiracetam 500 mg/5mL 5mL UDSyr *for ORAL USE ONLY GT SCH (23:17)
--- NOTE | 2018-10-26 00:15 | History & Physical ---
ADMIT DATE: 10/26/2018 CHIEF COMPLAINT: Abdominal pain and redness around the G-tube area. HISTORY OF PRESENT ILLNESS: This is a 48-year-old male with history of cerebral palsy, mental retardation, hypertension and seizure, admitted from nursing facility secondary to increasing abdominal distention with pain ____ in the morning, not relieved with pain medication. The patient was evaluated in the ER and noted to have very distended large intestine in the rectal area and redness in the G-tube area. The patient admitted for further management. PAST MEDICAL HISTORY: As mentioned in history of present illness. PAST SURGICAL HISTORY: Status post G-tube. ALLERGIES: No known drug allergies. MEDICATIONS: Tylenol, baclofen, Nexium, iron, meloxicam, ascorbic acid, vitamin C, calcium carbonate, Klonopin, folic acid, lactulose, Keppra, multivitamins, sodium chloride, and simethicone. FAMILY HISTORY: Noncontributory. SOCIAL HISTORY: The patient is a detention patient, requiring 24-hour total care. REVIEW OF SYSTEMS: This is limited secondary to the patient's current state. We will try to obtain more detailed review of system at a later date by talking to family members as well as the case management manager from [facility] and the nursing staff at [facility], . PHYSICAL EXAMINATION: VITAL SIGNS: Blood pressure 116/84, respiration 20, pulse 120, and temperature 98.4. GENERAL: Revealed a middle-aged male, appears chronically ill. NECK: Supple with positive contractures. LUNGS: Equal breath sounds, few rhonchi. HEART: Regular rate and rhythm. Has a systolic ejection murmur. ABDOMEN: Soft, globular. EXTREMITIES: Positive excoriations circumferentially about the G-tub, redness around the G-tube area. LABORATORY DATA: WBC 12, hemoglobin 17, platelets 178. Sodium 144, potassium 3.5, BUN 27, creatinine 0.4. INR negative x1 ____. DIAGNOSTIC STUDIES: CT showed severely distended colon proximally, total obstruction ____. ASSESSMENT: Severe abdominal pain due to fecal impaction, GT cellulitis, leukocytosis, possible sepsis, dehydration, cerebral palsy, seizure.generalized contractures PLAN: We will continue the patient on aggressive IV hydration. We will put the patient on laxative. Continue with antibiotic. We will review the patient's medication. We will refer the patient to GI. We will continue to monitor very closely. JOB# [id number] YESICA
[2018-10-26 02:13] VITALS: BP 112/73
[2018-10-26] MEDS: Fleet Enema 135 mL RC PRN (03:46)
[2018-10-26 05:22] LABS: URINE SOURCE CLEAN C
[2018-10-26 05:26] LABS: URINE BILIRUBIN SMALL (NEGATIVE); URINE BLOOD NEGATIVE (NEGATIVE); URINE GLUCOSE (UA) NEGATIVE (NEGATIVE); URINE KETONE 15 mg/dL (NEGATIVE); URINE LEUKOCYTE ESTERASE TRACE (NEGATIVE); URINE MICROSCOPIC INDICATED? YES; URINE NITRATE NEGATIVE (NEGATIVE); URINE PH 8.5 (4.6 - 8.0); URINE PROTEIN 30 mg/dL (NEGATIVE); URINE UROBILINOGEN 0.2 E.U./dL (0.2 - 1.0)
[2018-10-26 06:49] LABS: URINE CLARITY CLOUDY (CLEAR); URINE COLOR DARK YELLOW
[2018-10-26 06:52] LABS: URINE BACTERIA FEW /hpf (NONE SEEN); URINE EPITHELIAL CELLS RARE /lpf (FEW); URINE TRIPLE PHOSPHATE CRYSTAL MANY /hpf (FEW); URINE WBC 0-2 /hpf (0-5)
[2018-10-26 06:58] LABS: URINE AMORPHOUS SEDIMENT FEW PHOSPHATES (NONE SEEN)
[2018-10-26] MEDS: Lactulose 10 Gm/15 mL 30mL UDC GT SCH ×2 (08:56→16:27)
[2018-10-26] MEDS: Levetiracetam 500 mg/5mL 5mL UDSyr *for ORAL USE ONLY GT SCH ×2 (08:57→16:27)
[2018-10-26] MEDS: POLYETHYLENE GLYCOL 3350 17 GM PACK GT SCH (08:57)
[2018-10-26] MEDS: Metoclopramide 5 mg/mL 2mL Vial IVP SCH ×3 (08:57→21:06)
[2018-10-26] MEDS: Multivitamin w/ Minerals Tab GT SCH (08:58)
--- NOTE | 2018-10-26 09:19 | Diagnostic Imaging Report ---
CT abdomen and pelvis without intravenous contrast Indication: Abdominal pain Comparison: CT abdomen and pelvis on 10/26/2016, Technique: Axial images were obtained from the lung bases to the bilateral proximal femurs without IV contrast. Coronal reconstructions were made. total DLP: 676, CTDI15.2 Findings: Hypoventilatory and atelectatic changes of the lungs are noted. Exam is limited due to motion and patient positioning. Assessment of solid organs is also limited due to lack of IV contrast. There is mild air distention of the distal esophagus. distended stomach is also noted. Percutaneous gastric feeding tube is also noted. There is severe distal fecal impaction. There is associated marked air distention of the colon most pronounced within the sigmoid colon. Minimal diverticulosis is noted. Appendix is not well-visualized. There is mass effect of focal from patient's distal fecal impaction upon the urinary bladder. No free fluid or gross free air. No focal hepatic or splenic lesions. Pancreatic gland atrophy is noted. The right adrenal gland is not well-visualized. No focal abnormalities of the left adrenal gland. No hydronephrosis or nephrolithiasis. There is severe spinal scoliosis with osteopenia and and multilevel chronic appearing [id number] compression deformities. Multilevel advanced degenerative changes are noted. Degenerative changes of pelvis are noted with development of bilateral hip dysplasia. Postsurgical changes of right femur are partially visualized. IMPRESSION: Severe distal fecal impaction. There is associated is severely distended loops of large bowel with air proximally. Clinical correlation and follow-up is needed. No free air or gross free fluid. Percutaneous gastrostomy feeding tube. Distended stomach and air-filled partially visualized in the esophagus Additional chronic findings as above.
[2018-10-26] MEDS: D5-0.9%NS 1,000 ML IV SCH ×2 (11:05→21:19)
--- NOTE | 2018-10-26 11:16 | Diagnostic Imaging Report ---
KUB single view HISTORY: Abdominal pain. COMPARISON: CT abdomen and pelvis on 10/25/2018 FINDINGS: Exam is limited due to body habitus. There is decrease in the degree of fecal faction. Extensive gas distended loops of bowel are noted particularly of the sigmoid colon. No gross free air. Percutaneous feeding tube is noted. Advanced changes of spine are noted with advanced scoliosis. Development of bilateral hip dysplasia is noted. Partially visualized hardware is seen within the right proximal femur. IMPRESSION: Overall decrease in the degree of fecal impaction. Diffuse gas distended loops of bowel are seen particularly of the sigmoid colon.
--- NOTE | 2018-10-26 13:03 | Internal Medicine Prog Note ---
Internal Medicine Subjective - Subjective Patient seen and examined:: with staff, chart reviewed Patient is:: awake, non-verbal, non-interactive, in bed Patient Complaints of:: congestion, constipation, bloated Per staff patient has:: no adverse event Internal Medicine Objective - Results Result Diagrams: 10/25/18 19:10 10/25/18 19:10 Recent Labs: Laboratory Last Values WBC 12.2 Th/cmm (4.8-10.8) H 10/25/18 19:10 RBC 5.16 Mil/cmm (4.30-5.70) 10/25/18 19:10 Hgb 17.1 gm/dL (12-16) 10/25/18 19:10 Hct 49.2 % (41.0-60) 10/25/18 19:10 MCV 95.4 fl (80-99) 10/25/18 19:10 MCH 33.1 pg (26.0-30.0) H 10/25/18 19:10 MCHC Differential 34.6 pg (28.0-36.0) 10/25/18 19:10 RDW 12.8 % (11.5-20.0) 10/25/18 19:10 Plt Count 228 Th/cmm (150-400) 10/25/18 19:10 MPV 9.3 fl 10/25/18 19:10 Neutrophils % 74.6 % (40.0-80.0) 10/25/18 19:10 Lymphocytes % 13.8 % (20.0-50.0) L 10/25/18 19:10 Monocytes % 6.9 % (2.0-10.0) 10/25/18 19:10 Eosinophils % 0.2 % (0.0-5.0) 10/25/18 19:10 Basophils % 4.5 % (0.0-2.0) H 10/25/18 19:10 PT 11.3 SECONDS (9.5-11.5) 10/25/18 19:10 INR 1.09 (0.5-1.4) 10/25/18 19:10 PTT (Actin FS) 28.3 SECONDS (26.0-38.0) 10/25/18 19:10 Sodium 144 mEq/L (136-145) 10/25/18 19:10 Potassium 3.5 mEq/L (3.5-5.1) 10/25/18 19:10 Chloride 104 mEq/L (98-107) 10/25/18 19:10 Carbon Dioxide 27.6 mEq/L (21.0-31.0) 10/25/18 19:10 Anion Gap 15.9 (7.0-16.0) 10/25/18 19:10 BUN 27 mg/dL (7-25) H 10/25/18 19:10 Creatinine 0.4 mg/dL (0.7-1.3) L 10/25/18 19:10 Est GFR ( Amer) > 60.0 ml/min (>90) 10/25/18 19:10 Est GFR (Non-Af Amer) > 60.0 ml/min 10/25/18 19:10 BUN/Creatinine Ratio 67.5 10/25/18 19:10 Glucose 131 mg/dL (70-105) H 10/25/18 19:10 Whole Bld Lactic Acid 1.11 mmol/L (0.60-1.99) 10/25/18 19:10 Calcium 10.2 mg/dL (8.6-10.3) 10/25/18 19:10 Total Bilirubin 0.6 mg/dL (0.3-1.0) 10/25/18 19:10 AST 38 U/L (13-39) 10/25/18 19:10 ALT 39 U/L (7-52) 10/25/18 19:10 Alkaline Phosphatase 89 U/L (34-104) 10/25/18 19:10 Creatine Kinase 550 U/L (30-223) H 10/25/18 19:10 CK-MB (CK-2) 9.2 ng/mL (0.6-6.3) H 10/25/18 19:10 Troponin I 0.01 ng/mL (0.01-0.05) 10/25/18 19:10 Total Protein 8.4 gm/dL (6.0-8.3) H 10/25/18 19:10 Albumin 4.7 gm/dL (4.2-5.5) 10/25/18 19:10 Globulin 3.7 gm/dL 10/25/18 19:10 Albumin/Globulin Ratio 1.3 (1.0-1.8) 10/25/18 19:10 Amylase 14 U/L (29-103) L 10/25/18 19:10 Lipase 8 U/L (11-82) L 10/25/18 19:10 Urine Source CLEAN C 10/26/18 04:00 Urine Color DARK YELLOW 10/26/18 04:00 Urine Clarity CLOUDY (CLEAR) 10/26/18 04:00 Urine pH 8.5 (4.6 - 8.0) 10/26/18 04:00 Ur Specific [place] 1.020 (1.005-1.030) 10/26/18 04:00 Urine Protein 30 mg/dL (NEGATIVE) H 10/26/18 04:00 Urine Glucose (UA) NEGATIVE mg/dL (NEGATIVE) 10/26/18 04:00 Urine Ketones 15 mg/dL (NEGATIVE) H 10/26/18 04:00 Urine Blood NEGATIVE (NEGATIVE) 10/26/18 04:00 Urine Nitrate NEGATIVE (NEGATIVE) 10/26/18 04:00 Urine Bilirubin SMALL (NEGATIVE) H 10/26/18 04:00 Urine Urobilinogen 0.2 E.U./dL (0.2 - 1.0) 10/26/18 04:00 Ur Leukocyte Esterase TRACE (NEGATIVE) H 10/26/18 04:00 Urine RBC 10-25 /hpf (0-5) H 10/26/18 04:00 Urine WBC 0-2 /hpf (0-5) 10/26/18 04:00 Ur Epithelial Cells RARE /lpf (FEW) 10/26/18 04:00 Triple Phos Crystals MANY /hpf (FEW) 10/26/18 04:00 Amorphous Sediment FEW PHOSPHATES (NONE SEEN) 10/26/18 04:00 Urine Bacteria FEW /hpf (NONE SEEN) 10/26/18 04:00 - Physical Exam Vitals and I&O: Vital Signs Temp 98.1 F 10/26/18 11:48 Pulse 103 10/26/18 11:48 Resp 18 10/26/18 11:48 BP 114/71 10/26/18 11:48 Pulse Ox 96 10/26/18 11:48 Intake & Output 10/25/18 10/26/18 10/26/18 18:59 06:59 18:59 Intake Total 1000 Balance 1000 Weight (lbs) 56.699 kg 56.699 kg Intake: Intake, IV Amount 1000 D5-0.9%Ns 1,000 ml @ 100 1000 mls/hr IV .Q10H [facility] Rx#: [id number] Other: # Voids 2 # Bowel Movements 2 Stool Characteristics Liquid Black Weight Source Estimated Bedscale Active Medications: Current Medications Acetaminophen (Tylenol) 650 mg PO Q4H PRN PRN Reason: Pain Or Fever above 101 Stop: 12/24/18 21:30 Last Admin: 10/26/18 03:45 Dose: 650 mg Albuterol Sulfate (Albuterol 2.5mg/3ml Neb Ud) 2.5 mg HHN Q2HRT PRN PRN Reason: Shortness of Breath or Wheeze Stop: 12/24/18 21:30 Ascorbic Acid (Vitamin C) 500 mg GT BID [facility] Stop: 12/25/18 08:59 Last Admin: 10/26/18 08:57 Dose: 500 mg Calcium Carbonate (Os-Rodriguez) 500 mg GT BID [facility] Stop: 12/25/18 08:59 Last Admin: 10/26/18 08:57 Dose: 500 mg Clonazepam (Klonopin) 0.5 mg GT TID [facility] Stop: 12/24/18 21:59 Last Admin: 10/26/18 08:58 Dose: Not Given Folic Acid (Folate) 1 mg GT DAILY [facility] Stop: 12/25/18 08:59 Last Admin: 10/26/18 08:57 Dose: 1 mg Dextrose/Sodium Chloride (D5-0.9%Ns) 1,000 mls @ 100 mls/hr IV .Q10H [facility] Stop: 12/24/18 21:44 Last Admin: 10/26/18 11:05 Dose: 100 mls/hr Ceftriaxone Sodium 1 gm/ (Sodium Chloride) 50 mls @ 100 mls/hr IV Q24HR [facility] Stop: 12/25/18 19:59 Ipratropium [place] (Atrovent Neb 0.5mg/2.5ml) 0.5 mg HHN Q2HRT PRN PRN Reason: Shortness of Breath or Wheeze Stop: 12/24/18 21:30 Lactulose (Cephulac) 10 gm GT BID [facility] Stop: 12/25/18 08:59 Last Admin: 10/26/18 08:56 Dose: 10 gm Levetiracetam (Keppra) 1,000 mg GT BID [facility] Stop: 12/24/18 21:59 Last Admin: 10/26/18 08:57 Dose: 1,000 mg Lorazepam (Ativan) 1 mg IV Q4H PRN; Protocol PRN Reason: Seizure Stop: 12/24/18 21:30 Metoclopramide HCl (Reglan) 10 mg IVP TID [facility] Stop: 12/25/18 08:59 Last Admin: 10/26/18 08:57 Dose: 10 mg Mineral Oil (Mineral Oil 30 Ml) 30 ml GT BID [facility] Stop: 12/25/18 08:59 Last Admin: 10/26/18 08:56 Dose: 30 ml Ondansetron HCl (Zofran) 4 mg IV Q8H PRN PRN Reason: Nausea / Vomiting Stop: 12/24/18 21:30 Pantoprazole Sodium (Protonix) 40 mg IVP DAILY [facility] Stop: 12/25/18 08:59 Last Admin: 10/26/18 08:57 Dose: 40 mg Polyethylene Glycol (Miralax) 17 gm GT DAILY [facility] Stop: 12/25/18 08:59 Last Admin: 10/26/18 08:57 Dose: 17 gm Primidone (Mysoline) 50 mg GT BID [facility] Stop: 12/24/18 21:59 Last Admin: 10/26/18 08:58 Dose: 50 mg Simethicone (Mylicon) 80 mg GT QID [facility] Stop: 12/25/18 08:59 Last Admin: 10/26/18 08:57 Dose: 80 mg Sodium Chloride (Nacl Tab) 1 gm GT DAILY [facility] Stop: 12/25/18 08:59 Last Admin: 10/26/18 08:57 Dose: 1 gm Sodium Phosphate (Fleet Enema) 135 ml RC Q12H PRN PRN Reason: Constipation Stop: 12/24/18 21:25 Last Admin: 10/26/18 03:46 Dose: 135 ml General: lethargic, demented HEENT: NC/AT, PERRLA Neck: Supple, No JVD Lungs: congested Cardiovascular: RRR, Normal S1, Normal S2, without murmur Abdomen: soft, globular, distended, +GT, +GT - redness, positive bowel sound Extremities: excoriation, contracture - Procedures Procedures: Procedures Procedure Code Date CHANGE GASTROSTOMY TUBE 73946 05/19/14 DIAGNOSTIC COLONOSCOPY 87643 10/22/16 DRAINAGE OF SKIN ABSCESS 61929 07/16/10 EGD BIOPSY SINGLE/MULTIPLE 48822 11/01/12 EMERGENCY DEPT VISIT 42049 07/12/11 ESOPHAGOGASTRODUODENOSCOPY [EGD] W/CLOSED BIOPSY 45.16 11/01/12 INSPECTION OF LOWER INTESTINAL TRACT, ENDO [id number] 10/22/16 OTHER SKIN & SUBQ I D 86.04 07/16/10 REPLACE GASTROSTOMY TUBE 97.02 05/19/14 Internal Medicine Assmt/Plan - Assessment Assessment: ASSESSMENT: Severe abdominal pain due to fecal impaction, GT cellulitis, leukocytosis, possible sepsis, dehydration, cerebral palsy, seizure.generalized contractures - Plan Plan: PLAN: We will continue the patient on aggressive IV hydration. We will put the patient on laxative. Continue with antibiotic. We will review the patient's medication. We will refer the patient to GI. We will continue to monitor very closely.
[2018-10-26] MEDS: Polyvinyl Alcohol Ophth Soln 15 mL Bottle EACH EYE SCH ×2 (16:27→21:06)
[2018-10-26] MEDS: cefTRIAXone 1 GM in Sodium Chloride 0.9% 50 ML IV SCH (21:19)
[2018-10-27 07:32] LABS: % BASOPHILS 0.4 % (0.0-2.0); % EOSINOPHILS 0.2 % (0.0-5.0); % LYMPHOCYTES 23.9 % (20.0-50.0); % MONOCYTES 9.8 % (2.0-10.0); % NEUTROPHILS 65.7 % (40.0-80.0); HEMATOCRIT 44.4 % (41.0-60); LYMPHOCYTE ABSOLUTE 1.9 Th/cmm (1.5-3.0); MEAN CELL VOLUME 96.7 fl (80-99); MEAN CORPUSCULAR HEMOGLOBIN 32.6 pg (26.0-30.0); MEAN CORPUSCULAR HGB CONC 33.7 pg (28.0-36.0); MONOCYTE ABSOLUTE 0.8 Th/cmm (0.3-1.0); NEUTROPHILE ABSOLUTE 5.2 Th/cmm (1.8-8.0); PLATELET COUNT 221 Th/cmm (150-400); RED BLOOD COUNT 4.59 Mil/cmm (4.30-5.70); RED CELL DISTRIBUTION WIDTH 12.9 % (11.5-20.0); WHITE BLOOD COUNT 7.9 Th/cmm (4.8-10.8)
[2018-10-27 07:45] LABS: ALB/GLOB RATIO 1.3 (1.0-1.8); ALBUMIN 4.2 gm/dL (4.2-5.5); ALKALINE PHOSPHATASE 71 U/L (34-104); ANION GAP 12.2 (7.0-16.0); BILIRUBIN,TOTAL 0.5 mg/dL (0.3-1.0); BUN - UREA NITROGEN 18 mg/dL (7-25); CALCIUM SERUM 9.5 mg/dL (8.6-10.3); CHLORIDE 118 mEq/L (98-107); CREATININE - SERUM 0.3 mg/dL (0.7-1.3); GFR AFRICAN-AMERICAN > 60.0 ml/min (>90); GFR NON AFRICAN-AMERICAN > 60.0 ml/min; GLUCOSE 152 mg/dL (70-105); MAGNESIUM 2.5 mg/dL (1.9-2.7); POTASSIUM SERUM 3.2 mEq/L (3.5-5.1); SGOT 30 U/L (13-39); SGPT/ALT 36 U/L (7-52); SODIUM SERUM 152 mEq/L (136-145); TOTAL PROTEIN,SERUM 7.5 gm/dL (6.0-8.3)
--- NOTE | 2018-10-27 08:25 | Consultation ---
DATE OF CONSULTATION: 10/26/2018 GASTROENTEROLOGY CONSULTATION REQUESTING PHYSICIAN: Danilo Gaffney DO REASON FOR CONSULTATION: Abdominal distention and pain. HISTORY OF PRESENT ILLNESS: A 48-year-old male with cerebral palsy and mental retardation, admitted for abdominal distention. CT imaging showed colon distention and wall thickening. He also had possible high gastric residuals. He was given laxatives with good production of stools. He is essentially nonverbal. Feedings are on hold. G-tube has been kept low intermittent suction. PAST MEDICAL HISTORY: As above; also notable for seizure disorder, hypertension, and mental delay. MEDICATIONS: Here are albuterol p.r.n., vitamin C, Os-Rodriguez, Rocephin, Klonopin, folic acid, Atrovent, lactulose 10 g b.i.d., Keppra, Ativan p.r.n., Reglan 10 mg IV push q.8h., mineral oil twice daily, Zofran p.r.n., Protonix once daily, MiraLax once daily, primidone, Mylicon q.i.d., sodium chloride tablet, and Fleet enema p.r.n. ALLERGIES: No known drug allergies. SOCIAL HISTORY: No recent tobacco, alcohol, or drugs. He is a longterm resident. FAMILY HISTORY: Noncontributory. REVIEW OF SYSTEMS: Negative. PHYSICAL EXAMINATION: VITAL SIGNS: Temperature of 98.3, blood pressure 98/45, pulse is 96, respirations 18, O2 sat is 95%. GENERAL: The patient is a well-developed, chronically ill-appearing male in no acute distress. HEENT: Deformed face. CARDIOVASCULAR: Regular rate and rhythm. LUNGS: Clear to auscultation bilaterally. ABDOMEN: Soft, slightly distended, hypoactive bowel sounds. Intact G-tube without obvious leakage. EXTREMITIES: Contractured. RECTAL: Exam reveals normal sphincter tone with no obvious fecal impaction. There is a copious amount of stool outside the rectum. LABORATORY/IMAGING DATA: WBC 12.2, hemoglobin 17.1, platelet count 228. INR 1.1, creatinine normal. Liver labs normal. Amylase and lipase normal. IMPRESSION: 1. Abdominal distention likely secondary to constipation/fecal impaction/ileus, now improved; less likely with gastroparesis. 2. Dysphagia with a history of gastrostomy tube insertion and possible leakage likely from constipation and ileus. 3. Leukocytosis, rule out sepsis. 4. Mental delay and cerebral palsy with seizure disorder. 5. History of hypertension. RECOMMENDATIONS: 1. Continue stool softeners as previously ordered per G-tube and per rectum. 2. G-tube can be used for medications and water flushes and tube feedings will be started at a low rate today. 3. Check serial KUB checks to confirm improvement of distention, ileus, and constipation. Thank you Dr. Danilo Gaffney for involving us in the care of your patient. If you have any further questions, please call us. JOB# [id number]
[2018-10-27] MEDS: D5-0.9%NS 1,000 ML IV SCH (08:31)
[2018-10-27] MEDS: Lactulose 10 Gm/15 mL 30mL UDC GT SCH ×2 (09:30→19:01)
[2018-10-27] MEDS: Levetiracetam 500 mg/5mL 5mL UDSyr *for ORAL USE ONLY GT SCH ×2 (09:30→19:01)
[2018-10-27] MEDS: POLYETHYLENE GLYCOL 3350 17 GM PACK GT SCH (09:30)
[2018-10-27] MEDS: Metoclopramide 5 mg/mL 2mL Vial IVP SCH ×3 (09:31→21:03)
[2018-10-27] MEDS: Multivitamin w/ Minerals Tab GT SCH (09:31)
--- NOTE | 2018-10-27 12:46 | Internal Medicine Prog Note ---
Internal Medicine Subjective - Subjective Patient seen and examined:: with staff, chart reviewed Patient is:: awake, non-verbal, non-interactive, in bed Patient Complaints of:: congestion, constipation, bloated Per staff patient has:: no adverse event Internal Medicine Objective - Results Result Diagrams: 10/27/18 07:10 10/27/18 07:10 Recent Labs: Laboratory Last Values WBC 7.9 Th/cmm (4.8-10.8) 10/27/18 07:10 RBC 4.59 Mil/cmm (4.30-5.70) 10/27/18 07:10 Hgb 15.0 gm/dL (12-16) 10/27/18 07:10 Hct 44.4 % (41.0-60) 10/27/18 07:10 MCV 96.7 fl (80-99) 10/27/18 07:10 MCH 32.6 pg (26.0-30.0) H 10/27/18 07:10 MCHC Differential 33.7 pg (28.0-36.0) 10/27/18 07:10 RDW 12.9 % (11.5-20.0) 10/27/18 07:10 Plt Count 221 Th/cmm (150-400) 10/27/18 07:10 MPV 9.5 fl 10/27/18 07:10 Neutrophils % 65.7 % (40.0-80.0) 10/27/18 07:10 Lymphocytes % 23.9 % (20.0-50.0) 10/27/18 07:10 Monocytes % 9.8 % (2.0-10.0) 10/27/18 07:10 Eosinophils % 0.2 % (0.0-5.0) 10/27/18 07:10 Basophils % 0.4 % (0.0-2.0) 10/27/18 07:10 PT 11.3 SECONDS (9.5-11.5) 10/25/18 19:10 INR 1.09 (0.5-1.4) 10/25/18 19:10 PTT (Actin FS) 28.3 SECONDS (26.0-38.0) 10/25/18 19:10 Sodium 152 mEq/L (136-145) H 10/27/18 07:10 Potassium 3.2 mEq/L (3.5-5.1) L 10/27/18 07:10 Chloride 118 mEq/L (98-107) H 10/27/18 07:10 Carbon Dioxide 25.0 mEq/L (21.0-31.0) 10/27/18 07:10 Anion Gap 12.2 (7.0-16.0) 10/27/18 07:10 BUN 18 mg/dL (7-25) 10/27/18 07:10 Creatinine 0.3 mg/dL (0.7-1.3) L 10/27/18 07:10 Est GFR ( Amer) > 60.0 ml/min (>90) 10/27/18 07:10 Est GFR (Non-Af Amer) > 60.0 ml/min 10/27/18 07:10 BUN/Creatinine Ratio 60.0 10/27/18 07:10 Glucose 152 mg/dL (70-105) H 10/27/18 07:10 POC Glucose 144 MG/DL (70 - 105) H 10/26/18 17:51 Whole Bld Lactic Acid 1.11 mmol/L (0.60-1.99) 10/25/18 19:10 Calcium 9.5 mg/dL (8.6-10.3) 10/27/18 07:10 Magnesium 2.5 mg/dL (1.9-2.7) 10/27/18 07:10 Total Bilirubin 0.5 mg/dL (0.3-1.0) 10/27/18 07:10 AST 30 U/L (13-39) 10/27/18 07:10 ALT 36 U/L (7-52) 10/27/18 07:10 Alkaline Phosphatase 71 U/L (34-104) 10/27/18 07:10 Ammonia 76 umol/L (16-53) H 10/27/18 07:10 Creatine Kinase 550 U/L (30-223) H 10/25/18 19:10 CK-MB (CK-2) 9.2 ng/mL (0.6-6.3) H 10/25/18 19:10 Troponin I 0.01 ng/mL (0.01-0.05) 10/25/18 19:10 B-Natriuretic Peptide 25.8 pg/mL (5.0-100.0) 10/27/18 07:10 Total Protein 7.5 gm/dL (6.0-8.3) 10/27/18 07:10 Albumin 4.2 gm/dL (4.2-5.5) 10/27/18 07:10 Globulin 3.3 gm/dL 10/27/18 07:10 Albumin/Globulin Ratio 1.3 (1.0-1.8) 10/27/18 07:10 Amylase 14 U/L (29-103) L 10/25/18 19:10 Lipase 8 U/L (11-82) L 10/25/18 19:10 Urine Source CLEAN C 10/26/18 04:00 Urine Color DARK YELLOW 10/26/18 04:00 Urine Clarity CLOUDY (CLEAR) 10/26/18 04:00 Urine pH 8.5 (4.6 - 8.0) 10/26/18 04:00 Ur Specific [place] 1.020 (1.005-1.030) 10/26/18 04:00 Urine Protein 30 mg/dL (NEGATIVE) H 10/26/18 04:00 Urine Glucose (UA) NEGATIVE mg/dL (NEGATIVE) 10/26/18 04:00 Urine Ketones 15 mg/dL (NEGATIVE) H 10/26/18 04:00 Urine Blood NEGATIVE (NEGATIVE) 10/26/18 04:00 Urine Nitrate NEGATIVE (NEGATIVE) 10/26/18 04:00 Urine Bilirubin SMALL (NEGATIVE) H 10/26/18 04:00 Urine Urobilinogen 0.2 E.U./dL (0.2 - 1.0) 10/26/18 04:00 Ur Leukocyte Esterase TRACE (NEGATIVE) H 10/26/18 04:00 Urine RBC 10-25 /hpf (0-5) H 10/26/18 04:00 Urine WBC 0-2 /hpf (0-5) 10/26/18 04:00 Ur Epithelial Cells RARE /lpf (FEW) 10/26/18 04:00 Triple Phos Crystals MANY /hpf (FEW) 10/26/18 04:00 Amorphous Sediment FEW PHOSPHATES (NONE SEEN) 10/26/18 04:00 Urine Bacteria FEW /hpf (NONE SEEN) 10/26/18 04:00 - Physical Exam Vitals and I&O: Vital Signs Temp 97.8 F 10/27/18 12:00 Pulse 92 10/27/18 12:00 Resp 20 10/27/18 12:00 BP 122/74 10/27/18 12:00 Pulse Ox 93 10/27/18 12:00 Intake & Output 10/26/18 10/27/18 10/27/18 18:59 06:59 18:59 Intake Total 1000 1000 1000 Balance 1000 1000 1000 Intake: Intake, IV Amount 1000 1000 1000 D5-0.9%Ns 1,000 ml @ 100 1000 1000 1000 mls/hr IV .Q10H [facility] Rx#: [id number] Other: Stool Characteristics Liquid Black Active Medications: Current Medications Acetaminophen (Tylenol) 650 mg PO Q4H PRN PRN Reason: Pain Or Fever above 101 Stop: 12/24/18 21:30 Last Admin: 10/27/18 04:02 Dose: 650 mg Albuterol Sulfate (Albuterol 2.5mg/3ml Neb Ud) 2.5 mg HHN Q2HRT PRN PRN Reason: Shortness of Breath or Wheeze Stop: 12/24/18 21:30 Artificial Tears (Artificial Tears Ophth Soln) 1 drop EACH EYE QID [facility] Stop: 12/25/18 16:59 Last Admin: 10/26/18 21:06 Dose: 1 drop Ascorbic Acid (Vitamin C) 500 mg GT BID [facility] Stop: 12/25/18 08:59 Last Admin: 10/27/18 09:31 Dose: 500 mg Calcium Carbonate (Os-Jackie) 500 mg GT BID [facility] Stop: 12/25/18 08:59 Last Admin: 10/27/18 09:31 Dose: 500 mg Clonazepam (Klonopin) 0.5 mg GT TID [facility] Stop: 12/24/18 21:59 Last Admin: 10/27/18 09:31 Dose: 0.5 mg Folic Acid (Folate) 1 mg GT DAILY [facility] Stop: 12/25/18 08:59 Last Admin: 10/27/18 09:31 Dose: 1 mg Ceftriaxone Sodium 1 gm/ (Sodium Chloride) 50 mls @ 100 mls/hr IV Q24HR [facility] Stop: 12/25/18 19:59 Last Admin: 10/26/18 21:19 Dose: 100 mls/hr Ipratropium [place] (Atrovent Neb 0.5mg/2.5ml) 0.5 mg HHN Q2HRT PRN PRN Reason: Shortness of Breath or Wheeze Stop: 12/24/18 21:30 Lactulose (Cephulac) 10 gm GT BID [facility] Stop: 12/25/18 08:59 Last Admin: 10/27/18 09:30 Dose: 10 gm Levetiracetam (Keppra) 1,000 mg GT BID [facility] Stop: 12/24/18 21:59 Last Admin: 10/27/18 09:30 Dose: 1,000 mg Lorazepam (Ativan) 1 mg IV Q4H PRN; Protocol PRN Reason: Seizure Stop: 12/24/18 21:30 Metoclopramide HCl (Reglan) 10 mg IVP TID [facility] Stop: 12/25/18 08:59 Last Admin: 10/27/18 09:31 Dose: 10 mg Mineral Oil (Mineral Oil 30 Ml) 30 ml GT BID [facility] Stop: 12/25/18 08:59 Last Admin: 10/27/18 09:31 Dose: 30 ml Ondansetron HCl (Zofran) 4 mg IV Q8H PRN PRN Reason: Nausea / Vomiting Stop: 12/24/18 21:30 Pantoprazole Sodium (Protonix) 40 mg IVP DAILY [facility] Stop: 12/25/18 08:59 Last Admin: 10/27/18 09:31 Dose: 40 mg Polyethylene Glycol (Miralax) 17 gm GT DAILY [facility] Stop: 12/25/18 08:59 Last Admin: 10/27/18 09:30 Dose: 17 gm Primidone (Mysoline) 50 mg GT BID [facility] Stop: 12/24/18 21:59 Last Admin: 10/27/18 09:31 Dose: 50 mg Simethicone (Mylicon) 80 mg GT QID [facility] Stop: 12/25/18 08:59 Last Admin: 10/27/18 09:31 Dose: 80 mg Sodium Phosphate (Fleet Enema) 135 ml RC Q12H PRN PRN Reason: Constipation Stop: 12/24/18 21:25 Last Admin: 10/26/18 03:46 Dose: 135 ml General: lethargic, demented HEENT: NC/AT, PERRLA Neck: Supple, No JVD Lungs: congested Cardiovascular: RRR, Normal S1, Normal S2, without murmur Abdomen: soft, globular, distended, +GT, +GT - redness, positive bowel sound Extremities: excoriation, contracture - Procedures Procedures: Procedures Procedure Code Date CHANGE GASTROSTOMY TUBE 18283 05/19/14 DIAGNOSTIC COLONOSCOPY 75140 10/22/16 DRAINAGE OF SKIN ABSCESS 05996 07/16/10 EGD BIOPSY SINGLE/MULTIPLE 19818 11/01/12 EMERGENCY DEPT VISIT 17140 07/12/11 ESOPHAGOGASTRODUODENOSCOPY [EGD] W/CLOSED BIOPSY 45.16 11/01/12 INSPECTION OF LOWER INTESTINAL TRACT, ENDO [id number] 10/22/16 OTHER SKIN & SUBQ I D 86.04 07/16/10 REPLACE GASTROSTOMY TUBE 97.02 05/19/14 Internal Medicine Assmt/Plan - Assessment Assessment: ASSESSMENT: Severe abdominal pain due to fecal impaction, GT cellulitis, leukocytosis, possible sepsis, dehydration, cerebral palsy, seizure.generalized contractures - Plan Plan: PLAN: We will continue the patient on aggressive IV hydration. We will put the patient on laxative. Continue with antibiotic. We will review the patient's medication. We will refer the patient to GI. We will continue to monitor very closely. Nutritional Asmnt/Malnutr-PDOC - Dietary Evaluation Malnutrition Findings (Please click <Entered> for more info): Nutritional Asmnt/Malnutrition Start: 10/26/18 16: 01 Text: Status: Active Freq: Protocol: Document 10/26/18 16:02 CAROLINA (Rec: 10/26/18 16:05 CAROLINA [id number]) Nutritional Asmnt/Malnutrition Patient General Information Nutritional Screening High Risk Diagnosis ABDOMINAL PAIN Pertinent Medical Hx/Surgical Hx CP, MENTAL RETARDATION. HTN, SEIZURE Subjective Information IA HR, CONSULT FOR LOW MEETA SCORE: 11 PT IS A 48 YEAR OLD MALE FROM NURSING FACILITY ADMITTED ON D/T ABDOMINAL DISTENSION WITH PAIN. NOTED REDNESS IN GTUBE AREA WITH DISTENDED LARGE INTESTINE IN RECTAL AREA . PT IS SWALLOWING IMPAIRED AND CURRENTLY NPO D/T OBSTRUCTION, SEVERE DISTAL FECAL IMPACTION PER CT SCAN ON 10/25. HT: 49 WT: 125 LB (56.82 KG) ABW: 106 LB (48.29 KG) BMI: 27.05 (OVERWEIGHT) GI: LARGE, ROUND, DISTENDED, ABDOMINAL PAIN WITH BLOATING/ CONSTIPATION BM: NOT NOTED (BUT NOTED LIQUID BLACK) I/O: 1000/NOT NOTED SKIN: WARM, MOIST, ELASTIC, RASH MEETA: 11 DIET ORDER: NPO ESTIMATED ENERGY NEEDS: (ADULT , ABW) 8959-6180 KCALS (25-30 KCALS/ KG) 39-43 G PRO (0.8-0.9 G/KG) 5537-6555 ML (25-30 ML/KG) PT IS CURRENTLY NPO STATUS, ONCE MEDICALLY APPROPRIATE TO START TF CONSIDER: JEVITY 1.2 @45ML/HR X 24 HOURS THIS WILL PROVIDE 1296 KCALS, 60 GM PRO, AND 872ML FREE WATER TO MEET 100% KCAL AND 100% PRO NEEDS. Current Diet Order/ Nutrition Support NPO Pertinent Medications ALBUTEROL (PRN), VIT C, OS-JACKIE , D5-0.9% NS, FOLATE, CEPHULAC , REGLAN, MINERAL OIL, ZOFRAN 9PRN), PROTONIX, MIRALAX, MYLICON, NACL TAB, FLEET ENEMA (PRN) Pertinent Labs 10/25: BUN/CR 27/0.4, GLUCOSE 131, T PRO 8.4, AMYLASE 14, LIPASE 8 Nutritional Hx/Data Height 1.45 m Height (Calculated Centimeters) 144.8 Current Weight (lbs) 56.699 kg Weight (Calculated Kilograms) 56.7 Weight (Calculated Grams) 84983.0 [place] Body Weight 100 % [place] Body Weight 125 Body Mass Index (BMI) 27.0 Weight Status Overweight GI Symptoms GI Symptoms Constipation Last BM NOT NOTED (BUT NOTED LIQUID BLACK) Skin Integrity/Comment: WARM, MOIST, ELASTIC, RASH MEETA: 11 Current %PO Negligible < 25% Estimated Nutritional Goals BEE in Kcals: Adj wt of IBW Calories/Kcals/Kg 25-30 Kcals Calculated 4887-0334 Protein: Adj wt of IBW Protein g/k.8-0.9 Protein Calculated 39-43 Fluid: ml 7713-5530 ML (25-30 ML/KG) Nutritional Problem 1. Problem Problem INADEQUATE ENERGY INTAKE Etiology R/T GI OBSTRUCTION Signs/Symptoms: AEB NPO STATUS Malnutrition Related to Morbid Obesity Malnutrition related to morbid obesity No Intervention/Recommendation Comments JEVITY 1.2 @45ML/HR X 24 HOURS THIS WILL PROVIDE 1296 KCALS, 60 GM PRO, AND 872ML FREE WATER TO MEET 100% KCAL AND 100% PRO NEEDS. Expected Outcomes/Goals Expected Outcomes/Goals 1. MONITOR NPO STATUS, WT, NUTRITION RELATED LABS AND SKIN INTEGRITY. 2. F/U HIGH RISK IN 2-3 DAYS, 10/28-10/29
[2018-10-27] MEDS: D5-0.45NS 1,000 ML IV SCH (13:30)
--- NOTE | 2018-10-27 15:02 | GI Progress Note ---
Subjective - Review of Systems Service Date: 10/27/18 Events since last encounter: no new events,having bowel movements GI OBJECTIVE - Results Result Diagrams: 10/27/18 07:10 10/27/18 07:10 Recent Labs: Laboratory Last Values WBC 7.9 Th/cmm (4.8-10.8) 10/27/18 07:10 RBC 4.59 Mil/cmm (4.30-5.70) 10/27/18 07:10 Hgb 15.0 gm/dL (12-16) 10/27/18 07:10 Hct 44.4 % (41.0-60) 10/27/18 07:10 MCV 96.7 fl (80-99) 10/27/18 07:10 MCH 32.6 pg (26.0-30.0) H 10/27/18 07:10 MCHC Differential 33.7 pg (28.0-36.0) 10/27/18 07:10 RDW 12.9 % (11.5-20.0) 10/27/18 07:10 Plt Count 221 Th/cmm (150-400) 10/27/18 07:10 MPV 9.5 fl 10/27/18 07:10 Neutrophils % 65.7 % (40.0-80.0) 10/27/18 07:10 Lymphocytes % 23.9 % (20.0-50.0) 10/27/18 07:10 Monocytes % 9.8 % (2.0-10.0) 10/27/18 07:10 Eosinophils % 0.2 % (0.0-5.0) 10/27/18 07:10 Basophils % 0.4 % (0.0-2.0) 10/27/18 07:10 PT 11.3 SECONDS (9.5-11.5) 10/25/18 19:10 INR 1.09 (0.5-1.4) 10/25/18 19:10 PTT (Actin FS) 28.3 SECONDS (26.0-38.0) 10/25/18 19:10 Sodium 152 mEq/L (136-145) H 10/27/18 07:10 Potassium 3.2 mEq/L (3.5-5.1) L 10/27/18 07:10 Chloride 118 mEq/L (98-107) H 10/27/18 07:10 Carbon Dioxide 25.0 mEq/L (21.0-31.0) 10/27/18 07:10 Anion Gap 12.2 (7.0-16.0) 10/27/18 07:10 BUN 18 mg/dL (7-25) 10/27/18 07:10 Creatinine 0.3 mg/dL (0.7-1.3) L 10/27/18 07:10 Est GFR ( Amer) > 60.0 ml/min (>90) 10/27/18 07:10 Est GFR (Non-Af Amer) > 60.0 ml/min 10/27/18 07:10 BUN/Creatinine Ratio 60.0 10/27/18 07:10 Glucose 152 mg/dL (70-105) H 10/27/18 07:10 POC Glucose 144 MG/DL (70 - 105) H 10/26/18 17:51 Whole Bld Lactic Acid 1.11 mmol/L (0.60-1.99) 10/25/18 19:10 Calcium 9.5 mg/dL (8.6-10.3) 10/27/18 07:10 Magnesium 2.5 mg/dL (1.9-2.7) 10/27/18 07:10 Total Bilirubin 0.5 mg/dL (0.3-1.0) 10/27/18 07:10 AST 30 U/L (13-39) 10/27/18 07:10 ALT 36 U/L (7-52) 10/27/18 07:10 Alkaline Phosphatase 71 U/L (34-104) 10/27/18 07:10 Ammonia 76 umol/L (16-53) H 10/27/18 07:10 Creatine Kinase 550 U/L (30-223) H 10/25/18 19:10 CK-MB (CK-2) 9.2 ng/mL (0.6-6.3) H 10/25/18 19:10 Troponin I 0.01 ng/mL (0.01-0.05) 10/25/18 19:10 B-Natriuretic Peptide 25.8 pg/mL (5.0-100.0) 10/27/18 07:10 Total Protein 7.5 gm/dL (6.0-8.3) 10/27/18 07:10 Albumin 4.2 gm/dL (4.2-5.5) 10/27/18 07:10 Globulin 3.3 gm/dL 10/27/18 07:10 Albumin/Globulin Ratio 1.3 (1.0-1.8) 10/27/18 07:10 Amylase 14 U/L (29-103) L 10/25/18 19:10 Lipase 8 U/L (11-82) L 10/25/18 19:10 Urine Source CLEAN C 10/26/18 04:00 Urine Color DARK YELLOW 10/26/18 04:00 Urine Clarity CLOUDY (CLEAR) 10/26/18 04:00 Urine pH 8.5 (4.6 - 8.0) 10/26/18 04:00 Ur Specific [place] 1.020 (1.005-1.030) 10/26/18 04:00 Urine Protein 30 mg/dL (NEGATIVE) H 10/26/18 04:00 Urine Glucose (UA) NEGATIVE mg/dL (NEGATIVE) 10/26/18 04:00 Urine Ketones 15 mg/dL (NEGATIVE) H 10/26/18 04:00 Urine Blood NEGATIVE (NEGATIVE) 10/26/18 04:00 Urine Nitrate NEGATIVE (NEGATIVE) 10/26/18 04:00 Urine Bilirubin SMALL (NEGATIVE) H 10/26/18 04:00 Urine Urobilinogen 0.2 E.U./dL (0.2 - 1.0) 10/26/18 04:00 Ur Leukocyte Esterase TRACE (NEGATIVE) H 10/26/18 04:00 Urine RBC 10-25 /hpf (0-5) H 10/26/18 04:00 Urine WBC 0-2 /hpf (0-5) 10/26/18 04:00 Ur Epithelial Cells RARE /lpf (FEW) 10/26/18 04:00 Triple Phos Crystals MANY /hpf (FEW) 10/26/18 04:00 Amorphous Sediment FEW PHOSPHATES (NONE SEEN) 10/26/18 04:00 Urine Bacteria FEW /hpf (NONE SEEN) 10/26/18 04:00 - Physical Exam Vitals and I&O: Vital Signs Temp 97.8 F 10/27/18 12:00 Pulse 92 10/27/18 12:00 Resp 20 10/27/18 12:00 BP 122/74 10/27/18 12:00 Pulse Ox 93 10/27/18 12:00 Intake & Output 10/26/18 10/27/18 10/27/18 18:59 06:59 18:59 Intake Total 1000 1000 1000 Balance 1000 1000 1000 Intake: Intake, IV Amount 1000 1000 1000 D5-0.9%Ns 1,000 ml @ 100 1000 1000 1000 mls/hr IV .Q10H [facility] Rx#: [id number] Other: Stool Characteristics Liquid Black Active Medications: Current Medications Acetaminophen (Tylenol) 650 mg PO Q4H PRN PRN Reason: Pain Or Fever above 101 Stop: 12/24/18 21:30 Last Admin: 10/27/18 04:02 Dose: 650 mg Albuterol Sulfate (Albuterol 2.5mg/3ml Neb Ud) 2.5 mg HHN Q2HRT PRN PRN Reason: Shortness of Breath or Wheeze Stop: 12/24/18 21:30 Artificial Tears (Artificial Tears Ophth Soln) 1 drop EACH EYE QID [facility] Stop: 12/25/18 16:59 Last Admin: 10/26/18 21:06 Dose: 1 drop Ascorbic Acid (Vitamin C) 500 mg GT BID [facility] Stop: 12/25/18 08:59 Last Admin: 10/27/18 09:31 Dose: 500 mg Calcium Carbonate (Os-Rodriguez) 500 mg GT BID [facility] Stop: 12/25/18 08:59 Last Admin: 10/27/18 09:31 Dose: 500 mg Clonazepam (Klonopin) 0.5 mg GT TID [facility] Stop: 12/24/18 21:59 Last Admin: 10/27/18 09:31 Dose: 0.5 mg Folic Acid (Folate) 1 mg GT DAILY [facility] Stop: 12/25/18 08:59 Last Admin: 10/27/18 09:31 Dose: 1 mg Ceftriaxone Sodium 1 gm/ (Sodium Chloride) 50 mls @ 100 mls/hr IV Q24HR [facility] Stop: 12/25/18 19:59 Last Admin: 10/26/18 21:19 Dose: 100 mls/hr Dextrose/Sodium Chloride (D5-0.45ns) 1,000 mls @ 50 mls/hr IV .Q20H [facility] Stop: 12/26/18 12:44 Ipratropium [place] (Atrovent Neb 0.5mg/2.5ml) 0.5 mg HHN Q2HRT PRN PRN Reason: Shortness of Breath or Wheeze Stop: 12/24/18 21:30 Lactulose (Cephulac) 10 gm GT BID [facility] Stop: 12/25/18 08:59 Last Admin: 10/27/18 09:30 Dose: 10 gm Levetiracetam (Keppra) 1,000 mg GT BID [facility] Stop: 12/24/18 21:59 Last Admin: 10/27/18 09:30 Dose: 1,000 mg Lorazepam (Ativan) 1 mg IV Q4H PRN; Protocol PRN Reason: Seizure Stop: 12/24/18 21:30 Metoclopramide HCl (Reglan) 10 mg IVP TID [facility] Stop: 12/25/18 08:59 Last Admin: 10/27/18 09:31 Dose: 10 mg Mineral Oil (Mineral Oil 30 Ml) 30 ml GT BID [facility] Stop: 12/25/18 08:59 Last Admin: 10/27/18 09:31 Dose: 30 ml Ondansetron HCl (Zofran) 4 mg IV Q8H PRN PRN Reason: Nausea / Vomiting Stop: 12/24/18 21:30 Pantoprazole Sodium (Protonix) 40 mg IVP DAILY [facility] Stop: 12/25/18 08:59 Last Admin: 10/27/18 09:31 Dose: 40 mg Polyethylene Glycol (Miralax) 17 gm GT DAILY [facility] Stop: 12/25/18 08:59 Last Admin: 10/27/18 09:30 Dose: 17 gm Primidone (Mysoline) 50 mg GT BID [facility] Stop: 12/24/18 21:59 Last Admin: 10/27/18 09:31 Dose: 50 mg Simethicone (Mylicon) 80 mg GT QID [facility] Stop: 12/25/18 08:59 Last Admin: 10/27/18 09:31 Dose: 80 mg Sodium Phosphate (Fleet Enema) 135 ml RC Q12H PRN PRN Reason: Constipation Stop: 12/24/18 21:25 Last Admin: 10/26/18 03:46 Dose: 135 ml General: Cooperative HEENT: Atraumatic, PERRLA Neck: Supple, Thyromegaly Cardiovascular: Normal S1, Normal S2 Abdomen: Bowel sounds - Procedures Procedures: Procedures Procedure Code Date CHANGE GASTROSTOMY TUBE 24675 05/19/14 DIAGNOSTIC COLONOSCOPY 06448 10/22/16 DRAINAGE OF SKIN ABSCESS 93977 07/16/10 EGD BIOPSY SINGLE/MULTIPLE 69287 11/01/12 EMERGENCY DEPT VISIT 19937 07/12/11 ESOPHAGOGASTRODUODENOSCOPY [EGD] W/CLOSED BIOPSY 45.16 11/01/12 INSPECTION OF LOWER INTESTINAL TRACT, ENDO [id number] 10/22/16 OTHER SKIN & SUBQ I D 86.04 07/16/10 REPLACE GASTROSTOMY TUBE 97.02 05/19/14 Assessment/Plan - Assessment Assessment: 1. Abdominal distention from fecal impaction 2. Dysphagia on G tubes 3. Constipation -Conitnue with stool softeners through G tube -supportive care and management -If still symptomatic, get KUB in AM -Will follow
[2018-10-27] MEDS: Potassium Chloride 20 mEq ER Tab PO ONE ×2 (15:49→15:50)
[2018-10-27] MEDS: Polyvinyl Alcohol Ophth Soln 15 mL Bottle EACH EYE SCH ×3 (16:03→23:28)
[2018-10-27] MEDS: cefTRIAXone 1 GM in Sodium Chloride 0.9% 50 ML IV SCH (20:53)
[2018-10-28] MEDS: Fleet Enema 135 mL RC PRN (01:21)
[2018-10-28 06:20] LABS: % BASOPHILS 0.6 % (0.0-2.0); % EOSINOPHILS 1.1 % (0.0-5.0); % LYMPHOCYTES 33.4 % (20.0-50.0); % MONOCYTES 7.9 % (2.0-10.0); BASOPHILE ABSOLUTE 0.1 Th/cumm (0-0.2); EOSINOPHILE ABSOLUTE 0.1 Th/cmm (0.1-0.4); HEMOGLOBIN 13.4 gm/dL (12-16); LYMPHOCYTE ABSOLUTE 2.9 Th/cmm (1.5-3.0); MEAN CELL VOLUME 97.2 fl (80-99); MEAN CORPUSCULAR HEMOGLOBIN 33.2 pg (26.0-30.0); MEAN CORPUSCULAR HGB CONC 34.1 pg (28.0-36.0); MONOCYTE ABSOLUTE 0.7 Th/cmm (0.3-1.0); PLATELET COUNT 182 Th/cmm (150-400); RED BLOOD COUNT 4.04 Mil/cmm (4.30-5.70); WHITE BLOOD COUNT 8.8 Th/cmm (4.8-10.8)
[2018-10-28 06:40] LABS: ANION GAP 10.2 (7.0-16.0); BUN - UREA NITROGEN 12 mg/dL (7-25); CALCIUM SERUM 9.1 mg/dL (8.6-10.3); CARBON DIOXIDE 26.9 mEq/L (21.0-31.0); CHLORIDE 116 mEq/L (98-107); CREATININE - SERUM 0.2 mg/dL (0.7-1.3); GFR AFRICAN-AMERICAN > 60.0 ml/min (>90); GFR NON AFRICAN-AMERICAN > 60.0 ml/min; GLUCOSE 119 mg/dL (70-105); MAGNESIUM 2.4 mg/dL (1.9-2.7); POTASSIUM SERUM 3.1 mEq/L (3.5-5.1); SODIUM SERUM 150 mEq/L (136-145)
[2018-10-28 06:57] LABS: HEMATOCRIT 39.3 % (41.0-60)
[2018-10-28] MEDS: POLYETHYLENE GLYCOL 3350 17 GM PACK GT SCH (08:38)
[2018-10-28] MEDS: Multivitamin w/ Minerals Tab GT SCH (08:39)
[2018-10-28] MEDS: Lactulose 10 Gm/15 mL 30mL UDC GT SCH ×2 (08:40→18:04)
[2018-10-28] MEDS ORDERED: Potassium Chloride 20 mEq ER Tab PO ONE (12:37)
--- NOTE | 2018-10-28 12:40 | Internal Medicine Prog Note ---
Internal Medicine Subjective - Subjective Patient seen and examined:: with staff, chart reviewed Patient is:: awake, non-verbal, non-interactive, in bed Patient Complaints of:: congestion, constipation, bloated Per staff patient has:: no adverse event Internal Medicine Objective - Results Result Diagrams: 10/28/18 06:00 10/28/18 06:00 Recent Labs: Laboratory Last Values WBC 8.8 Th/cmm (4.8-10.8) 10/28/18 06:00 RBC 4.04 Mil/cmm (4.30-5.70) L 10/28/18 06:00 Hgb 13.4 gm/dL (12-16) 10/28/18 06:00 Hct 39.3 % (41.0-60) L D 10/28/18 06:00 MCV 97.2 fl (80-99) 10/28/18 06:00 MCH 33.2 pg (26.0-30.0) H 10/28/18 06:00 MCHC Differential 34.1 pg (28.0-36.0) 10/28/18 06:00 RDW 13.0 % (11.5-20.0) 10/28/18 06:00 Plt Count 182 Th/cmm (150-400) 10/28/18 06:00 MPV 9.6 fl 10/28/18 06:00 Neutrophils % 57.0 % (40.0-80.0) 10/28/18 06:00 Lymphocytes % 33.4 % (20.0-50.0) 10/28/18 06:00 Monocytes % 7.9 % (2.0-10.0) 10/28/18 06:00 Eosinophils % 1.1 % (0.0-5.0) 10/28/18 06:00 Basophils % 0.6 % (0.0-2.0) 10/28/18 06:00 PT 11.3 SECONDS (9.5-11.5) 10/25/18 19:10 INR 1.09 (0.5-1.4) 10/25/18 19:10 PTT (Actin FS) 28.3 SECONDS (26.0-38.0) 10/25/18 19:10 Sodium 150 mEq/L (136-145) H 10/28/18 06:00 Potassium 3.1 mEq/L (3.5-5.1) L 10/28/18 06:00 Chloride 116 mEq/L (98-107) H 10/28/18 06:00 Carbon Dioxide 26.9 mEq/L (21.0-31.0) 10/28/18 06:00 Anion Gap 10.2 (7.0-16.0) 10/28/18 06:00 BUN 12 mg/dL (7-25) 10/28/18 06:00 Creatinine 0.2 mg/dL (0.7-1.3) L 10/28/18 06:00 Est GFR ( Amer) > 60.0 ml/min (>90) 10/28/18 06:00 Est GFR (Non-Af Amer) > 60.0 ml/min 10/28/18 06:00 BUN/Creatinine Ratio 60.0 10/28/18 06:00 Glucose 119 mg/dL (70-105) H 10/28/18 06:00 POC Glucose 144 MG/DL (70 - 105) H 10/26/18 17:51 Whole Bld Lactic Acid 1.11 mmol/L (0.60-1.99) 10/25/18 19:10 Calcium 9.1 mg/dL (8.6-10.3) 10/28/18 06:00 Magnesium 2.4 mg/dL (1.9-2.7) 10/28/18 06:00 Total Bilirubin 0.5 mg/dL (0.3-1.0) 10/27/18 07:10 AST 30 U/L (13-39) 10/27/18 07:10 ALT 36 U/L (7-52) 10/27/18 07:10 Alkaline Phosphatase 71 U/L (34-104) 10/27/18 07:10 Ammonia 76 umol/L (16-53) H 10/27/18 07:10 Creatine Kinase 550 U/L (30-223) H 10/25/18 19:10 CK-MB (CK-2) 9.2 ng/mL (0.6-6.3) H 10/25/18 19:10 Troponin I 0.01 ng/mL (0.01-0.05) 10/25/18 19:10 B-Natriuretic Peptide 25.8 pg/mL (5.0-100.0) 10/27/18 07:10 Total Protein 7.5 gm/dL (6.0-8.3) 10/27/18 07:10 Albumin 4.2 gm/dL (4.2-5.5) 10/27/18 07:10 Globulin 3.3 gm/dL 10/27/18 07:10 Albumin/Globulin Ratio 1.3 (1.0-1.8) 10/27/18 07:10 Amylase 14 U/L (29-103) L 10/25/18 19:10 Lipase 8 U/L (11-82) L 10/25/18 19:10 Urine Source CLEAN C 10/26/18 04:00 Urine Color DARK YELLOW 10/26/18 04:00 Urine Clarity CLOUDY (CLEAR) 10/26/18 04:00 Urine pH 8.5 (4.6 - 8.0) 10/26/18 04:00 Ur Specific [place] 1.020 (1.005-1.030) 10/26/18 04:00 Urine Protein 30 mg/dL (NEGATIVE) H 10/26/18 04:00 Urine Glucose (UA) NEGATIVE mg/dL (NEGATIVE) 10/26/18 04:00 Urine Ketones 15 mg/dL (NEGATIVE) H 10/26/18 04:00 Urine Blood NEGATIVE (NEGATIVE) 10/26/18 04:00 Urine Nitrate NEGATIVE (NEGATIVE) 10/26/18 04:00 Urine Bilirubin SMALL (NEGATIVE) H 10/26/18 04:00 Urine Urobilinogen 0.2 E.U./dL (0.2 - 1.0) 10/26/18 04:00 Ur Leukocyte Esterase TRACE (NEGATIVE) H 10/26/18 04:00 Urine RBC 10-25 /hpf (0-5) H 10/26/18 04:00 Urine WBC 0-2 /hpf (0-5) 10/26/18 04:00 Ur Epithelial Cells RARE /lpf (FEW) 10/26/18 04:00 Triple Phos Crystals MANY /hpf (FEW) 10/26/18 04:00 Amorphous Sediment FEW PHOSPHATES (NONE SEEN) 10/26/18 04:00 Urine Bacteria FEW /hpf (NONE SEEN) 10/26/18 04:00 - Physical Exam Vitals and I&O: Vital Signs Temp 99.0 F 10/28/18 11:56 Pulse 99 10/28/18 11:56 Resp 21 10/28/18 11:56 BP 101/64 10/28/18 11:56 Pulse Ox 97 10/28/18 11:56 Intake & Output 10/27/18 10/28/18 10/28/18 18:59 06:59 18:59 Intake Total 1000 Balance 1000 Weight (lbs) 56.699 kg 56.699 kg Intake: Intake, IV Amount 1000 D5-0.9%Ns 1,000 ml @ 100 1000 mls/hr IV .Q10H [facility] Rx#: [id number] Other: # Voids 3 4 # Bowel Movements 1 1 Stool Characteristics Liquid Black Weight Source Bedscale Bedscale Active Medications: Current Medications Acetaminophen (Tylenol) 650 mg PO Q4H PRN PRN Reason: Pain Or Fever above 101 Stop: 12/24/18 21:30 Last Admin: 10/28/18 01:21 Dose: 650 mg Albuterol Sulfate (Albuterol 2.5mg/3ml Neb Ud) 2.5 mg HHN Q2HRT PRN PRN Reason: Shortness of Breath or Wheeze Stop: 12/24/18 21:30 Artificial Tears (Artificial Tears Ophth Soln) 1 drop EACH EYE QID [facility] Stop: 12/25/18 16:59 Last Admin: 10/27/18 23:28 Dose: 1 drop Ascorbic Acid (Vitamin C) 500 mg GT BID [facility] Stop: 12/25/18 08:59 Last Admin: 10/28/18 08:41 Dose: Not Given Calcium Carbonate (Os-Jackie) 500 mg GT BID [facility] Stop: 12/25/18 08:59 Last Admin: 10/28/18 08:41 Dose: Not Given Clonazepam (Klonopin) 0.5 mg GT TID [facility] Stop: 12/24/18 21:59 Last Admin: 10/27/18 20:54 Dose: 0.5 mg Folic Acid (Folate) 1 mg GT DAILY [facility] Stop: 12/25/18 08:59 Last Admin: 10/28/18 08:41 Dose: Not Given Ceftriaxone Sodium 1 gm/ (Sodium Chloride) 50 mls @ 100 mls/hr IV Q24HR [facility] Stop: 12/25/18 19:59 Last Admin: 10/27/18 20:53 Dose: 100 mls/hr Dextrose/Sodium Chloride (D5-0.45ns) 1,000 mls @ 50 mls/hr IV .Q20H [facility] Stop: 12/26/18 12:44 Last Admin: 10/27/18 13:30 Dose: 50 mls/hr Ipratropium [place] (Atrovent Neb 0.5mg/2.5ml) 0.5 mg HHN Q2HRT PRN PRN Reason: Shortness of Breath or Wheeze Stop: 12/24/18 21:30 Lactulose (Cephulac) 10 gm GT BID [facility] Stop: 12/25/18 08:59 Last Admin: 10/28/18 08:40 Dose: Not Given Levetiracetam (Keppra) 1,000 mg GT BID [facility] Stop: 12/24/18 21:59 Last Admin: 10/27/18 19:01 Dose: 1,000 mg Lorazepam (Ativan) 1 mg IV Q4H PRN; Protocol PRN Reason: Seizure Stop: 12/24/18 21:30 Last Admin: 10/28/18 08:35 Dose: 1 mg Metoclopramide HCl (Reglan) 10 mg IVP TID [facility] Stop: 12/25/18 08:59 Last Admin: 10/27/18 21:03 Dose: 10 mg Mineral Oil (Mineral Oil 30 Ml) 30 ml GT BID [facility] Stop: 12/25/18 08:59 Last Admin: 10/28/18 08:39 Dose: Not Given Ondansetron HCl (Zofran) 4 mg IV Q8H PRN PRN Reason: Nausea / Vomiting Stop: 12/24/18 21:30 Pantoprazole Sodium (Protonix) 40 mg IVP DAILY [facility] Stop: 12/25/18 08:59 Last Admin: 10/27/18 09:31 Dose: 40 mg Polyethylene Glycol (Miralax) 17 gm GT DAILY [facility] Stop: 12/25/18 08:59 Last Admin: 10/28/18 08:38 Dose: Not Given Potassium Chloride (Klor-Con) 40 meq PO X1 ONE Stop: 10/28/18 12:38 Primidone (Mysoline) 50 mg GT BID [facility] Stop: 12/24/18 21:59 Last Admin: 10/28/18 08:38 Dose: Not Given Simethicone (Mylicon) 80 mg GT QID [facility] Stop: 12/25/18 08:59 Last Admin: 10/28/18 08:38 Dose: Not Given Sodium Phosphate (Fleet Enema) 135 ml RC Q12H PRN PRN Reason: Constipation Stop: 12/24/18 21:25 Last Admin: 10/28/18 01:21 Dose: 135 ml General: lethargic, demented HEENT: NC/AT, PERRLA Neck: Supple, No JVD Lungs: congested Cardiovascular: RRR, Normal S1, Normal S2, without murmur Abdomen: soft, globular, distended, +GT, +GT - redness, positive bowel sound Extremities: excoriation, contracture - Procedures Procedures: Procedures Procedure Code Date CHANGE GASTROSTOMY TUBE 67525 05/19/14 DIAGNOSTIC COLONOSCOPY 58686 10/22/16 DRAINAGE OF SKIN ABSCESS 85665 07/16/10 EGD BIOPSY SINGLE/MULTIPLE 99323 11/01/12 EMERGENCY DEPT VISIT 82102 07/12/11 ESOPHAGOGASTRODUODENOSCOPY [EGD] W/CLOSED BIOPSY 45.16 11/01/12 INSPECTION OF LOWER INTESTINAL TRACT, ENDO [id number] 10/22/16 OTHER SKIN & SUBQ I D 86.04 07/16/10 REPLACE GASTROSTOMY TUBE 97.02 05/19/14 Internal Medicine Assmt/Plan - Assessment Assessment: ASSESSMENT: Severe abdominal pain due to fecal impaction, GT cellulitis, leukocytosis, possible sepsis, dehydration, cerebral palsy, seizure.generalized contractures - Plan Plan: PLAN: We will continue the patient on aggressive IV hydration. We will put the patient on laxative. Continue with antibiotic. We will review the patient's medication. We will refer the patient to GI. We will continue to monitor very closely. replace lytes check kub Nutritional Asmnt/Malnutr-PDOC - Dietary Evaluation Malnutrition Findings (Please click <Entered> for more info): Nutritional Asmnt/Malnutrition Start: 10/26/18 16: 01 Text: Status: Active Freq: Protocol: Document 10/26/18 16:02 CAROLINA (Rec: 10/26/18 16:05 CAROLINA [email or web address]) Nutritional Asmnt/Malnutrition Patient General Information Nutritional Screening High Risk Diagnosis ABDOMINAL PAIN Pertinent Medical Hx/Surgical Hx CP, MENTAL RETARDATION. HTN, SEIZURE Subjective Information IA HR, CONSULT FOR LOW MEETA SCORE: 11 PT IS A 48 YEAR OLD MALE FROM NURSING FACILITY ADMITTED ON D/T ABDOMINAL DISTENSION WITH PAIN. NOTED REDNESS IN GTUBE AREA WITH DISTENDED LARGE INTESTINE IN RECTAL AREA . PT IS SWALLOWING IMPAIRED AND CURRENTLY NPO D/T OBSTRUCTION, SEVERE DISTAL FECAL IMPACTION PER CT SCAN ON 10/25. HT: 49 WT: 125 LB (56.82 KG) ABW: 106 LB (48.29 KG) BMI: 27.05 (OVERWEIGHT) GI: LARGE, ROUND, DISTENDED, ABDOMINAL PAIN WITH BLOATING/ CONSTIPATION BM: NOT NOTED (BUT NOTED LIQUID BLACK) I/O: 1000/NOT NOTED SKIN: WARM, MOIST, ELASTIC, RASH MEETA: 11 DIET ORDER: NPO ESTIMATED ENERGY NEEDS: (ADULT , ABW) 5672-4654 KCALS (25-30 KCALS/ KG) 39-43 G PRO (0.8-0.9 G/KG) 9063-6804 ML (25-30 ML/KG) PT IS CURRENTLY NPO STATUS, ONCE MEDICALLY APPROPRIATE TO START TF CONSIDER: JEVITY 1.2 @45ML/HR X 24 HOURS THIS WILL PROVIDE 1296 KCALS, 60 GM PRO, AND 872ML FREE WATER TO MEET 100% KCAL AND 100% PRO NEEDS. Current Diet Order/ Nutrition Support NPO Pertinent Medications ALBUTEROL (PRN), VIT C, OS-JACKIE , D5-0.9% NS, FOLATE, CEPHULAC , REGLAN, MINERAL OIL, ZOFRAN 9PRN), PROTONIX, MIRALAX, MYLICON, NACL TAB, FLEET ENEMA (PRN) Pertinent Labs 10/25: BUN/CR 27/0.4, GLUCOSE 131, T PRO 8.4, AMYLASE 14, LIPASE 8 Nutritional Hx/Data Height 1.45 m Height (Calculated Centimeters) 144.8 Current Weight (lbs) 56.699 kg Weight (Calculated Kilograms) 56.7 Weight (Calculated Grams) 16404.0 [place] Body Weight 100 % [place] Body Weight 125 Body Mass Index (BMI) 27.0 Weight Status Overweight GI Symptoms GI Symptoms Constipation Last BM NOT NOTED (BUT NOTED LIQUID BLACK) Skin Integrity/Comment: WARM, MOIST, ELASTIC, RASH MEETA: 11 Current %PO Negligible < 25% Estimated Nutritional Goals BEE in Kcals: Adj wt of IBW Calories/Kcals/Kg 25-30 Kcals Calculated 4251-7050 Protein: Adj wt of IBW Protein g/k.8-0.9 Protein Calculated 39-43 Fluid: ml 2526-7562 ML (25-30 ML/KG) Nutritional Problem 1. Problem Problem INADEQUATE ENERGY INTAKE Etiology R/T GI OBSTRUCTION Signs/Symptoms: AEB NPO STATUS Malnutrition Related to Morbid Obesity Malnutrition related to morbid obesity No Intervention/Recommendation Comments JEVITY 1.2 @45ML/HR X 24 HOURS THIS WILL PROVIDE 1296 KCALS, 60 GM PRO, AND 872ML FREE WATER TO MEET 100% KCAL AND 100% PRO NEEDS. Expected Outcomes/Goals Expected Outcomes/Goals 1. MONITOR NPO STATUS, WT, NUTRITION RELATED LABS AND SKIN INTEGRITY. 2. F/U HIGH RISK IN 2-3 DAYS, 10/28-10/29
[2018-10-28] MEDS ORDERED: Potassium Chloride Elixir 20 mEq /15 mL UDC GT ONE ×2 (12:41)
--- NOTE | 2018-10-28 13:28 | Diagnostic Imaging Report ---
KUB single view HISTORY: Distention COMPARISON: Diffuse gas-distended loops of bowel are seen with decrease and possible resolution of patient's distal fecal impaction. Severe degenerative changes spine are noted with scoliosis. Percutaneous feeding tube is noted. IMPRESSION: Persistent gas-filled loops of bowel, however, this appears improved as there is improving and resolving distal fecal impaction.
[2018-10-28] MEDS: Levetiracetam 500 mg/5mL 5mL UDSyr *for ORAL USE ONLY GT SCH ×2 (13:29→18:03)
[2018-10-28] MEDS: Polyvinyl Alcohol Ophth Soln 15 mL Bottle EACH EYE SCH ×4 (13:29→21:31)
[2018-10-28] MEDS: Metoclopramide 5 mg/mL 2mL Vial IVP SCH ×3 (13:29→21:31)
[2018-10-28] MEDS: D5-0.45NS 1,000 ML IV SCH (13:56)
--- NOTE | 2018-10-28 15:45 | GI Progress Note ---
Subjective - Review of Systems Service Date: 10/28/18 Events since last encounter: No new events, had a large BM last night GI OBJECTIVE - Results Result Diagrams: 10/28/18 06:00 10/28/18 06:00 Recent Labs: Laboratory Last Values WBC 8.8 Th/cmm (4.8-10.8) 10/28/18 06:00 RBC 4.04 Mil/cmm (4.30-5.70) L 10/28/18 06:00 Hgb 13.4 gm/dL (12-16) 10/28/18 06:00 Hct 39.3 % (41.0-60) L D 10/28/18 06:00 MCV 97.2 fl (80-99) 10/28/18 06:00 MCH 33.2 pg (26.0-30.0) H 10/28/18 06:00 MCHC Differential 34.1 pg (28.0-36.0) 10/28/18 06:00 RDW 13.0 % (11.5-20.0) 10/28/18 06:00 Plt Count 182 Th/cmm (150-400) 10/28/18 06:00 MPV 9.6 fl 10/28/18 06:00 Neutrophils % 57.0 % (40.0-80.0) 10/28/18 06:00 Lymphocytes % 33.4 % (20.0-50.0) 10/28/18 06:00 Monocytes % 7.9 % (2.0-10.0) 10/28/18 06:00 Eosinophils % 1.1 % (0.0-5.0) 10/28/18 06:00 Basophils % 0.6 % (0.0-2.0) 10/28/18 06:00 PT 11.3 SECONDS (9.5-11.5) 10/25/18 19:10 INR 1.09 (0.5-1.4) 10/25/18 19:10 PTT (Actin FS) 28.3 SECONDS (26.0-38.0) 10/25/18 19:10 Sodium 150 mEq/L (136-145) H 10/28/18 06:00 Potassium 3.1 mEq/L (3.5-5.1) L 10/28/18 06:00 Chloride 116 mEq/L (98-107) H 10/28/18 06:00 Carbon Dioxide 26.9 mEq/L (21.0-31.0) 10/28/18 06:00 Anion Gap 10.2 (7.0-16.0) 10/28/18 06:00 BUN 12 mg/dL (7-25) 10/28/18 06:00 Creatinine 0.2 mg/dL (0.7-1.3) L 10/28/18 06:00 Est GFR ( Amer) > 60.0 ml/min (>90) 10/28/18 06:00 Est GFR (Non-Af Amer) > 60.0 ml/min 10/28/18 06:00 BUN/Creatinine Ratio 60.0 10/28/18 06:00 Glucose 119 mg/dL (70-105) H 10/28/18 06:00 POC Glucose 144 MG/DL (70 - 105) H 10/26/18 17:51 Whole Bld Lactic Acid 1.11 mmol/L (0.60-1.99) 10/25/18 19:10 Calcium 9.1 mg/dL (8.6-10.3) 10/28/18 06:00 Magnesium 2.4 mg/dL (1.9-2.7) 10/28/18 06:00 Total Bilirubin 0.5 mg/dL (0.3-1.0) 10/27/18 07:10 AST 30 U/L (13-39) 10/27/18 07:10 ALT 36 U/L (7-52) 10/27/18 07:10 Alkaline Phosphatase 71 U/L (34-104) 10/27/18 07:10 Ammonia 76 umol/L (16-53) H 10/27/18 07:10 Creatine Kinase 550 U/L (30-223) H 10/25/18 19:10 CK-MB (CK-2) 9.2 ng/mL (0.6-6.3) H 10/25/18 19:10 Troponin I 0.01 ng/mL (0.01-0.05) 10/25/18 19:10 B-Natriuretic Peptide 25.8 pg/mL (5.0-100.0) 10/27/18 07:10 Total Protein 7.5 gm/dL (6.0-8.3) 10/27/18 07:10 Albumin 4.2 gm/dL (4.2-5.5) 10/27/18 07:10 Globulin 3.3 gm/dL 10/27/18 07:10 Albumin/Globulin Ratio 1.3 (1.0-1.8) 10/27/18 07:10 Amylase 14 U/L (29-103) L 10/25/18 19:10 Lipase 8 U/L (11-82) L 10/25/18 19:10 Urine Source CLEAN C 10/26/18 04:00 Urine Color DARK YELLOW 10/26/18 04:00 Urine Clarity CLOUDY (CLEAR) 10/26/18 04:00 Urine pH 8.5 (4.6 - 8.0) 10/26/18 04:00 Ur Specific [place] 1.020 (1.005-1.030) 10/26/18 04:00 Urine Protein 30 mg/dL (NEGATIVE) H 10/26/18 04:00 Urine Glucose (UA) NEGATIVE mg/dL (NEGATIVE) 10/26/18 04:00 Urine Ketones 15 mg/dL (NEGATIVE) H 10/26/18 04:00 Urine Blood NEGATIVE (NEGATIVE) 10/26/18 04:00 Urine Nitrate NEGATIVE (NEGATIVE) 10/26/18 04:00 Urine Bilirubin SMALL (NEGATIVE) H 10/26/18 04:00 Urine Urobilinogen 0.2 E.U./dL (0.2 - 1.0) 10/26/18 04:00 Ur Leukocyte Esterase TRACE (NEGATIVE) H 10/26/18 04:00 Urine RBC 10-25 /hpf (0-5) H 10/26/18 04:00 Urine WBC 0-2 /hpf (0-5) 10/26/18 04:00 Ur Epithelial Cells RARE /lpf (FEW) 10/26/18 04:00 Triple Phos Crystals MANY /hpf (FEW) 10/26/18 04:00 Amorphous Sediment FEW PHOSPHATES (NONE SEEN) 10/26/18 04:00 Urine Bacteria FEW /hpf (NONE SEEN) 10/26/18 04:00 - Physical Exam Vitals and I&O: Vital Signs Temp 99.0 F 10/28/18 11:56 Pulse 99 10/28/18 11:56 Resp 21 10/28/18 11:56 BP 101/64 10/28/18 11:56 Pulse Ox 97 10/28/18 11:56 Intake & Output 10/27/18 10/28/18 10/28/18 18:59 06:59 18:59 Intake Total 1000 1000 Balance 1000 1000 Weight (lbs) 56.699 kg 56.699 kg Intake: Intake, IV Amount 1000 1000 D5-0.45NS 1,000 ml @ 50 1000 mls/hr IV .Q20H [facility] Rx#: [id number] D5-0.9%Ns 1,000 ml @ 100 1000 mls/hr IV .Q10H [facility] Rx#: [id number] Other: # Voids 3 4 # Bowel Movements 1 1 Stool Characteristics Liquid Black Weight Source Bedscale Bedscale Active Medications: Current Medications Acetaminophen (Tylenol) 650 mg PO Q4H PRN PRN Reason: Pain Or Fever above 101 Stop: 12/24/18 21:30 Last Admin: 10/28/18 01:21 Dose: 650 mg Albuterol Sulfate (Albuterol 2.5mg/3ml Neb Ud) 2.5 mg HHN Q2HRT PRN PRN Reason: Shortness of Breath or Wheeze Stop: 12/24/18 21:30 Artificial Tears (Artificial Tears Ophth Soln) 1 drop EACH EYE QID [facility] Stop: 12/25/18 16:59 Last Admin: 10/28/18 13:29 Dose: 1 drop Ascorbic Acid (Vitamin C) 500 mg GT BID [facility] Stop: 12/25/18 08:59 Last Admin: 10/28/18 08:41 Dose: Not Given Clonazepam (Klonopin) 0.5 mg GT TID [facility] Stop: 12/24/18 21:59 Last Admin: 10/28/18 13:30 Dose: 0.5 mg Ceftriaxone Sodium 1 gm/ (Sodium Chloride) 50 mls @ 100 mls/hr IV Q24HR [facility] Stop: 12/25/18 19:59 Last Admin: 10/27/18 20:53 Dose: 100 mls/hr Dextrose/Sodium Chloride (D5-0.45ns) 1,000 mls @ 50 mls/hr IV .Q20H [facility] Stop: 12/26/18 12:44 Last Admin: 10/28/18 13:56 Dose: 50 mls/hr Ipratropium [place] (Atrovent Neb 0.5mg/2.5ml) 0.5 mg HHN Q2HRT PRN PRN Reason: Shortness of Breath or Wheeze Stop: 12/24/18 21:30 Lactulose (Cephulac) 20 gm GT BID [facility] Stop: 12/27/18 16:59 Levetiracetam (Keppra) 1,000 mg GT BID [facility] Stop: 12/24/18 21:59 Last Admin: 10/28/18 13:29 Dose: 1,000 mg Lorazepam (Ativan) 1 mg IV Q4H PRN; Protocol PRN Reason: Seizure Stop: 12/24/18 21:30 Last Admin: 10/28/18 08:35 Dose: 1 mg Metoclopramide HCl (Reglan) 10 mg IVP TID [facility] Stop: 12/25/18 08:59 Last Admin: 10/28/18 13:30 Dose: 10 mg Mineral Oil (Mineral Oil 30 Ml) 30 ml GT BID [facility] Stop: 12/25/18 08:59 Last Admin: 10/28/18 08:39 Dose: Not Given Ondansetron HCl (Zofran) 4 mg IV Q8H PRN PRN Reason: Nausea / Vomiting Stop: 12/24/18 21:30 Pantoprazole Sodium (Protonix) 40 mg IVP DAILY [facility] Stop: 12/25/18 08:59 Last Admin: 10/28/18 13:53 Dose: 40 mg Polyethylene Glycol (Miralax) 17 gm GT DAILY [facility] Stop: 12/25/18 08:59 Last Admin: 10/28/18 08:38 Dose: Not Given Primidone (Mysoline) 50 mg GT BID [facility] Stop: 12/24/18 21:59 Last Admin: 10/28/18 08:38 Dose: Not Given Simethicone (Mylicon) 80 mg GT QID [facility] Stop: 12/25/18 08:59 Last Admin: 10/28/18 13:30 Dose: 80 mg Sodium Phosphate (Fleet Enema) 135 ml RC Q12H PRN PRN Reason: Constipation Stop: 12/24/18 21:25 Last Admin: 10/28/18 01:21 Dose: 135 ml HEENT: Atraumatic, PERRLA Neck: Supple Cardiovascular: Normal S1 Abdomen: Bowel sounds - Procedures Procedures: Procedures Procedure Code Date CHANGE GASTROSTOMY TUBE 13252 05/19/14 DIAGNOSTIC COLONOSCOPY 85259 10/22/16 DRAINAGE OF SKIN ABSCESS 56927 07/16/10 EGD BIOPSY SINGLE/MULTIPLE 37282 11/01/12 EMERGENCY DEPT VISIT 78971 07/12/11 ESOPHAGOGASTRODUODENOSCOPY [EGD] W/CLOSED BIOPSY 45.16 11/01/12 INSPECTION OF LOWER INTESTINAL TRACT, ENDO [id number] 10/22/16 OTHER SKIN & SUBQ I D 86.04 07/16/10 REPLACE GASTROSTOMY TUBE 97.02 05/19/14 Assessment/Plan - Assessment Assessment: 1. Abdominal distention from fecal impaction 2. Dysphagia on G tubes 3. Constipation -Conitnue with stool softeners through G tube -supportive care and management -KUb shows some improvement, but still retained fecal content -Give another enema in AM -start tube feeds @10cc/hr -Will follow
[2018-10-28] MEDS: cefTRIAXone 1 GM in Sodium Chloride 0.9% 50 ML IV SCH (21:22)
[2018-10-29 06:28] LABS: ANION GAP 11.1 (7.0-16.0); BUN - UREA NITROGEN 12 mg/dL (7-25); CALCIUM SERUM 9.4 mg/dL (8.6-10.3); CARBON DIOXIDE 27.4 mEq/L (21.0-31.0); CHLORIDE 112 mEq/L (98-107); CREATININE - SERUM 0.3 mg/dL (0.7-1.3); GFR AFRICAN-AMERICAN > 60.0 ml/min (>90); GFR NON AFRICAN-AMERICAN > 60.0 ml/min; GLUCOSE 119 mg/dL (70-105); MAGNESIUM 2.2 mg/dL (1.9-2.7); POTASSIUM SERUM 3.5 mEq/L (3.5-5.1); SODIUM SERUM 147 mEq/L (136-145)
--- NOTE | 2018-10-29 07:23 | GI Progress Note ---
Subjective - Review of Systems Service Date: 10/29/18 Subjective: Had small BM overnight GI OBJECTIVE - Results Result Diagrams: 10/28/18 06:00 10/29/18 05:55 Recent Labs: Laboratory Last Values WBC 8.8 Th/cmm (4.8-10.8) 10/28/18 06:00 RBC 4.04 Mil/cmm (4.30-5.70) L 10/28/18 06:00 Hgb 13.4 gm/dL (12-16) 10/28/18 06:00 Hct 39.3 % (41.0-60) L D 10/28/18 06:00 MCV 97.2 fl (80-99) 10/28/18 06:00 MCH 33.2 pg (26.0-30.0) H 10/28/18 06:00 MCHC Differential 34.1 pg (28.0-36.0) 10/28/18 06:00 RDW 13.0 % (11.5-20.0) 10/28/18 06:00 Plt Count 182 Th/cmm (150-400) 10/28/18 06:00 MPV 9.6 fl 10/28/18 06:00 Neutrophils % 57.0 % (40.0-80.0) 10/28/18 06:00 Lymphocytes % 33.4 % (20.0-50.0) 10/28/18 06:00 Monocytes % 7.9 % (2.0-10.0) 10/28/18 06:00 Eosinophils % 1.1 % (0.0-5.0) 10/28/18 06:00 Basophils % 0.6 % (0.0-2.0) 10/28/18 06:00 PT 11.3 SECONDS (9.5-11.5) 10/25/18 19:10 INR 1.09 (0.5-1.4) 10/25/18 19:10 PTT (Actin FS) 28.3 SECONDS (26.0-38.0) 10/25/18 19:10 Sodium 147 mEq/L (136-145) H 10/29/18 05:55 Potassium 3.5 mEq/L (3.5-5.1) 10/29/18 05:55 Chloride 112 mEq/L (98-107) H 10/29/18 05:55 Carbon Dioxide 27.4 mEq/L (21.0-31.0) 10/29/18 05:55 Anion Gap 11.1 (7.0-16.0) 10/29/18 05:55 BUN 12 mg/dL (7-25) 10/29/18 05:55 Creatinine 0.3 mg/dL (0.7-1.3) L 10/29/18 05:55 Est GFR ( Amer) > 60.0 ml/min (>90) 10/29/18 05:55 Est GFR (Non-Af Amer) > 60.0 ml/min 10/29/18 05:55 BUN/Creatinine Ratio 40.0 10/29/18 05:55 Glucose 119 mg/dL (70-105) H 10/29/18 05:55 POC Glucose 144 MG/DL (70 - 105) H 10/26/18 17:51 Whole Bld Lactic Acid 1.11 mmol/L (0.60-1.99) 10/25/18 19:10 Calcium 9.4 mg/dL (8.6-10.3) 10/29/18 05:55 Magnesium 2.2 mg/dL (1.9-2.7) 10/29/18 05:55 Total Bilirubin 0.5 mg/dL (0.3-1.0) 10/27/18 07:10 AST 30 U/L (13-39) 10/27/18 07:10 ALT 36 U/L (7-52) 10/27/18 07:10 Alkaline Phosphatase 71 U/L (34-104) 10/27/18 07:10 Ammonia 76 umol/L (16-53) H 10/27/18 07:10 Creatine Kinase 550 U/L (30-223) H 10/25/18 19:10 CK-MB (CK-2) 9.2 ng/mL (0.6-6.3) H 10/25/18 19:10 Troponin I 0.01 ng/mL (0.01-0.05) 10/25/18 19:10 B-Natriuretic Peptide 25.8 pg/mL (5.0-100.0) 10/27/18 07:10 Total Protein 7.5 gm/dL (6.0-8.3) 10/27/18 07:10 Albumin 4.2 gm/dL (4.2-5.5) 10/27/18 07:10 Globulin 3.3 gm/dL 10/27/18 07:10 Albumin/Globulin Ratio 1.3 (1.0-1.8) 10/27/18 07:10 Amylase 14 U/L (29-103) L 10/25/18 19:10 Lipase 8 U/L (11-82) L 10/25/18 19:10 Urine Source CLEAN C 10/26/18 04:00 Urine Color DARK YELLOW 10/26/18 04:00 Urine Clarity CLOUDY (CLEAR) 10/26/18 04:00 Urine pH 8.5 (4.6 - 8.0) 10/26/18 04:00 Ur Specific [place] 1.020 (1.005-1.030) 10/26/18 04:00 Urine Protein 30 mg/dL (NEGATIVE) H 10/26/18 04:00 Urine Glucose (UA) NEGATIVE mg/dL (NEGATIVE) 10/26/18 04:00 Urine Ketones 15 mg/dL (NEGATIVE) H 10/26/18 04:00 Urine Blood NEGATIVE (NEGATIVE) 10/26/18 04:00 Urine Nitrate NEGATIVE (NEGATIVE) 10/26/18 04:00 Urine Bilirubin SMALL (NEGATIVE) H 10/26/18 04:00 Urine Urobilinogen 0.2 E.U./dL (0.2 - 1.0) 10/26/18 04:00 Ur Leukocyte Esterase TRACE (NEGATIVE) H 10/26/18 04:00 Urine RBC 10-25 /hpf (0-5) H 10/26/18 04:00 Urine WBC 0-2 /hpf (0-5) 10/26/18 04:00 Ur Epithelial Cells RARE /lpf (FEW) 10/26/18 04:00 Triple Phos Crystals MANY /hpf (FEW) 10/26/18 04:00 Amorphous Sediment FEW PHOSPHATES (NONE SEEN) 10/26/18 04:00 Urine Bacteria FEW /hpf (NONE SEEN) 10/26/18 04:00 Levetiracetam 3.6 ug/mL (10.0-40.0) L 10/25/18 19:10 - Physical Exam Vitals and I&O: Vital Signs Temp 98 F 10/29/18 04:00 Pulse 80 10/29/18 06:38 Resp 18 10/29/18 06:38 BP 100/61 10/29/18 04:00 Pulse Ox 95 10/29/18 06:38 Intake & Output 10/28/18 10/29/18 10/29/18 18:59 06:59 18:59 Intake Total 1000 Balance 1000 Weight (lbs) 56.699 kg Intake: Intake, IV Amount 1000 D5-0.45NS 1,000 ml @ 50 1000 mls/hr IV .Q20H [facility] Rx#: [id number] Other: # Voids 2 # Bowel Movements 0 Weight Source Bedscale Active Medications: Current Medications Acetaminophen (Tylenol) 650 mg PO Q4H PRN PRN Reason: Pain Or Fever above 101 Stop: 12/24/18 21:30 Last Admin: 10/28/18 01:21 Dose: 650 mg Albuterol Sulfate (Albuterol 2.5mg/3ml Neb Ud) 2.5 mg HHN Q2HRT PRN PRN Reason: Shortness of Breath or Wheeze Stop: 12/24/18 21:30 Artificial Tears (Artificial Tears Ophth Soln) 1 drop EACH EYE QID [facility] Stop: 12/25/18 16:59 Last Admin: 10/28/18 21:31 Dose: 1 drop Ascorbic Acid (Vitamin C) 500 mg GT BID [facility] Stop: 12/25/18 08:59 Last Admin: 10/28/18 18:04 Dose: 500 mg Clonazepam (Klonopin) 0.5 mg GT TID [facility] Stop: 12/24/18 21:59 Last Admin: 10/28/18 21:31 Dose: 0.5 mg Ceftriaxone Sodium 1 gm/ (Sodium Chloride) 50 mls @ 100 mls/hr IV Q24HR [facility] Stop: 12/25/18 19:59 Last Admin: 10/28/18 21:22 Dose: 100 mls/hr Dextrose/Sodium Chloride (D5-0.45ns) 1,000 mls @ 50 mls/hr IV .Q20H [facility] Stop: 12/26/18 12:44 Last Admin: 10/28/18 13:56 Dose: 50 mls/hr Ipratropium [place] (Atrovent Neb 0.5mg/2.5ml) 0.5 mg HHN Q2HRT PRN PRN Reason: Shortness of Breath or Wheeze Stop: 12/24/18 21:30 Lactulose (Cephulac) 20 gm GT BID [facility] Stop: 12/27/18 16:59 Last Admin: 10/28/18 18:04 Dose: 20 gm Levetiracetam (Keppra) 1,000 mg GT BID [facility] Stop: 12/24/18 21:59 Last Admin: 10/28/18 18:03 Dose: 1,000 mg Lorazepam (Ativan) 1 mg IV Q4H PRN; Protocol PRN Reason: Seizure Stop: 12/24/18 21:30 Last Admin: 10/28/18 08:35 Dose: 1 mg Metoclopramide HCl (Reglan) 10 mg IVP TID [facility] Stop: 12/25/18 08:59 Last Admin: 10/28/18 21:31 Dose: 10 mg Mineral Oil (Mineral Oil 30 Ml) 30 ml GT BID [facility] Stop: 12/25/18 08:59 Last Admin: 10/28/18 18:04 Dose: 30 ml Ondansetron HCl (Zofran) 4 mg IV Q8H PRN PRN Reason: Nausea / Vomiting Stop: 12/24/18 21:30 Pantoprazole Sodium (Protonix) 40 mg IVP DAILY [facility] Stop: 12/25/18 08:59 Last Admin: 10/28/18 13:53 Dose: 40 mg Polyethylene Glycol (Miralax) 17 gm GT DAILY [facility] Stop: 12/25/18 08:59 Last Admin: 10/28/18 08:38 Dose: Not Given Primidone (Mysoline) 50 mg GT BID [facility] Stop: 12/24/18 21:59 Last Admin: 10/28/18 18:04 Dose: 50 mg Simethicone (Mylicon) 80 mg GT QID [facility] Stop: 12/25/18 08:59 Last Admin: 10/28/18 21:31 Dose: 80 mg Sodium Phosphate (Fleet Enema) 135 ml RC Q12H PRN PRN Reason: Constipation Stop: 12/24/18 21:25 Last Admin: 10/28/18 01:21 Dose: 135 ml General: no Alert, no Oriented x3 HEENT: Atraumatic Neck: Supple Cardiovascular: Regular rate Abdomen: Bowel sounds, Soft, Distended, no Tender, no Hepatomegaly, no Rebound, no Mass, no Guarding - Procedures Procedures: Procedures Procedure Code Date CHANGE GASTROSTOMY TUBE 31443 05/19/14 DIAGNOSTIC COLONOSCOPY 97222 10/22/16 DRAINAGE OF SKIN ABSCESS 65030 07/16/10 EGD BIOPSY SINGLE/MULTIPLE 96370 11/01/12 EMERGENCY DEPT VISIT 57424 07/12/11 ESOPHAGOGASTRODUODENOSCOPY [EGD] W/CLOSED BIOPSY 45.16 11/01/12 INSPECTION OF LOWER INTESTINAL TRACT, ENDO [id number] 10/22/16 OTHER SKIN & SUBQ I D 86.04 07/16/10 REPLACE GASTROSTOMY TUBE 97.02 05/19/14 Assessment/Plan - Assessment Assessment: 1. Abdominal distention from fecal impaction 2. Dysphagia on G tubes 3. Constipation Impaction is resolving with strong bowel regimen. Plan: -Continue with stool softeners through G tube. Current regimen appears to be working just fine -supportive care and management -Increase tube feeds to 40cc/hr -Will follow
[2018-10-29] MEDS: POLYETHYLENE GLYCOL 3350 17 GM PACK GT SCH (09:49)
[2018-10-29] MEDS: Multivitamin w/ Minerals Tab GT SCH (09:50)
[2018-10-29] MEDS: Lactulose 10 Gm/15 mL 30mL UDC GT SCH ×2 (09:50→17:00)
[2018-10-29] MEDS: Levetiracetam 500 mg/5mL 5mL UDSyr *for ORAL USE ONLY GT SCH ×2 (09:50→17:00)
[2018-10-29] MEDS: Metoclopramide 5 mg/mL 2mL Vial IVP SCH ×2 (09:53→13:11)
[2018-10-29] MEDS: Polyvinyl Alcohol Ophth Soln 15 mL Bottle EACH EYE SCH ×4 (09:53→20:43)
[2018-10-29] MEDS: D5-0.45NS 1,000 ML IV SCH (13:13)
--- NOTE | 2018-10-29 13:41 | Internal Medicine Prog Note ---
Internal Medicine Subjective - Subjective Patient seen and examined:: with staff, chart reviewed, other (desaturated) Patient is:: awake, non-verbal, non-interactive, in bed Patient Complaints of:: congestion, constipation, bloated Per staff patient has:: no adverse event Internal Medicine Objective - Results Result Diagrams: 10/28/18 06:00 10/29/18 05:55 Recent Labs: Laboratory Last Values WBC 8.8 Th/cmm (4.8-10.8) 10/28/18 06:00 RBC 4.04 Mil/cmm (4.30-5.70) L 10/28/18 06:00 Hgb 13.4 gm/dL (12-16) 10/28/18 06:00 Hct 39.3 % (41.0-60) L D 10/28/18 06:00 MCV 97.2 fl (80-99) 10/28/18 06:00 MCH 33.2 pg (26.0-30.0) H 10/28/18 06:00 MCHC Differential 34.1 pg (28.0-36.0) 10/28/18 06:00 RDW 13.0 % (11.5-20.0) 10/28/18 06:00 Plt Count 182 Th/cmm (150-400) 10/28/18 06:00 MPV 9.6 fl 10/28/18 06:00 Neutrophils % 57.0 % (40.0-80.0) 10/28/18 06:00 Lymphocytes % 33.4 % (20.0-50.0) 10/28/18 06:00 Monocytes % 7.9 % (2.0-10.0) 10/28/18 06:00 Eosinophils % 1.1 % (0.0-5.0) 10/28/18 06:00 Basophils % 0.6 % (0.0-2.0) 10/28/18 06:00 PT 11.3 SECONDS (9.5-11.5) 10/25/18 19:10 INR 1.09 (0.5-1.4) 10/25/18 19:10 PTT (Actin FS) 28.3 SECONDS (26.0-38.0) 10/25/18 19:10 Sodium 147 mEq/L (136-145) H 10/29/18 05:55 Potassium 3.5 mEq/L (3.5-5.1) 10/29/18 05:55 Chloride 112 mEq/L (98-107) H 10/29/18 05:55 Carbon Dioxide 27.4 mEq/L (21.0-31.0) 10/29/18 05:55 Anion Gap 11.1 (7.0-16.0) 10/29/18 05:55 BUN 12 mg/dL (7-25) 10/29/18 05:55 Creatinine 0.3 mg/dL (0.7-1.3) L 10/29/18 05:55 Est GFR ( Amer) > 60.0 ml/min (>90) 10/29/18 05:55 Est GFR (Non-Af Amer) > 60.0 ml/min 10/29/18 05:55 BUN/Creatinine Ratio 40.0 10/29/18 05:55 Glucose 119 mg/dL (70-105) H 10/29/18 05:55 POC Glucose 144 MG/DL (70 - 105) H 10/26/18 17:51 Whole Bld Lactic Acid 1.11 mmol/L (0.60-1.99) 10/25/18 19:10 Calcium 9.4 mg/dL (8.6-10.3) 10/29/18 05:55 Magnesium 2.2 mg/dL (1.9-2.7) 10/29/18 05:55 Total Bilirubin 0.5 mg/dL (0.3-1.0) 10/27/18 07:10 AST 30 U/L (13-39) 10/27/18 07:10 ALT 36 U/L (7-52) 10/27/18 07:10 Alkaline Phosphatase 71 U/L (34-104) 10/27/18 07:10 Ammonia 76 umol/L (16-53) H 10/27/18 07:10 Creatine Kinase 550 U/L (30-223) H 10/25/18 19:10 CK-MB (CK-2) 9.2 ng/mL (0.6-6.3) H 10/25/18 19:10 Troponin I 0.01 ng/mL (0.01-0.05) 10/25/18 19:10 B-Natriuretic Peptide 70.6 pg/mL (5.0-100.0) 10/29/18 05:55 Total Protein 7.5 gm/dL (6.0-8.3) 10/27/18 07:10 Albumin 4.2 gm/dL (4.2-5.5) 10/27/18 07:10 Globulin 3.3 gm/dL 10/27/18 07:10 Albumin/Globulin Ratio 1.3 (1.0-1.8) 10/27/18 07:10 Amylase 14 U/L (29-103) L 10/25/18 19:10 Lipase 8 U/L (11-82) L 10/25/18 19:10 Urine Source CLEAN C 10/26/18 04:00 Urine Color DARK YELLOW 10/26/18 04:00 Urine Clarity CLOUDY (CLEAR) 10/26/18 04:00 Urine pH 8.5 (4.6 - 8.0) 10/26/18 04:00 Ur Specific [place] 1.020 (1.005-1.030) 10/26/18 04:00 Urine Protein 30 mg/dL (NEGATIVE) H 10/26/18 04:00 Urine Glucose (UA) NEGATIVE mg/dL (NEGATIVE) 10/26/18 04:00 Urine Ketones 15 mg/dL (NEGATIVE) H 10/26/18 04:00 Urine Blood NEGATIVE (NEGATIVE) 10/26/18 04:00 Urine Nitrate NEGATIVE (NEGATIVE) 10/26/18 04:00 Urine Bilirubin SMALL (NEGATIVE) H 10/26/18 04:00 Urine Urobilinogen 0.2 E.U./dL (0.2 - 1.0) 10/26/18 04:00 Ur Leukocyte Esterase TRACE (NEGATIVE) H 10/26/18 04:00 Urine RBC 10-25 /hpf (0-5) H 10/26/18 04:00 Urine WBC 0-2 /hpf (0-5) 10/26/18 04:00 Ur Epithelial Cells RARE /lpf (FEW) 10/26/18 04:00 Triple Phos Crystals MANY /hpf (FEW) 10/26/18 04:00 Amorphous Sediment FEW PHOSPHATES (NONE SEEN) 10/26/18 04:00 Urine Bacteria FEW /hpf (NONE SEEN) 10/26/18 04:00 Levetiracetam 3.6 ug/mL (10.0-40.0) L 10/25/18 19:10 - Physical Exam Vitals and I&O: Vital Signs Temp 98.2 F 10/29/18 12:00 Pulse 103 10/29/18 12:00 Resp 19 10/29/18 12:00 BP 104/65 10/29/18 12:00 Pulse Ox 98 10/29/18 12:00 Intake & Output 10/28/18 10/29/18 10/29/18 18:59 06:59 18:59 Intake Total 1000 1000 Balance 1000 1000 Weight (lbs) 56.699 kg Intake: Intake, IV Amount 1000 1000 D5-0.45NS 1,000 ml @ 50 1000 1000 mls/hr IV .Q20H [facility] Rx#: [id number] Other: # Voids 2 # Bowel Movements 0 Weight Source Bedscale Active Medications: Current Medications Acetaminophen (Tylenol) 650 mg PO Q4H PRN PRN Reason: Pain Or Fever above 101 Stop: 12/24/18 21:30 Last Admin: 10/28/18 01:21 Dose: 650 mg Albuterol Sulfate (Albuterol 2.5mg/3ml Neb Ud) 2.5 mg HHN Q2HRT PRN PRN Reason: Shortness of Breath or Wheeze Stop: 12/24/18 21:30 Last Admin: 10/29/18 09:08 Dose: 2.5 mg Artificial Tears (Artificial Tears Ophth Soln) 1 drop EACH EYE QID [facility] Stop: 12/25/18 16:59 Last Admin: 10/29/18 13:10 Dose: 1 drop Ascorbic Acid (Vitamin C) 500 mg GT BID [facility] Stop: 12/25/18 08:59 Last Admin: 10/29/18 09:50 Dose: 500 mg Clonazepam (Klonopin) 0.5 mg GT TID [facility] Stop: 12/24/18 21:59 Last Admin: 10/29/18 13:11 Dose: 0.5 mg Ceftriaxone Sodium 1 gm/ (Sodium Chloride) 50 mls @ 100 mls/hr IV Q24HR [facility] Stop: 12/25/18 19:59 Last Admin: 10/28/18 21:22 Dose: 100 mls/hr Dextrose/Sodium Chloride (D5-0.45ns) 1,000 mls @ 50 mls/hr IV .Q20H [facility] Stop: 12/26/18 12:44 Last Admin: 10/29/18 13:13 Dose: 50 mls/hr Ipratropium [place] (Atrovent Neb 0.5mg/2.5ml) 0.5 mg HHN Q2HRT PRN PRN Reason: Shortness of Breath or Wheeze Stop: 12/24/18 21:30 Last Admin: 10/29/18 09:08 Dose: 0.5 mg Lactulose (Cephulac) 20 gm GT BID [facility] Stop: 12/27/18 16:59 Last Admin: 10/29/18 09:50 Dose: 20 gm Levetiracetam (Keppra) 1,000 mg GT BID [facility] Stop: 12/24/18 21:59 Last Admin: 10/29/18 09:50 Dose: 1,000 mg Lorazepam (Ativan) 1 mg IV Q4H PRN; Protocol PRN Reason: Seizure Stop: 12/24/18 21:30 Last Admin: 10/29/18 09:16 Dose: 1 mg Metoclopramide HCl (Reglan) 10 mg IVP TID [facility] Stop: 12/25/18 08:59 Last Admin: 10/29/18 13:11 Dose: 10 mg Mineral Oil (Mineral Oil 30 Ml) 30 ml GT BID [facility] Stop: 12/25/18 08:59 Last Admin: 10/29/18 09:49 Dose: 30 ml Ondansetron HCl (Zofran) 4 mg IV Q8H PRN PRN Reason: Nausea / Vomiting Stop: 12/24/18 21:30 Pantoprazole Sodium (Protonix) 40 mg IVP DAILY [facility] Stop: 12/25/18 08:59 Last Admin: 10/29/18 09:49 Dose: 40 mg Polyethylene Glycol (Miralax) 17 gm GT DAILY [facility] Stop: 12/25/18 08:59 Last Admin: 10/29/18 09:49 Dose: 17 gm Primidone (Mysoline) 50 mg GT BID [facility] Stop: 12/24/18 21:59 Last Admin: 10/29/18 09:50 Dose: 50 mg Simethicone (Mylicon) 80 mg GT QID [facility] Stop: 12/25/18 08:59 Last Admin: 10/29/18 13:11 Dose: 80 mg Sodium Phosphate (Fleet Enema) 135 ml RC Q12H PRN PRN Reason: Constipation Stop: 12/24/18 21:25 Last Admin: 10/28/18 01:21 Dose: 135 ml General: lethargic, demented HEENT: NC/AT, PERRLA Neck: Supple, No JVD Lungs: congested Cardiovascular: RRR, Normal S1, Normal S2, without murmur Abdomen: soft, globular, distended, +GT, +GT - redness, positive bowel sound Extremities: excoriation, contracture - Procedures Procedures: Procedures Procedure Code Date CHANGE GASTROSTOMY TUBE 97855 05/19/14 DIAGNOSTIC COLONOSCOPY 85751 10/22/16 DRAINAGE OF SKIN ABSCESS 69655 07/16/10 EGD BIOPSY SINGLE/MULTIPLE 56266 11/01/12 EMERGENCY DEPT VISIT 24733 07/12/11 ESOPHAGOGASTRODUODENOSCOPY [EGD] W/CLOSED BIOPSY 45.16 11/01/12 INSPECTION OF LOWER INTESTINAL TRACT, ENDO [id number] 10/22/16 OTHER SKIN & SUBQ I D 86.04 07/16/10 REPLACE GASTROSTOMY TUBE 97.02 05/19/14 Internal Medicine Assmt/Plan - Assessment Assessment: ASSESSMENT: Severe abdominal pain due to fecal impaction, GT cellulitis, leukocytosis, possible sepsis, dehydration, cerebral palsy, seizure.generalized contractures - Plan Plan: PLAN: We will continue the patient on aggressive IV hydration. We will put the patient on laxative. Continue with antibiotic. We will review the patient's medication. We will refer the patient to GI. We will continue to monitor very closely. replace lytes check kub Nutritional Asmnt/Malnutr-PDOC - Dietary Evaluation Malnutrition Findings (Please click <Entered> for more info): Nutritional Asmnt/Malnutrition Start: 10/26/18 16: 01 Text: Status: Active Freq: Protocol: Document 10/26/18 16:02 CAROLINA (Rec: 10/26/18 16:05 CAROLINA [email or web address]) Nutritional Asmnt/Malnutrition Patient General Information Nutritional Screening High Risk Diagnosis ABDOMINAL PAIN Pertinent Medical Hx/Surgical Hx CP, MENTAL RETARDATION. HTN, SEIZURE Subjective Information IA HR, CONSULT FOR LOW MEETA SCORE: 11 PT IS A 48 YEAR OLD MALE FROM NURSING FACILITY ADMITTED ON D/T ABDOMINAL DISTENSION WITH PAIN. NOTED REDNESS IN GTUBE AREA WITH DISTENDED LARGE INTESTINE IN RECTAL AREA . PT IS SWALLOWING IMPAIRED AND CURRENTLY NPO D/T OBSTRUCTION, SEVERE DISTAL FECAL IMPACTION PER CT SCAN ON 10/25. HT: 49 WT: 125 LB (56.82 KG) ABW: 106 LB (48.29 KG) BMI: 27.05 (OVERWEIGHT) GI: LARGE, ROUND, DISTENDED, ABDOMINAL PAIN WITH BLOATING/ CONSTIPATION BM: NOT NOTED (BUT NOTED LIQUID BLACK) I/O: 1000/NOT NOTED SKIN: WARM, MOIST, ELASTIC, RASH MEETA: 11 DIET ORDER: NPO ESTIMATED ENERGY NEEDS: (ADULT , ABW) 6533-9037 KCALS (25-30 KCALS/ KG) 39-43 G PRO (0.8-0.9 G/KG) 4885-8471 ML (25-30 ML/KG) PT IS CURRENTLY NPO STATUS, ONCE MEDICALLY APPROPRIATE TO START TF CONSIDER: JEVITY 1.2 @45ML/HR X 24 HOURS THIS WILL PROVIDE 1296 KCALS, 60 GM PRO, AND 872ML FREE WATER TO MEET 100% KCAL AND 100% PRO NEEDS. Current Diet Order/ Nutrition Support NPO Pertinent Medications ALBUTEROL (PRN), VIT C, OS-JACKIE , D5-0.9% NS, FOLATE, CEPHULAC , REGLAN, MINERAL OIL, ZOFRAN 9PRN), PROTONIX, MIRALAX, MYLICON, NACL TAB, FLEET ENEMA (PRN) Pertinent Labs 10/25: BUN/CR 27/0.4, GLUCOSE 131, T PRO 8.4, AMYLASE 14, LIPASE 8 Nutritional Hx/Data Height 1.45 m Height (Calculated Centimeters) 144.8 Current Weight (lbs) 56.699 kg Weight (Calculated Kilograms) 56.7 Weight (Calculated Grams) 35537.0 [place] Body Weight 100 % [place] Body Weight 125 Body Mass Index (BMI) 27.0 Weight Status Overweight GI Symptoms GI Symptoms Constipation Last BM NOT NOTED (BUT NOTED LIQUID BLACK) Skin Integrity/Comment: WARM, MOIST, ELASTIC, RASH MEETA: 11 Current %PO Negligible < 25% Estimated Nutritional Goals BEE in Kcals: Adj wt of IBW Calories/Kcals/Kg 25-30 Kcals Calculated 5916-4732 Protein: Adj wt of IBW Protein g/k.8-0.9 Protein Calculated 39-43 Fluid: ml 0717-1905 ML (25-30 ML/KG) Nutritional Problem 1. Problem Problem INADEQUATE ENERGY INTAKE Etiology R/T GI OBSTRUCTION Signs/Symptoms: AEB NPO STATUS Malnutrition Related to Morbid Obesity Malnutrition related to morbid obesity No Intervention/Recommendation Comments JEVITY 1.2 @45ML/HR X 24 HOURS THIS WILL PROVIDE 1296 KCALS, 60 GM PRO, AND 872ML FREE WATER TO MEET 100% KCAL AND 100% PRO NEEDS. Expected Outcomes/Goals Expected Outcomes/Goals 1. MONITOR NPO STATUS, WT, NUTRITION RELATED LABS AND SKIN INTEGRITY. 2. F/U HIGH RISK IN 2-3 DAYS, 10/28-10/29
[2018-10-29] MEDS: Pantoprazole 40 mg EC Tab PO SCH (16:59)
[2018-10-29] MEDS: cefTRIAXone 1 GM in Sodium Chloride 0.9% 50 ML IV SCH (20:41)
--- NOTE | 2018-10-30 06:58 | GI Progress Note ---
Subjective - Review of Systems Service Date: 10/30/18 Subjective: Large BM overnight GI OBJECTIVE - Results Result Diagrams: 10/28/18 06:00 10/29/18 05:55 Recent Labs: Laboratory Last Values WBC 8.8 Th/cmm (4.8-10.8) 10/28/18 06:00 RBC 4.04 Mil/cmm (4.30-5.70) L 10/28/18 06:00 Hgb 13.4 gm/dL (12-16) 10/28/18 06:00 Hct 39.3 % (41.0-60) L D 10/28/18 06:00 MCV 97.2 fl (80-99) 10/28/18 06:00 MCH 33.2 pg (26.0-30.0) H 10/28/18 06:00 MCHC Differential 34.1 pg (28.0-36.0) 10/28/18 06:00 RDW 13.0 % (11.5-20.0) 10/28/18 06:00 Plt Count 182 Th/cmm (150-400) 10/28/18 06:00 MPV 9.6 fl 10/28/18 06:00 Neutrophils % 57.0 % (40.0-80.0) 10/28/18 06:00 Lymphocytes % 33.4 % (20.0-50.0) 10/28/18 06:00 Monocytes % 7.9 % (2.0-10.0) 10/28/18 06:00 Eosinophils % 1.1 % (0.0-5.0) 10/28/18 06:00 Basophils % 0.6 % (0.0-2.0) 10/28/18 06:00 PT 11.3 SECONDS (9.5-11.5) 10/25/18 19:10 INR 1.09 (0.5-1.4) 10/25/18 19:10 PTT (Actin FS) 28.3 SECONDS (26.0-38.0) 10/25/18 19:10 Sodium 147 mEq/L (136-145) H 10/29/18 05:55 Potassium 3.5 mEq/L (3.5-5.1) 10/29/18 05:55 Chloride 112 mEq/L (98-107) H 10/29/18 05:55 Carbon Dioxide 27.4 mEq/L (21.0-31.0) 10/29/18 05:55 Anion Gap 11.1 (7.0-16.0) 10/29/18 05:55 BUN 12 mg/dL (7-25) 10/29/18 05:55 Creatinine 0.3 mg/dL (0.7-1.3) L 10/29/18 05:55 Est GFR ( Amer) > 60.0 ml/min (>90) 10/29/18 05:55 Est GFR (Non-Af Amer) > 60.0 ml/min 10/29/18 05:55 BUN/Creatinine Ratio 40.0 10/29/18 05:55 Glucose 119 mg/dL (70-105) H 10/29/18 05:55 POC Glucose 144 MG/DL (70 - 105) H 10/26/18 17:51 Whole Bld Lactic Acid 1.11 mmol/L (0.60-1.99) 10/25/18 19:10 Calcium 9.4 mg/dL (8.6-10.3) 10/29/18 05:55 Magnesium 2.2 mg/dL (1.9-2.7) 10/29/18 05:55 Total Bilirubin 0.5 mg/dL (0.3-1.0) 10/27/18 07:10 AST 30 U/L (13-39) 10/27/18 07:10 ALT 36 U/L (7-52) 10/27/18 07:10 Alkaline Phosphatase 71 U/L (34-104) 10/27/18 07:10 Ammonia 76 umol/L (16-53) H 10/27/18 07:10 Creatine Kinase 550 U/L (30-223) H 10/25/18 19:10 CK-MB (CK-2) 9.2 ng/mL (0.6-6.3) H 10/25/18 19:10 Troponin I 0.01 ng/mL (0.01-0.05) 10/25/18 19:10 B-Natriuretic Peptide 70.6 pg/mL (5.0-100.0) 10/29/18 05:55 Total Protein 7.5 gm/dL (6.0-8.3) 10/27/18 07:10 Albumin 4.2 gm/dL (4.2-5.5) 10/27/18 07:10 Globulin 3.3 gm/dL 10/27/18 07:10 Albumin/Globulin Ratio 1.3 (1.0-1.8) 10/27/18 07:10 Amylase 14 U/L (29-103) L 10/25/18 19:10 Lipase 8 U/L (11-82) L 10/25/18 19:10 Urine Source CLEAN C 10/26/18 04:00 Urine Color DARK YELLOW 10/26/18 04:00 Urine Clarity CLOUDY (CLEAR) 10/26/18 04:00 Urine pH 8.5 (4.6 - 8.0) 10/26/18 04:00 Ur Specific [place] 1.020 (1.005-1.030) 10/26/18 04:00 Urine Protein 30 mg/dL (NEGATIVE) H 10/26/18 04:00 Urine Glucose (UA) NEGATIVE mg/dL (NEGATIVE) 10/26/18 04:00 Urine Ketones 15 mg/dL (NEGATIVE) H 10/26/18 04:00 Urine Blood NEGATIVE (NEGATIVE) 10/26/18 04:00 Urine Nitrate NEGATIVE (NEGATIVE) 10/26/18 04:00 Urine Bilirubin SMALL (NEGATIVE) H 10/26/18 04:00 Urine Urobilinogen 0.2 E.U./dL (0.2 - 1.0) 10/26/18 04:00 Ur Leukocyte Esterase TRACE (NEGATIVE) H 10/26/18 04:00 Urine RBC 10-25 /hpf (0-5) H 10/26/18 04:00 Urine WBC 0-2 /hpf (0-5) 10/26/18 04:00 Ur Epithelial Cells RARE /lpf (FEW) 10/26/18 04:00 Triple Phos Crystals MANY /hpf (FEW) 10/26/18 04:00 Amorphous Sediment FEW PHOSPHATES (NONE SEEN) 10/26/18 04:00 Urine Bacteria FEW /hpf (NONE SEEN) 10/26/18 04:00 Levetiracetam 3.6 ug/mL (10.0-40.0) L 10/25/18 19:10 - Physical Exam Vitals and I&O: Vital Signs Temp 97.4 F 10/30/18 04:00 Pulse 86 10/30/18 06:15 Resp 18 10/30/18 06:15 BP 106/70 10/30/18 04:00 Pulse Ox 98 10/30/18 06:15 Intake & Output 10/29/18 10/29/18 10/30/18 06:59 18:59 06:59 Intake Total 50 1000 Balance 50 1000 Weight (lbs) 56.699 kg 56.699 kg 56.699 kg Intake: Intake, IV Amount 50 1000 D5-0.45NS 1,000 ml @ 50 1000 mls/hr IV .Q20H [facility] Rx#: [id number] cefTRIAXone 1 gm In 50 Sodium Chloride 0.9% 50 ml @ 100 mls/hr IV Q24HR [facility] Rx#:[id number] Other: # Voids 2 2 2 # Bowel Movements 0 1 1 Stool Characteristics Soft Soft Liquid Liquid Brown Brown Weight Source Bedscale Bedscale Bedscale Active Medications: Current Medications Acetaminophen (Tylenol) 650 mg PO Q4H PRN PRN Reason: Pain Or Fever above 101 Stop: 12/24/18 21:30 Last Admin: 10/29/18 20:46 Dose: 650 mg Albuterol Sulfate (Albuterol 2.5mg/3ml Neb Ud) 2.5 mg HHN Q2HRT PRN PRN Reason: Shortness of Breath or Wheeze Stop: 12/24/18 21:30 Last Admin: 10/29/18 09:08 Dose: 2.5 mg Artificial Tears (Artificial Tears Ophth Soln) 1 drop EACH EYE QID [facility] Stop: 12/25/18 16:59 Last Admin: 10/29/18 20:43 Dose: 1 drop Ascorbic Acid (Vitamin C) 500 mg GT BID [facility] Stop: 12/25/18 08:59 Last Admin: 10/29/18 17:00 Dose: 500 mg Clonazepam (Klonopin) 0.5 mg GT TID [facility] Stop: 12/24/18 21:59 Last Admin: 10/29/18 20:49 Dose: 0.5 mg Ceftriaxone Sodium 1 gm/ (Sodium Chloride) 50 mls @ 100 mls/hr IV Q24HR [facility] Stop: 12/25/18 19:59 Last Admin: 10/29/18 20:41 Dose: 100 mls/hr Dextrose/Sodium Chloride (D5-0.45ns) 1,000 mls @ 50 mls/hr IV .Q20H [facility] Stop: 12/26/18 12:44 Last Admin: 10/29/18 13:13 Dose: 50 mls/hr Ipratropium [place] (Atrovent Neb 0.5mg/2.5ml) 0.5 mg HHN Q2HRT PRN PRN Reason: Shortness of Breath or Wheeze Stop: 12/24/18 21:30 Last Admin: 10/29/18 09:08 Dose: 0.5 mg Lactulose (Cephulac) 20 gm GT BID [facility] Stop: 12/27/18 16:59 Last Admin: 10/29/18 17:00 Dose: 20 gm Levetiracetam (Keppra) 1,000 mg GT BID [facility] Stop: 12/24/18 21:59 Last Admin: 10/29/18 17:00 Dose: 1,000 mg Lorazepam (Ativan) 1 mg IV Q4H PRN; Protocol PRN Reason: Seizure Stop: 12/24/18 21:30 Last Admin: 10/29/18 20:38 Dose: 1 mg Mineral Oil (Mineral Oil 30 Ml) 30 ml GT BID [facility] Stop: 12/25/18 08:59 Last Admin: 10/29/18 16:59 Dose: 30 ml Ondansetron HCl (Zofran) 4 mg IV Q8H PRN PRN Reason: Nausea / Vomiting Stop: 12/24/18 21:30 Pantoprazole Sodium (Protonix) 40 mg PO BID [facility] Stop: 12/28/18 16:59 Last Admin: 10/29/18 16:59 Dose: 40 mg Polyethylene Glycol (Miralax) 17 gm GT DAILY [facility] Stop: 12/25/18 08:59 Last Admin: 10/29/18 09:49 Dose: 17 gm Primidone (Mysoline) 50 mg GT BID [facility] Stop: 12/24/18 21:59 Last Admin: 10/29/18 16:59 Dose: 50 mg Simethicone (Mylicon) 80 mg GT QID [facility] Stop: 12/25/18 08:59 Last Admin: 10/29/18 20:49 Dose: 80 mg Sodium Phosphate (Fleet Enema) 135 ml RC Q12H PRN PRN Reason: Constipation Stop: 12/24/18 21:25 Last Admin: 10/28/18 01:21 Dose: 135 ml General: no Alert HEENT: Atraumatic Neck: Supple Cardiovascular: Regular rate Abdomen: Bowel sounds, Soft, no Tender, no Hepatomegaly, no Splenomegaly, no Distended, no Rebound, no Mass - Procedures Procedures: Procedures Procedure Code Date CHANGE GASTROSTOMY TUBE 68788 05/19/14 DIAGNOSTIC COLONOSCOPY 58233 10/22/16 DRAINAGE OF SKIN ABSCESS 73512 07/16/10 EGD BIOPSY SINGLE/MULTIPLE 58646 11/01/12 EMERGENCY DEPT VISIT 17571 07/12/11 ESOPHAGOGASTRODUODENOSCOPY [EGD] W/CLOSED BIOPSY 45.16 11/01/12 INSPECTION OF LOWER INTESTINAL TRACT, ENDO 4TUD8NS 10/22/16 OTHER SKIN & SUBQ I D 86.04 07/16/10 REPLACE GASTROSTOMY TUBE 97.02 05/19/14 Assessment/Plan - Assessment Assessment: 1. Abdominal distention from fecal impaction 2. Dysphagia on G tubes 3. Constipation Impaction is resolving with strong bowel regimen. Plan: - Continue with stool softeners through G tube. Current regimen appears to be working just fine - KUB tomorrow if still here - supportive care and management - cont tube feeds at 40cc/hr - Will follow
[2018-10-30] MEDS: D5-0.45NS 1,000 ML IV SCH (09:33)
[2018-10-30] MEDS: POLYETHYLENE GLYCOL 3350 17 GM PACK GT SCH (09:34)
[2018-10-30] MEDS: Lactulose 10 Gm/15 mL 30mL UDC GT SCH ×2 (09:34→16:17)
[2018-10-30] MEDS: Polyvinyl Alcohol Ophth Soln 15 mL Bottle EACH EYE SCH ×3 (09:34→16:17)
[2018-10-30] MEDS: Levetiracetam 500 mg/5mL 5mL UDSyr *for ORAL USE ONLY GT SCH ×2 (09:34→16:17)
[2018-10-30] MEDS: Multivitamin w/ Minerals Tab GT SCH (09:35)
[2018-10-30] MEDS: Pantoprazole 40 mg EC Tab PO SCH ×2 (09:35→16:18)
--- NOTE | 2018-10-30 10:58 | Diagnostic Imaging Report ---
CHEST X-RAY: AP view INDICATION: Hypoxia COMPARISON: 10/28/2016 FINDINGS: Low lung volumes are seen with increased bibasal lung markings. Heart size cannot be well assessed due to patient's low lung volumes. There may be a trace right effusion. Gas-distended bowel loops and stomach are seen along the upper abdomen with percutaneous feeding tube. IMPRESSION: Low lung volume increased bibasilar lung markings which may be due to atelectasis, however, infiltrate cannot be excluded Gas distended stomach and bowel loops
--- NOTE | 2018-10-30 14:25 | Discharge Summary ---
DATE OF DISCHARGE: 10/30/2018 CHIEF COMPLAINT: Abdominal pain and redness around the G-tube area. DIAGNOSES: G-tube site cellulitis, abdominal pain secondary to fecal impaction, leukocytosis, dehydration, cerebral palsy, seizure, generalized contractures. HISTORY: This is a 48-year-old male with history of seropositive mental retardation, hypertension, seizure, and generalized contracture sent from nursing facility secondary to abdominal distention and pain. The patient diagnosed with G-tube cellulitis and admitted for further management. PHYSICAL EXAMINATION: VITAL SIGNS: Blood pressure 108/83, respirations 18, pulse ____, temperature 97.6. GENERAL: Elderly male, appears chronically ill. NECK: Supple. LUNGS: Equal breath sounds, few rhonchi. HEART: Regular rate and rhythm without appreciable murmur. ABDOMEN: Soft, globular. Positive G-tube. EXTREMITIES: Positive excoriation. HOSPITAL COURSE: The patient was admitted to medical floor: The patient was referred to Dr. Cevallos for GI. The patient was given ____ of CT of the abdomen and pelvis showed fecal impaction. The patient was having a bowel movement here. The patient to continue on antibiotic at nursing facility. CONDITION ON DISCHARGE: Fair. OVERALL PROGNOSIS: Poor. DISCHARGE INSTRUCTIONS: The patient to continue with laxative as well as p.o. antibiotic. We will follow closely at the nursing facility. JOB# [id number]
== END 2018-10-30 17:55 | DRG 252 ==
LOC: ER 17:11 → MSI 21:37
PROVIDERS: ADMIT Internal Medicine; ATTEND Internal Medicine
DX: K94.22 Gastrostomy infection (principal); R53.2 Functional quadriplegia; L03.311 Cellulitis of abdominal wall; R13.10 Dysphagia, unspecified; E86.0 Dehydration; G80.9 Cerebral palsy, unspecified; I10 Essential (primary) hypertension; K21.9 Gastro-esophageal reflux disease without esophagitis; K56.41 Fecal impaction; K63.89 Other specified diseases of intestine; Y83.3 Surgical operation with formation of external stoma as the cause of abnormal reaction of the patient, or of later complication, without mention of misadventure at the time of the procedure; G40.909 Epilepsy, unspecified, not intractable, without status epilepticus; Y92.89 Other specified places as the place of occurrence of the external cause
CPT/HCPCS: 36415-UA; 71045-TC; 74000-TC; 80048-TC; 80053-TC; 80299-90; 81001-TC; 82140-TC; 82150-TC; 82550-TC; 82553; 82948-90; 83605; 83690-TC; 83735-TC; 83880-TC; 84484-TC; 85025-TC; 85610-TC; 85730-TC; 90779; 90799; 93005; 94760; C9113; J0696; J2060; J2765; J7030; J7042; J7613; Z7610